=== PATIENT | female | born 2000 | race Caucasian/White ===

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

== ENCOUNTER 2020-01-02 06:12 | Day surgery (SDC) | payer BC, OTHER ==
[2019-12-28 16:16] VITALS: BMI 19.1
[~2020-01-02 06:12] MED LIST changes: +ACETAMINOPHEN TAB 500 MG TAB PO ONE; +DEXAMETHASONE SOD PHOSPHATE 10 MG/ML 1 ML VIAL IV ONE; +HEPARIN SODIUM,PORCINE 5,000 UNIT/ML 1 ML VIAL SQ ONE; +LACTATED RINGERS 1,000 ML IV SCH; +MIDAZOLAM 2 MG/2 ML VIAL IV PRN; +ONDANSETRON 4 MG/2 ML VIAL IVP ONE; +SCOPOLAMINE 1.5MG/72HR PATCH TRANSDERM ONE; -SODIUM CHLORIDE 0.9% 1,000 ML IV SCH
[2020-01-02] MEDS ORDERED: LIDOCAINE 1% (10MG/ML) FOR IV START INTRADERMA ONE (07:04)
[2020-01-02] MEDS ORDERED: LIDOCAINE 1%-EPI 1:100,000 20 ML VIAL SQ ONE (07:36)
[2020-01-02] MEDS ORDERED: NEOSTIGMINE 1 MG/ML 10 ML VIAL ONE (07:37)
[2020-01-02] MEDS ORDERED: GLYCOPYRROLATE 0.2 MG/ML 2 ML VIAL ONE (07:37)
[2020-01-02] MEDS ORDERED: fentaNYL (PF) 50 MCG/ML 2 ML AMP ONE (07:37)
[2020-01-02] MEDS ORDERED: PROPOFOL 10 MG/ML 20 ML VIAL IV ONE (07:37)
[2020-01-02] MEDS ORDERED: SUCCINYLCHOLINE CHLORIDE 100 MG/5 ML SYR IV ONE (07:37)
[2020-01-02] MEDS ORDERED: LIDOCAINE 1% INJ 10MG/ML (20 ML MDV) ONE (07:37)
[2020-01-02] MEDS ORDERED: ROCURONIUM 10 MG/ML (10 ML VIAL) IV ONE (07:37)
[2020-01-02] MEDS ORDERED: MIDAZOLAM 2 MG/2 ML VIAL ONE (07:37)
--- NOTE | 2020-01-02 07:53 | P.GSHP ---
History of Present Illness H&P Date: 01/02/20 Chief Complaint: Resident quadrant pain This a [age] female with complaints of right quadrant pain. Her recent HIDA scan shows a diminished ejection fraction consistent with chronic cholecystitis and biliary dyskinesia. she presents today for laparoscopic cholecystectomy. Past Medical History Past Medical History: Asthma, Syncope Additional Past Medical History / Comment(s): Low BP. Hx fainting episodes occasionally since 2015, was told could be her low BP-not sure, recent admission in hospital beginning of December for abd. pain & diarrhea-dx. w/C-diff, finished antibiotics, no active diarrhea for about a week per pt. History of Any Multi-Drug Resistant Organisms: C-DIFF Date of last positivie culture/infection: 12/08/19 MDRO Source:: stool Past Surgical History: No Surgical Hx Reported Additional Past Surgical History / Comment(s): EGD Past Anesthesia/Blood Transfusion Reactions: No Reported Reaction Additional Past Anesthesia/Blood Transfusion Reaction / Comment(s): scope 11/2019 Smoking Status: Never smoker - Past Family History Mother Family Medical History: No Reported History Additional Family Medical History / Comment(s): Has gallbladder issues. Father Family Medical History: No Reported History Medications and Allergies Home Medications Medication Instructions Recorded Confirmed Type Norgestimate-Ethinyl Estradiol 1 tab PO HS 08/30/15 01/02/20 History [Tri-Sprintec Tablet] Loratadine [Claritin] 10 mg PO HS 11/23/19 01/02/20 History Allergies Allergy/AdvReac Type Severity Reaction Status Date / Time No Known Allergies Allergy Verified 12/28/19 16:08 Surgical - Exam Vital Signs Temp Pulse Resp BP Pulse Ox 97.5 F L 99 16 129/80 100 01/02/20 06:45 01/02/20 06:45 01/02/20 06:45 01/02/20 06:45 01/02/20 06:45 - General well developed, well nourished, no distress - Eyes PERRL - ENT normal pinna - Neck no masses - Respiratory normal expansion - Cardiovascular Rhythm: regular - Abdomen Abdomen: soft, non tender Assessment and Plan Assessment: Chronic cholecystitis. We'll perform laparoscopic cholecystectomy.
--- NOTE | 2020-01-02 08:23 | P.OP ---
Date of Procedure: 01/02/20 Preoperative Diagnosis: Cholecystitis Postoperative Diagnosis: Cholecystitis Procedure(s) Performed: Laparoscopic cholecystectomy Anesthesia: IRENE Surgeon: Boris Vee Estimated Blood Loss (ml): 10 Pathology: other (Gallbladder) Condition: stable Disposition: PACU Description of Procedure: The patient was placed on the operating table. The patient received a general endotracheal tube anesthesia. The patients abdomen was prepped and draped in the usual sterile fashion. Through an infraumbilical stab incision, the fascia of the anterior abdominal wall was grasped with a pair of Kochers and then the Veress needle was placed in the peritoneal cavity. Position of the Veress needle was confirmed with positive drop test. The abdomen was then insufflated. After adequate insufflation, the 10 mm trocar was placed in the peritoneal cavity. Following this the laparoscope was placed in the peritoneal cavity. The patient was placed in the head-up, right side up position and then a 5 mm trocar was placed in the right lateral and right subcostal position under direct visualization. A 8 mm trocar was placed in the epigastric position. The gallbladder was grasped in the fundus and infundibulum. Traction on the gallbladder was placed in the lateral and the cephalad positions. The triangle of Calot was visualized.. The cystic duct was bluntly dissected until the union of the cystic duct and common bile duct was seen. A critical view of safety was achieved. The cystic duct was then divided and sealed with the Harmonic scissors. A PDS Endoloop was then placed throughout the cystic duct stump. The cystic artery divided and sealed with the Harmonic scissors. The gallbladder was then removed from the liver bed using Harmonic scissors. The gallbladder was then extracted through the epigastric port site. Operative field was checked for any bleeding spots and Harmonic scissors was used to coagulate the liver bed. The abdomen was irrigated. The trocars were removed. The skin was closed using interrupted 3-0 Vicryl suture. Dermabond dressing were applied. The patient tolerated the procedure well.
[2020-01-02 08:37] VITALS: TEMP 97.9
[2020-01-02] MEDS: HYDROmorphone 0.5 MG/0.5 ML SYRINGE IVP PRN ×2 (08:39→09:00)
[2020-01-02 08:48] VITALS: RESP 16
[2020-01-02] MEDS ORDERED: SODIUM CHLORIDE 0.9% 1,000 ML IV ONE ×2 (09:02)
[2020-01-02] MEDS ORDERED: ONDANSETRON 4 MG/2 ML VIAL ONE (09:27)
[2020-01-02] MEDS ORDERED: ONDANSETRON 4 MG/2 ML VIAL IVP ONE (09:29)
[2020-01-02] MEDS ORDERED: diphenhydrAMINE 50 MG/ML 1 ML VIAL ONE (10:14)
[2020-01-02] MEDS ORDERED: diphenhydrAMINE 50 MG/ML 1 ML VIAL IVP ONE (10:18)
[2020-01-02 10:41] VITALS: BP 120/91; PULSE 70
== END 2020-01-02 11:16 | disposition home or self-care (01) ==
LOC: OR 06:12
PROVIDERS: ATTEND Surgery
DX: K81.2 Acute cholecystitis with chronic cholecystitis (principal); J45.909 Unspecified asthma, uncomplicated; Z79.3 Long term (current) use of hormonal contraceptives; Z79.899 Other long term (current) drug therapy; Z86.19 Personal history of other infectious and parasitic diseases; Z98.890 Other specified postprocedural states
CPT/HCPCS: 81025; 88304; 47562; J2250; J1200; J1644; J1100; J2710; J0690; J2405; J2001; J3010; J0330; J2704; J1170

== ENCOUNTER 2020-01-02 14:02 | Observation (INO) | payer BC, OTHER ==
[2020-01-02] MEDS ORDERED: METOCLOPRAMIDE 5 MG/ML 2 ML VIAL IVP STA (14:34)
[2020-01-02] MEDS ORDERED: SODIUM CHLORIDE 0.9% 1,000 ML IV ONE (14:36)
[2020-01-02] MEDS ORDERED: ONDANSETRON 4 MG/2 ML VIAL IVP STA (14:43)
[2020-01-02 14:47] LABS: Basophils % (A) 0 %; Eosinophils % (A) 0 %; HCT 36.2 % (34.0-46.0); HGB 11.4 gm/dL (11.4-16.0); Hypochromasia Slight; Lymphocytes # (A) 0.8 k/uL (1.0-4.8); Lymphocytes % (A) 8 %; MCH 24.5 pg (25.0-35.0); MCHC 31.6 g/dL (31.0-37.0); MCV 77.6 fL (80.0-100.0); Mean Platelet Volume 7.2; Microcytosis Slight; Monocytes # (A) 0.1 k/uL (0-1.0); Monocytes % (A) 1 %; Neutrophils # (A) 9.6 k/uL (1.3-7.7); Neutrophils % (A) 91 %; Platelet Count 343 k/uL (150-450); RBC 4.66 m/uL (3.80-5.40); RDW 15.9 % (11.5-15.5); WBC 10.6 k/uL (4.0-11.0)
--- NOTE | 2020-01-02 14:55 | ED ---
General Adult HPI - General Chief complaint: Nausea/Vomiting/Diarrhea Stated complaint: Post Op vomiting Time Seen by Provider: 01/02/20 14:23 Source: patient, family, RN notes reviewed, old records reviewed Mode of arrival: wheelchair Limitations: no limitations - History of Present Illness Initial comments: 19-year-old female patient to ED for nausea and vomiting. Patient was that she had a cholecystectomy performed today. Had this done at about 6 AM. Reports that since she was released from the hospital around 10 AM she has had nausea and vomiting. Denies any other complaints. - Related Data Home Medications Medication Instructions Recorded Confirmed Norgestimate-Ethinyl Estradiol 1 tab PO HS 08/30/15 01/02/20 [Tri-Sprintec Tablet] Loratadine [Claritin] 10 mg PO HS 11/23/19 01/02/20 Previous Rx's Medication Instructions Recorded Acetaminophen Tab [Tylenol] 650 mg PO Q6H #30 tab 01/02/20 Docusate [Colace] 100 mg PO BID #20 capsule 01/02/20 Ibuprofen [Motrin] 600 mg PO Q6HR PRN #40 tab 01/02/20 oxyCODONE HCL [OxyIR] 5 mg PO Q4H PRN 3 Days #18 tab 01/02/20 Allergies Allergy/AdvReac Type Severity Reaction Status Date / Time No Known Allergies Allergy Verified 01/02/20 15:09 Review of Systems ROS Statement: Those systems with pertinent positive or pertinent negative responses have been documented in the HPI. ROS Other: All systems not noted in ROS Statement are negative. Past Medical History Past Medical History: Asthma, Syncope Additional Past Medical History / Comment(s): Low BP. Hx fainting episodes occasionally since 2015, was told could be her low BP-not sure, recent admission in hospital beginning of December for abd. pain & diarrhea-dx. w/C-diff, finished antibiotics, no active diarrhea for about a week per pt. History of Any Multi-Drug Resistant Organisms: C-DIFF Date of last positivie culture/infection: 12/08/19 MDRO Source:: stool Past Surgical History: Cholecystectomy Additional Past Surgical History / Comment(s): EGD Past Anesthesia/Blood Transfusion Reactions: No Reported Reaction Additional Past Anesthesia/Blood Transfusion Reaction / Comment(s): scope 11/2019 Past Psychological History: No Psychological Hx Reported Smoking Status: Never smoker Past Alcohol Use History: None Reported Past Drug Use History: Marijuana - Past Family History Mother Family Medical History: No Reported History Additional Family Medical History / Comment(s): Has gallbladder issues. Father Family Medical History: No Reported History General Exam - General Exam Comments Initial Comments: Constitutional: NAD, AOX3, Pt has pleasant affect. HEENT: NC/AT, trachea midline, neck supple, no lymphadenopathy. External ears appear normal, without discharge. Mucous membranes moist. Eyes PERRLA, EOM intact. There is no scleral icterus. No pallor noted. Cardiopulmonary: RRR, no murmurs, rubs or gallops, no JVD noted. Lungs CTAB in anterior and posterior hall. No peripheral edema. Abdominal exam: Abdomen soft and non-distended. Abdomen non-tender to palpation in all 4 quadrants. Bowel sounds active in LLQ. No hepatosplenomegaly. No ecchymosis Neuro: CN II-XII grossly intact. No nuchal rigidity. MSK: Full active ROM in upper and lower extremities, 5/5 stregnth. Limitations: no limitations Course Vital Signs 01/02/20 01/02/20 01/02/20 14:18 16:12 16:26 Temperature 97.9 F Pulse Rate 99 81 81 Respiratory 18 16 16 Rate Blood Pressure 132/80 136/82 127/85 O2 Sat by Pulse 97 99 96 Oximetry 01/02/20 18:39 Temperature Pulse Rate 93 Respiratory 16 Rate Blood Pressure 127/86 O2 Sat by Pulse 98 Oximetry Medical Decision Making - Medical Decision Making 19 year old female patient who had laparoscopic cholecystectomy earlier today presents to ED for intractable nausea and vomiting. multiple medications attem pted patient still having nausea and vomiting. Will be admitted for observation to Dr. Rider who performed surgery. Case discussed with Dr. Velarde. - Lab Data Result diagrams: 01/02/20 14:41 01/02/20 14:41 Lab Results 01/02/20 01/02/20 Range/Units 14:41 14:41 WBC 10.6 (4.0-11.0) k/uL RBC 4.66 (3.80-5.40) m/uL Hgb 11.4 (11.4-16.0) gm/dL Hct 36.2 (34.0-46.0) % MCV 77.6 L (80.0-100.0) fL MCH 24.5 L (25.0-35.0) pg MCHC 31.6 (31.0-37.0) g/dL RDW 15.9 H (11.5-15.5) % Plt Count 343 (150-450) k/uL Neutrophils % 91 % Lymphocytes % 8 % Monocytes % 1 % Eosinophils % 0 % Basophils % 0 % Neutrophils # 9.6 H (1.3-7.7) k/uL Lymphocytes # 0.8 L (1.0-4.8) k/uL Monocytes # 0.1 (0-1.0) k/uL Eosinophils # 0.0 (0-0.7) k/uL Basophils # 0.0 (0-0.2) k/uL Hypochromasia Slight Microcytosis Slight Sodium 133 L (137-145) mmol/L Potassium 4.3 (3.5-5.1) mmol/L Chloride 105 (98-107) mmol/L Carbon Dioxide 16 L (22-30) mmol/L Anion Gap 12 mmol/L BUN 5 L (7-17) mg/dL Creatinine 0.60 (0.52-1.04) mg/dL Est GFR (CKD-EPI)AfAm >90 (>60 ml/min/1.73 sqM) Est GFR (CKD-EPI)NonAf >90 (>60 ml/min/1.73 sqM) Glucose 140 H (74-99) mg/dL Calcium 8.9 (8.4-10.2) mg/dL Total Bilirubin 0.8 (0.2-1.3) mg/dL AST 55 H (14-36) U/L ALT 73 H (4-34) U/L Alkaline Phosphatase 117 (38-126) U/L Total Protein 7.7 (6.3-8.2) g/dL Albumin 4.1 (3.5-5.0) g/dL Disposition Clinical Impression: Intractable nausea and vomiting Disposition: ADMITTED IP TO THIS HOSP Condition: Fair Is patient prescribed a controlled substance at d/c from ED?: No Referrals: Barrie Jin DO [Primary Care Provider] - 1-2 days
[2020-01-02 14:56] LABS: ALT 73 U/L (4-34); AST 55 U/L (14-36); African American GFR (CKD) >90 (>60 ml/min/1.73 sqM); Albumin 4.1 g/dL (3.5-5.0); Alkaline Phosphatase 117 U/L (38-126); Anion Gap 12 mmol/L; Blood Urea Nitrogen 5 mg/dL (7-17); Calcium 8.9 mg/dL (8.4-10.2); Carbon Dioxide 16 mmol/L (22-30); Chloride 105 mmol/L (98-107); Glucose 140 mg/dL (74-99); Non-African American GFR(CKD) >90 (>60 ml/min/1.73 sqM); Potassium 4.3 mmol/L (3.5-5.1); Sodium 133 mmol/L (137-145); Total Bilirubin 0.8 mg/dL (0.2-1.3); Total Protein 7.7 g/dL (6.3-8.2)
[2020-01-02] MEDS ORDERED: PROMETHAZINE INJ 25 MG in SODIUM CHLORIDE 0.9% 50 ML IVPB STA (15:06)
[2020-01-02] MEDS ORDERED: diphenhydrAMINE 50 MG/ML 1 ML VIAL IVP STA (16:13)
[2020-01-02] MEDS ORDERED: DIAZEPAM 5 MG/ML 2 ML INJ IVP STA ×2 (16:28→17:43)
[2020-01-02] MEDS ORDERED: HYDROmorphone 0.5 MG/0.5 ML SYRINGE IVP STA (18:14)
[2020-01-02] MEDS ORDERED: SODIUM CHLORIDE 0.9% 1,000 ML IV SCH (18:30)
[2020-01-02] MEDS ORDERED: DEXTROSE 5%-0.45% NACL 1,000 ML IV ONE (19:09)
[2020-01-02] MEDS ORDERED: NALOXONE 0.4 MG/ML 1 ML VIAL IV PRN (19:19)
[2020-01-02] MEDS ORDERED: HYDROmorphone 0.5 MG/0.5 ML SYRINGE IVP PRN (19:19)
[2020-01-02] MEDS ORDERED: ONDANSETRON 4 MG/2 ML VIAL IVP PRN (19:19)
[2020-01-02] MEDS ORDERED: METOCLOPRAMIDE 5 MG/ML 2 ML VIAL IVP PRN (19:33)
[2020-01-03] MEDS ORDERED: diphenhydrAMINE 50 MG/ML 1 ML VIAL IVP PRN (00:36)
[2020-01-03] MEDS ORDERED: PROMETHAZINE INJ 25 MG in SODIUM CHLORIDE 0.9% 50 ML IVPB PRN (01:00)
[2020-01-03 08:40] VITALS: BP 106/69; PULSE 70; RESP 18; TEMP 98.1
[2020-01-03] MEDS ORDERED: BENZOCAINE/MENTHOL LOZENG 1 EACH LOZENGE MUCOUS MEM PRN (11:55)
--- NOTE | 2020-01-03 12:08 | P.GSHP ---
History of Present Illness H&P Date: 01/03/20 CHIEF COMPLAINT: Nausea and vomiting HISTORY OF PRESENT ILLNESS: This is a 19-year-old female who had Laparoscopic cholecystectomy for cholecystitis with Dr. Vee yesterday. She also has a known history of C. diff, asthma and syncope. apparently patient had the procedure done around 6 AM and was discharged from the hospital around 10 AM. She reports that since she had been home she had nausea and vomiting. She was able to keep anything down. She came back into the emergency room for further evaluation. Patient was started on IV fluids. She is currently on a clear liquid diet and was only able to eat a Popsicle. She reports her abdominal pain is controlled. She denies any diarrhea. Denies any fever. She is passing gas PAST MEDICAL HISTORY: See list. PAST SURGICAL HISTORY: See list. MEDICATIONS: See list. ALLERGIES: See list. SOCIAL HISTORY: No illicit drug use. REVIEW OF SYSTEMS: CONSTITUTIONAL: Denies fever or chills. HEENT: Denies blurred vision, vision changes, or eye pain. Denies hemoptysis CARDIOVASCULAR: Denies chest pain or pressure. RESPIRATORY: No shortness of breath. GASTROINTESTINAL: See HPI for pertinent findings HEMATOLOGIC: Denies bleeding disorders. GENITOURINARY: Denies any blood in urine or increased urinary frequency. SKIN: Denies pruitis. Denies rash. PHYSICAL EXAM: VITAL SIGNS: Reviewed GENERAL: Well-developed in no acute distress. HEENT: No sclera icterus. Extraocular movements grossly intact. Moist buccal mucosa. Head is atraumatic, normocephalic. No nasal drainage. ABDOMEN: Soft. Nontender. Nondistended. Incision sites clean dry and intact NEUROLOGIC: Alert and oriented. Cranial nerves II through XII grossly intact. LABORATORY DATA: WBC 10.6 CO2 16 AST 55 ALT 73 Creatinine 0.60 IMAGING: ASSESSMENT: 1. Nausea and vomiting likely secondary to anesthesia From recent cholecystectomy 2. Status post laparoscopic cholecystectomy for cholecystitispostop day #1 PLAN: -Advance diet to a full liquid diet -Advised patient to not use narcotics and only use Tylenol for pain -Anticipating possible discharge later this afternoon if patient tolerates full liquid diet Physician Relief Worker note has been reviewed by physician. Signing provider agrees with the documented findings, assessment, and plan of care. Past Medical History Past Medical History: Asthma, Syncope Additional Past Medical History / Comment(s): Low BP. Hx fainting episodes o ccasionally since 2015, was told could be her low BP-not sure, recent admission in hospital beginning of December for abd. pain & diarrhea-dx. w/C-diff, finished antibiotics. History of Any Multi-Drug Resistant Organisms: C-DIFF Date of last positivie culture/infection: 12/08/19 MDRO Source:: stool Past Surgical History: Cholecystectomy Additional Past Surgical History / Comment(s): EGD Past Anesthesia/Blood Transfusion Reactions: Postoperative Nausea & Vomiting (PONV) Additional Past Anesthesia/Blood Transfusion Reaction / Comment(s): scope 11/2019 Past Psychological History: No Psychological Hx Reported Smoking Status: Never smoker Past Alcohol Use History: None Reported Past Drug Use History: Marijuana Additional Drug Use History / Comment(s): smokes marijuana daily. - Past Family History Mother Family Medical History: No Reported History Additional Family Medical History / Comment(s): Has gallbladder issues. Father Family Medical History: No Reported History Medications and Allergies Home Medications Medication Instructions Recorded Confirmed Type Norgestimate-Ethinyl Estradiol 1 tab PO HS 08/30/15 01/02/20 History [Tri-Sprintec Tablet] Loratadine [Claritin] 10 mg PO HS 11/23/19 01/02/20 History Allergies Allergy/AdvReac Type Severity Reaction Status Date / Time No Known Allergies Allergy Verified 01/02/20 15:09 Surgical - Exam Vital Signs Temp Pulse Resp BP Pulse Ox 97.9 F 99 18 132/80 97 01/02/20 14:18 01/02/20 14:18 01/02/20 14:18 01/02/20 14:18 01/02/20 14:18 Results - Labs 01/02/20 14:41 01/02/20 14:41 Abnormal Lab Results - Last 24 Hours (Table) 01/02/20 01/02/20 Range/Units 14:41 14:41 MCV 77.6 L (80.0-100.0) fL MCH 24.5 L (25.0-35.0) pg RDW 15.9 H (11.5-15.5) % Neutrophils # 9.6 H (1.3-7.7) k/uL Lymphocytes # 0.8 L (1.0-4.8) k/uL Sodium 133 L (137-145) mmol/L Carbon Dioxide 16 L (22-30) mmol/L BUN 5 L (7-17) mg/dL Glucose 140 H (74-99) mg/dL AST 55 H (14-36) U/L ALT 73 H (4-34) U/L Diabetes panel 01/02/20 Range/Units 14:41 Sodium 133 L (137-145) mmol/L Potassium 4.3 (3.5-5.1) mmol/L Chloride 105 (98-107) mmol/L Carbon Dioxide 16 L (22-30) mmol/L BUN 5 L (7-17) mg/dL Creatinine 0.60 (0.52-1.04) mg/dL Glucose 140 H (74-99) mg/dL Calcium 8.9 (8.4-10.2) mg/dL AST 55 H (14-36) U/L ALT 73 H (4-34) U/L Alkaline Phosphatase 117 (38-126) U/L Total Protein 7.7 (6.3-8.2) g/dL Albumin 4.1 (3.5-5.0) g/dL Calcium panel 01/02/20 Range/Units 14:41 Calcium 8.9 (8.4-10.2) mg/dL Albumin 4.1 (3.5-5.0) g/dL Pituitary panel 01/02/20 Range/Units 14:41 Sodium 133 L (137-145) mmol/L Potassium 4.3 (3.5-5.1) mmol/L Chloride 105 (98-107) mmol/L Carbon Dioxide 16 L (22-30) mmol/L BUN 5 L (7-17) mg/dL Creatinine 0.60 (0.52-1.04) mg/dL Glucose 140 H (74-99) mg/dL Calcium 8.9 (8.4-10.2) mg/dL Adrenal panel 01/02/20 Range/Units 14:41 Sodium 133 L (137-145) mmol/L Potassium 4.3 (3.5-5.1) mmol/L Chloride 105 (98-107) mmol/L Carbon Dioxide 16 L (22-30) mmol/L BUN 5 L (7-17) mg/dL Creatinine 0.60 (0.52-1.04) mg/dL Glucose 140 H (74-99) mg/dL Calcium 8.9 (8.4-10.2) mg/dL Total Bilirubin 0.8 (0.2-1.3) mg/dL AST 55 H (14-36) U/L ALT 73 H (4-34) U/L Alkaline Phosphatase 117 (38-126) U/L Total Protein 7.7 (6.3-8.2) g/dL Albumin 4.1 (3.5-5.0) g/dL
[2020-01-03] MEDS ORDERED: ACETAMINOPHEN TAB 325 MG TAB PO PRN (13:05)
[2020-01-03 14:45] LABS: African American GFR (CKD) >90 (>60 ml/min/1.73 sqM); Anion Gap 6 mmol/L; Blood Urea Nitrogen 2 mg/dL (7-17); Calcium 8.9 mg/dL (8.4-10.2); Carbon Dioxide 24 mmol/L (22-30); Chloride 108 mmol/L (98-107); Glucose 110 mg/dL (74-99); Non-African American GFR(CKD) >90 (>60 ml/min/1.73 sqM); Sodium 138 mmol/L (137-145)
--- NOTE | 2020-01-03 15:18 | P.DS ---
Providers Date of admission: 01/02/20 20:25 Expected date of discharge: 01/03/20 Attending physician: Boris Vee Primary care physician: Barrie Jin Hospital Course: Discharge diagnosis 1. Nausea and vomiting likely secondary to anesthesia from recent cholecystectomy 2. Status post laparoscopic cholecystectomy for cholecystitis postop day #1 Hospital course This is a 19-year-old female who had Laparoscopic cholecystectomy for cholecystitis with Dr. Vee yesterday. She also has a known history of C. diff, asthma and syncope. apparently patient had the procedure done around 6 AM and was discharged from the hospital around 10 AM. She reports that since she had been home she had nausea and vomiting. She was able to keep anything down. She came back into the emergency room for further evaluation. Patient was st arted on IV fluids. She is currently on a clear liquid diet and was only able to eat a Popsicle. She reports her abdominal pain is controlled. She denies any diarrhea. Denies any fever. She is passing gas. Patient's nausea and vomiting have resolved. It was likely secondary to the anesthesia from her surgery. She's tolerated advancement to a full liquid diet. She is afebrile. She is up and ambulating. She is passing gas. She is stable for discharge. Please refer to chart for any further details. Physician Qa Consultant note has been reviewed by physician. Signing provider agrees with the documented findings, assessment, and plan of care. Patient Condition at Discharge: Stable Plan - Discharge Summary Discharge Rx Participant: No New Discharge Prescriptions: Continue Norgestimate-Ethinyl Estradiol [Tri-Sprintec Tablet] 1 tab PO HS Loratadine [Claritin] 10 mg PO HS Discharge Medication List Norgestimate-Ethinyl Estradiol [Tri-Sprintec Tablet] 1 tab PO HS 08/30/15 [History] Loratadine [Claritin] 10 mg PO HS 11/23/19 [History] Follow up Appointment(s)/Referral(s): Barrie Jin DO [Primary Care Provider] - 1-2 days Boris Vee MD [STAFF PHYSICIAN] - 1 Week Activity/Diet/Wound Care/Special Instructions: Diet: Advance diet slowly at home to a low-fat diet No lifting over 10 pounds You may shower. No soaking or tub baths For 2 weeks Very light activity until you are reevaluated at your follow up appointment with your surgeon Patient should alternate with her Tylenol and Motrin for pain control. She received these prescriptions yesterday. Do not take the oxycodone Prescription that she received yesterday it may contribute to nausea and vomiting Discharge Disposition: HOME SELF-CARE
== END 2020-01-03 15:45 | disposition home or self-care (01) ==
LOC: EC 14:02 → 6PED 20:25
PROVIDERS: ADMIT Surgery; ATTEND Surgery
DX: R11.2 Nausea with vomiting, unspecified (principal); T88.59XA Other complications of anesthesia, initial encounter; Z98.890 Other specified postprocedural states; J45.909 Unspecified asthma, uncomplicated; Z90.49 Acquired absence of other specified parts of digestive tract
CPT/HCPCS: 96361 ×3; 96376 ×2; 96365; 96375; 99285; 36415; 80053; 80048; 85025; G0378 ×2; J1200 ×2; J2550; J2765; J3360; J2405; J1170

== ENCOUNTER 2020-01-07 17:32 | Emergency (ER) | payer BC, OTHER ==
[2020-01-07] MEDS ORDERED: SODIUM CHLORIDE 0.9% 1,000 ML IV STA (18:38)
[2020-01-07] MEDS ORDERED: METOCLOPRAMIDE 5 MG/ML 2 ML VIAL IVP STA (18:38)
[2020-01-07 19:13] LABS: Basophils # (A) 0.1 k/uL (0-0.2); Basophils % (A) 1 %; Eosinophils # (A) 0.1 k/uL (0-0.7); Eosinophils % (A) 2 %; HCT 46.5 % (34.0-46.0); HGB 14.3 gm/dL (11.4-16.0); Hypochromasia Slight; Lymphocytes # (A) 2.4 k/uL (1.0-4.8); Lymphocytes % (A) 30 %; MCH 23.9 pg (25.0-35.0); MCHC 30.8 g/dL (31.0-37.0); MCV 77.7 fL (80.0-100.0); Mean Platelet Volume 7.3; Microcytosis Slight; Monocytes # (A) 0.5 k/uL (0-1.0); Monocytes % (A) 7 %; Neutrophils # (A) 4.5 k/uL (1.3-7.7); Neutrophils % (A) 56 %; Platelet Count 462 k/uL (150-450); RBC 5.98 m/uL (3.80-5.40); RDW 15.8 % (11.5-15.5)
[2020-01-07 19:16] LABS: Appearance,Urine Cloudy (Clear); Bilirubin,Urine Negative (Negative); Blood,Urine Large (Negative); Color,Urine Light Red; Glucose,Urine (UA) Negative (Negative); Ketones,Urine 3+ (Negative); Leukocyte Esterase,Urine Small (Negative); Mucus,Urine Many /hpf; Nitrite,Urine Negative (Negative); PH, Urine 5.5 (5.0-8.0); Protein,Urine 1+ (Negative); RBC,Urine >182 /hpf (0-5); Specific Gravity,Urine 1.018 (1.001-1.035); Squamous Epithelial Cell,Urine 7 /hpf (0-4); Urobilinogen,Urine <2.0 mg/dL (<2.0); WBC,Urine 17 /hpf (0-5)
--- NOTE | 2020-01-07 19:16 | ED ---
General Adult HPI - General Chief complaint: Nausea/Vomiting/Diarrhea Stated complaint: no appetite,dehydrated/post surgery 01/01 Time Seen by Provider: 01/07/20 18:11 Source: patient, RN notes reviewed, old records reviewed Mode of arrival: ambulatory Limitations: no limitations - History of Present Illness Initial comments: 19-year-old female patient who is status post cholecystectomy on 01/01 presents to ED for evaluation of nausea and some diarrhea. Patient feels as if she is dehydrated. She has not been wanting to eat because she becomes nauseous, She reports that her abdomen is feeling much improved and her discomfort is minimal. Denies any other comlaints. Systemic: Pt denies fatigue, fever/chills, rash. Pt denies weakness, night sweats, weight loss. Neuro: Pt denies headache, visual disturbances, syncope or pre-syncope. HEENT: Pt denies ocular discharge or irritation, otalgia, rhinorrhea, pharyngitis or notable lymphadenopathy. Cardiopulmonary: Pt denies chest pain, SOB, heart palpitations, dyspnea on exertion. Abdominal/GI: Pt denies abdominal pain. : Pt denies dysuria, burning w/ urination, frequency/urgency. Denies new onset urinary or bowel incontinence. MSK: Pt denies myalgia, loss of strength or function in extremities. Neuro: Pt denies new onset weakness, paresthesias. - Related Data Home Medications Medication Instructions Recorded Confirmed Norgestimate-Ethinyl Estradiol 1 tab PO HS 08/30/15 01/02/20 [Tri-Sprintec Tablet] Loratadine [Claritin] 10 mg PO HS 11/23/19 01/02/20 Allergies Allergy/AdvReac Type Severity Reaction Status Date / Time No Known Allergies Allergy Verified 01/07/20 17:39 Review of Systems ROS Statement: Those systems with pertinent positive or pertinent negative responses have been documented in the HPI. ROS Other: All systems not noted in ROS Statement are negative. Past Medical History Past Medical History: Asthma, Syncope Additional Past Medical History / Comment(s): Low BP. Hx fainting episodes occasionally since 2015, was told could be her low BP-not sure, recent admission in hospital beginning of December for abd. pain & diarrhea-dx. w/C-diff, finished antibiotics. History of Any Multi-Drug Resistant Organisms: C-DIFF Date of last positivie culture/infection: 12/08/19 MDRO Source:: stool Past Surgical History: Cholecystectomy Additional Past Surgical History / Comment(s): EGD Past Anesthesia/Blood Transfusion Reactions: Postoperative Nausea & Vomiting (PONV) Additional Past Anesthesia/Blood Transfusion Reaction / Comment(s): scope 11/2019 Past Psychological History: No Psychological Hx Reported Smoking Status: Never smoker Past Alcohol Use History: None Reported Past Drug Use History: Marijuana - Past Family History Mother Family Medical History: No Reported History Additional Family Medical History / Comment(s): Has gallbladder issues. Father Family Medical History: No Reported History General Exam - General Exam Comments Initial Comments: Constitutional: NAD, AOX3, Pt has pleasant affect. HEENT: NC/AT, trachea midline, neck supple, no lymphadenopathy. Posterior pharynx non erythematous, without exudates. External ears appear normal, without discharge. Mucous membranes moist. Eyes PERRLA, EOM intact. There is no scleral icterus. No pallor noted. Cardiopulmonary: RRR, no murmurs, rubs or gallops, no JVD noted. Lungs CTAB in anterior and posterior hall. No peripheral edema. Abdominal exam: Abdomen soft and non-distended. Abdomen minimally tender around the port site. Otherwise no tenderness. No guarding no rigidity. incision sites are clean without erythema or drainage. No hepatosplenomegaly. No ecchymosis Neuro: CN II-XII grossly intact. No nuchal rigidity. No raccon eyes, no hampton sign, no hemotympanum. No cervical spinal tenderness. MSK: No posterior calf tenderness bilaterally, homans sign negative bilaterally. Posterior tibialis and radial pulse +2 bilaterally. Sensation intact in upper and lower extremities. Full active ROM in upper and lower extremities, 5/5 stregnth. Limitations: no limitations Course Vital Signs 01/07/20 01/07/20 01/07/20 17:35 19:37 19:46 Temperature 99.0 F 98.7 F Pulse Rate 140 H 87 Respiratory 17 16 16 Rate Blood Pressure 121/83 128/94 O2 Sat by Pulse 96 99 Oximetry Medical Decision Making - Medical Decision Making 19-year-old female patient ED for nausea after cholecystectomy 6 days. Patient vital signs are stable, afebrile. Physical exam displayed minmal tenderness around port site abdomen is otherwise nontender. Laboratory investigations the displayed dehydration. Patient is rehydrated. KUB displayed unremarkable a bdomen. Patient tolerated oral intake and room. Patient has follow-up with surgeon on Thursday. Will turn urine any worsening symptoms. Case discussed with Dr. Navarro. - Lab Data Result diagrams: 01/07/20 18:54 01/07/20 18:54 Lab Results 01/07/20 01/07/20 01/07/20 Range/Units 18:46 18:46 18:54 WBC 8.0 (4.0-11.0) k/uL RBC 5.98 H (3.80-5.40) m/uL Hgb 14.3 (11.4-16.0) gm/dL Hct 46.5 H (34.0-46.0) % MCV 77.7 L (80.0-100.0) fL MCH 23.9 L (25.0-35.0) pg MCHC 30.8 L (31.0-37.0) g/dL RDW 15.8 H (11.5-15.5) % Plt Count 462 H (150-450) k/uL Neutrophils % 56 % Lymphocytes % 30 % Monocytes % 7 % Eosinophils % 2 % Basophils % 1 % Neutrophils # 4.5 (1.3-7.7) k/uL Lymphocytes # 2.4 (1.0-4.8) k/uL Monocytes # 0.5 (0-1.0) k/uL Eosinophils # 0.1 (0-0.7) k/uL Basophils # 0.1 (0-0.2) k/uL Hypochromasia Slight Microcytosis Slight Sodium (137-145) mmol/L Potassium (3.5-5.1) mmol/L Chloride (98-107) mmol/L Carbon Dioxide (22-30) mmol/L Anion Gap mmol/L BUN (7-17) mg/dL Creatinine (0.52-1.04) mg/dL Est GFR (CKD-EPI)AfAm (>60 ml/min/1.73 sqM) Est GFR (CKD-EPI)NonAf (>60 ml/min/1.73 sqM) Glucose (74-99) mg/dL Plasma Lactic Acid Alek (0.7-2.0) mmol/L Calcium (8.4-10.2) mg/dL Total Bilirubin (0.2-1.3) mg/dL AST (14-36) U/L ALT (4-34) U/L Alkaline Phosphatase (38-126) U/L Total Protein (6.3-8.2) g/dL Albumin (3.5-5.0) g/dL Lipase (23-300) U/L Urine Color Light Red Urine Appearance Cloudy H (Clear) Urine pH 5.5 (5.0-8.0) Ur Specific [place] 1.018 (1.001-1.035) Urine Protein 1+ H (Negative) Urine Glucose (UA) Negative (Negative) Urine Ketones 3+ H (Negative) Urine Blood Large H (Negative) Urine Nitrite Negative (Negative) Urine Bilirubin Negative (Negative) Urine Urobilinogen <2.0 (<2.0) mg/dL Ur Leukocyte Esterase Small H (Negative) Urine RBC >182 H (0-5) /hpf Urine WBC 17 H (0-5) /hpf Ur Squamous Epith Cells 7 H (0-4) /hpf Urine Mucus Many H (None) /hpf Urine HCG, Qual Not Detected (Not Detectd) 01/07/20 01/07/20 Range/Units 18:54 18:54 WBC (4.0-11.0) k/uL RBC (3.80-5.40) m/uL Hgb (11.4-16.0) gm/dL Hct (34.0-46.0) % MCV (80.0-100.0) fL MCH (25.0-35.0) pg MCHC (31.0-37.0) g/dL RDW (11.5-15.5) % Plt Count (150-450) k/uL Neutrophils % % Lymphocytes % % Monocytes % % Eosinophils % % Basophils % % Neutrophils # (1.3-7.7) k/uL Lymphocytes # (1.0-4.8) k/uL Monocytes # (0-1.0) k/uL Eosinophils # (0-0.7) k/uL Basophils # (0-0.2) k/uL Hypochromasia Microcytosis Sodium 136 L (137-145) mmol/L Potassium 4.4 (3.5-5.1) mmol/L Chloride 101 (98-107) mmol/L Carbon Dioxide 21 L (22-30) mmol/L Anion Gap 14 mmol/L BUN 14 (7-17) mg/dL Creatinine 0.69 (0.52-1.04) mg/dL Est GFR (CKD-EPI)AfAm >90 (>60 ml/min/1.73 sqM) Est GFR (CKD-EPI)NonAf >90 (>60 ml/min/1.73 sqM) Glucose 90 (74-99) mg/dL Plasma Lactic Acid Alek 1.2 (0.7-2.0) mmol/L Calcium 10.0 (8.4-10.2) mg/dL Total Bilirubin 1.0 (0.2-1.3) mg/dL AST 44 H (14-36) U/L ALT 148 H (4-34) U/L Alkaline Phosphatase 121 (38-126) U/L Total Protein 8.7 H (6.3-8.2) g/dL Albumin 4.8 (3.5-5.0) g/dL Lipase 40 (23-300) U/L Urine Color Urine Appearance (Clear) Urine pH (5.0-8.0) Ur Specific [place] (1.001-1.035) Urine Protein (Negative) Urine Glucose (UA) (Negative) Urine Ketones (Negative) Urine Blood (Negative) Urine Nitrite (Negative) Urine Bilirubin (Negative) Urine Urobilinogen (<2.0) mg/dL Ur Leukocyte Esterase (Negative) Urine RBC (0-5) /hpf Urine WBC (0-5) /hpf Ur Squamous Epith Cells (0-4) /hpf Urine Mucus (None) /hpf Urine HCG, Qual (Not Detectd) Disposition Clinical Impression: Nausea Disposition: HOME SELF-CARE Condition: Stable Instructions (If sedation given, give patient instructions): Acute Nausea and Vomiting (ED) Additional Instructions: Follow up with PCP and surgeon tomorrow. Use dietary modifications as discussed. Return to ED with any worsening symptoms. Is patient prescribed a controlled substance at d/c from ED?: No Referrals: Barrie Jin DO [Primary Care Provider] - 1-2 days Boris Vee MD [STAFF PHYSICIAN] - 1-2 days
[2020-01-07 19:31] LABS: ALT 148 U/L (4-34); AST 44 U/L (14-36); African American GFR (CKD) >90 (>60 ml/min/1.73 sqM); Albumin 4.8 g/dL (3.5-5.0); Alkaline Phosphatase 121 U/L (38-126); Anion Gap 14 mmol/L; Blood Urea Nitrogen 14 mg/dL (7-17); Carbon Dioxide 21 mmol/L (22-30); Chloride 101 mmol/L (98-107); Glucose 90 mg/dL (74-99); Non-African American GFR(CKD) >90 (>60 ml/min/1.73 sqM); Potassium 4.4 mmol/L (3.5-5.1); Sodium 136 mmol/L (137-145); Total Protein 8.7 g/dL (6.3-8.2)
--- NOTE | 2020-01-07 19:44 | XR ---
EXAMINATION TYPE: XR KUB DATE OF EXAM: 01/07/2020 COMPARISON: 11/30/2019 INDICATION: Abdomen pain TECHNIQUE: Single view abdomen upright view FINDINGS: Normal colonic bowel gas is present. No free air is evident. No suspicious differential air-fluid lev els are present. No mass effect is evident. Psoas margins are normal. No organomegaly is present. IMPRESSION: 1. Unremarkable Abdomen
[2020-01-07 19:47] VITALS: TEMP 98.7
[2020-01-07 21:18] VITALS: BP 117/63; PULSE 84; RESP 18
== END 2020-01-07 21:15 | disposition home or self-care (01) ==
LOC: EC 17:32
DX: R11.0 Nausea (principal); E86.0 Dehydration; R10.819 Abdominal tenderness, unspecified site; Z79.3 Long term (current) use of hormonal contraceptives; Z79.899 Other long term (current) drug therapy; Z90.49 Acquired absence of other specified parts of digestive tract
CPT/HCPCS: 36415; 80053; 83605; 83690; 85025; 81001; 81025; 87086; 74018; 99284; 96374; 96361 ×2; J2765

== ENCOUNTER 2020-02-08 16:41 | Observation (INO) | payer BC, OTHER ==
[2020-02-08] MEDS ORDERED: METOCLOPRAMIDE 5 MG/ML 2 ML VIAL IVP STA (17:12)
[2020-02-08] MEDS ORDERED: diphenhydrAMINE 50 MG/ML 1 ML VIAL IVP STA (17:12)
[2020-02-08] MEDS ORDERED: SODIUM CHLORIDE 0.9% 1,000 ML IV STA (17:12)
[2020-02-08 17:41] LABS: Anisocytosis Slight; Basophils # (A) 0.1 k/uL (0-0.2); Basophils % (A) 0 %; Eosinophils % (A) 0 %; HCT 36.4 % (34.0-46.0); Lymphocytes % (A) 7 %; MCH 24.5 pg (25.0-35.0); MCHC 32.9 g/dL (31.0-37.0); MCV 74.3 fL (80.0-100.0); Microcytosis Slight; Monocytes # (A) 0.6 k/uL (0-1.0); Monocytes % (A) 4 %; Neutrophils # (A) 13.7 k/uL (1.3-7.7); Neutrophils % (A) 88 %; Platelet Count 427 k/uL (150-450); RDW 16.1 % (11.5-15.5); WBC 15.5 k/uL (4.0-11.0)
[2020-02-08 17:53] LABS: ALT 25 U/L (4-34); AST 33 U/L (14-36); African American GFR (CKD) >90 (>60 ml/min/1.73 sqM); Albumin 4.8 g/dL (3.5-5.0); Alkaline Phosphatase 115 U/L (38-126); Anion Gap 12 mmol/L; Blood Urea Nitrogen 13 mg/dL (7-17); Calcium 9.9 mg/dL (8.4-10.2); Carbon Dioxide 21 mmol/L (22-30); Chloride 103 mmol/L (98-107); Glucose 115 mg/dL (74-99); Lipase 19 U/L (23-300); Non-African American GFR(CKD) >90 (>60 ml/min/1.73 sqM); Potassium 4.1 mmol/L (3.5-5.1); Sodium 136 mmol/L (137-145); Total Bilirubin 1.3 mg/dL (0.2-1.3); Total Protein 8.5 g/dL (6.3-8.2)
[2020-02-08 17:58] LABS: Appearance,Urine Cloudy (Clear); Bilirubin,Urine Negative (Negative); Blood,Urine Trace (Negative); Color,Urine Yellow; Glucose,Urine (UA) Trace (Negative); Ketones,Urine 2+ (Negative); Leukocyte Esterase,Urine Trace (Negative); Mucus,Urine Many /hpf; Nitrite,Urine Negative (Negative); Protein,Urine 1+ (Negative); RBC,Urine 4 /hpf (0-5); Specific Gravity,Urine 1.033 (1.001-1.035); Squamous Epithelial Cell,Urine 12 /hpf (0-4); Urobilinogen,Urine <2.0 mg/dL (<2.0); WBC,Urine 7 /hpf (0-5)
--- NOTE | 2020-02-08 18:39 | ED ---
Nausea/Vomiting/Diarrhea HPI - General Chief complaint: Nausea/Vomiting/Diarrhea Stated complaint: vomiting Time Seen by Provider: 02/08/20 16:52 Source: patient Mode of arrival: ambulatory Limitations: no limitations - History of Present Illness Initial comments: 19-year-old female with history of cholecystectomy, C. diff, intractable nausea or vomiting presenting to emergency Department with chief complaint of nausea vomiting diarrhea. Patient reports yesterday she had some alcohol and woke up this morning with nausea and multiple episodes of nonbilious and nonbloody vomiting. Patient states she tried Zofran at home with no significant improve ment in symptoms. States that Reglan and Benadryl typically work for her. Patient states about 1 month ago she had cholecystectomy by Dr. calle. She reports having no symptoms until today. She also reports having one episode of diarrhea, nonbloody. She denies any abdominal pain, chest pain fevers night sweats or chills. Denies any vaginal or urinary symptoms. - Related Data Home Medications Medication Instructions Recorded Confirmed Norgestimate-Ethinyl Estradiol 1 tab PO HS 08/30/15 01/02/20 [Tri-Sprintec Tablet] Loratadine [Claritin] 10 mg PO HS 11/23/19 01/02/20 Allergies Allergy/AdvReac Type Severity Reaction Status Date / Time No Known Allergies Allergy Verified 02/08/20 16:49 Review of Systems ROS Statement: Those systems with pertinent positive or pertinent negative responses have been documented in the HPI. ROS Other: All systems not noted in ROS Statement are negative. Past Medical History Past Medical History: Asthma, Syncope Additional Past Medical History / Comment(s): Low BP. Hx fainting episodes occasionally since 2015, was told could be her low BP-not sure, recent admission in hospital beginning of December for abd. pain & diarrhea-dx. w/C-diff, finished antibiotics. History of Any Multi-Drug Resistant Organisms: C-DIFF Date of last positivie culture/infection: 12/08/19 MDRO Source:: stool Past Surgical History: Cholecystectomy Additional Past Surgical History / Comment(s): EGD Past Anesthesia/Blood Transfusion Reactions: Postoperative Nausea & Vomiting (PONV) Additional Past Anesthesia/Blood Transfusion Reaction / Comment(s): scope 11/2019 Past Psychological History: No Psychological Hx Reported Smoking Status: Never smoker Past Alcohol Use History: None Reported Past Drug Use History: Marijuana - Past Family History Mother Family Medical History: No Reported History Additional Family Medical History / Comment(s): Has gallbladder issues. Father Family Medical History: No Reported History General Exam Limitations: no limitations General appearance: alert, in no apparent distress Head exam: Present: atraumatic, normocephalic, normal inspection Eye exam: Present: normal appearance, PERRL, EOMI Pupils: Present: normal accommodation ENT exam: Present: normal exam, normal oropharynx, mucous membranes dry, TM's normal bilaterally, normal external ear exam Neck exam: Present: normal inspection, full ROM. Absent: tenderness, meningismus, lymphadenopathy, thyromegaly Respiratory exam: Present: normal lung sounds bilaterally. Absent: respiratory distress, wheezes Cardiovascular Exam: Present: regular rate, normal rhythm, normal heart sounds. Absent: systolic murmur, diastolic murmur GI/Abdominal exam: Present: soft. Absent: distended, tenderness, guarding, rebound Extremities exam: Present: normal inspection, full ROM, normal capillary refill. Absent: tenderness, pedal edema, joint swelling, calf tenderness Back exam: Present: normal inspection, full ROM. Absent: tenderness, CVA tenderness (R), CVA tenderness (L) Neurological exam: Present: alert, oriented X3, CN II-XII intact, normal gait Psychiatric exam: Present: normal affect, normal mood. Absent: depressed, agitated Skin exam: Present: warm, dry, intact, normal color Course Vital Signs 02/08/20 16:47 Temperature 98.6 F Pulse Rate 55 L Respiratory 20 Rate Blood Pressure 126/82 O2 Sat by Pulse 99 Oximetry Medical Decision Making - Medical Decision Making 19-year-old female with history of C. diff, intractable nausea vomiting presenting to the emergency department with a chief complaint of nausea or vomiting diarrhea. CBC reveals leukocytosis of 15 K chest suspect is secondary to the multiple vomiting episodes. Patient oriented Zofran home. She was given Benadryl and Reglan here with no significant for when his symptoms. Patient was also given some Compazine and she continues to be nauseous. UA shows +2 ketones. She is not . She was given IV fluids 2. C. diff sample pending. Patient will be admitted for intractable nausea or vomiting. I spoke to SALAZAR Maki who will admit for Dr. Pierre. Case discussed with Dr. Peraza - Lab Data Result diagrams: 02/08/20 17:35 02/08/20 17:35 Lab Results 02/08/20 02/08/20 02/08/20 Range/Units 17:35 17:35 17:35 WBC 15.5 H (4.0-11.0) k/uL RBC 4.90 (3.80-5.40) m/uL Hgb 12.0 (11.4-16.0) gm/dL Hct 36.4 (34.0-46.0) % MCV 74.3 L (80.0-100.0) fL MCH 24.5 L (25.0-35.0) pg MCHC 32.9 (31.0-37.0) g/dL RDW 16.1 H (11.5-15.5) % Plt Count 427 (150-450) k/uL MPV 8.0 Neutrophils % 88 % Lymphocytes % 7 % Monocytes % 4 % Eosinophils % 0 % Basophils % 0 % Neutrophils # 13.7 H (1.3-7.7) k/uL Lymphocytes # 1.0 (1.0-4.8) k/uL Monocytes # 0.6 (0-1.0) k/uL Eosinophils # 0.0 (0-0.7) k/uL Basophils # 0.1 (0-0.2) k/uL Anisocytosis Slight Microcytosis Slight Sodium (137-145) mmol/L Potassium (3.5-5.1) mmol/L Chloride (98-107) mmol/L Carbon Dioxide (22-30) mmol/L Anion Gap mmol/L BUN (7-17) mg/dL Creatinine (0.52-1.04) mg/dL Est GFR (CKD-EPI)AfAm (>60 ml/min/1.73 sqM) Est GFR (CKD-EPI)NonAf (>60 ml/min/1.73 sqM) Glucose (74-99) mg/dL Calcium (8.4-10.2) mg/dL Total Bilirubin (0.2-1.3) mg/dL AST (14-36) U/L ALT (4-34) U/L Alkaline Phosphatase (38-126) U/L Total Protein (6.3-8.2) g/dL Albumin (3.5-5.0) g/dL Lipase (23-300) U/L Urine Color Yellow Urine Appearance Cloudy H (Clear) Urine pH 7.0 (5.0-8.0) Ur Specific [place] 1.033 (1.001-1.035) Urine Protein 1+ H (Negative) Urine Glucose (UA) Trace H (Negative) Urine Ketones 2+ H (Negative) Urine Blood Trace H (Negative) Urine Nitrite Negative (Negative) Urine Bilirubin Negative (Negative) Urine Urobilinogen <2.0 (<2.0) mg/dL Ur Leukocyte Esterase Trace H (Negative) Urine RBC 4 (0-5) /hpf Urine WBC 7 H (0-5) /hpf Ur Squamous Epith Cells 12 H (0-4) /hpf Urine Mucus Many H (None) /hpf Urine HCG, Qual Not Detected (Not Detectd) 02/08/20 Range/Units 17:35 WBC (4.0-11.0) k/uL RBC (3.80-5.40) m/uL Hgb (11.4-16.0) gm/dL Hct (34.0-46.0) % MCV (80.0-100.0) fL MCH (25.0-35.0) pg MCHC (31.0-37.0) g/dL RDW (11.5-15.5) % Plt Count (150-450) k/uL MPV Neutrophils % % Lymphocytes % % Monocytes % % Eosinophils % % Basophils % % Neutrophils # (1.3-7.7) k/uL Lymphocytes # (1.0-4.8) k/uL Monocytes # (0-1.0) k/uL Eosinophils # (0-0.7) k/uL Basophils # (0-0.2) k/uL Anisocytosis Microcytosis Sodium 136 L (137-145) mmol/L Potassium 4.1 (3.5-5.1) mmol/L Chloride 103 (98-107) mmol/L Carbon Dioxide 21 L (22-30) mmol/L Anion Gap 12 mmol/L BUN 13 (7-17) mg/dL Creatinine 0.63 (0.52-1.04) mg/dL Est GFR (CKD-EPI)AfAm >90 (>60 ml/min/1.73 sqM) Est GFR (CKD-EPI)NonAf >90 (>60 ml/min/1.73 sqM) Glucose 115 H (74-99) mg/dL Calcium 9.9 (8.4-10.2) mg/dL Total Bilirubin 1.3 (0.2-1.3) mg/dL AST 33 (14-36) U/L ALT 25 (4-34) U/L Alkaline Phosphatase 115 (38-126) U/L Total Protein 8.5 H (6.3-8.2) g/dL Albumin 4.8 (3.5-5.0) g/dL Lipase 19 L (23-300) U/L Urine Color Urine Appearance (Clear) Urine pH (5.0-8.0) Ur Specific [place] (1.001-1.035) Urine Protein (Negative) Urine Glucose (UA) (Negative) Urine Ketones (Negative) Urine Blood (Negative) Urine Nitrite (Negative) Urine Bilirubin (Negative) Urine Urobilinogen (<2.0) mg/dL Ur Leukocyte Esterase (Negative) Urine RBC (0-5) /hpf Urine WBC (0-5) /hpf Ur Squamous Epith Cells (0-4) /hpf Urine Mucus (None) /hpf Urine HCG, Qual (Not Detectd) Disposition Clinical Impression: Intractable nausea and vomiting Disposition: ADMITTED IP TO THIS HOSP Condition: Stable Instructions (If sedation given, give patient instructions): Acute Nausea and Vomiting (ED) Is patient prescribed a controlled substance at d/c from ED?: No Referrals: Barrie Jin DO [Primary Care Provider] - 1-2 days Time of Disposition: 19:26
[2020-02-08] MEDS ORDERED: PROCHLORPERAZINE INJ 10 MG/2 ML VIAL IVP STA (19:08)
[2020-02-08] MEDS ORDERED: PROMETHAZINE 25 MG TAB PO PRN (19:19)
[2020-02-08] MEDS ORDERED: NALOXONE 0.4 MG/ML 1 ML VIAL IV PRN (19:19)
[2020-02-08] MEDS ORDERED: HYDROcodone/APAP 5-325MG 1 EACH TAB PO PRN (19:19)
[2020-02-08] MEDS ORDERED: PROCHLORPERAZINE SUPPOSITORY 25 MG SUPP RECTAL PRN (19:19)
[2020-02-08] MEDS ORDERED: ONDANSETRON 4 MG/2 ML VIAL IVP PRN (19:19)
[2020-02-08] MEDS ORDERED: MORPHINE SULFATE 4 MG/ML SYRINGE IV PRN (19:19)
[2020-02-08] MEDS ORDERED: ACETAMINOPHEN TAB 325 MG TAB PO PRN (19:19)
[2020-02-08] MEDS ORDERED: LORazepam 2 MG/ML INJ IV PRN (19:19)
[2020-02-08] MEDS ORDERED: PROCHLORPERAZINE 5 MG TAB PO PRN (19:19)
[2020-02-08] MEDS: SODIUM CHLORIDE 0.9% 1,000 ML IV SCH (20:14)
[2020-02-09 08:09] VITALS: BP 115/74; PULSE 96; RESP 16; TEMP 98.6
[2020-02-09] MEDS ORDERED: PANTOPRAZOLE 40 MG/10 ML VIAL IV SCH (09:00)
[2020-02-09 09:09] LABS: Anisocytosis Slight; Basophils % (A) 0 %; Eosinophils # (A) 0.1 k/uL (0-0.7); Eosinophils % (A) 1 %; HCT 33.6 % (34.0-46.0); HGB 10.6 gm/dL (11.4-16.0); Hypochromasia Moderate; Lymphocytes # (A) 2.2 k/uL (1.0-4.8); Lymphocytes % (A) 25 %; MCH 24.2 pg (25.0-35.0); MCHC 31.5 g/dL (31.0-37.0); MCV 76.8 fL (80.0-100.0); Mean Platelet Volume 8.3; Microcytosis Slight; Monocytes # (A) 0.7 k/uL (0-1.0); Monocytes % (A) 7 %; Neutrophils # (A) 5.8 k/uL (1.3-7.7); Neutrophils % (A) 65 %; Platelet Count 354 k/uL (150-450); RBC 4.37 m/uL (3.80-5.40); RDW 16.2 % (11.5-15.5); WBC 8.9 k/uL (4.0-11.0)
[2020-02-09 09:14] LABS: African American GFR (CKD) >90 (>60 ml/min/1.73 sqM); Anion Gap 4 mmol/L; Blood Urea Nitrogen 11 mg/dL (7-17); Calcium 8.6 mg/dL (8.4-10.2); Carbon Dioxide 23 mmol/L (22-30); Chloride 108 mmol/L (98-107); Glucose 86 mg/dL (74-99); Non-African American GFR(CKD) >90 (>60 ml/min/1.73 sqM); Potassium 3.7 mmol/L (3.5-5.1); Sodium 135 mmol/L (137-145)
[2020-02-09 09:18] LABS: HCG,Qualitative Serum Not Detected
[2020-02-09] MEDS: SODIUM CHLORIDE 0.9% 1,000 ML IV SCH (10:00)
--- NOTE | 2020-02-10 01:06 | P.HPIM ---
History of Present Illness Please consider this note as combined H&P and discharge summary Diagnoses: Recurrent nausea vomiting , related to alcohol drinking, marijuana and possible elements of UTI. Stopped in the morning Possible mild sepsis with leukocytosis and mild fever, resolved immediately next day Marijuana use on daily basis, patient is counseled to quit Recent C. difficile colitis in October 2019. Recent C. difficile negative Asthma stable Chronic hypotension on midodrine at Hospital course: Patient exam 19-year-old female with a known history of recent C. difficile infection and was discharged on 10/24/2019, asthma, smoked marijuana on daily basis and chronic hypotension currently on midodrine . She has history of E. coli UTI came to the hospital with complaints of nausea vomiting. Patient had a cup of liquor yesterday after that she started having nausea vomiting, she states that if she Should've that she developed similar symptoms, also she admits using marijuana and also she is sexually active and feeling some urgency but when she goes to the restroom she does not make much urine however when she urinates it looks normal with no dysuria or hesitancy. She denies diarrhea, no abdominal pain. Although it was documented in the emergency room but when I saw the patient she is abdominal pain free, nausea vomiting has resolved. On admission she has a fever of 100.2, [place] vitals stable, currently blood pressure 105/68. Labs showed leukocytosis of 15.5 K, check mild hyponatremia with sodium 136, rest of CBC and BMP is unremarkable. Urine Analysis is slightly suspicious for infections with cloudy and trace leukocyte esterase but normal urine RBCs and slightly high WBC 7H. C. difficile is not detected In the emergency room she was treated symptomatically with Benadryl, Reglan, 1 L of normal saline and Compazine. Beta-hCG not detected GI team is already consulted and consult for infectious disease however p atient this morning she feels much better and she does not want to wait for the consult is to see her, she agrees to take oral antibiotics and follow up with her doctor in 1 week stating she is back to normal. She already got a dose of Rocephin and was going to continue with Ceftin for 5 days Problems and management plan were discussed with the patient and he verbalized understanding and acceptance Patient was found stable and can be discharged home however he needs follow-up as an outpatient. Patient was instructed to follow up with PCP within one week and patient agrees Review of systems CONSTITUTIONAL: No fever, no malaise, no fatigue. HEENT: No recent visual problems or hearing problems. Denied any sore throat. CARDIOVASCULAR: No orthopnea, PND, no palpitations, no syncope. PULMONARY: No shortness of breath, no cough, no hemoptysis. GASTROINTESTINAL: No diarrhea, no nausea, no vomiting, no abdominal pain. Normoactive bowel sounds. NEUROLOGICAL: No headaches, no weakness, no numbness. HEMATOLOGICAL: Denies any bleeding or petechiae. GENITOURINARY: Denies any burning micturition, frequency, or urgency. MUSCULOSKELETAL/RHEUMATOLOGICAL: Denies any joint pain, swelling, or any muscle pain. ENDOCRINE: Denies any polyuria or polydipsia. Physical exam Gen: patient is a AAOx3, no distress CVS: S1-S2, RRR, no murmur Lungs: B/L CTA, no wheezing Abdomen: soft, no distention, no tenderness, positive bowel sounds Extremity: no leg edema or induration Time spent more than 35 minutes Past Medical History Past Medical History: Asthma, Syncope Additional Past Medical History / Comment(s): Low BP. Hx fainting episodes occasionally since 2015, was told could be her low BP-not sure, recent admission in hospital beginning of December for abd. pain & diarrhea-dx. w/C-diff, finished antibiotics. History of Any Multi-Drug Resistant Organisms: C-DIFF Date of last positivie culture/infection: 12/08/19 MDRO Source:: stool Past Surgical History: Cholecystectomy Additional Past Surgical History / Comment(s): EGD Past Anesthesia/Blood Transfusion Reactions: Postoperative Nausea & Vomiting (PONV) Additional Past Anesthesia/Blood Transfusion Reaction / Comment(s): scope 11/2019 Past Psychological History: No Psychological Hx Reported Smoking Status: Never smoker Past Alcohol Use History: None Reported Past Drug Use History: Marijuana Additional Drug Use History / Comment(s): smokes marijuana daily. - Past Family History Mother Family Medical History: No Reported History Additional Family Medical History / Comment(s): Has gallbladder issues. Father Family Medical History: No Reported History Medications and Allergies Home Medications Medication Instructions Recorded Confirmed Type Norgestimate-Ethinyl Estradiol 1 tab PO HS 08/30/15 02/08/20 History [Tri-Sprintec Tablet] Cetirizine HCl [Zyrtec] 10 mg PO HS 02/08/20 02/08/20 History Cefuroxime Axetil [Ceftin] 500 mg PO BID 5 Days #10 tab 02/09/20 Rx Pantoprazole Sodium [Protonix] 20 mg PO DAILY #3 tablet. 02/09/20 Rx Allergies Allergy/AdvReac Type Severity Reaction Status Date / Time No Known Allergies Allergy Verified 02/08/20 20:15 Physical Exam Vitals: Vital Signs Temp Pulse Pulse Resp BP BP Pulse Ox 02/09/20 03:55 98.4 F 73 17 105/68 98 02/08/20 21:25 98.5 F 77 17 116/75 100 02/08/20 20:52 100.2 F H 74 18 134/83 98 02/08/20 16:47 98.6 F 55 L 20 126/82 99 Intake and Output 02/08/20 02/09/20 02/09/20 22:59 06:59 14:59 Other: Voiding Method Toilet Toilet # Voids 2 Weight 45.359 kg Results CBC & Chem 7: 02/09/20 08:45 02/09/20 08:45 Labs: Abnormal Lab Results - Last 24 Hours (Table) 02/08/20 02/08/20 02/08/20 Range/Units 17:35 17:35 17:35 WBC 15.5 H (4.0-11.0) k/uL MCV 74.3 L (80.0-100.0) fL MCH 24.5 L (25.0-35.0) pg RDW 16.1 H (11.5-15.5) % Neutrophils # 13.7 H (1.3-7.7) k/uL Sodium 136 L (137-145) mmol/L Carbon Dioxide 21 L (22-30) mmol/L Glucose 115 H (74-99) mg/dL Total Protein 8.5 H (6.3-8.2) g/dL Lipase 19 L (23-300) U/L Urine Appearance Cloudy H (Clear) Urine Protein 1+ H (Negative) Urine Glucose (UA) Trace H (Negative) Urine Ketones 2+ H (Negative) Urine Blood Trace H (Negative) Ur Leukocyte Esterase Trace H (Negative) Urine WBC 7 H (0-5) /hpf Ur Squamous Epith Cells 12 H (0-4) /hpf Urine Mucus Many H (None) /hpf
== END 2020-02-09 11:25 | disposition home or self-care (01) ==
LOC: EC 16:41 → 1SOBS 19:27
PROVIDERS: ADMIT Hospitalist; ATTEND Hospitalist
DX: R11.2 Nausea with vomiting, unspecified (principal); R19.7 Diarrhea, unspecified; D72.829 Elevated white blood cell count, unspecified; R50.9 Fever, unspecified; E87.1 Hypo-osmolality and hyponatremia; I95.89 Other hypotension; Z72.89 Other problems related to lifestyle; J45.909 Unspecified asthma, uncomplicated; F12.90 Cannabis use, unspecified, uncomplicated; Z90.49 Acquired absence of other specified parts of digestive tract; Z79.3 Long term (current) use of hormonal contraceptives; Z79.899 Other long term (current) drug therapy; Z86.19 Personal history of other infectious and parasitic diseases; Z87.440 Personal history of urinary (tract) infections; Z16.24 Resistance to multiple antibiotics; Z86.79 Personal history of other diseases of the circulatory system; Z83.79 Family history of other diseases of the digestive system
CPT/HCPCS: 96365; 96375 ×2; 96361; 99284; 36415; 80053; 80048; 83690; 85025 ×2; 81001; 81025; 84703; 87324; G0378 ×2; J1200; J0780; J2765; J0696; C9113

== ENCOUNTER 2020-02-10 11:44 | Emergency (ER) | payer BC, OTHER ==
[2020-02-10 11:58] VITALS: RESP 18
[2020-02-10] MEDS ORDERED: METOCLOPRAMIDE 5 MG/ML 2 ML VIAL IVP STA (12:10)
[2020-02-10] MEDS ORDERED: SODIUM CHLORIDE 0.9% 1,000 ML IV STA (12:10)
[2020-02-10] MEDS ORDERED: diphenhydrAMINE 50 MG/ML 1 ML VIAL IVP STA (12:10)
--- NOTE | 2020-02-10 12:21 | ED ---
Nausea/Vomiting/Diarrhea HPI - General Chief complaint: Nausea/Vomiting/Diarrhea Stated complaint: vomiting/diarrhea Time Seen by Provider: 02/10/20 12:04 Source: patient Mode of arrival: ambulatory Limitations: no limitations - History of Present Illness Initial comments: 19-year-old female presenting to the emergency department with chief complaint of nausea vomiting. Patient states she was discharged 2 days ago after being admitted for intractable nausea vomiting. Patient states she has been treated recently admitted with same symptoms. Patient states she woke up this morning around 2 AM with a sudden onset of nausea and had multiple episodes nonbilious and nonbloody vomiting. She denies any hematemesis. She denies any significant abdominal pain but does report having some loose stools. Patient does have history of C. diff who was tested 2 days ago and was negative. She denies any night sweats or chills. Denies any cough chest and shortness of breath. Denies hematuria, hematochezia or melena. Denies any urinary or vaginal symptoms. - Related Data Home Medications Medication Instructions Recorded Confirmed Norgestimate-Ethinyl Estradiol 1 tab PO HS 08/30/15 02/10/20 [Tri-Sprintec Tablet] Cetirizine HCl [Zyrtec] 10 mg PO HS 02/08/20 02/10/20 Previous Rx's Medication Instructions Recorded Cefuroxime Axetil [Ceftin] 500 mg PO BID 5 Days #10 tab 02/09/20 Pantoprazole Sodium [Protonix] 20 mg PO DAILY #3 tablet. 02/09/20 Metoclopramide [Reglan] 10 mg PO TID PRN #15 tab 02/10/20 Ondansetron Odt [Zofran Odt] 4 mg PO Q8HR PRN #20 tab 02/10/20 Allergies Allergy/AdvReac Type Severity Reaction Status Date / Time No Known Allergies Allergy Verified 02/10/20 12:54 Review of Systems ROS Statement: Those systems with pertinent positive or pertinent negative responses have been documented in the HPI. ROS Other: All systems not noted in ROS Statement are negative. Past Medical History Past Medical History: Asthma, Syncope Additional Past Medical History / Comment(s): Low BP. Hx fainting episodes occasionally since 2015, was told could be her low BP-not sure, recent admission in hospital beginning of December for abd. pain & diarrhea-dx. w/C-diff, finished antibiotics. History of Any Multi-Drug Resistant Organisms: C-DIFF Date of last positivie culture/infection: 12/08/19 MDRO Source:: stool Past Surgical History: Cholecystectomy Additional Past Surgical History / Comment(s): EGD Past Anesthesia/Blood Transfusion Reactions: Postoperative Nausea & Vomiting (PONV) Additional Past Anesthesia/Blood Transfusion Reaction / Comment(s): scope 11/2019 Past Psychological History: No Psychological Hx Reported Smoking Status: Never smoker Past Alcohol Use History: None Reported Past Drug Use History: Marijuana - Past Family History Mother Family Medical History: No Reported History Additional Family Medical History / Comment(s): Has gallbladder issues. Father Family Medical History: No Reported History General Exam Limitations: no limitations General appearance: alert, in no apparent distress Head exam: Present: atraumatic, normocephalic, normal inspection Eye exam: Present: normal appearance, PERRL, EOMI Pupils: Present: normal accommodation ENT exam: Present: normal exam, normal oropharynx, mucous membranes moist, TM's normal bilaterally, normal external ear exam Neck exam: Present: normal inspection, full ROM. Absent: tenderness Respiratory exam: Present: normal lung sounds bilaterally. Absent: respiratory distress, wheezes, rales Cardiovascular Exam: Present: regular rate, normal rhythm, normal heart sounds. Absent: systolic murmur, diastolic murmur GI/Abdominal exam: Present: soft, normal bowel sounds. Absent: distended, tenderness, guarding, rebound, diminished bowel sounds, hyperactive bowel sounds Extremities exam: Present: normal inspection, full ROM, normal capillary refill. Absent: tenderness, pedal edema, joint swelling, calf tenderness Back exam: Present: normal inspection, full ROM. Absent: tenderness, CVA tenderness (R), CVA tenderness (L) Neurological exam: Present: alert, oriented X3 Psychiatric exam: Present: normal affect, normal mood. Absent: depressed, agitated Skin exam: Present: warm, dry, intact, normal color Course Vital Signs 02/10/20 02/10/20 02/10/20 11:56 13:00 13:23 Pulse Rate 87 78 Respiratory 18 18 18 Rate Blood Pressure 125/87 113/65 O2 Sat by Pulse 98 100 Oximetry Medical Decision Making - Medical Decision Making 19-year-old female presenting to the emergency department with a chief complaint of nausea vomiting. On physical examination, patient continues to be nauseous and is vomiting in the ED. She does not have any abdominal pain or CVA tenderness. CBC and CMP is unremarkable. UA shows no signs of urinary tract infection. Patient is not . Patient was given Reglan and Benadryl. On reevaluation patient reports a permanent symptoms. Advised the patient to follow-up with a primary care physician. The patient presents with thoroughly discussed patient was understanding and agreeable. Case discussed with physician. - Lab Data Result diagrams: 02/10/20 12:25 02/10/20 12: Lab Results 02/10/20 02/10/20 02/10/20 Range/Units 12:25 12: 12: WBC 12.1 H (4.0-11.0) k/uL RBC 5.15 (3.80-5.40) m/uL Hgb 12.6 (11.4-16.0) gm/dL Hct 38.4 (34.0-46.0) % MCV 74.5 L (80.0-100.0) fL MCH 24.5 L (25.0-35.0) pg MCHC 32.8 (31.0-37.0) g/dL RDW 16.1 H (11.5-15.5) % Plt Count 439 (150-450) k/uL MPV 7.9 Neutrophils % 83 % Lymphocytes % 12 % Monocytes % 3 % Eosinophils % 1 % Basophils % 0 % Neutrophils # 10.0 H (1.3-7.7) k/uL Lymphocytes # 1.4 (1.0-4.8) k/uL Monocytes # 0.4 (0-1.0) k/uL Eosinophils # 0.1 (0-0.7) k/uL Basophils # 0.0 (0-0.2) k/uL Anisocytosis Slight Microcytosis Slight Sodium 138 (137-145) mmol/L Potassium 3.5 (3.5-5.1) mmol/L Chloride 102 (98-107) mmol/L Carbon Dioxide 24 (22-30) mmol/L Anion Gap 12 mmol/L BUN 7 (7-17) mg/dL Creatinine 0.62 (0.52-1.04) mg/dL Est GFR (CKD-EPI)AfAm >90 (>60 ml/min/1.73 sqM) Est GFR (CKD-EPI)NonAf >90 (>60 ml/min/1.73 sqM) Glucose 101 H (74-99) mg/dL Calcium 9.4 (8.4-10.2) mg/dL Total Bilirubin 1.7 H (0.2-1.3) mg/dL AST 31 (14-36) U/L ALT 31 (4-34) U/L Alkaline Phosphatase 118 (38-126) U/L Total Protein 8.5 H (6.3-8.2) g/dL Albumin 4.7 (3.5-5.0) g/dL Lipase 33 (23-300) U/L Urine Color Colorless Urine Appearance Clear (Clear) Urine pH 6.0 (5.0-8.0) Ur Specific [place] 1.003 (1.001-1.035) Urine Protein Negative (Negative) Urine Glucose (UA) Negative (Negative) Urine Ketones Negative (Negative) Urine Blood Negative (Negative) Urine Nitrite Negative (Negative) Urine Bilirubin Negative (Negative) Urine Urobilinogen <2.0 (<2.0) mg/dL Ur Leukocyte Esterase Negative (Negative) Urine HCG, Qual (Not Detectd) 02/10/20 Range/Units 12:25 WBC (4.0-11.0) k/uL RBC (3.80-5.40) m/uL Hgb (11.4-16.0) gm/dL Hct (34.0-46.0) % MCV (80.0-100.0) fL MCH (25.0-35.0) pg MCHC (31.0-37.0) g/dL RDW (11.5-15.5) % Plt Count (150-450) k/uL MPV Neutrophils % % Lymphocytes % % Monocytes % % Eosinophils % % Basophils % % Neutrophils # (1.3-7.7) k/uL Lymphocytes # (1.0-4.8) k/uL Monocytes # (0-1.0) k/uL Eosinophils # (0-0.7) k/uL Basophils # (0-0.2) k/uL Anisocytosis Microcytosis Sodium (137-145) mmol/L Potassium (3.5-5.1) mmol/L Chloride (98-107) mmol/L Carbon Dioxide (22-30) mmol/L Anion Gap mmol/L BUN (7-17) mg/dL Creatinine (0.52-1.04) mg/dL Est GFR (CKD-EPI)AfAm (>60 ml/min/1.73 sqM) Est GFR (CKD-EPI)NonAf (>60 ml/min/1.73 sqM) Glucose (74-99) mg/dL Calcium (8.4-10.2) mg/dL Total Bilirubin (0.2-1.3) mg/dL AST (14-36) U/L ALT (4-34) U/L Alkaline Phosphatase (38-126) U/L Total Protein (6.3-8.2) g/dL Albumin (3.5-5.0) g/dL Lipase (23-300) U/L Urine Color Urine Appearance (Clear) Urine pH (5.0-8.0) Ur Specific [place] (1.001-1.035) Urine Protein (Negative) Urine Glucose (UA) (Negative) Urine Ketones (Negative) Urine Blood (Negative) Urine Nitrite (Negative) Urine Bilirubin (Negative) Urine Urobilinogen (<2.0) mg/dL Ur Leukocyte Esterase (Negative) Urine HCG, Qual Not Detected (Not Detectd) Disposition Clinical Impression: Nausea & vomiting Disposition: HOME SELF-CARE Condition: Stable Instructions (If sedation given, give patient instructions): Acute Nausea and Vomiting (ED) Additional Instructions: Follow-up with her primary care Physician. Please discuss the possibility of going to a higher specialized Hospital like the [facility] regarding the patient's recurrent bouts of nausea and vomiting. [facility] return [facility] if your symptoms worsen. Prescriptions: Metoclopramide [Reglan] 10 mg PO TID PRN #15 tab PRN Reason: GERD Ondansetron Odt [Zofran Odt] 4 mg PO Q8HR PRN #20 tab PRN Reason: Nausea Is patient prescribed a controlled substance at d/c from ED?: No Referrals: Barrie Jin DO [Primary Care Provider] - 1-2 days Time of Disposition: 14:06
[2020-02-10 12:49] LABS: Anisocytosis Slight; Basophils % (A) 0 %; Eosinophils # (A) 0.1 k/uL (0-0.7); Eosinophils % (A) 1 %; HCT 38.4 % (34.0-46.0); HGB 12.6 gm/dL (11.4-16.0); Lymphocytes # (A) 1.4 k/uL (1.0-4.8); Lymphocytes % (A) 12 %; MCH 24.5 pg (25.0-35.0); MCHC 32.8 g/dL (31.0-37.0); MCV 74.5 fL (80.0-100.0); Mean Platelet Volume 7.9; Microcytosis Slight; Monocytes # (A) 0.4 k/uL (0-1.0); Monocytes % (A) 3 %; Neutrophils % (A) 83 %; Platelet Count 439 k/uL (150-450); RBC 5.15 m/uL (3.80-5.40); RDW 16.1 % (11.5-15.5); WBC 12.1 k/uL (4.0-11.0)
[2020-02-10 13:02] LABS: ALT 31 U/L (4-34); AST 31 U/L (14-36); African American GFR (CKD) >90 (>60 ml/min/1.73 sqM); Albumin 4.7 g/dL (3.5-5.0); Alkaline Phosphatase 118 U/L (38-126); Anion Gap 12 mmol/L; Blood Urea Nitrogen 7 mg/dL (7-17); Calcium 9.4 mg/dL (8.4-10.2); Carbon Dioxide 24 mmol/L (22-30); Chloride 102 mmol/L (98-107); Glucose 101 mg/dL (74-99); Lipase 33 U/L (23-300); Non-African American GFR(CKD) >90 (>60 ml/min/1.73 sqM); Potassium 3.5 mmol/L (3.5-5.1); Sodium 138 mmol/L (137-145); Total Bilirubin 1.7 mg/dL (0.2-1.3); Total Protein 8.5 g/dL (6.3-8.2)
[2020-02-10 13:24] VITALS: BP 113/65; PULSE 78
[2020-02-10 13:51] LABS: Appearance,Urine Clear (Clear); Bilirubin,Urine Negative (Negative); Blood,Urine Negative (Negative); Color,Urine Colorless; Glucose,Urine (UA) Negative (Negative); Ketones,Urine Negative (Negative); Leukocyte Esterase,Urine Negative (Negative); Nitrite,Urine Negative (Negative); Protein,Urine Negative (Negative); Specific Gravity,Urine 1.003 (1.001-1.035); Urobilinogen,Urine <2.0 mg/dL (<2.0)
== END 2020-02-10 14:30 | disposition home or self-care (01) ==
LOC: EC 11:44
DX: R11.2 Nausea with vomiting, unspecified (principal); R19.7 Diarrhea, unspecified; Z90.49 Acquired absence of other specified parts of digestive tract; Z32.02 Encounter for pregnancy test, result negative
CPT/HCPCS: 36415; 80053; 83690; 85025; 81003; 81025; 99284; 96374; 96375; 96361; J1200; J2765

== ENCOUNTER 2020-02-15 14:31 | Emergency (ER) | payer BC, OTHER ==
[2020-02-15 14:39] VITALS: RESP 18
[2020-02-15] MEDS ORDERED: diphenhydrAMINE 50 MG/ML 1 ML VIAL IVP STA (15:16)
[2020-02-15] MEDS ORDERED: SODIUM CHLORIDE 0.9% 1,000 ML IV STA (15:16)
[2020-02-15] MEDS ORDERED: SODIUM CHLORIDE 0.9% 500 ML 500 ML IV STA (15:16)
[2020-02-15] MEDS ORDERED: METOCLOPRAMIDE 5 MG/ML 2 ML VIAL IVP STA (15:16)
[2020-02-15] MEDS ORDERED: HYDROmorphone 0.5 MG/0.5 ML SYRINGE IVP STA (15:18)
--- NOTE | 2020-02-15 16:11 | ED ---
General Adult HPI - General Chief complaint: Nausea/Vomiting/Diarrhea Stated complaint: Vomiting Time Seen by Provider: 02/15/20 15:10 Source: patient, RN notes reviewed Mode of arrival: wheelchair Limitations: no limitations - History of Present Illness Initial comments: 20-year-old female presents emergency Department with chief complaint of severe nausea vomiting. Patient had multiple ER visits for similar complaints. She's had intractable vomiting episodes in which she's had be admitted for. She has not that she had a prior cholecystectomy few months ago. As was performed by Dr. Vee she had admissions after for dehydration. Patient saw PCP today who ordered a CAT scan was given IM injection of antiemetics but states it did not help and she was unable to complete the CT. Patient states that she cannot describe the pain she has no dysuria no hematuria denies any chance . She's had some loose stools but nothing significant. - Related Data Home Medications Medication Instructions Recorded Confirmed Norgestimate-Ethinyl Estradiol 1 tab PO HS 08/30/15 02/10/20 [Tri-Sprintec Tablet] Cetirizine HCl [Zyrtec] 10 mg PO HS 02/08/20 02/10/20 Previous Rx's Medication Instructions Recorded Cefuroxime Axetil [Ceftin] 500 mg PO BID 5 Days #10 tab 02/09/20 Pantoprazole Sodium [Protonix] 20 mg PO DAILY #3 tablet. 02/09/20 Metoclopramide [Reglan] 10 mg PO TID PRN #15 tab 02/10/20 Ondansetron Odt [Zofran Odt] 4 mg PO Q8HR PRN #20 tab 02/10/20 Allergies Allergy/AdvReac Type Severity Reaction Status Date / Time No Known Allergies Allergy Verified 02/15/20 14:39 Review of Systems ROS Statement: Those systems with pertinent positive or pertinent negative responses have been documented in the HPI. ROS Other: All systems not noted in ROS Statement are negative. Past Medical History Past Medical History: Asthma, Syncope Additional Past Medical History / Comment(s): Low BP. Hx fainting episodes occasionally since 2015, was told could be her low BP-not sure, recent admission in hospital beginning of December for abd. pain & diarrhea-dx. w/C-diff, finished antibiotics. History of Any Multi-Drug Resistant Organisms: C-DIFF Date of last positivie culture/infection: 12/08/19 MDRO Source:: stool Past Surgical History: Cholecystectomy Additional Past Surgical History / Comment(s): EGD Past Anesthesia/Blood Transfusion Reactions: Postoperative Nausea & Vomiting (PONV) Additional Past Anesthesia/Blood Transfusion Reaction / Comment(s): scope 11/2019 Past Psychological History: No Psychological Hx Reported Smoking Status: Never smoker Past Alcohol Use History: None Reported Past Drug Use History: Marijuana - Past Family History Mother Family Medical History: No Reported History Additional Family Medical History / Comment(s): Has gallbladder issues. Father Family Medical History: No Reported History General Exam Limitations: no limitations General appearance: alert, in no apparent distress Head exam: Present: atraumatic, normocephalic, normal inspection Eye exam: Present: normal appearance, PERRL, EOMI. Absent: scleral icterus, conjunctival injection, periorbital swelling ENT exam: Present: normal exam, normal oropharynx, mucous membranes moist Neck exam: Present: normal inspection, full ROM. Absent: tenderness, meningismus, lymphadenopathy Respiratory exam: Present: normal lung sounds bilaterally. Absent: respiratory distress, wheezes, rales, rhonchi, stridor Cardiovascular Exam: Present: regular rate, normal rhythm, normal heart sounds. Absent: systolic murmur, diastolic murmur, rubs, gallop, clicks GI/Abdominal exam: Present: soft, tenderness (Mild/moderate left lower), normal bowel sounds. Absent: distended, guarding, rebound, rigid Back exam: Absent: CVA tenderness (R), CVA tenderness (L) Neurological exam: Present: alert, oriented X3 Skin exam: Present: warm, dry, intact, normal color. Absent: rash Course Vital Signs 02/15/20 14:36 Temperature 97.8 F Pulse Rate 95 Respiratory 18 Rate Blood Pressure 134/89 O2 Sat by Pulse 97 Oximetry Medical Decision Making - Medical Decision Making 20-year-old female presented emergency department for nausea vomiting unable to completely outpatient CT CT was performed shows evidence of ileus. Patient does have mild dehydration, lactic acidosis related to hydration she was thoroughly hydrated with 2 L symptoms are resolving. Patient will be discharged in stable condition. - Lab Data Result diagrams: 02/15/20 15:20 02/15/20 15:20 Lab Results 02/15/20 02/15/20 02/15/20 Range/Units 15:16 15:16 15:20 WBC 12.6 H (4.0-11.0) k/uL RBC 5.09 (3.80-5.40) m/uL Hgb 12.1 (11.4-16.0) gm/dL Hct 38.2 (34.0-46.0) % MCV 75.0 L (80.0-100.0) fL MCH 23.7 L (25.0-35.0) pg MCHC 31.6 (31.0-37.0) g/dL RDW 16.3 H (11.5-15.5) % Plt Count 397 (150-450) k/uL MPV 8.5 Neutrophils % 90 % Lymphocytes % 7 % Monocytes % 2 % Eosinophils % 1 % Basophils % 0 % Neutrophils # 11.3 H (1.3-7.7) k/uL Lymphocytes # 0.9 L (1.0-4.8) k/uL Monocytes # 0.3 (0-1.0) k/uL Eosinophils # 0.1 (0-0.7) k/uL Basophils # 0.0 (0-0.2) k/uL Hypochromasia Slight Anisocytosis Slight Microcytosis Slight Sodium (137-145) mmol/L Potassium (3.5-5.1) mmol/L Chloride (98-107) mmol/L Carbon Dioxide (22-30) mmol/L Anion Gap mmol/L BUN (7-17) mg/dL Creatinine (0.52-1.04) mg/dL Est GFR (CKD-EPI)AfAm (>60 ml/min/1.73 sqM) Est GFR (CKD-EPI)NonAf (>60 ml/min/1.73 sqM) Glucose (74-99) mg/dL Plasma Lactic Acid Alek (0.7-2.0) mmol/L Calcium (8.4-10.2) mg/dL Total Bilirubin (0.2-1.3) mg/dL AST (14-36) U/L ALT (4-34) U/L Alkaline Phosphatase (38-126) U/L Total Protein (6.3-8.2) g/dL Albumin (3.5-5.0) g/dL Amylase (30-110) U/L Lipase (23-300) U/L Urine Color Yellow Urine Appearance Clear (Clear) Urine pH 7.0 (5.0-8.0) Ur Specific [place] 1.021 (1.001-1.035) Urine Protein Trace H (Negative) Urine Glucose (UA) Negative (Negative) Urine Ketones 2+ H (Negative) Urine Blood Negative (Negative) Urine Nitrite Negative (Negative) Urine Bilirubin Negative (Negative) Urine Urobilinogen <2.0 (<2.0) mg/dL Ur Leukocyte Esterase Negative (Negative) Urine HCG, Qual Not Detected (Not Detectd) 02/15/20 02/15/20 Range/Units 15:20 15:20 WBC (4.0-11.0) k/uL RBC (3.80-5.40) m/uL Hgb (11.4-16.0) gm/dL Hct (34.0-46.0) % MCV (80.0-100.0) fL MCH (25.0-35.0) pg MCHC (31.0-37.0) g/dL RDW (11.5-15.5) % Plt Count (150-450) k/uL MPV Neutrophils % % Lymphocytes % % Monocytes % % Eosinophils % % Basophils % % Neutrophils # (1.3-7.7) k/uL Lymphocytes # (1.0-4.8) k/uL Monocytes # (0-1.0) k/uL Eosinophils # (0-0.7) k/uL Basophils # (0-0.2) k/uL Hypochromasia Anisocytosis Microcytosis Sodium 138 (137-145) mmol/L Potassium 4.0 (3.5-5.1) mmol/L Chloride 104 (98-107) mmol/L Carbon Dioxide 19 L (22-30) mmol/L Anion Gap 15 mmol/L BUN 8 (7-17) mg/dL Creatinine 0.58 (0.52-1.04) mg/dL Est GFR (CKD-EPI)AfAm >90 (>60 ml/min/1.73 sqM) Est GFR (CKD-EPI)NonAf >90 (>60 ml/min/1.73 sqM) Glucose 110 H (74-99) mg/dL Plasma Lactic Acid Alek 4.7 H* (0.7-2.0) mmol/L Calcium 9.7 (8.4-10.2) mg/dL Total Bilirubin 0.8 (0.2-1.3) mg/dL AST 49 H (14-36) U/L ALT 49 H (4-34) U/L Alkaline Phosphatase 140 H (38-126) U/L Total Protein 8.2 (6.3-8.2) g/dL Albumin 4.5 (3.5-5.0) g/dL Amylase 108 (30-110) U/L Lipase 43 (23-300) U/L Urine Color Urine Appearance (Clear) Urine pH (5.0-8.0) Ur Specific [place] (1.001-1.035) Urine Protein (Negative) Urine Glucose (UA) (Negative) Urine Ketones (Negative) Urine Blood (Negative) Urine Nitrite (Negative) Urine Bilirubin (Negative) Urine Urobilinogen (<2.0) mg/dL Ur Leukocyte Esterase (Negative) Urine HCG, Qual (Not Detectd) Disposition Clinical Impression: Nausea & vomiting, Abdominal pain, Ileus Disposition: HOME SELF-CARE Condition: Stable Instructions (If sedation given, give patient instructions): Abdominal Pain (ED), Ileus (ED) Additional Instructions: Please return to the Emergency Department if symptoms worsen or any other osvaldo rns. Is patient prescribed a controlled substance at d/c from ED?: No Referrals: Barrie Jin DO [Primary Care Provider] - 1-2 days Time of Disposition: 17:13
[2020-02-15 16:14] LABS: Anisocytosis Slight; Basophils % (A) 0 %; Eosinophils # (A) 0.1 k/uL (0-0.7); Eosinophils % (A) 1 %; HCT 38.2 % (34.0-46.0); HGB 12.1 gm/dL (11.4-16.0); Hypochromasia Slight; Lymphocytes # (A) 0.9 k/uL (1.0-4.8); Lymphocytes % (A) 7 %; MCH 23.7 pg (25.0-35.0); MCHC 31.6 g/dL (31.0-37.0); Mean Platelet Volume 8.5; Microcytosis Slight; Monocytes # (A) 0.3 k/uL (0-1.0); Monocytes % (A) 2 %; Neutrophils # (A) 11.3 k/uL (1.3-7.7); Neutrophils % (A) 90 %; Platelet Count 397 k/uL (150-450); RBC 5.09 m/uL (3.80-5.40); RDW 16.3 % (11.5-15.5); WBC 12.6 k/uL (4.0-11.0)
--- NOTE | 2020-02-15 16:21 | CT ---
EXAMINATION TYPE: CT abdomen pelvis w con DATE OF EXAM: 02/15/2020 COMPARISON: 01/03/2010 INDICATION: Abdominal pain DLP: 432.3 mGycm, Automated exposure control for dose reduction was used. CONTRAST: 100 mL of Isovue 300. Study performed without Oral Contrast TECHNIQUE: Axial images were obtained from above the diaphragm to the pubic rami in the axial plane a t 5 mm thick sections. Reconstructed images are reviewed on the computer in the coronal plane. FINDINGS: Limited CT sections are obtained the lung bases. The lung bases are clear. CT ABDOMEN: Liver: Normal Spleen: Normal Pancreas: Normal Adrenal glands: The adrenal glands are normal. Gallbladder: Normal Kidneys: No masses are evident. No hydronephrosis is present. No cysts are present. Delayed images were obtained through the kidneys, which remain unremarkable. Aorta: Normal Inferior vena cava: Normal. CT PELVIS: Loops of bowel within the abdomen and pelvis are normal. There may be some fluid-filled small bowel l oops within the pelvis could be a mild ileus. No evidence of obstruction is evident. This study is without oral contrast limiting bowel evaluation. Appendix: Normal as visualized. Urinary bladder: Normal. Genitourinary structures: Uterus is normal. Adnexal regions appear normal. Osseous structures: No suspicious lytic or sclerotic lesions. IMPRESSIONS: 1. Clinical consideration for mild ileus. 2. CT abdomen pelvis is otherwise unremarkable.
[2020-02-15 16:22] LABS: ALT 49 U/L (4-34); AST 49 U/L (14-36); African American GFR (CKD) >90 (>60 ml/min/1.73 sqM); Albumin 4.5 g/dL (3.5-5.0); Alkaline Phosphatase 140 U/L (38-126); Amylase 108 U/L (30-110); Anion Gap 15 mmol/L; Blood Urea Nitrogen 8 mg/dL (7-17); Calcium 9.7 mg/dL (8.4-10.2); Carbon Dioxide 19 mmol/L (22-30); Chloride 104 mmol/L (98-107); Glucose 110 mg/dL (74-99); Lipase 43 U/L (23-300); Non-African American GFR(CKD) >90 (>60 ml/min/1.73 sqM); Sodium 138 mmol/L (137-145); Total Bilirubin 0.8 mg/dL (0.2-1.3); Total Protein 8.2 g/dL (6.3-8.2)
[2020-02-15 16:29] LABS: Appearance,Urine Clear (Clear); Bilirubin,Urine Negative (Negative); Blood,Urine Negative (Negative); Color,Urine Yellow; Glucose,Urine (UA) Negative (Negative); Ketones,Urine 2+ (Negative); Leukocyte Esterase,Urine Negative (Negative); Nitrite,Urine Negative (Negative); Protein,Urine Trace (Negative); Specific Gravity,Urine 1.021 (1.001-1.035); Urobilinogen,Urine <2.0 mg/dL (<2.0)
[2020-02-15 17:31] VITALS: BP 110/63; PULSE 79; TEMP 97.7
== END 2020-02-15 17:28 | disposition home or self-care (01) ==
LOC: EC 14:31
DX: K56.7 Ileus, unspecified (principal); E86.0 Dehydration; E87.2 Acidosis; Z90.49 Acquired absence of other specified parts of digestive tract
CPT/HCPCS: 36415; 80053; 82150; 83605; 83690; 85025; 81003; 81025; 74177; 99284; 96374; 96375 ×2; 96361; J1200; J2765; J1170; Q9967

== ENCOUNTER 2020-02-15 19:40 | Inpatient (IN) | payer BC, OTHER ==
[2020-02-15] MEDS ORDERED: diphenhydrAMINE 50 MG/ML 1 ML VIAL IVP STA (20:47)
[2020-02-15 20:53] LABS: Anisocytosis Slight; Basophils % (A) 0 %; Eosinophils # (A) 0.1 k/uL (0-0.7); Eosinophils % (A) 0 %; HCT 35.6 % (34.0-46.0); HGB 11.8 gm/dL (11.4-16.0); Hypochromasia Slight; Lymphocytes # (A) 1.1 k/uL (1.0-4.8); Lymphocytes % (A) 9 %; MCH 24.8 pg (25.0-35.0); MCHC 33.1 g/dL (31.0-37.0); MCV 74.9 fL (80.0-100.0); Microcytosis Slight; Monocytes # (A) 0.2 k/uL (0-1.0); Monocytes % (A) 2 %; Neutrophils # (A) 11.3 k/uL (1.3-7.7); Neutrophils % (A) 89 %; Platelet Count 331 k/uL (150-450); RBC 4.76 m/uL (3.80-5.40); RDW 16.3 % (11.5-15.5); WBC 12.8 k/uL (4.0-11.0)
[2020-02-15 20:55] LABS: Appearance,Urine Cloudy (Clear); Bilirubin,Urine Negative (Negative); Blood,Urine Negative (Negative); Color,Urine Light Yellow; Glucose,Urine (UA) Negative (Negative); Ketones,Urine 1+ (Negative); Leukocyte Esterase,Urine Negative (Negative); Nitrite,Urine Negative (Negative); Protein,Urine Negative (Negative); RBC,Urine 1 /hpf (0-5); Specific Gravity,Urine 1.037 (1.001-1.035); Squamous Epithelial Cell,Urine 16 /hpf (0-4); Urobilinogen,Urine <2.0 mg/dL (<2.0); WBC,Urine 1 /hpf (0-5)
[2020-02-15 21:05] LABS: ALT 52 U/L (4-34); AST 54 U/L (14-36); African American GFR (CKD) >90 (>60 ml/min/1.73 sqM); Albumin 4.3 g/dL (3.5-5.0); Alkaline Phosphatase 128 U/L (38-126); Anion Gap 13 mmol/L; Blood Urea Nitrogen 5 mg/dL (7-17); Calcium 8.8 mg/dL (8.4-10.2); Carbon Dioxide 19 mmol/L (22-30); Chloride 104 mmol/L (98-107); Glucose 105 mg/dL (74-99); Lipase 43 U/L (23-300); Non-African American GFR(CKD) >90 (>60 ml/min/1.73 sqM); Potassium 4.1 mmol/L (3.5-5.1); Sodium 136 mmol/L (137-145); Total Bilirubin 0.7 mg/dL (0.2-1.3); Total Protein 7.7 g/dL (6.3-8.2)
[2020-02-15] MEDS ORDERED: SODIUM CHLORIDE 0.9% 1,000 ML IV ONE (21:20)
[2020-02-15] MEDS ORDERED: NALOXONE 0.4 MG/ML 1 ML VIAL IV PRN (22:15)
[2020-02-15] MEDS ORDERED: METOCLOPRAMIDE 5 MG/ML 2 ML VIAL IVP PRN (22:17)
--- NOTE | 2020-02-15 22:27 | ED ---
General Adult HPI - General Chief complaint: Nausea/Vomiting/Diarrhea Stated complaint: Revisit NVD Time Seen by Provider: 02/15/20 19:47 Source: patient, RN notes reviewed, old records reviewed Mode of arrival: EMS Limitations: no limitations - History of Present Illness Initial comments: 20-year-old female patient to ED for nausea vomiting. Patient has issues with her nausea vomiting for a couple of months now. She was seen earlier in the ED where she had extensive workup including a CAT scan. This displayed a mild ileus. Otherwise unremarkable. Previous Laboratory investigations revealed mild leukocytosis likely reactive, mildly elevated lactic acid. Patient is also complaining of mild periumbilical discomfort. Systemic: Pt denies fatigue, fever/chills, rash. Pt denies weakness, night sweats, weight loss. Neuro: Pt denies headache, visual disturbances, syncope or pre-syncope. HEENT: Pt denies ocular discharge or irritation, otalgia, rhinorrhea, pharyngitis or notable lymphadenopathy. Cardiopulmonary: Pt denies chest pain, SOB, heart palpitations, dyspnea on exertion. : Pt denies dysuria, burning w/ urination, frequency/urgency. Denies new onset urinary or bowel incontinence. MSK: Pt denies myalgia, loss of strength or function in extremities. Neuro: Pt denies new onset weakness, paresthesias. - Related Data Home Medications Medication Instructions Recorded Confirmed Norgestimate-Ethinyl Estradiol 1 tab PO HS 08/30/15 02/10/20 [Tri-Sprintec Tablet] Cetirizine HCl [Zyrtec] 10 mg PO HS 02/08/20 02/10/20 Previous Rx's Medication Instructions Recorded Cefuroxime Axetil [Ceftin] 500 mg PO BID 5 Days #10 tab 02/09/20 Pantoprazole Sodium [Protonix] 20 mg PO DAILY #3 tablet. 02/09/20 Metoclopramide [Reglan] 10 mg PO TID PRN #15 tab 02/10/20 Ondansetron Odt [Zofran Odt] 4 mg PO Q8HR PRN #20 tab 02/10/20 Allergies Allergy/AdvReac Type Severity Reaction Status Date / Time No Known Allergies Allergy Verified 02/15/20 19:56 Review of Systems ROS Statement: Those systems with pertinent positive or pertinent negative responses have been documented in the HPI. ROS Other: All systems not noted in ROS Statement are negative. Past Medical History Past Medical History: Asthma, Syncope Additional Past Medical History / Comment(s): Low BP. Hx fainting episodes occasionally since 2015, was told could be her low BP-not sure, recent admission in hospital beginning of December for abd. pain & diarrhea-dx. w/C-diff, finished antibiotics. History of Any Multi-Drug Resistant Organisms: C-DIFF Date of last positivie culture/infection: 12/08/19 MDRO Source:: stool Past Surgical History: Cholecystectomy Additional Past Surgical History / Comment(s): EGD Past Anesthesia/Blood Transfusion Reactions: Postoperative Nausea & Vomiting (PONV) Additional Past Anesthesia/Blood Transfusion Reaction / Comment(s): scope 11/2019 Past Psychological History: No Psychological Hx Reported Smoking Status: Never smoker Past Alcohol Use History: None Reported Past Drug Use History: Marijuana - Past Family History Mother Family Medical History: No Reported History Additional Family Medical History / Comment(s): Has gallbladder issues. Father Family Medical History: No Reported History General Exam - General Exam Comments Initial Comments: Constitutional: NAD, AOX3, Pt has pleasant affect. HEENT: NC/AT, trachea midline, neck supple, no lymphadenopathy. Posterior pharynx non erythematous, without exudates. External ears appear normal, without discharge. Mucous membranes moist. Eyes PERRLA, EOM intact. There is no scleral icterus. No pallor noted. Cardiopulmonary: RRR, no murmurs, rubs or gallops, no JVD noted. Lungs CTAB in anterior and posterior hall. No peripheral edema. Abdominal exam: Abdomen soft and non-distended. Abdomen mildly tender to palpation in periumbical region. Bowel sounds active in LLQ. No hepatosplenomegaly. No ecchymosis Neuro: CN II-XII grossly intact. No nuchal rigidity. No raccon eyes, no hampton sign, no hemotympanum. MSK: Full active ROM in upper and lower extremities, 5/5 stregnth. Limitations: no limitations Course Vital Signs 02/15/20 19:50 Temperature 98.0 F Pulse Rate 92 Respiratory 18 Rate Blood Pressure 131/93 O2 Sat by Pulse 98 Oximetry Medical Decision Making - Medical Decision Making 20-year-old female patient to ED for nausea vomiting. Patient has issues with her nausea vomiting for a couple of months now. She was seen earlier in the ED where she had extensive workup including a CAT scan. This displayed a mild ileus. Otherwise unremarkable. Previous Laboratory investigations revealed mild leukocytosis likely reactive, mildly elevated lactic acid. Patient is also complaining of mild suprapubic discomfort. Vital signs stable, afebrile. Physical exam displayed very mild periumbilical discomfort. Patient was administered Reglan and Zofran by EMS. Laboratory investigations are essentially unchanged from earlier. Patient be admitted for intractable nausea vomiting GI consult. Case discussed with Dr. Ag. - Lab Data Result diagrams: 02/15/20 20:38 02/15/20 20:38 Lab Results 02/15/20 02/15/20 02/15/20 Range/Units 20:38 20:38 20:38 WBC 12.8 H (4.0-11.0) k/uL RBC 4.76 (3.80-5.40) m/uL Hgb 11.8 (11.4-16.0) gm/dL Hct 35.6 (34.0-46.0) % MCV 74.9 L (80.0-100.0) fL MCH 24.8 L (25.0-35.0) pg MCHC 33.1 (31.0-37.0) g/dL RDW 16.3 H (11.5-15.5) % Plt Count 331 (150-450) k/uL MPV 8.0 Neutrophils % 89 % Lymphocytes % 9 % Monocytes % 2 % Eosinophils % 0 % Basophils % 0 % Neutrophils # 11.3 H (1.3-7.7) k/uL Lymphocytes # 1.1 (1.0-4.8) k/uL Monocytes # 0.2 (0-1.0) k/uL Eosinophils # 0.1 (0-0.7) k/uL Basophils # 0.0 (0-0.2) k/uL Hypochromasia Slight Anisocytosis Slight Microcytosis Slight Sodium (137-145) mmol/L Potassium (3.5-5.1) mmol/L Chloride (98-107) mmol/L Carbon Dioxide (22-30) mmol/L Anion Gap mmol/L BUN (7-17) mg/dL Creatinine (0.52-1.04) mg/dL Est GFR (CKD-EPI)AfAm (>60 ml/min/1.73 sqM) Est GFR (CKD-EPI)NonAf (>60 ml/min/1.73 sqM) Glucose (74-99) mg/dL Plasma Lactic Acid Alek (0.7-2.0) mmol/L Calcium (8.4-10.2) mg/dL Total Bilirubin (0.2-1.3) mg/dL AST (14-36) U/L ALT (4-34) U/L Alkaline Phosphatase (38-126) U/L Total Protein (6.3-8.2) g/dL Albumin (3.5-5.0) g/dL Lipase (23-300) U/L Urine Color Light Yellow Urine Appearance Cloudy H (Clear) Urine pH 7.0 (5.0-8.0) Ur Specific [place] 1.037 H (1.001-1.035) Urine Protein Negative (Negative) Urine Glucose (UA) Negative (Negative) Urine Ketones 1+ H (Negative) Urine Blood Negative (Negative) Urine Nitrite Negative (Negative) Urine Bilirubin Negative (Negative) Urine Urobilinogen <2.0 (<2.0) mg/dL Ur Leukocyte Esterase Negative (Negative) Urine RBC 1 (0-5) /hpf Urine WBC 1 (0-5) /hpf Ur Squamous Epith Cells 16 H (0-4) /hpf Urine HCG, Qual Not Detected (Not Detectd) 02/15/20 02/15/20 Range/Units 20:38 20:38 WBC (4.0-11.0) k/uL RBC (3.80-5.40) m/uL Hgb (11.4-16.0) gm/dL Hct (34.0-46.0) % MCV (80.0-100.0) fL MCH (25.0-35.0) pg MCHC (31.0-37.0) g/dL RDW (11.5-15.5) % Plt Count (150-450) k/uL MPV Neutrophils % % Lymphocytes % % Monocytes % % Eosinophils % % Basophils % % Neutrophils # (1.3-7.7) k/uL Lymphocytes # (1.0-4.8) k/uL Monocytes # (0-1.0) k/uL Eosinophils # (0-0.7) k/uL Basophils # (0-0.2) k/uL Hypochromasia Anisocytosis Microcytosis Sodium 136 L (137-145) mmol/L Potassium 4.1 (3.5-5.1) mmol/L Chloride 104 (98-107) mmol/L Carbon Dioxide 19 L (22-30) mmol/L Anion Gap 13 mmol/L BUN 5 L (7-17) mg/dL Creatinine 0.55 (0.52-1.04) mg/dL Est GFR (CKD-EPI)AfAm >90 (>60 ml/min/1.73 sqM) Est GFR (CKD-EPI)NonAf >90 (>60 ml/min/1.73 sqM) Glucose 105 H (74-99) mg/dL Plasma Lactic Acid Alek 4.1 H* (0.7-2.0) mmol/L Calcium 8.8 (8.4-10.2) mg/dL Total Bilirubin 0.7 (0.2-1.3) mg/dL AST 54 H (14-36) U/L ALT 52 H (4-34) U/L Alkaline Phosphatase 128 H (38-126) U/L Total Protein 7.7 (6.3-8.2) g/dL Albumin 4.3 (3.5-5.0) g/dL Lipase 43 (23-300) U/L Urine Color Urine Appearance (Clear) Urine pH (5.0-8.0) Ur Specific [place] (1.001-1.035) Urine Protein (Negative) Urine Glucose (UA) (Negative) Urine Ketones (Negative) Urine Blood (Negative) Urine Nitrite (Negative) Urine Bilirubin (Negative) Urine Urobilinogen (<2.0) mg/dL Ur Leukocyte Esterase (Negative) Urine RBC (0-5) /hpf Urine WBC (0-5) /hpf Ur Squamous Epith Cells (0-4) /hpf Urine HCG, Qual (Not Detectd) Disposition Clinical Impression: Intractable nausea and vomiting Disposition: ADMITTED IP TO THIS HOSP Condition: Fair Is patient prescribed a controlled substance at d/c from ED?: No Referrals: Barrie Jin DO [Primary Care Provider] - 1-2 days
[2020-02-15] MEDS: SODIUM CHLORIDE 0.9% 1,000 ML IV SCH (23:33)
[2020-02-16] MEDS: SODIUM CHLORIDE 0.9% 1,000 ML IV SCH ×2 (08:25→20:41)
[2020-02-16 08:55] LABS: ALT 40 U/L (4-34); AST 40 U/L (14-36); African American GFR (CKD) >90 (>60 ml/min/1.73 sqM); Alkaline Phosphatase 86 U/L (38-126); Anion Gap 3 mmol/L; Anisocytosis Slight; Blood Urea Nitrogen 4 mg/dL (7-17); Calcium 7.6 mg/dL (8.4-10.2); Carbon Dioxide 25 mmol/L (22-30); Chloride 106 mmol/L (98-107); Glucose 82 mg/dL (74-99); HCT 29.7 % (34.0-46.0); HGB 9.9 gm/dL (11.4-16.0); Hypochromasia Slight; MCH 25.5 pg (25.0-35.0); MCHC 33.5 g/dL (31.0-37.0); MCV 76.1 fL (80.0-100.0); Mean Platelet Volume 8.1; Microcytosis Slight; Non-African American GFR(CKD) >90 (>60 ml/min/1.73 sqM); Platelet Count 267 k/uL (150-450); Potassium 3.8 mmol/L (3.5-5.1); RBC 3.91 m/uL (3.80-5.40); RDW 16.4 % (11.5-15.5); Sodium 134 mmol/L (137-145); Total Bilirubin 0.8 mg/dL (0.2-1.3); Total Protein 5.7 g/dL (6.3-8.2); WBC 7.6 k/uL (4.0-11.0)
[2020-02-16] MEDS: PANTOPRAZOLE 40 MG/10 ML VIAL IVP SCH ×2 (11:32→20:39)
[2020-02-16 12:05] LABS: Amphetamine Screen,Urine Not Detected (NotDetected); Barbiturate Screen,Urine Not Detected (NotDetected); Benzodiazepines Screen,Urine Not Detected (NotDetected); Cocaine Screen,Urine Not Detected (NotDetected); Methadone Screen, Urine Not Detected (NotDetected); Opiate Screen,Urine Not Detected (NotDetected); Oxycodone Screen, Urine Not Detected (NotDetected); Phencyclidine Screen,Urine Not Detected (NotDetected); Tricyclic Antidepressant,Urine Not Detected (NotDetected); Urn Cannabinoid Scrn Detected (NotDetected)
[2020-02-16] MEDS: ACETAMINOPHEN TAB 325 MG TAB PO PRN ×2 (14:01→21:36)
[2020-02-16] MEDS: ONDANSETRON 4 MG/2 ML VIAL IVP PRN (21:37)
--- NOTE | 2020-02-16 22:30 | P.CONS ---
History of Present Illness - Reason for Consult Consult date: 02/16/20 Nausea and vomiting Requesting physician: Carlos E Sheet - Chief Complaint Nausea and vomiting - History of Present Illness 20-year-old female with a medical history significant for prior cholecystectomy, prior Clostridium differential seal infection, gastritis, marijuana abuse and multiple presentations for nausea and vomiting who presented with complaints of nausea and vomiting. She reports frequent episodes of nausea and vomiting over the past few days. Patient has been unable to tolerate oral medications. She reported an episode of loose stool prior to developing the nausea and vomiting. The patient does have Protonix, Reglan and Zofran at home and generally will only take the medications as needed. She reports 3-4 bowel movements yesterday with no blood reported. No bowel movements today. She underwent cholecystectomy in 12/2019. EGD on 12/02/2019 was significant for mild gastritis. Laboratory evaluation on presentation significant for WBC 7.6, hemoglobin 9.9, platelet count 267,000, total bilirubin 0.8, pleasant phosphatase 86, AST 40 and ALT 40. The patient's has continued to use marijuana in the outpatient setting with last use 1 week ago in spite of being told previously that this may be the cause of her symptoms. ET scan on presentation essentially negative with some fluid-filled loops of small bowel suggestive of possible mild ileus. Review of Systems REVIEW OF SYSTEMS: CONSTITUTIONAL: Denies any fevers, chills, weight change or fatigue. CARDIOVASCULAR: Denies any chest pain, palpitations high or low blood pressures RESPIRATORY: Denies any shortness of breath, hemoptysis or cough. GENITOURINARY: No dysuria or hematuria. MUSCULOSKELETAL: No weakness reported. SKIN: Denies any new rashes or lesions, jaundice or pallor. PSYCHIATRIC: Denies any depression or anxiety, marijuana abuse. NEUROLOGY: Denies headache, denies any new focal deficits. EARS/NOSE/THROAT: No recent hearing change, congestion, nasal discharge or sore throat. EYES: No pain in eyes, discharge or change in vision. GASTROINTESTINAL: As per HPI. Past Medical History Past Medical History: Asthma, Syncope Additional Past Medical History / Comment(s): Low BP. Hx fainting episodes occasionally since 2016, was told could be her low BP-not sure, recent admission in hospital beginning of December for abd. pain & diarrhea-dx. w/C-diff, finished antibiotics. History of Any Multi-Drug Resistant Organisms: C-DIFF Year Discovered:: 12/08/19 MDRO Source:: stool Past Surgical History: Cholecystectomy Additional Past Surgical History / Comment(s): EGD. 12/2019 - [facility] Past Anesthesia/Blood Transfusion Reactions: Postoperative Nausea & Vomiting (PONV) Additional Past Anesthesia/Blood Transfusion Reaction / Comm: scope 11/2019 Past Psychological History: No Psychological Hx Reported Smoking Status: Never smoker Past Alcohol Use History: None Reported Past Drug Use History: Marijuana Additional Drug Use History / Comment(s): states she smokes marijuana a few times a month. - Past Family History Mother Family Medical History: No Reported History Additional Family Medical History / Comment(s): clarence Father Family Medical History: No Reported History Medications and Allergies Home Medications Medication Instructions Recorded Confirmed Type Norgestimate-Ethinyl Estradiol 1 tab PO HS 08/30/15 02/15/20 History [Tri-Sprintec Tablet] Metoclopramide [Reglan] 10 mg PO TID PRN #15 tab 02/10/20 02/15/20 Rx Ondansetron Odt [Zofran Odt] 4 mg PO Q8HR PRN #20 tab 02/10/20 02/15/20 Rx Loratadine [Claritin] 10 mg PO HS 02/15/20 02/15/20 History Pantoprazole Sodium [Protonix] 40 mg PO DAILY 02/15/20 02/15/20 History Allergies Allergy/AdvReac Type Severity Reaction Status Date / Time No Known Allergies Allergy Verified 02/15/20 23:24 Physical Exam Vitals: Vital Signs Temp Pulse Pulse Resp BP BP Pulse Ox 02/16/20 15:05 98.7 F 59 L 14 110/69 99 02/16/20 08:55 98.3 F 67 20 105/67 99 02/16/20 04:19 98.1 F 76 16 101/62 98 02/15/20 23:28 85 02/15/20 23:15 99.2 F 85 16 118/73 98 02/15/20 22:50 98.0 F 87 18 104/66 100 02/15/20 19:50 98.0 F 92 18 131/93 98 Intake and Output 02/16/20 02/16/20 02/16/20 06:59 14:59 22:59 Intake Total 1000 120 Balance 1000 120 Intake: Intake, IV Titration 1000 Amount Sodium Chloride 0.9% 1, 1000 000 ml @ 999 mls/hr IV . Q1H1M ONE Rx#:[id number] Oral 120 Other: Voiding Method Toilet Toilet # Voids 2 # Bowel Movements 1 Weight 45 kg On physical examination, patient appears comfortable in no apparent distress. HEAD: Normocephalic, atraumatic. EYES: No scleral icterus. No conjunctival injection. MOUTH: No lesions, tongue midline. NECK: Trachea midline, no gross abnormalities. CHEST: Clear to auscultation with no wheezing or rhonchi appreciated. HEART: Regular rate and rhythm. ABDOMEN: Soft, thin and nontender. Bowel sounds are positive. No organomegaly. No guarding or rigidity. EXTREMITIES: No pedal edema. SKIN: No rashes, no jaundice. NEUROLOGIC: Alert and oriented x3. No focal deficits. Results CBC & Chem 7: 02/16/20 08:14 02/16/20 08:14 Labs: Abnormal Lab Results - Last 24 Hours (Table) 02/15/20 02/15/20 02/15/20 Range/Units 20:38 20:38 20:38 WBC 12.8 H (4.0-11.0) k/uL Hgb (11.4-16.0) gm/dL Hct (34.0-46.0) % MCV 74.9 L (80.0-100.0) fL MCH 24.8 L (25.0-35.0) pg RDW 16.3 H (11.5-15.5) % Neutrophils # 11.3 H (1.3-7.7) k/uL Sodium 136 L (137-145) mmol/L Carbon Dioxide 19 L (22-30) mmol/L BUN 5 L (7-17) mg/dL Glucose 105 H (74-99) mg/dL Plasma Lactic Acid Alek (0.7-2.0) mmol/L Calcium (8.4-10.2) mg/dL AST 54 H (14-36) U/L ALT 52 H (4-34) U/L Alkaline Phosphatase 128 H (38-126) U/L Total Protein (6.3-8.2) g/dL Albumin (3.5-5.0) g/dL Urine Appearance Cloudy H (Clear) Ur Specific [place] 1.037 H (1.001-1.035) Urine Ketones 1+ H (Negative) Ur Squamous Epith Cells 16 H (0-4) /hpf U Marijuana (THC) Screen (NotDetected) 02/15/20 02/16/20 02/16/20 Range/Units 20:38 08:14 08:14 WBC (4.0-11.0) k/uL Hgb 9.9 L D (11.4-16.0) gm/dL Hct 29.7 L (34.0-46.0) % MCV 76.1 L (80.0-100.0) fL MCH (25.0-35.0) pg RDW 16.4 H (11.5-15.5) % Neutrophils # (1.3-7.7) k/uL Sodium 134 L (137-145) mmol/L Carbon Dioxide (22-30) mmol/L BUN 4 L (7-17) mg/dL Glucose (74-99) mg/dL Plasma Lactic Acid Alek 4.1 H* (0.7-2.0) mmol/L Calcium 7.6 L (8.4-10.2) mg/dL AST 40 H (14-36) U/L ALT 40 H (4-34) U/L Alkaline Phosphatase (38-126) U/L Total Protein 5.7 L (6.3-8.2) g/dL Albumin 3.0 L (3.5-5.0) g/dL Urine Appearance (Clear) Ur Specific [place] (1.001-1.035) Urine Ketones (Negative) Ur Squamous Epith Cells (0-4) /hpf U Marijuana (THC) Screen (NotDetected) 02/16/20 Range/Units 11:00 WBC (4.0-11.0) k/uL Hgb (11.4-16.0) gm/dL Hct (34.0-46.0) % MCV (80.0-100.0) fL MCH (25.0-35.0) pg RDW (11.5-15.5) % Neutrophils # (1.3-7.7) k/uL Sodium (137-145) mmol/L Carbon Dioxide (22-30) mmol/L BUN (7-17) mg/dL Glucose (74-99) mg/dL Plasma Lactic Acid Alek (0.7-2.0) mmol/L Calcium (8.4-10.2) mg/dL AST (14-36) U/L ALT (4-34) U/L Alkaline Phosphatase (38-126) U/L Total Protein (6.3-8.2) g/dL Albumin (3.5-5.0) g/dL Urine Appearance (Clear) Ur Specific [place] (1.001-1.035) Urine Ketones (Negative) Ur Squamous Epith Cells (0-4) /hpf U Marijuana (THC) Screen Detected H (NotDetected) CT scan - abdomen: report reviewed (Computed tomography scan of the abdomen with some fluid-filled loops of small bowel suggestive of possible mild ileus.) Assessment and Plan (1) Intractable nausea and vomiting Narrative/Plan: 20-year-old female who presents to the hospital with complaints of intractable nausea and vomiting. She reports some loose bowel movements prior to developing symptoms of intractable nausea and vomiting. The patient is with similar complaints in the past. Currently she takes Protonix, Reglan and Zofran as needed for symptoms in the outpatient setting. Previously she was told that sym ptoms may be related to marijuana hyperemesis syndrome and told to avoid marijuana use, but reports smoking marijuana approximately a week ago with UDS positive for cannabinoids. Current Visit: Yes Status: Acute Code(s): R11.2 - NAUSEA WITH VOMITING, UNSPECIFIED SNOMED Code(s): 082829167 (2) History of Clostridioides difficile infection Current Visit: No Status: Acute Code(s): Z86.19 - PERSONAL HISTORY OF OTHER INFECTIOUS AND PARASITIC DISEASES SNOMED Code(s): 107433816 Plan: Supportive care Diet advance to full liquid Protonix twice daily added Continue Zofran and Reglan as needed for nausea and vomiting Marijuana use discouraged as the patient may be having symptoms secondary to marijuana hyperemesis syndrome Patient follow up after discharge for continued management and workup Thank you for allowing us to participate in the care of the patient
[2020-02-17] MEDS: diphenhydrAMINE 50 MG/ML 1 ML VIAL IVP PRN ×3 (01:53→20:52)
[2020-02-17] MEDS: SODIUM CHLORIDE 0.9% 1,000 ML IV SCH ×3 (06:27→20:51)
--- NOTE | 2020-02-17 07:03 | P.HPIM ---
History of Present Illness Patient exam 19-year-old female with a known history of recent C. difficile infection and was discharged on 10/24/2019 and 02/09/2020, asthma, smoked marijuana on daily basis and chronic hypotension currently on midodrine . She has history of E. coli UTI came to the hospital with complaints of nausea vomiting. now she presents with similar complaints, she denies using alcohol or marijuana as she did last time when she was in the hospital earlier this month, also she complains from some periumbilcal abdominal pain , which is mild rated as 4/10 in severity as per pt, sharp , non radiating. no relieving or precipitating factor, she vomited the whole yesterday as she says but today morning she has only nausea last time she was discharged on antibiotic for UTI but she did not take it, today she denies any urinary symptoms hcg is negative in urine and serum, urine drugs screen is positive for marijuana c diff is negative Past Medical History Past Medical History: Asthma, Syncope Additional Past Medical History / Comment(s): Low BP. Hx fainting episodes occasionally since 2015, was told could be her low BP-not sure, recent admission in hospital beginning of December for abd. pain & diarrhea-dx. w/C-diff, finished antibiotics. History of Any Multi-Drug Resistant Organisms: C-DIFF Date of last positivie culture/infection: 12/08/19 MDRO Source:: stool Past Surgical History: Cholecystectomy Additional Past Surgical History / Comment(s): EGD. 12/2019 - [facility] Past Anesthesia/Blood Transfusion Reactions: Postoperative Nausea & Vomiting (PONV) Additional Past Anesthesia/Blood Transfusion Reaction / Comment(s): scope 11/2019 Past Psychological History: No Psychological Hx Reported Smoking Status: Never smoker Past Alcohol Use History: None Reported Past Drug Use History: Marijuana Additional Drug Use History / Comment(s): states she smokes marijuana a few times a month. - Past Family History Mother Family Medical History: No Reported History Additional Family Medical History / Comment(s): clarence Father Family Medical History: No Reported History Medications and Allergies Home Medications Medication Instructions Recorded Confirmed Type Norgestimate-Ethinyl Estradiol 1 tab PO HS 08/30/15 02/15/20 History [Tri-Sprintec Tablet] Metoclopramide [Reglan] 10 mg PO TID PRN #15 tab 02/10/20 02/15/20 Rx Ondansetron Odt [Zofran Odt] 4 mg PO Q8HR PRN #20 tab 02/10/20 02/15/20 Rx Loratadine [Claritin] 10 mg PO HS 02/15/20 02/15/20 History Pantoprazole Sodium [Protonix] 40 mg PO DAILY 02/15/20 02/15/20 History Allergies Allergy/AdvReac Type Severity Reaction Status Date / Time No Known Allergies Allergy Verified 02/15/20 23:24 Physical Exam Vitals: Vital Signs Temp Pulse Pulse Resp BP BP Pulse Ox 02/16/20 08:55 98.3 F 67 20 105/67 99 02/16/20 04:19 98.1 F 76 16 101/62 98 02/15/20 23:28 85 02/15/20 23:15 99.2 F 85 16 118/73 98 02/15/20 22:50 98.0 F 87 18 104/66 100 02/15/20 19:50 98.0 F 92 18 131/93 98 Intake and Output 02/15/20 02/16/20 02/16/20 22:59 06:59 14:59 Intake Total 1000 Balance 1000 Intake: Intake, IV Titration 1000 Amount Sodium Chloride 0.9% 1, 1000 000 ml @ 999 mls/hr IV . Q1H1M ONE Rx#:[id number] Other: Voiding Method Toilet Toilet Weight 45.359 kg 45 kg GENERAL: The patient is alert and oriented x3, not in any acute distress. Well developed, well nourished. HEENT: Pupils are round and equally reacting to light. EOMI. No scleral icterus. No conjunctival pallor. Normocephalic, atraumatic. No pharyngeal erythema. No thyromegaly. CARDIOVASCULAR: S1 and S2 present. No murmurs, rubs, or gallops. PULMONARY: Chest is clear to auscultation, no wheezing or crackles. -ABDOMEN: Soft, mild periumbilical tenderness , no rebound tenderness, nondistended, normoactive bowel sounds. No palpable organomegaly. MUSCULOSKELETAL: No joint swelling or deformity. EXTREMITIES: No cyanosis, clubbing, or pedal edema. NEUROLOGICAL: Gross neurological examination did not reveal any focal deficits. SKIN: No rashes. no petechiae. Results CBC & Chem 7: 12/10/20 08:14 02/16/20 08:14 Labs: Abnormal Lab Results - Last 24 Hours (Table) 02/15/20 02/15/20 02/15/20 Range/Units 20:38 20:38 20:38 WBC 12.8 H (4.0-11.0) k/uL Hgb (11.4-16.0) gm/dL Hct (34.0-46.0) % MCV 74.9 L (80.0-100.0) fL MCH 24.8 L (25.0-35.0) pg RDW 16.3 H (11.5-15.5) % Neutrophils # 11.3 H (1.3-7.7) k/uL Sodium 136 L (137-145) mmol/L Carbon Dioxide 19 L (22-30) mmol/L BUN 5 L (7-17) mg/dL Glucose 105 H (74-99) mg/dL Plasma Lactic Acid Alek (0.7-2.0) mmol/L Calcium (8.4-10.2) mg/dL AST 54 H (14-36) U/L ALT 52 H (4-34) U/L Alkaline Phosphatase 128 H (38-126) U/L Total Protein (6.3-8.2) g/dL Albumin (3.5-5.0) g/dL Urine Appearance Cloudy H (Clear) Ur Specific [place] 1.037 H (1.001-1.035) Urine Ketones 1+ H (Negative) Ur Squamous Epith Cells 16 H (0-4) /hpf 02/15/20 02/16/20 02/16/20 Range/Units 20:38 08:14 08:14 WBC (4.0-11.0) k/uL Hgb 9.9 L D (11.4-16.0) gm/dL Hct 29.7 L (34.0-46.0) % MCV 76.1 L (80.0-100.0) fL MCH (25.0-35.0) pg RDW 16.4 H (11.5-15.5) % Neutrophils # (1.3-7.7) k/uL Sodium 134 L (137-145) mmol/L Carbon Dioxide (22-30) mmol/L BUN 4 L (7-17) mg/dL Glucose (74-99) mg/dL Plasma Lactic Acid Alek 4.1 H* (0.7-2.0) mmol/L Calcium 7.6 L (8.4-10.2) mg/dL AST 40 H (14-36) U/L ALT 40 H (4-34) U/L Alkaline Phosphatase (38-126) U/L Total Protein 5.7 L (6.3-8.2) g/dL Albumin 3.0 L (3.5-5.0) g/dL Urine Appearance (Clear) Ur Specific [place] (1.001-1.035) Urine Ketones (Negative) Ur Squamous Epith Cells (0-4) /hpf Thrombosis Risk Factor Assmnt - Choose All That Apply Each Factor Represents 1 point: Oral contraceptives or hormone replacement t herapy Other Risk Factors: No Thrombosis Risk Factor Assessment Total Risk Factor Score: 1 Thrombosis Risk Factor Assessment Level: Low Risk Assessment and Plan Assessment: Recurrent nausea vomiting, mostly related to Marijuana recent history of Marijuana use on daily basis, patient is counseled to quit Recent C. difficile colitis in October 2019. Recent C. difficile negative Asthma stable Chronic hypotension on midodrine Plan: this is a pleasant 20 yo females who presents with recurrent nausea and vomiting , continue with hydratino and treat her n/v symptomatically with antiemetic. GI consult Labs and medication were reviewed.. Continue same treatment. Continue with symptomatic treatment. Resume home medication. Monitor lytes and vitals. DVT and GI prophylaxis. Further recommendations depends on the clinical course of the patient DVT prophylaxis: Subcutaneous lovenox GI Prophylaxis: Ppi
[2020-02-17] MEDS: ONDANSETRON 4 MG/2 ML VIAL IVP PRN ×2 (07:53→16:01)
[2020-02-17] MEDS: PANTOPRAZOLE 40 MG/10 ML VIAL IVP SCH ×2 (07:53→20:52)
[2020-02-17 08:16] LABS: ALT 47 U/L (4-34); AST 39 U/L (14-36); African American GFR (CKD) >90 (>60 ml/min/1.73 sqM); Albumin 3.7 g/dL (3.5-5.0); Alkaline Phosphatase 105 U/L (38-126); Anion Gap 7 mmol/L; Blood Urea Nitrogen 3 mg/dL (7-17); Calcium 8.5 mg/dL (8.4-10.2); Carbon Dioxide 23 mmol/L (22-30); Chloride 102 mmol/L (98-107); Glucose 93 mg/dL (74-99); Non-African American GFR(CKD) >90 (>60 ml/min/1.73 sqM); Potassium 4.5 mmol/L (3.5-5.1); Sodium 132 mmol/L (137-145); Total Protein 6.8 g/dL (6.3-8.2)
[2020-02-17] MEDS ORDERED: TRIMETHOBENZAMIDE 100 MG/ML 2 ML VIAL IM PRN (09:27)
[2020-02-17] MEDS: DICYCLOMINE 20 MG TAB PO SCH ×4 (09:53→20:55)
[2020-02-17] MEDS: METOCLOPRAMIDE 5 MG/ML 2 ML VIAL IVP SCH ×2 (09:57→17:42)
[2020-02-17] MEDS ORDERED: DICYCLOMINE 10 MG/ML 2 ML AMP IM SCH (12:00)
--- NOTE | 2020-02-17 13:11 | P.PN ---
Subjective Patient exam 19-year-old female with a known history of recent C. difficile infection and was discharged on 10/24/2019 and 02/09/2020, asthma, smoked marijuana on daily basis and chronic hypotension currently on midodrine . She has history of E. coli UTI came to the hospital with complaints of nausea vomiting. now she presents with similar complaints, she denies using alcohol or marijuana as she did last time when she was in the hospital earlier this month, also she complains from some periumbilcal abdominal pain , which is mild rated as 4/10 in severity as per pt, sharp , non radiating. no relieving or precipitating factor, she vomited the whole yesterday as she says but today morning she has only nausea last time she was discharged on antibiotic for UTI but she did not take it, today she denies any urinary symptoms hcg is negative in urine and serum, urine drugs screen is positive for marijuana c diff is negative 02/17/2020 Patient still have nausea vomiting and some abdominal pain today. She is on liquid diet and she is not ready to advance it. Patient was counseled extensively to quit marijuana and risks and benefits are explained Objective - Vital Signs Vital signs: Vital Signs Temp 97.8 F 02/17/20 08:00 Pulse 98 02/17/20 08:00 Resp 20 02/17/20 08:00 BP 126/89 02/17/20 08:00 Pulse Ox 99 02/17/20 08:00 Intake & Output 02/16/20 02/17/20 02/17/20 18:59 06:59 18:59 Intake Total 120 Balance 120 Intake: Oral 120 Other: Voiding Method Toilet # Voids 1 2 # Bowel Movements 1 - Exam GENERAL: The patient is alert and oriented x3, not in any acute distress. Well developed, well nourished. HEENT: Pupils are round and equally reacting to light. EOMI. No scleral icterus. No conjunctival pallor. Normocephalic, atraumatic. No pharyngeal erythema. No thyromegaly. CARDIOVASCULAR: S1 and S2 present. No murmurs, rubs, or gallops. PULMONARY: Chest is clear to auscultation, no wheezing or crackles. -ABDOMEN: Soft, mild breanne-umbilical tender, nondistended, normoactive bowel sounds. No palpable organomegaly. MUSCULOSKELETAL: No joint swelling or deformity. EXTREMITIES: No cyanosis, clubbing, or pedal edema. NEUROLOGICAL: Gross neurological examination did not reveal any focal deficits. SKIN: No rashes. no petechiae. - Labs CBC & Chem 7: 02/16/20 08:14 02/17/20 07:31 Labs: Abnormal Lab Results - Last 24 Hours (Table) 02/17/20 Range/Units 07:31 Sodium 132 L (137-145) mmol/L BUN 3 L (7-17) mg/dL AST 39 H (14-36) U/L ALT 47 H (4-34) U/L Assessment and Plan Assessment: Recurrent nausea vomiting, mostly related to Marijuana recent history of Marijuana use on daily basis, patient is counseled to quit Recent C. difficile colitis in October 2019. Recent C. difficile negative Asthma stable Chronic hypotension on midodrine Plan: this is a pleasant 20 yo females who presents with recurrent nausea and vomiting , continue with hydratino and treat her n/v symptomatically with antiemetic. GI consult Labs and medication were reviewed.. Continue same treatment. Continue with symptomatic treatment. Resume home medication. Monitor lytes and vitals. DVT and GI prophylaxis. Further recommendations depends on the clinical course of the patient DVT prophylaxis: Subcutaneous lovenox GI Prophylaxis: Ppi
--- NOTE | 2020-02-17 15:36 | P.PN ---
Subjective Progress Note Date: 02/17/20 Principal diagnosis: Nausea, vomiting, and diarrhea Patient was seen and examined lying in bed. She was still having episodes of nausea and vomiting with retching this morning. Emesis is described as mostly clear and bile. She states she is having a lot of lower abdominal cramping. She had one episode of loose bowel movement yesterday evening, none since. She has been afebrile, denies any shortness of breath or chest pain. Denies any hematemesis, or melena. Objective - Vital Signs Vital signs: Vital Signs Temp 98.3 F 02/17/20 13:43 Pulse 87 02/17/20 13:43 Resp 18 02/17/20 13:43 BP 116/79 02/17/20 13:43 Pulse Ox 95 02/17/20 13:43 Intake & Output 02/16/20 02/17/20 02/17/20 18:59 06:59 18:59 Intake Total 120 Balance 120 Intake: Oral 120 Other: Voiding Method Toilet # Voids 1 2 # Bowel Movements 1 - Exam General appearance: The patient is alert, oriented, in no acute distress. Thin. HET: Head is normocephalic and atraumatic. Conjunctiva pink. Sclera anicteric. Neck: Supple without lymphadenopathy. Abdomen: Soft, mild lower abdominal tenderness, nondistended with bowel sounds. No guarding or rigidity. Extremities: Normal skin color and turgor. No pedal edema Neurological: No focal deficits. Alert and oriented 3. - Labs CBC & Chem 7: 02/16/20 08:14 02/17/20 07:31 Labs: Abnormal Lab Results - Last 24 Hours (Table) 02/17/20 Range/Units 07:31 Sodium 132 L (137-145) mmol/L BUN 3 L (7-17) mg/dL AST 39 H (14-36) U/L ALT 47 H (4-34) U/L Assessment and Plan (1) Intractable nausea and vomiting Narrative/Plan: This is a 20-year-old female who presents to the hospital with complaints of intractable nausea and vomiting. She reports some loose bowel movements prior to developing symptoms of intractable nausea and vomiting. The patient is with similar complaints in the past. Currently she takes Protonix, Reglan, and Zofran as needed at home. Previously she was told that symptoms may be related to marijuana hyperemesis syndrome and told to avoid marijuana use, but reports smoking marijuana approximately a week ago with a UDS positive for cannabinoids. Current Visit: Yes Status: Acute Code(s): R11.2 - NAUSEA WITH VOMITING, UNSPECIFIED SNOMED Code(s): 926296752 (2) History of Clostridioides difficile infection Current Visit: No Status: Acute Code(s): Z86.19 - PERSONAL HISTORY OF OTHER INFECTIOUS AND PARASITIC DISEASES SNOMED Code(s): 416512791 Plan: Supportive care Clear liquid diet, advance as tolerated Protonix twice daily Continue Zofran and Reglan, Reglan changed to [id number] for nausea and vomiting Bentyl added for abdominal pain and cramping Tigan IM ordered for nausea and vomiting as needed Marijuana use discourages the patient may be having symptoms secondary to marijuana hyperemesis syndrome Patient to follow-up after discharge for continued management and workup with possible gastric emptying study and colonoscopy Dr. Keating I agree with the dictator's note, documented as a scribe by Gina Gabriel.
[2020-02-17] MEDS ORDERED: METOCLOPRAMIDE 5 MG/ML 2 ML VIAL IVP SCH (16:00)
[2020-02-18] MEDS: ONDANSETRON 4 MG/2 ML VIAL IVP PRN ×2 (00:15→09:35)
[2020-02-18] MEDS: METOCLOPRAMIDE 5 MG/ML 2 ML VIAL IVP SCH ×3 (02:16→18:10)
[2020-02-18] MEDS: PANTOPRAZOLE 40 MG/10 ML VIAL IVP SCH ×2 (09:29→20:42)
[2020-02-18] MEDS: DICYCLOMINE 20 MG TAB PO SCH ×4 (09:29→22:11)
[2020-02-18] MEDS: ACETAMINOPHEN TAB 325 MG TAB PO PRN (09:36)
[2020-02-18 15:44] VITALS: RESP 16
[2020-02-18] MEDS: SODIUM CHLORIDE 0.9% 1,000 ML IV SCH ×2 (21:12→22:13)
--- NOTE | 2020-02-19 01:13 | P.PN ---
Subjective Patient exam 19-year-old female with a known history of recent C. difficile infection and was discharged on 10/24/2019 and 02/09/2020, asthma, smoked marijuana on daily basis and chronic hypotension currently on midodrine . She has history of E. coli UTI came to the hospital with complaints of nausea vomiting. now she presents with similar complaints, she denies using alcohol or marijuana as she did last time when she was in the hospital earlier this month, also she complains from some periumbilcal abdominal pain , which is mild rated as 4/10 in severity as per pt, sharp , non radiating. no relieving or precipitating factor, she vomited the whole yesterday as she says but today morning she has only nausea last time she was discharged on antibiotic for UTI but she did not take it, today she denies any urinary symptoms hcg is negative in urine and serum, urine drugs screen is positive for marijuana c diff is negative 02/17/2020 Patient still have nausea vomiting and some abdominal pain today. She is on liquid diet and she is not ready to advance it. Patient was counseled extensively to quit marijuana and risks and benefits are explained 02/18/2020 Patient has no more nausea vomiting, her bowel movement is becoming more formed She still have some mild abdominal discomfort however she is slow to advance the diet however she is willing to try regular diet today GI team are on the case Patient is counseled extensively to avoid marijuana, as it is thought to contribute patient's recurrent symptoms Patient may be discharged in 24-48 hours if she keeps improving Objective - Vital Signs Vital signs: Vital Signs Temp 97.5 F L 02/18/20 20:30 Pulse 65 02/18/20 20:30 Resp 16 02/18/20 20:30 BP 111/72 02/18/20 20:30 Pulse Ox 99 02/18/20 20:30 Intake & Output 02/18/20 02/18/20 02/19/20 06:59 18:59 06:59 Intake Total 150 Balance 150 Intake: Oral 150 Other: Voiding Method Toilet # Voids 2 # Bowel Movements 2 1 - Exam GENERAL: The patient is alert and oriented x3, not in any acute distress. Well developed, well nourished. HEENT: Pupils are round and equally reacting to light. EOMI. No scleral icterus. No conjunctival pallor. Normocephalic, atraumatic. No pharyngeal erythema. No thyromegaly. CARDIOVASCULAR: S1 and S2 present. No murmurs, rubs, or gallops. PULMONARY: Chest is clear to auscultation, no wheezing or crackles. -ABDOMEN: Soft, mild breanne-umbilical tender, nondistended, normoactive bowel sounds. No palpable organomegaly. MUSCULOSKELETAL: No joint swelling or deformity. EXTREMITIES: No cyanosis, clubbing, or pedal edema. NEUROLOGICAL: Gross neurological examination did not reveal any focal deficits. SKIN: No rashes. no petechiae. - Labs CBC & Chem 7: 02/16/20 08:14 02/17/20 07:31 Assessment and Plan Assessment: Recurrent nausea vomiting, mostly related to Marijuana recent history of Marijuana use on daily basis, patient is counseled to quit Recent C. difficile colitis in October 2019. Recent C. difficile negative Asthma stable Chronic hypotension on midodrine Plan: this is a pleasant 20 yo females who presents with recurrent nausea and vomiting , continue with hydratino and treat her n/v symptomatically with antiemetic. GI consult Labs and medication were reviewed.. Continue same treatment. Continue with symptomatic treatment. Resume home medication. Monitor lytes and vitals. DVT and GI prophylaxis. Further recommendations depends on the clinical course of the patient DVT prophylaxis: Subcutaneous lovenox GI Prophylaxis: Ppi
[2020-02-19] MEDS: METOCLOPRAMIDE 5 MG/ML 2 ML VIAL IVP SCH ×2 (02:43→10:00)
[2020-02-19] MEDS: SODIUM CHLORIDE 0.9% 1,000 ML IV SCH (06:37)
[2020-02-19] MEDS: DICYCLOMINE 20 MG TAB PO SCH ×2 (08:50→12:53)
[2020-02-19] MEDS: PANTOPRAZOLE 40 MG/10 ML VIAL IVP SCH (08:50)
[2020-02-19 08:57] VITALS: PULSE 84
[2020-02-19 11:46] LABS: Anisocytosis Slight; Basophils % (A) 0 %; Eosinophils # (A) 0.1 k/uL (0-0.7); Eosinophils % (A) 2 %; HCT 34.9 % (34.0-46.0); HGB 11.3 gm/dL (11.4-16.0); Hypochromasia Slight; Lymphocytes # (A) 1.4 k/uL (1.0-4.8); Lymphocytes % (A) 26 %; MCH 24.8 pg (25.0-35.0); MCHC 32.5 g/dL (31.0-37.0); MCV 76.3 fL (80.0-100.0); Mean Platelet Volume 7.1; Microcytosis Slight; Monocytes # (A) 0.4 k/uL (0-1.0); Monocytes % (A) 7 %; Neutrophils # (A) 3.3 k/uL (1.3-7.7); Neutrophils % (A) 62 %; Platelet Count 290 k/uL (150-450); RBC 4.58 m/uL (3.80-5.40); RDW 16.7 % (11.5-15.5); WBC 5.3 k/uL (4.0-11.0)
[2020-02-19 11:58] LABS: Albumin 3.6 g/dL (3.5-5.0); Bilirubin, Delta 0.2 mg/dL (0.0-0.2); Bilirubin,Unconjugated 0.7 mg/dL (0.0-1.1); Total Bilirubin 0.9 mg/dL (0.2-1.3); Total Protein 6.7 g/dL (6.3-8.2)
[2020-02-19 12:14] VITALS: BP 116/80; TEMP 97.1
[2020-02-19] MEDS: ACETAMINOPHEN TAB 325 MG TAB PO PRN (12:17)
--- NOTE | 2020-02-19 21:03 | P.PN ---
Subjective Progress Note Date: 02/19/20 Principal diagnosis: Nausea and vomiting, abdominal pain Patient is seen lying in bed. She is tolerated diet. Overall symptoms are much improved. She had formed bowel movements today. Abdominal pain controlled with dicyclomine which she would like to continue in the outpatient setting. Objective - Vital Signs Vital signs: Vital Signs Temp 97.0 F L 02/19/20 08:52 Pulse 84 02/19/20 08:52 Resp 16 02/19/20 08:52 BP 120/82 02/19/20 08:52 Pulse Ox 100 02/19/20 08:52 Intake & Output 02/18/20 02/19/20 02/19/20 18:59 06:59 18:59 Intake Total 150 120 Balance 150 120 Intake: Oral 150 120 Other: Voiding Method Toilet Toilet # Voids 1 1 # Bowel Movements 1 1 - Exam On physical examination, patient appears comfortable in no apparent distress. HEAD: Normocephalic, atraumatic. EYES: No scleral icterus. No conjunctival injection. MOUTH: No lesions, tongue midline. NECK: Trachea midline, no gross abnormalities. ABDOMEN: Soft, thin and nontender. Bowel sounds are positive. No organomegaly. No guarding or rigidity. EXTREMITIES: No pedal edema. SKIN: No rashes, no jaundice. NEUROLOGIC: Alert and oriented x3. No focal deficits. - Labs CBC & Chem 7: 02/19/20 11:34 02/17/20 07:31 Assessment and Plan (1) Intractable nausea and vomiting Narrative/Plan: 20-year-old female who presents to the hospital with complaints of intractable nausea and vomiting. She reports some loose bowel movements prior to developing symptoms of intractable nausea and vomiting. The patient is with similar complaints in the past. Currently she takes Protonix, Reglan and Zofran as needed for symptoms in the outpatient setting. Previously she was told that symptoms may be related to marijuana hyperemesis syndrome and told to avoid marijuana use, but reports smoking marijuana approximately a week ago with UDS positive for cannabinoids. Overall symptoms are improved. She feels that dicyclomine has helped with her abdominal cramping. Status: Acute Code(s): R11.2 - NAUSEA WITH VOMITING, UNSPECIFIED SNOMED Code(s): 608676692 (2) History of Clostridioides difficile infection Status: Acute Code(s): Z86.19 - PERSONAL HISTORY OF OTHER INFECTIOUS AND PARASITIC DISEASES SNOMED Code(s): 670965393 Plan: Supportive care Diet advance to full liquid Protonix twice daily added Continue Zofran and Reglan as needed for nausea and vomiting Patient feels Bentyl as helped with pain and can be continued after discharge Marijuana use discouraged as the patient may be having symptoms secondary to marijuana hyperemesis syndrome Patient follow up after discharge for continued management and workup, with plan for possible colonoscopy for further evaluation to be scheduled in follow-up Thank you for allowing us to participate in the care of the patient
== END 2020-02-19 14:00 | disposition home or self-care (01) | DRG 392 ==
LOC: EC 19:40 → 6PED 21:46 → OBSVTOIN 02-17 10:08
PROVIDERS: ADMIT Internal Medicine; ATTEND Internal Medicine
DX: R11.2 Nausea with vomiting, unspecified (principal); K56.7 Ileus, unspecified; I95.89 Other hypotension; F12.90 Cannabis use, unspecified, uncomplicated; K29.70 Gastritis, unspecified, without bleeding; J45.909 Unspecified asthma, uncomplicated; Z79.899 Other long term (current) drug therapy; Z87.440 Personal history of urinary (tract) infections; Z90.49 Acquired absence of other specified parts of digestive tract; Z87.19 Personal history of other diseases of the digestive system; Z86.19 Personal history of other infectious and parasitic diseases; Z79.3 Long term (current) use of hormonal contraceptives
CPT/HCPCS: 36415; 80053; 80076; 80306; 81001; 81025; 83605; 83690; 84703; 85025; 85027; 87324; 96361; 96374; 99285

== ENCOUNTER 2020-06-02 18:50 | Emergency (ER) | payer BC, OTHER ==
[2020-06-02 19:23] VITALS: BP 112/72; PULSE 57; TEMP 97.4
[2020-06-02] MEDS ORDERED: SODIUM CHLORIDE 0.9% 1,000 ML IV STA (19:32)
[2020-06-02] MEDS ORDERED: diphenhydrAMINE 50 MG/ML 1 ML VIAL IVP STA (19:32)
[2020-06-02] MEDS ORDERED: ONDANSETRON 4 MG/2 ML VIAL IVP STA (19:32)
--- NOTE | 2020-06-02 19:37 | ED ---
Nausea/Vomiting/Diarrhea HPI - General Chief complaint: Nausea/Vomiting/Diarrhea Stated complaint: IBS Time Seen by Provider: 06/02/20 19:29 Source: patient Mode of arrival: ambulatory Limitations: no limitations - History of Present Illness Initial comments: Patient is a 20-year-old female, history of IBS, presenting to the emergency Department with complaints of nausea and vomiting for the past few hours. She states that when she gets IBS flares this normally happens. It started about 2 hours ago. Patient is actually dry heaving during exam. She admits to some very mild abdominal cramping but no pains, she denies being . He denies any fevers or chills, no chest pain or shortness of breath. She has no further complaints at this time. Upon arrival to the ER, her vitals are stable. - Related Data Home Medications Medication Instructions Recorded Confirmed Norgestimate-Ethinyl Estradiol 1 tab PO HS 08/30/15 02/15/20 [Tri-Sprintec Tablet] Loratadine [Claritin] 10 mg PO HS 02/15/20 02/15/20 Pantoprazole Sodium [Protonix] 40 mg PO DAILY 02/15/20 02/15/20 Previous Rx's Medication Instructions Recorded Acetaminophen Tab [Tylenol] 650 mg PO Q6HR PRN tab 02/19/20 Dicyclomine [Bentyl] 20 mg PO QID #120 tab 02/19/20 Metoclopramide [Reglan] 10 mg PO TID PRN #15 tab 06/02/20 Ondansetron Odt [Zofran ODT] 4 mg PO Q8HR PRN #20 tab 06/02/20 Allergies Allergy/AdvReac Type Severity Reaction Status Date / Time No Known Allergies Allergy Verified 06/02/20 19:23 Review of Systems ROS Statement: Those systems with pertinent positive or pertinent negative responses have been documented in the HPI. ROS Other: All systems not noted in ROS Statement are negative. Past Medical History Past Medical History: Asthma, Syncope Additional Past Medical History / Comment(s): Low BP. Hx fainting episodes occasionally since 2015, was told could be her low BP-not sure, recent admission in hospital beginning of December for abd. pain & diarrhea-dx. w/C-diff, finished antibiotics. History of Any Multi-Drug Resistant Organisms: C-DIFF Date of last positivie culture/infection: 12/08/19 MDRO Source:: stool Past Surgical History: Cholecystectomy Additional Past Surgical History / Comment(s): EGD. 12/2019 - [facility] Past Anesthesia/Blood Transfusion Reactions: Postoperative Nausea & Vomiting (PONV) Additional Past Anesthesia/Blood Transfusion Reaction / Comment(s): scope 11/2019 Past Psychological History: No Psychological Hx Reported Smoking Status: Never smoker Past Alcohol Use History: None Reported Past Drug Use History: Marijuana - Past Family History Mother Family Medical History: No Reported History Additional Family Medical History / Comment(s): clarence Father Family Medical History: No Reported History General Exam - General Exam Comments Initial Comments: GENERAL: Patient is well-developed and well-nourished. Patient is nontoxic and in mild distress, she is dry heaving but no vomiting. HEAD: Atraumatic, normocephalic. EYES: Pupils equal round and reactive to light, extraocular movements intact, sclera anicteric, conjunctiva are normal. Eyelids were unremarkable. ENT: TMs normal, nares patent, oropharynx clear without exudates. Moist mucous membranes. NECK: Normal range of motion, supple without lymphadenopathy or JVD. LUNGS: Unlabored respirations. Breath sounds clear to auscultation bilaterally and equal. No wheezes rales or rhonchi. HEART: Regular rate and rhythm without murmurs, rubs or gallops. ABDOMEN: Soft, nontender, normoactive bowel sounds. No guarding, no rebound. No masses appreciated. : Deferred MUSCULOSKELETAL: Normal extremities with adequate strength and normal range of motion, no pitting or edema. No clubbing or cyanosis. NEUROLOGICAL: Patient is alert and oriented x 3. Motor and sensory are also intact. Cranial nerves II through XII grossly intact. Symmetrical smile. Normal speech, normal gait. PSYCH: Normal mood, normal affect. SKIN: Warm, Dry, normal turgor, no rashes or lesions noted. Limitations: no limitations Course Vital Signs 06/02/20 06/02/20 19:19 20:31 Temperature 97.4 F L Pulse Rate 57 L Respiratory 18 16 Rate Blood Pressure 112/72 O2 Sat by Pulse 99 Oximetry Medical Decision Making - Medical Decision Making Patient is a 20-year-old female with history of IBS, presenting with nausea and vomiting for the past 2 hours. She states this normally happens when she gets her "IBS flare." She denies any abdominal pain, she denies being . Her vitals are stable. Patient was given fluids, Benadryl and Zofran, reglan. Patient was resting comfortably but upon waking patient from sleeping, she states her symptoms returned and she started retching again. She's had no active vomiting just mostly spit. Patient was given some Ativan and has been resting complaint for over an hour. Upon reexamination she again, wakes up and states that she does not feel well however I discussed with her that her lab work is normal and that she is giving many medications with no active vomiting. She is stable for discharge. Patient finally agrees to this plan of care. I will send her home with scripts for Zofran and Reglan for any continuous nausea or vomiting. She can follow-up with her regular doctor. She is stable for discharge. Return parameters were discussed with her and she verbalized understanding. Case discussed with Dr. Frost. - Lab Data Result diagrams: 06/02/20 19:48 06/02/20 19:48 Lab Results 06/02/20 06/02/20 06/02/20 Range/Units 19:33 19:33 19:48 WBC 11.1 H (4.0-11.0) k/uL RBC 5.37 (3.80-5.40) m/uL Hgb 12.3 (11.4-16.0) gm/dL Hct 37.4 (34.0-46.0) % MCV 69.5 L (80.0-100.0) fL MCH 23.0 L (25.0-35.0) pg MCHC 33.0 (31.0-37.0) g/dL RDW 16.1 H (11.5-15.5) % Plt Count 357 (150-450) k/uL MPV 8.1 Neutrophils % 73 % Lymphocytes % 20 % Monocytes % 5 % Eosinophils % 1 % Basophils % 0 % Neutrophils # 8.1 H (1.3-7.7) k/uL Lymphocytes # 2.2 (1.0-4.8) k/uL Monocytes # 0.5 (0-1.0) k/uL Eosinophils # 0.1 (0-0.7) k/uL Basophils # 0.0 (0-0.2) k/uL Anisocytosis Slight Microcytosis Marked Sodium (137-145) mmol/L Potassium (3.5-5.1) mmol/L Chloride (98-107) mmol/L Carbon Dioxide (22-30) mmol/L Anion Gap mmol/L BUN (7-17) mg/dL Creatinine (0.52-1.04) mg/dL Est GFR (CKD-EPI)AfAm (>60 ml/min/1.73 sqM) Est GFR (CKD-EPI)NonAf (>60 ml/min/1.73 sqM) Glucose (74-99) mg/dL Calcium (8.4-10.2) mg/dL Total Bilirubin (0.2-1.3) mg/dL AST (14-36) U/L ALT (4-34) U/L Alkaline Phosphatase (38-126) U/L Total Protein (6.3-8.2) g/dL Albumin (3.5-5.0) g/dL Urine Color Yellow Urine Appearance Cloudy H (Clear) Urine pH 6.0 (5.0-8.0) Ur Specific [place] 1.030 (1.001-1.035) Urine Protein 1+ H (Negative) Urine Glucose (UA) Negative (Negative) Urine Ketones 1+ H (Negative) Urine Blood Negative (Negative) Urine Nitrite Negative (Negative) Urine Bilirubin Negative (Negative) Urine Urobilinogen <2.0 (<2.0) mg/dL Ur Leukocyte Esterase Negative (Negative) Urine RBC 1 (0-5) /hpf Urine WBC 6 H (0-5) /hpf Ur Squamous Epith Cells 47 H (0-4) /hpf Hyaline Casts 3 H (0-2) /lpf Urine Mucus Many H (None) /hpf Urine HCG, Qual Not Detected (Not Detectd) 06/02/20 Range/Units 19:48 WBC (4.0-11.0) k/uL RBC (3.80-5.40) m/uL Hgb (11.4-16.0) gm/dL Hct (34.0-46.0) % MCV (80.0-100.0) fL MCH (25.0-35.0) pg MCHC (31.0-37.0) g/dL RDW (11.5-15.5) % Plt Count (150-450) k/uL MPV Neutrophils % % Lymphocytes % % Monocytes % % Eosinophils % % Basophils % % Neutrophils # (1.3-7.7) k/uL Lymphocytes # (1.0-4.8) k/uL Monocytes # (0-1.0) k/uL Eosinophils # (0-0.7) k/uL Basophils # (0-0.2) k/uL Anisocytosis Microcytosis Sodium 136 L (137-145) mmol/L Potassium 3.7 (3.5-5.1) mmol/L Chloride 103 (98-107) mmol/L Carbon Dioxide 18 L (22-30) mmol/L Anion Gap 15 mmol/L BUN 12 (7-17) mg/dL Creatinine 0.75 (0.52-1.04) mg/dL Est GFR (CKD-EPI)AfAm >90 (>60 ml/min/1.73 sqM) Est GFR (CKD-EPI)NonAf >90 (>60 ml/min/1.73 sqM) Glucose 104 H (74-99) mg/dL Calcium 9.8 (8.4-10.2) mg/dL Total Bilirubin 0.9 (0.2-1.3) mg/dL AST 31 (14-36) U/L ALT 22 (4-34) U/L Alkaline Phosphatase 132 H (38-126) U/L Total Protein 8.5 H (6.3-8.2) g/dL Albumin 4.9 (3.5-5.0) g/dL Urine Color Urine Appearance (Clear) Urine pH (5.0-8.0) Ur Specific [place] (1.001-1.035) Urine Protein (Negative) Urine Glucose (UA) (Negative) Urine Ketones (Negative) Urine Blood (Negative) Urine Nitrite (Negative) Urine Bilirubin (Negative) Urine Urobilinogen (<2.0) mg/dL Ur Leukocyte Esterase (Negative) Urine RBC (0-5) /hpf Urine WBC (0-5) /hpf Ur Squamous Epith Cells (0-4) /hpf Hyaline Casts (0-2) /lpf Urine Mucus (None) /hpf Urine HCG, Qual (Not Detectd) Disposition Clinical Impression: Nausea & vomiting Disposition: HOME SELF-CARE Condition: Stable Instructions (If sedation given, give patient instructions): Acute Nausea and Vomiting (ED) Additional Instructions: Please return to the Emergency Department if symptoms worsen or any other concerns. May take additional Zofran if symptoms persist. Please follow-up with your regular family doctor. Prescriptions: Metoclopramide [Reglan] 10 mg PO TID PRN #15 tab PRN Reason: GERD Ondansetron Odt [Zofran ODT] 4 mg PO Q8HR PRN #20 tab PRN Reason: Nausea Is patient prescribed a controlled substance at d/c from ED?: No Referrals: Barrie Jin DO [Primary Care Provider] - 1-2 days
[2020-06-02 19:52] LABS: Appearance,Urine Cloudy (Clear); Bilirubin,Urine Negative (Negative); Blood,Urine Negative (Negative); Color,Urine Yellow; Glucose,Urine (UA) Negative (Negative); Hyaline Casts,Urine 3 /lpf (0-2); Ketones,Urine 1+ (Negative); Leukocyte Esterase,Urine Negative (Negative); Mucus,Urine Many /hpf; Nitrite,Urine Negative (Negative); Protein,Urine 1+ (Negative); RBC,Urine 1 /hpf (0-5); Squamous Epithelial Cell,Urine 47 /hpf (0-4); Urobilinogen,Urine <2.0 mg/dL (<2.0); WBC,Urine 6 /hpf (0-5)
[2020-06-02 19:57] LABS: Anisocytosis Slight; Basophils % (A) 0 %; Eosinophils # (A) 0.1 k/uL (0-0.7); Eosinophils % (A) 1 %; HCT 37.4 % (34.0-46.0); HGB 12.3 gm/dL (11.4-16.0); Lymphocytes # (A) 2.2 k/uL (1.0-4.8); Lymphocytes % (A) 20 %; MCV 69.5 fL (80.0-100.0); Mean Platelet Volume 8.1; Microcytosis Marked; Monocytes # (A) 0.5 k/uL (0-1.0); Monocytes % (A) 5 %; Neutrophils # (A) 8.1 k/uL (1.3-7.7); Neutrophils % (A) 73 %; Platelet Count 357 k/uL (150-450); RBC 5.37 m/uL (3.80-5.40); RDW 16.1 % (11.5-15.5); WBC 11.1 k/uL (4.0-11.0)
[2020-06-02 20:08] LABS: ALT 22 U/L (4-34); AST 31 U/L (14-36); African American GFR (CKD) >90 (>60 ml/min/1.73 sqM); Albumin 4.9 g/dL (3.5-5.0); Alkaline Phosphatase 132 U/L (38-126); Anion Gap 15 mmol/L; Blood Urea Nitrogen 12 mg/dL (7-17); Calcium 9.8 mg/dL (8.4-10.2); Carbon Dioxide 18 mmol/L (22-30); Chloride 103 mmol/L (98-107); Glucose 104 mg/dL (74-99); Non-African American GFR(CKD) >90 (>60 ml/min/1.73 sqM); Potassium 3.7 mmol/L (3.5-5.1); Sodium 136 mmol/L (137-145); Total Bilirubin 0.9 mg/dL (0.2-1.3); Total Protein 8.5 g/dL (6.3-8.2)
[2020-06-02] MEDS ORDERED: METOCLOPRAMIDE 5 MG/ML 2 ML VIAL IVP STA (20:12)
[2020-06-02 20:32] VITALS: RESP 16
[2020-06-02] MEDS ORDERED: LORazepam 2 MG/ML INJ IV STA (20:57)
[2020-06-02] MEDS ORDERED: ONDANSETRON 4 MG ODT STARTER PACK 2 TAB BTL PO STA (21:51)
== END 2020-06-02 22:10 | disposition home or self-care (01) ==
LOC: EC 18:50
DX: R11.2 Nausea with vomiting, unspecified (principal); R19.7 Diarrhea, unspecified; R10.9 Unspecified abdominal pain; J45.909 Unspecified asthma, uncomplicated; Z79.899 Other long term (current) drug therapy
CPT/HCPCS: 36415; 80053; 85025; 81001; 81025; 99284; 96374; 96375 ×3; 96361; J2060; J1200; J2765; J2405; S0119

== ENCOUNTER 2020-06-07 09:19 | Emergency (ER) | payer BC, OTHER ==
[2020-06-07 09:34] VITALS: RESP 18; TEMP 97.9
[2020-06-07] MEDS ORDERED: ONDANSETRON 4 MG/2 ML VIAL IVP STA (10:11)
[2020-06-07] MEDS ORDERED: SODIUM CHLORIDE 0.9% 1,000 ML IV ONE (10:11)
--- NOTE | 2020-06-07 10:15 | ED ---
General Adult HPI - General Chief complaint: Nausea/Vomiting/Diarrhea Stated complaint: Vomiting Time Seen by Provider: 06/07/20 09:30 Source: patient, RN notes reviewed, old records reviewed Mode of arrival: ambulatory Limitations: no limitations - History of Present Illness Initial comments: This is a 20-year-old female who presents to the emergency department complaining of vomiting since Thursday. Patient states since then she's had quite a bit of dry heaves as well. Patient states she's had diarrhea since October and seen Dr. Keating for that. Patient states she's going to see Dr. Keating on the of this month. Patient denies any abdominal pain. Patient denies any dysuria hematuria urinary frequency per patient denies any fever chil ls or cough per patient denies any chest pain or palpitations. - Related Data Home Medications Medication Instructions Recorded Confirmed Norgestimate-Ethinyl Estradiol 1 tab PO HS 08/30/15 02/15/20 [Tri-Sprintec Tablet] Loratadine [Claritin] 10 mg PO HS 02/15/20 02/15/20 Pantoprazole Sodium [Protonix] 40 mg PO DAILY 02/15/20 02/15/20 Previous Rx's Medication Instructions Recorded Acetaminophen Tab [Tylenol] 650 mg PO Q6HR PRN tab 02/19/20 Dicyclomine [Bentyl] 20 mg PO QID #120 tab 02/19/20 Metoclopramide [Reglan] 10 mg PO TID PRN #15 tab 06/02/20 Ondansetron Odt [Zofran ODT] 4 mg PO Q8HR PRN #20 tab 06/02/20 Prochlorperazine [Compazine] 10 mg PO Q8H #5 tab 06/07/20 Allergies Allergy/AdvReac Type Severity Reaction Status Date / Time No Known Allergies Allergy Verified 06/07/20 09:31 Review of Systems ROS Statement: Those systems with pertinent positive or pertinent negative responses have been documented in the HPI. ROS Other: All systems not noted in ROS Statement are negative. Past Medical History Past Medical History: Asthma, Syncope Additional Past Medical History / Comment(s): Low BP. Hx fainting episodes occasionally since 2015, was told could be her low BP-not sure, recent admission in hospital beginning of December for abd. pain & diarrhea-dx. w/C-diff, finished antibiotics. IBS History of Any Multi-Drug Resistant Organisms: C-DIFF Date of last positivie culture/infection: 12/08/19 MDRO Source:: stool Past Surgical History: Cholecystectomy Additional Past Surgical History / Comment(s): EGD. 12/2019 - [facility] Past Anesthesia/Blood Transfusion Reactions: Postoperative Nausea & Vomiting (PONV) Additional Past Anesthesia/Blood Transfusion Reaction / Comment(s): scope 11/2019 Past Psychological History: Anxiety Smoking Status: Never smoker Past Alcohol Use History: None Reported Past Drug Use History: Marijuana - Past Family History Mother Family Medical History: No Reported History Additional Family Medical History / Comment(s): clarence Father Family Medical History: No Reported History General Exam - General Exam Comments Initial Comments: GENERAL: Patient is well-developed and well-nourished. Patient is nontoxic and well- hydrated and is in mild distress. ENT: Neck is soft and supple. No significant lymphadenopathy is noted. Oropharynx is clear. Dry mucous membranes. Neck has full range of motion without eliciting any pain. EYES: The sclera were anicteric and conjunctiva were pink and moist. Extraocular movements were intact and pupils were equal round and reactive to light. Eyelids were unremarkable. PULMONARY: Unlabored respirations. Good breath sounds bilaterally. No audible rales rhonchi or wheezing was noted. CARDIOVASCULAR: There is a regular rate and rhythm without any murmurs gallops or rubs. ABDOMEN: Soft and nontender with normal bowel sounds. No palpable organomegaly was noted. There is no palpable pulsatile mass. SKIN: Skin is clear with no lesions or rashes and otherwise unremarkable. NEUROLOGIC: Patient is alert and oriented x3. Cranial nerves II through XII are grossly intact. Motor and sensory are also intact. Normal speech, volume and content. Symmetrical smile. MUSCULOSKELETAL: Normal extremities with adequate strength and full range of motion. No lower extremity swelling or edema. No calf tenderness. LYMPHATICS: No significant lymphadenopathy is noted PSYCHIATRIC: Normal psychiatric evaluation. Limitations: no limitations Course Vital Signs 06/07/20 06/07/20 09:31 10:46 Temperature 97.9 F Pulse Rate 115 H 93 Respiratory 18 18 Rate Blood Pressure 122/76 O2 Sat by Pulse 98 100 Oximetry Medical Decision Making - Medical Decision Making EKG shows sinus rhythm at 71 bpm TN interval 126 QRS is 80 QT interval 374 QTC is 46. Patient's EKG shows no ST segment elevation or depression. Patient has not vomited since been emergency department she received Zofran and droperidol - Lab Data Result diagrams: 06/07/20 10:38 06/07/20 10:38 Lab Results 06/07/20 06/07/20 Range/Units 10:38 10:38 WBC 7.9 (4.0-11.0) k/uL RBC 5.95 H (3.80-5.40) m/uL Hgb 13.9 (11.4-16.0) gm/dL Hct 41.5 (34.0-46.0) % MCV 69.8 L (80.0-100.0) fL MCH 23.4 L (25.0-35.0) pg MCHC 33.5 (31.0-37.0) g/dL RDW 18.0 H (11.5-15.5) % Plt Count 415 (150-450) k/uL MPV 7.8 Neutrophils % 77 % Lymphocytes % 16 % Monocytes % 5 % Eosinophils % 1 % Basophils % 0 % Neutrophils # 6.0 (1.3-7.7) k/uL Lymphocytes # 1.3 (1.0-4.8) k/uL Monocytes # 0.4 (0-1.0) k/uL Eosinophils # 0.1 (0-0.7) k/uL Basophils # 0.0 (0-0.2) k/uL Anisocytosis Slight Microcytosis Marked Sodium 132 L (137-145) mmol/L Potassium 3.8 (3.5-5.1) mmol/L Chloride 98 (98-107) mmol/L Carbon Dioxide 16 L (22-30) mmol/L Anion Gap 18 mmol/L BUN 11 (7-17) mg/dL Creatinine 0.76 (0.52-1.04) mg/dL Est GFR (CKD-EPI)AfAm >90 (>60 ml/min/1.73 sqM) Est GFR (CKD-EPI)NonAf >90 (>60 ml/min/1.73 sqM) Glucose 85 (74-99) mg/dL Calcium 9.8 (8.4-10.2) mg/dL Total Bilirubin 1.1 (0.2-1.3) mg/dL AST 45 H (14-36) U/L ALT 68 H (4-34) U/L Alkaline Phosphatase 127 H (38-126) U/L Total Protein 8.8 H (6.3-8.2) g/dL Albumin 5.0 (3.5-5.0) g/dL Lipase 37 (23-300) U/L Disposition Clinical Impression: Acute vomiting Disposition: HOME SELF-CARE Instructions (If sedation given, give patient instructions): Acute Nausea and Vomiting (ED) Prescriptions: Prochlorperazine [Compazine] 10 mg PO Q8H #5 tab Is patient prescribed a controlled substance at d/c from ED?: No Referrals: Barrie Jin DO [Primary Care Provider] - 1-2 days Time of Disposition: 12:08
[2020-06-07 10:46] LABS: Anisocytosis Slight; Basophils % (A) 0 %; Eosinophils # (A) 0.1 k/uL (0-0.7); Eosinophils % (A) 1 %; HCT 41.5 % (34.0-46.0); HGB 13.9 gm/dL (11.4-16.0); Lymphocytes # (A) 1.3 k/uL (1.0-4.8); Lymphocytes % (A) 16 %; MCH 23.4 pg (25.0-35.0); MCHC 33.5 g/dL (31.0-37.0); MCV 69.8 fL (80.0-100.0); Mean Platelet Volume 7.8; Microcytosis Marked; Monocytes # (A) 0.4 k/uL (0-1.0); Monocytes % (A) 5 %; Neutrophils % (A) 77 %; Platelet Count 415 k/uL (150-450); RBC 5.95 m/uL (3.80-5.40); WBC 7.9 k/uL (4.0-11.0)
[2020-06-07 11:12] LABS: ALT 68 U/L (4-34); AST 45 U/L (14-36); African American GFR (CKD) >90 (>60 ml/min/1.73 sqM); Alkaline Phosphatase 127 U/L (38-126); Anion Gap 18 mmol/L; Blood Urea Nitrogen 11 mg/dL (7-17); Calcium 9.8 mg/dL (8.4-10.2); Carbon Dioxide 16 mmol/L (22-30); Chloride 98 mmol/L (98-107); Glucose 85 mg/dL (74-99); Lipase 37 U/L (23-300); Non-African American GFR(CKD) >90 (>60 ml/min/1.73 sqM); Potassium 3.8 mmol/L (3.5-5.1); Sodium 132 mmol/L (137-145); Total Bilirubin 1.1 mg/dL (0.2-1.3); Total Protein 8.8 g/dL (6.3-8.2)
[2020-06-07 13:00] VITALS: BP 125/75; PULSE 85
== END 2020-06-07 12:59 | disposition home or self-care (01) ==
LOC: EC 09:19
DX: R11.2 Nausea with vomiting, unspecified (principal); R19.7 Diarrhea, unspecified; J45.909 Unspecified asthma, uncomplicated; F41.9 Anxiety disorder, unspecified
CPT/HCPCS: 36415; 93005; 80053; 83690; 85025; 84703; 99284; 96374; 96375; 96361 ×2; J2405; J1790

== ENCOUNTER 2020-10-07 17:38 | Observation (INO) | payer BC, OTHER ==
[2020-10-07] MEDS ORDERED: DICYCLOMINE 10 MG/ML 2 ML AMP IM STA (18:19)
[2020-10-07] MEDS ORDERED: ONDANSETRON 4 MG/2 ML VIAL IVP STA (18:19)
[2020-10-07] MEDS ORDERED: SODIUM CHLORIDE 0.9% 1,000 ML IV STA (18:19)
[2020-10-07] MEDS ORDERED: FAMOTIDINE 20 MG/2 ML VIAL IV STA (18:20)
[2020-10-07] MEDS ORDERED: diphenhydrAMINE 50 MG/ML 1 ML VIAL IVP STA (18:20)
--- NOTE | 2020-10-07 18:22 | ED ---
General Adult HPI - General Chief complaint: Nausea/Vomiting/Diarrhea Stated complaint: vomiting Time Seen by Provider: 10/07/20 18:07 Source: patient, RN notes reviewed Mode of arrival: ambulatory Limitations: no limitations - History of Present Illness Initial comments: Patient is a pleasant 20-year-old female presenting to the emergency department with nausea vomiting. Onset of symptoms was just a couple days ago. Patient does have chronic symptoms similar to this related with her irritable bowel syndrome. Patient is also having diarrhea which is also chronic for her. No abdominal pain. Patient does have Zofran at home that has not been helping her symptoms. Patient was at a different emergency department yesterday. Patient was transferred to [facility] with concern for pneumomediastinum however they did further evaluation there and determined patient did not have this. Patient denies chest pain. - Related Data Home Medications Medication Instructions Recorded Confirmed Norgestimate-Ethinyl Estradiol 1 tab PO HS 08/30/15 10/07/20 [Tri-Sprintec Tablet] Loratadine [Claritin] 10 mg PO HS 02/15/20 10/07/20 Hyoscyamine Sulfate [Levbid] 0.375 mg PO Q12HR 10/07/20 10/07/20 Allergies Allergy/AdvReac Type Severity Reaction Status Date / Time No Known Allergies Allergy Verified 10/07/20 20:04 Review of Systems ROS Statement: Those systems with pertinent positive or pertinent negative responses have been documented in the HPI. ROS Other: All systems not noted in ROS Statement are negative. Constitutional: Denies: fever Eyes: Denies: eye pain ENT: Denies: ear pain Respiratory: Denies: cough Cardiovascular: Denies: chest pain Endocrine: Denies: fatigue Gastrointestinal: Reports: as per HPI, nausea, vomiting, diarrhea Genitourinary: Denies: dysuria Musculoskeletal: Denies: back pain Skin: Denies: rash Neurological: Denies: weakness Past Medical History Past Medical History: Asthma, Syncope Additional Past Medical History / Comment(s): Low BP. Hx fainting episodes occasionally since 2015, was told could be her low BP-not sure, recent admission in hospital beginning of December for abd. pain & diarrhea-dx. w/C-diff, finished antibiotics. IBS History of Any Multi-Drug Resistant Organisms: C-DIFF Date of last positivie culture/infection: 12/08/19 MDRO Source:: stool Past Surgical History: Cholecystectomy Additional Past Surgical History / Comment(s): EGD. 12/2019 - [facility] Past Anesthesia/Blood Transfusion Reactions: Postoperative Nausea & Vomiting (PONV) Additional Past Anesthesia/Blood Transfusion Reaction / Comment(s): scope 11/2019 Past Psychological History: Anxiety Smoking Status: Never smoker Past Alcohol Use History: None Reported Past Drug Use History: Marijuana - Past Family History Mother Family Medical History: No Reported History Additional Family Medical History / Comment(s): clarence Father Family Medical History: No Reported History General Exam Limitations: no limitations General appearance: alert, in no apparent distress Head exam: Present: normocephalic Eye exam: Present: normal appearance Neck exam: Present: normal inspection Respiratory exam: Present: normal lung sounds bilaterally Cardiovascular Exam: Present: regular rate, normal rhythm GI/Abdominal exam: Present: soft. Absent: distended, tenderness, guarding, rebound, rigid Extremities exam: Present: normal inspection Neurological exam: Present: alert Psychiatric exam: Present: normal affect, normal mood Skin exam: Present: normal color Course Vital Signs 10/07/20 10/07/20 18:03 19:00 Temperature 97.8 F 98.0 F Pulse Rate 116 H 83 Respiratory 16 20 Rate Blood Pressure 132/86 130/92 O2 Sat by Pulse 97 100 Oximetry Medical Decision Making - Medical Decision Making Patient reevaluated and was feeling somewhat better. Patient tried ice chips without success and is vomiting again. Case discussed with Dr. Pierre, who will admit. Patient and family updated. - Lab Data Result diagrams: 10/07/20 18:30 10/07/20 18:30 Lab Results 10/07/20 10/07/20 Range/Units 18:30 18:30 WBC 16.5 H (4.0-11.0) k/uL RBC 4.48 (3.80-5.40) m/uL Hgb 11.1 L (11.4-16.0) gm/dL Hct 33.0 L (34.0-46.0) % MCV 73.6 L (80.0-100.0) fL MCH 24.9 L (25.0-35.0) pg MCHC 33.8 (31.0-37.0) g/dL RDW 16.1 H (11.5-15.5) % Plt Count 296 (150-450) k/uL MPV 8.8 Neutrophils % 84 % Lymphocytes % 10 % Monocytes % 4 % Eosinophils % 1 % Basophils % 0 % Neutrophils # 13.9 H (1.3-7.7) k/uL Lymphocytes # 1.7 (1.0-4.8) k/uL Monocytes # 0.6 (0-1.0) k/uL Eosinophils # 0.2 (0-0.7) k/uL Basophils # 0.0 (0-0.2) k/uL Anisocytosis Slight Microcytosis Slight Sodium 136 L (137-145) mmol/L Potassium 4.2 (3.5-5.1) mmol/L Chloride 106 (98-107) mmol/L Carbon Dioxide 16 L (22-30) mmol/L Anion Gap 14 mmol/L BUN 4 L (7-17) mg/dL Creatinine 0.61 (0.52-1.04) mg/dL Est GFR (CKD-EPI)AfAm >90 (>60 ml/min/1.73 sqM) Est GFR (CKD-EPI)NonAf >90 (>60 ml/min/1.73 sqM) Glucose 93 (74-99) mg/dL Calcium 8.7 (8.4-10.2) mg/dL Total Bilirubin 1.0 (0.2-1.3) mg/dL AST 48 H (14-36) U/L ALT 24 (4-34) U/L Alkaline Phosphatase 91 (38-126) U/L Total Protein 7.2 (6.3-8.2) g/dL Albumin 3.9 (3.5-5.0) g/dL Amylase 122 H (30-110) U/L Lipase 192 (23-300) U/L Disposition Clinical Impression: Intractable nausea and vomiting Disposition: ADMITTED IP TO THIS HOSP Is patient prescribed a controlled substance at d/c from ED?: No Referrals: Barrie Jin DO [Primary Care Provider] - 1-2 days Decision Time: 20:32
[2020-10-07 18:41] LABS: Anisocytosis Slight; Basophils % (A) 0 %; Eosinophils # (A) 0.2 k/uL (0-0.7); Eosinophils % (A) 1 %; HGB 11.1 gm/dL (11.4-16.0); Lymphocytes # (A) 1.7 k/uL (1.0-4.8); Lymphocytes % (A) 10 %; MCH 24.9 pg (25.0-35.0); MCHC 33.8 g/dL (31.0-37.0); MCV 73.6 fL (80.0-100.0); Mean Platelet Volume 8.8; Microcytosis Slight; Monocytes # (A) 0.6 k/uL (0-1.0); Monocytes % (A) 4 %; Neutrophils # (A) 13.9 k/uL (1.3-7.7); Neutrophils % (A) 84 %; Platelet Count 296 k/uL (150-450); RBC 4.48 m/uL (3.80-5.40); RDW 16.1 % (11.5-15.5); WBC 16.5 k/uL (4.0-11.0)
[2020-10-07 18:59] LABS: ALT 24 U/L (4-34); AST 48 U/L (14-36); African American GFR (CKD) >90 (>60 ml/min/1.73 sqM); Albumin 3.9 g/dL (3.5-5.0); Alkaline Phosphatase 91 U/L (38-126); Amylase 122 U/L (30-110); Anion Gap 14 mmol/L; Blood Urea Nitrogen 4 mg/dL (7-17); Calcium 8.7 mg/dL (8.4-10.2); Carbon Dioxide 16 mmol/L (22-30); Chloride 106 mmol/L (98-107); Glucose 93 mg/dL (74-99); Lipase 192 U/L (23-300); Non-African American GFR(CKD) >90 (>60 ml/min/1.73 sqM); Sodium 136 mmol/L (137-145); Total Protein 7.2 g/dL (6.3-8.2)
[2020-10-07 19:06] LABS: Potassium 4.2 mmol/L (3.5-5.1)
[2020-10-07] MEDS ORDERED: ONDANSETRON 4 MG/2 ML VIAL IVP PRN (20:32)
[2020-10-07] MEDS ORDERED: NALOXONE 0.4 MG/ML 1 ML VIAL IV PRN (20:32)
[2020-10-07] MEDS: PANTOPRAZOLE 40 MG/10 ML VIAL IV SCH (20:51)
[2020-10-07] MEDS: SODIUM CHLORIDE 0.9% 1,000 ML IV SCH (20:51)
[2020-10-07] MEDS ORDERED: diphenhydrAMINE 50 MG/ML 1 ML VIAL IVP PRN (21:47)
[2020-10-07] MEDS ORDERED: ALPRAZolam 0.25 MG TAB PO PRN (21:47)
[2020-10-07] MEDS ORDERED: METOCLOPRAMIDE 5 MG/ML 2 ML VIAL IVP PRN (21:48)
[2020-10-07] MEDS ORDERED: ACETAMINOPHEN TAB 325 MG TAB PO PRN (21:49)
[2020-10-07] MEDS: PROCHLORPERAZINE INJ 10 MG/2 ML VIAL IVP PRN (22:15)
[2020-10-08 05:42] VITALS: RESP 16
[2020-10-08] MEDS: PROCHLORPERAZINE INJ 10 MG/2 ML VIAL IVP PRN (06:47)
[2020-10-08 07:05] LABS: African American GFR (CKD) >90 (>60 ml/min/1.73 sqM); Anion Gap 12 mmol/L; Blood Urea Nitrogen 4 mg/dL (7-17); Calcium 8.5 mg/dL (8.4-10.2); Carbon Dioxide 17 mmol/L (22-30); Chloride 105 mmol/L (98-107); Glucose 70 mg/dL (74-99); Non-African American GFR(CKD) >90 (>60 ml/min/1.73 sqM); Potassium 3.8 mmol/L (3.5-5.1); Sodium 134 mmol/L (137-145)
[2020-10-08] MEDS: PANTOPRAZOLE 40 MG/10 ML VIAL IV SCH (08:55)
[2020-10-08] MEDS: SODIUM CHLORIDE 0.9% 1,000 ML IV SCH (08:59)
[2020-10-08 14:26] VITALS: BP 116/73; PULSE 77; TEMP 98.4
--- NOTE | 2020-10-08 16:11 | P.HPIM ---
History of Present Illness H&P Date: 10/08/20 This is a very pleasant 20-year-old female who was recently admitted with increased nausea and vomiting along with continued diarrhea that had been progressing and worsening and inability to tolerate anything by mouth. Patient does have a past medical history of asthma which she states is exercise-induced asthma and has an inhaler as needed. Patient is also known to using marijuana with most recently used approximately 3-5 days ago although patient states not as often. Patient recently was diagnosed with IBS and also was on antibiotics for an extended period of time for C. diff. Patient has a past medical history of cholecystectomy with a recent EGD done at [facility] as there is concerns for air trapping around the esophagus although per family and patient at the bedside it was noted to be within normal limits. Patient is on clear liquids although continues to have nausea with some dry heaving noted and no appetite. Patient was maintained on levmid and has tried Questran and Lomotil with no relief. Patient does see Dr. Keating in the outpatient setting. Review of Systems Constitutional: Reports as per HPI Ears, nose, mouth and throat: Reports sore throat, Denies headache Cardiovascular: Denies chest pain, Denies shortness of breath Respiratory: Denies cough Gastrointestinal: Reports diarrhea, Reports loss of appetite, Reports nausea, Reports vomiting Genitourinary: Denies dysuria, Denies hematuria Menstruation: Reports period normal Musculoskeletal: Denies myalgias Integumentary: Denies pruritus, Denies rash Neurological: Denies numbness, Denies weakness Psychiatric: Denies anxiety, Denies depression Endocrine: Denies fatigue, Denies weight change Past Medical History Past Medical History: Asthma, Syncope Additional Past Medical History / Comment(s): Low BP. Hx fainting episodes occasionally since 2015, was told could be her low BP-not sure, recent admission in hospital beginning of December for abd. pain & diarrhea-dx. w/C-diff, finished antibiotics. IBS History of Any Multi-Drug Resistant Organisms: C-DIFF Date of last positivie culture/infection: 12/08/19 MDRO Source:: stool Past Surgical History: Cholecystectomy Additional Past Surgical History / Comment(s): EGD. 12/2019 - [facility] Past Anesthesia/Blood Transfusion Reactions: Postoperative Nausea & Vomiting (PONV) Additional Past Anesthesia/Blood Transfusion Reaction / Comment(s): scope 11/2019 Past Psychological History: Anxiety Smoking Status: Never smoker Past Alcohol Use History: None Reported Past Drug Use History: Marijuana Additional Drug Use History / Comment(s): "Sometimes, but not really anymore". - Past Family History Mother Family Medical History: No Reported History Additional Family Medical History / Comment(s): clarence Father Family Medical History: No Reported History Medications and Allergies Home Medications Medication Instructions Recorded Confirmed Type Norgestimate-Ethinyl Estradiol 1 tab PO HS 08/30/15 10/07/20 History [Tri-Sprintec Tablet] Loratadine [Claritin] 10 mg PO HS 02/15/20 10/07/20 History Hyoscyamine Sulfate [Levbid] 0.375 mg PO Q12HR 10/07/20 10/07/20 History Allergies Allergy/AdvReac Type Severity Reaction Status Date / Time No Known Allergies Allergy Verified 10/07/20 21:39 Physical Exam Vitals: Vital Signs Temp Pulse Pulse Resp BP BP Pulse Ox 10/08/20 08:00 98.2 F 75 16 112/73 99 10/08/20 02:00 98.2 F 70 16 126/74 97 10/07/20 21:17 98.2 F 73 20 131/86 99 10/07/20 20:57 93 18 137/78 97 10/07/20 19:00 98.0 F 83 20 130/92 100 10/07/20 18:03 97.8 F 116 H 16 132/86 97 Intake and Output 10/07/20 10/08/20 10/08/20 22:59 06:59 14:59 Other: Voiding Method Toilet # Voids 2 Weight 44.3 kg Gen: This is a 20-year-old female awake, alert and oriented 3, thin built, well-developed, well-nourished. HEENT: Head is atraumatic, normocephalic. Pupils equal, round. Sclerae is anicteric. NECK: Supple. No JVD. No lymphadenopathy. No thyromegaly. LUNGS: Clear to auscultation. No wheezes or rhonchi. No intercostal retractions. HEART: Regular rate and rhythm. No murmur. ABDOMEN: Soft. Bowel sounds are present. No masses. No tenderness noted on palpation. EXTREMITIES: No pedal edema. No calf tenderness. NEUROLOGICAL: Patient is awake, alert and oriented x3. Cranial nerves 2 through 12 are grossly intact. Results CBC & Chem 7: 10/07/20 18:30 10/08/20 06:26 Labs: Abnormal Lab Results - Last 24 Hours (Table) 10/07/20 10/07/20 10/08/20 Range/Units 18:30 18:30 06:26 WBC 16.5 H (4.0-11.0) k/uL Hgb 11.1 L (11.4-16.0) gm/dL Hct 33.0 L (34.0-46.0) % MCV 73.6 L (80.0-100.0) fL MCH 24.9 L (25.0-35.0) pg RDW 16.1 H (11.5-15.5) % Neutrophils # 13.9 H (1.3-7.7) k/uL Sodium 136 L 134 L (137-145) mmol/L Carbon Dioxide 16 L 17 L (22-30) mmol/L BUN 4 L 4 L (7-17) mg/dL Glucose 70 L (74-99) mg/dL AST 48 H (14-36) U/L Amylase 122 H (30-110) U/L Thrombosis Risk Factor Assmnt - Choose All That Apply Any of the Below Risk Factors Present?: Yes Each Factor Represents 1 point: Oral contraceptives or hormone replacement therapy Other Risk Factors: No Other congenital or acquired thrombophilia - If yes, enter type in comment: No Thrombosis Risk Factor Assessment Total Risk Factor Score: 1 Thrombosis Risk Factor Assessment Level: Low Risk Assessment and Plan Assessment: Abdominal pain with nausea and vomiting possibly secondary to cyclic vomiting syndrome Continued use of marijuana Anemia possibly iron deficient anemia Recently diagnosed irritable bowel syndrome Recent history of C. diff Leukocytosis most likely reactive Hypovolemic hyponatremia Anion and non-anion metabolic acidosis secondary to hyperchloremia and possible lactic acidosis, present on admission DVT prophylaxis: Early ambulation GI prophylaxis Protonix Full Code Plan: Patient will be continued on gentle IV hydration and encouraged oral intake. Continue with anti-emetics as needed. White blood count elevated most likely reactive and will start gentle IV hydration and repeat labs. Patient is afebrile and no overt signs of infection. Patient does follow with GI Dr. Keating and will have GI evaluate the patient. We'll slowly advance diet as tolerated and monitor for tolerance. Anticipate discharge in 24 hours. Time with Patient: Greater than 30
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
[2020-10-09] MEDS ORDERED: SODIUM FERRIC GLUCONAT-SUCROSE 125 MG in SODIUM CHLORIDE 0.9% 100 ML IVPB SCH (07:00)
--- NOTE | 2020-10-10 03:21 | P.DS ---
Providers Date of admission: 10/07/20 20:33 Expected date of discharge: 10/08/20 Attending physician: Debby Pierre Consults: 10/07/20 20:32 Consult Physician Routine Consulting Provider: Scott Keating Reason/Comments: vomiting Do you want consulting provider notified?: Yes, Notify in am Primary care physician: Barrie Frederick [facility] Course: Final Diagnosis Abdominal pain with nausea and vomiting possibly secondary to cyclic vomiting syndrome Continued use of marijuana Anemia possibly iron deficient anemia Recently diagnosed irritable bowel syndrome Recent history of C. diff Leukocytosis most likely reactive Hypovolemic hyponatremia Anion and non-anion metabolic acidosis secondary to hyperchloremia and possible lactic acidosis, present on admission DVT prophylaxis GI prophylaxis Full Code Discharge disposition Patient is being discharged in a stable condition with guarded prognosis to home. Patient will follow-up with Dr. Frederick in the outpatient setting upon discharge. Patient will also follow up with GI outpatient. Total time taken is greater than 35 minutes. Hospital course This is a very pleasant 20-year-old female who was recently admitted with increased nausea and vomiting along with continued diarrhea that had been progressing and worsening and inability to tolerate anything by mouth. Patient does have a past medical history of asthma which she states is exercise-induced asthma and has an inhaler as needed. Patient is also known to using marijuana with most recently used approximately 3-5 days ago although patient states not as often. Patient recently was diagnosed with IBS and also was on antibiotics for an extended period of time for C. diff. Patient has a past medical history of cholecystectomy with a recent EGD done at [facility] as there is concerns for air trapping around the esophagus although per family and patient at the bedside it was noted to be within normal limits. Patient is on clear liquids although continues to have nausea with some dry heaving noted and no appetite. Patient was maintained on levmid and has tried Questran and Lomotil with no relief. Patient does see Dr. Keating in the outpatient setting. 10/08/2020 Patient is seen in follow-up. Patient was having continued nausea and dry heaving throughout the night with no further reports of vomiting noted. patient was started on clear liquid diet and evaluated by GI Dr. Keating. patient will follow up with him outpatient. Patient tolerated diet and requesting to go home. Mother at the bedside. Patient instructed to continue current diet and slowly advance as tolerated. Continue current medications. Recommend repeat labs in a few days and follow up with primary care provider Dr. Frederick. Patient instructed to avoid marijuana use. Currently no reports of chest pain, shortness of breath, or palpitations. Patient is afebrile. No reports of nausea or vomiting and patient is tolerating diet. Patient will be discharged home. On exam vital signs are stable. Cardio S1, S2 are muffled. Respiratory system shows diminished breath sounds at the bases with no wheezing or rhonchi noted. Abdomen is soft and nontender. Nervous system shows no focal deficits. Please refer to medication reconciliation sheet for a list of medications. Patient Condition at Discharge: Stable Plan - Discharge Summary Discharge Rx Participant: No New Discharge Prescriptions: Continue Norgestimate-Ethinyl Estradiol [Tri-Sprintec Tablet] 1 tab PO HS Loratadine [Claritin] 10 mg PO HS Hyoscyamine Sulfate [Levbid] 0.375 mg PO Q12HR Discharge Medication List Norgestimate-Ethinyl Estradiol [Tri-Sprintec Tablet] 1 tab PO HS 08/30/15 [History] Loratadine [Claritin] 10 mg PO HS 02/15/20 [History] Hyoscyamine Sulfate [Levbid] 0.375 mg PO Q12HR 10/07/20 [History] Follow up Appointment(s)/Referral(s): Barrie Frederick DO [Primary Care Provider] - 1-2 days Scott Keating MD [STAFF PHYSICIAN] - 1 Week Ambulatory/Diagnostic Orders: Complete Blood Count w/diff [LAB.AMB] Time Frame: 3 Days, Location: None Selected Activity/Diet/Wound Care/Special Instructions: Activity Limited until follow-up Follow-up with primary care provider upon discharge Repeat labs in 2-3 days to monitor white blood count and hemoglobin Discussed with primary care provider about additional anemia workup Follow up with GI outpatient Continue current diet and advance slowly as tolerated Avoid marijuana use Discharge Disposition: HOME SELF-CARE
== END 2020-10-08 18:39 | disposition home or self-care (01) ==
LOC: EC 17:38 → 6PED 20:33
PROVIDERS: ADMIT Hospitalist; ATTEND Hospitalist
DX: R10.9 Unspecified abdominal pain (principal); R11.2 Nausea with vomiting, unspecified; F12.90 Cannabis use, unspecified, uncomplicated; D64.9 Anemia, unspecified; K58.0 Irritable bowel syndrome with diarrhea; D72.829 Elevated white blood cell count, unspecified; E87.1 Hypo-osmolality and hyponatremia; E87.2 Acidosis; E87.8 Other disorders of electrolyte and fluid balance, not elsewhere classified; E86.1 Hypovolemia; F41.9 Anxiety disorder, unspecified; J45.909 Unspecified asthma, uncomplicated; Z90.49 Acquired absence of other specified parts of digestive tract; Z86.19 Personal history of other infectious and parasitic diseases; Z83.79 Family history of other diseases of the digestive system; Z63.79 Other stressful life events affecting family and household; Z71.51 Drug abuse counseling and surveillance of drug abuser
CPT/HCPCS: 96361 ×3; 96375 ×2; 96376 ×3; 96372; 96374; 99284; 36415; 80053; 80048; 84443; 82150; 83605; 83690; 85025; 87324; G0378 ×2; J1200; J0500; J0780 ×2; J2405; C9113 ×2

== ENCOUNTER → 2020-10-11 | Outpatient (CLI) | payer BC, OTHER ==
[2020-10-12 01:14] LABS: HCT 42.6 % (37.2-46.3); MCH 22.9 pg (27.0-32.0); MCHC 30.5 g/dL (32.0-37.0); MCV 75.1 fL (80.0-97.0); Mean Platelet Volume 11.1 fL (9.5-12.2); Platelet Count 370 X 10*3/uL (140-440); RBC 5.67 X 10*6/uL (4.10-5.20); RDW 17.6 % (11.5-14.5); WBC 10.22 X 10*3/uL (4.50-10.00)
[2020-10-12 03:48] LABS: Basophils # (A) 0.04 X 10*3/uL (0.00-0.10); Basophils % (A) 0.4 %; Eosinophils # (A) 0.12 X 10*3/uL (0.04-0.35); Eosinophils % (A) 1.2 %; Lymphocytes # (A) 2.08 X 10*3/uL (0.90-5.00); Lymphocytes % (A) 20.4 %; Monocytes % (A) 8.8 %; Neutrophils # (A) 7.06 X 10*3/uL (1.80-7.70)
== END | disposition home or self-care (01) ==
LOC: LABWHC1 13:15
PROVIDERS: ATTEND Registered Nurse
DX: D64.9 Anemia, unspecified (principal); D72.829 Elevated white blood cell count, unspecified
CPT/HCPCS: 36415; 85025

== ENCOUNTER 2020-11-29 14:58 | Observation (INO) | payer BC, OTHER ==
[2020-11-29] MEDS ORDERED: KETOROLAC 15 MG/ML 1 ML VIAL IVP STA (15:40)
[2020-11-29] MEDS ORDERED: SODIUM CHLORIDE 0.9% 1,000 ML IV STA (15:40)
[2020-11-29] MEDS ORDERED: ONDANSETRON 4 MG/2 ML VIAL IVP STA (15:40)
--- NOTE | 2020-11-29 15:46 | ED ---
General Adult HPI - General Chief complaint: Back Pain/Injury Stated complaint: Vomiting,diarrhea Time Seen by Provider: 11/29/20 15:20 Source: patient, RN notes reviewed, old records reviewed Mode of arrival: ambulatory Limitations: no limitations - History of Present Illness Initial comments: She is a 20-year-old female with past medical history remarkable for IBS who presents emergency Department complaining of dysuria. Patient states that this began for the last 2-3 days. Yesterday she states that it got somewhat worse, with dysuria or retention P's. Denies any hematuria. States that her back at the "place for my kidneys are at" is hurting as well. Patient describes the pain as a sharp achy sensation primarily in the bilateral CVA region with no radiation to the flank or groin.She denies any history of renal stones. She does have a history of UTIs and states that this seems a little bit worse than typical UTI symptoms. Endorses nausea with nonbilious nonbloody emesis for the last day as well. Denies any fevers or chills. States she had one episode of loose bowel movement yesterday without any blood in it. Denies any abdominal pain otherwise. Denies any chest pain or shortness breath. Denies any fevers, chills, cough, sick contacts. She denies any vaginal discharge or bleeding. States she is not . Patient presents over concern for nausea and UTI. - Related Data Home Medications Medication Instructions Recorded Confirmed Norgestimate-Ethinyl Estradiol 1 tab PO HS 08/30/15 11/29/20 [Tri-Sprintec Tablet] Loratadine [Claritin] 10 mg PO HS 02/15/20 11/29/20 Albuterol Nebulized [Ventolin 2.5 mg INHALATION RT-Q6H PRN 11/29/20 11/29/20 Nebulized] Allergies Allergy/AdvReac Type Severity Reaction Status Date / Time No Known Allergies Allergy Verified 11/29/20 21:18 Review of Systems ROS Statement: Those systems with pertinent positive or pertinent negative responses have been documented in the HPI. Review of Systems: CONST: Denies fever EYES: Denies blurry vision ENT: Denies nasal congestion C/V: Denies Chest pain RESP: Denies shortness of breath GI: Endorses CVA tenderness : Endorses dysuria SKIN: Denies rash. MSK: Denies joint pain. NEURO: Denies headache ROS Other: All systems not noted in ROS Statement are negative. Past Medical History Past Medical History: Asthma, Syncope Additional Past Medical History / Comment(s): Low BP. Hx fainting episodes occasionally since 2015, was told could be her low BP-not sure, recent admission in hospital beginning of December for abd. pain & diarrhea-dx. w/C-diff, finished antibiotics. IBS History of Any Multi-Drug Resistant Organisms: C-DIFF Date of last positivie culture/infection: 12/08/19 MDRO Source:: stool Past Surgical History: Cholecystectomy Additional Past Surgical History / Comment(s): EGD. 12/2019 - [facility] Past Anesthesia/Blood Transfusion Reactions: Postoperative Nausea & Vomiting (PONV) Additional Past Anesthesia/Blood Transfusion Reaction / Comment(s): scope 11/2019 Past Psychological History: Anxiety Smoking Status: Never smoker Past Alcohol Use History: None Reported Past Drug Use History: Marijuana - Past Family History Mother Family Medical History: No Reported History Additional Family Medical History / Comment(s): clarence Father Family Medical History: No Reported History General Exam - General Exam Comments Initial Comments: General: Appears in no acute distress. HEAD: Normal with no signs of head trauma. EYES: PERRLA, EOMI, conjunctiva normal, no discharge. ENT: Hearing grossly intact, normal oropharynx. Mucous membranes are mildly dry. RESPIRATORY: Clear breath sounds bilaterally. No wheezes, rales, or rhonchi. C/V: Regular rate and rhythm. S1 and S2 auscultated, no edema, peripheral pulses 2+ and intact throughout ABD: Abd is soft, nontender, nondistended. Patient does have CVA tenderness to percussion bilaterally. No flank tenderness on palpation. No guarding. No peritoneal signs. No rebound tenderness. EXT: Normal range of motion, no obvious deformity SKIN: No rashes or lesions observed on exposed skin. NEURO: Alert and oriented 4. Limitations: no limitations Course Vital Signs 11/29/20 11/29/20 15:09 18:17 Temperature 98.3 F Pulse Rate 95 75 Respiratory 18 18 Rate Blood Pressure 124/82 121/87 O2 Sat by Pulse 97 99 Oximetry Medical Decision Making - Medical Decision Making Based on the patient's presentation and physical exam, I'm concerned for what is likely a UTI in this patient. I cannot rule out the possibility of dehydration or significant UTI with spreading to her kidneys and therefore we will obtain basic laboratory studies in addition to providing a symptomatically treatment with a 1 L fluid bolus, IV Zofran, IV Toradol for pain. We will obtain urine studies as well as test. Patient was in agreement this plan. - Lab Data Result diagrams: 11/29/20 15:59 11/29/20 15:59 Lab Results 11/29/20 11/29/20 11/29/20 Range/Units 15:59 15:59 16:22 WBC 13.4 H (4.0-11.0) k/uL RBC 5.52 H (3.80-5.40) m/uL Hgb 14.3 D (11.4-16.0) gm/dL Hct 41.1 (34.0-46.0) % MCV 74.5 L (80.0-100.0) fL MCH 25.8 (25.0-35.0) pg MCHC 34.7 (31.0-37.0) g/dL RDW 18.4 H (11.5-15.5) % Plt Count 474 H (150-450) k/uL MPV 8.4 Neutrophils % 88 % Lymphocytes % 7 % Monocytes % 3 % Eosinophils % 1 % Basophils % 0 % Neutrophils # 11.8 H (1.3-7.7) k/uL Lymphocytes # 1.0 (1.0-4.8) k/uL Monocytes # 0.5 (0-1.0) k/uL Eosinophils # 0.1 (0-0.7) k/uL Basophils # 0.0 (0-0.2) k/uL Anisocytosis Slight Microcytosis Moderate Sodium 138 (137-145) mmol/L Potassium 3.9 (3.5-5.1) mmol/L Chloride 100 (98-107) mmol/L Carbon Dioxide 19 L (22-30) mmol/L Anion Gap 19 mmol/L BUN 15 (7-17) mg/dL Creatinine 0.74 (0.52-1.04) mg/dL Est GFR (CKD-EPI)AfAm >90 (>60 ml/min/1.73 sqM) Est GFR (CKD-EPI)NonAf >90 (>60 ml/min/1.73 sqM) Glucose 115 H (74-99) mg/dL Calcium 10.5 H (8.4-10.2) mg/dL Total Bilirubin 1.3 (0.2-1.3) mg/dL AST 34 (14-36) U/L ALT 25 (4-34) U/L Alkaline Phosphatase 123 (38-126) U/L Total Protein 9.4 H (6.3-8.2) g/dL Albumin 5.1 H (3.5-5.0) g/dL HCG, Qual Not Detected Urine Color Yellow Urine Appearance Turbid H (Clear) Urine pH 6.0 (5.0-8.0) Ur Specific [place] 1.035 (1.001-1.035) Urine Protein 2+ H (Negative) Urine Glucose (UA) Trace H (Negative) Urine Ketones 4+ H (Negative) Urine Blood Small H (Negative) Urine Nitrite Negative (Negative) Urine Bilirubin Negative (Negative) Urine Urobilinogen <2.0 (<2.0) mg/dL Ur Leukocyte Esterase Small H (Negative) Urine RBC 12 H (0-5) /hpf Urine WBC 40 H (0-5) /hpf Ur Squamous Epith Cells 4 (0-4) /hpf Urine Bacteria Rare H (None) /hpf Urine Mucus Many H (None) /hpf Disposition Clinical Impression: Pyelonephritis, Intractable nausea and vomiting Disposition: ADMITTED IP TO THIS HOSP Condition: Stable
[2020-11-29 16:27] LABS: AST 34 U/L (14-36); African American GFR (CKD) >90 (>60 ml/min/1.73 sqM); Albumin 5.1 g/dL (3.5-5.0); Alkaline Phosphatase 123 U/L (38-126); Anion Gap 19 mmol/L; Blood Urea Nitrogen 15 mg/dL (7-17); Calcium 10.5 mg/dL (8.4-10.2); Carbon Dioxide 19 mmol/L (22-30); Chloride 100 mmol/L (98-107); Glucose 115 mg/dL (74-99); Non-African American GFR(CKD) >90 (>60 ml/min/1.73 sqM); Potassium 3.9 mmol/L (3.5-5.1); Sodium 138 mmol/L (137-145); Total Bilirubin 1.3 mg/dL (0.2-1.3); Total Protein 9.4 g/dL (6.3-8.2)
[2020-11-29 16:33] LABS: Anisocytosis Slight; Basophils % (A) 0 %; Eosinophils # (A) 0.1 k/uL (0-0.7); Eosinophils % (A) 1 %; HCT 41.1 % (34.0-46.0); Lymphocytes % (A) 7 %; MCH 25.8 pg (25.0-35.0); MCHC 34.7 g/dL (31.0-37.0); MCV 74.5 fL (80.0-100.0); Mean Platelet Volume 8.4; Microcytosis Moderate; Monocytes # (A) 0.5 k/uL (0-1.0); Monocytes % (A) 3 %; Neutrophils # (A) 11.8 k/uL (1.3-7.7); Neutrophils % (A) 88 %; Platelet Count 474 k/uL (150-450); RBC 5.52 m/uL (3.80-5.40); RDW 18.4 % (11.5-15.5); WBC 13.4 k/uL (4.0-11.0)
[2020-11-29 16:35] LABS: ALT 25 U/L (4-34)
[2020-11-29 16:37] LABS: HGB 14.3 gm/dL (11.4-16.0)
[2020-11-29 16:40] LABS: HCG,Qualitative Serum Not Detected
[2020-11-29] MEDS ORDERED: SODIUM CHLORIDE 0.9% 1,000 ML IV ONE (16:41)
[2020-11-29] MEDS ORDERED: diphenhydrAMINE 50 MG/ML 1 ML VIAL IVP STA ×2 (17:10→21:19)
[2020-11-29] MEDS ORDERED: METOCLOPRAMIDE 5 MG/ML 2 ML VIAL IVP STA (17:10)
[2020-11-29 17:30] LABS: Appearance,Urine Turbid (Clear); Bacteria,Urine Rare /hpf; Bilirubin,Urine Negative (Negative); Blood,Urine Small (Negative); Color,Urine Yellow; Glucose,Urine (UA) Trace (Negative); Ketones,Urine 4+ (Negative); Leukocyte Esterase,Urine Small (Negative); Mucus,Urine Many /hpf; Nitrite,Urine Negative (Negative); Protein,Urine 2+ (Negative); RBC,Urine 12 /hpf (0-5); Specific Gravity,Urine 1.035 (1.001-1.035); Squamous Epithelial Cell,Urine 4 /hpf (0-4); Urobilinogen,Urine <2.0 mg/dL (<2.0); WBC,Urine 40 /hpf (0-5)
[2020-11-29] MEDS ORDERED: ACETAMINOPHEN TAB 325 MG TAB PO PRN (18:36)
[2020-11-29] MEDS ORDERED: ONDANSETRON 4 MG/2 ML VIAL IVP PRN (18:36)
[2020-11-29] MEDS ORDERED: NALOXONE 0.4 MG/ML 1 ML VIAL IV PRN (18:36)
[2020-11-29] MEDS ORDERED: KETOROLAC 15 MG/ML 1 ML VIAL IVP PRN (18:36)
[2020-11-29] MEDS: SODIUM CHLORIDE 0.9% 1,000 ML IV SCH (18:51)
[2020-11-29] MEDS ORDERED: HYDROcodone/APAP 5-325MG 1 EACH TAB PO PRN (19:37)
[2020-11-29] MEDS: METOCLOPRAMIDE 5 MG/ML 2 ML VIAL IVP PRN (19:46)
[2020-11-29] MEDS ORDERED: HYDROmorphone 0.5 MG/0.5 ML SYRINGE IVP PRN (21:12)
[2020-11-29] MEDS ORDERED: SCOPOLAMINE 1.5MG/72HR PATCH TRANSDERM SCH (23:30)
[2020-11-30] MEDS: METOCLOPRAMIDE 5 MG/ML 2 ML VIAL IVP PRN ×3 (01:42→12:22)
[2020-11-30] MEDS: SODIUM CHLORIDE 0.9% 1,000 ML IV SCH (08:27)
[2020-11-30] MEDS ORDERED: DICYCLOMINE 10 MG CAP PO PRN (12:38)
[2020-11-30] MEDS ORDERED: ONDANSETRON 4 MG/2 ML VIAL IVP PRN (12:39)
[2020-11-30] MEDS ORDERED: ALBUTEROL NEBULIZED 2.5 MG/3 ML INHALATION PRN (12:40)
[2020-11-30 13:57] VITALS: BP 121/77; PULSE 78; RESP 16; TEMP 98.3
--- NOTE | 2020-11-30 15:32 | P.HPIM ---
History of Present Illness H&P Date: 11/30/20 This is a pleasant 20-year-old female who presented to the with a 2 day history of nausea and vomiting as well as diarrhea. Patient is have a history of IBS for which she takes Bentyl during a flareup. Additional medical history is asthma, marijuana use. Patient does have a frequent history of UTIs, she states that this time she felt like she was having a UTI because she had some discomfort while urinating as well as bilateral flank pain. She stated that the pain was a sharp achy sensation primarily in the bilateral CVA region with no radiation to the flank or groin she denies any history of kidney stones. She states that her emesis is nonbloody, she describes as bilious. Patient denies any blood in her stool. She denies any fever or chills at home. Patient denies any vaginal discharge, vaginal bleeding. She is not currently on her menses. Patient states that she is not , urine hCG is negative. Patient was admitted from the for concerns for dehydration with accompanying UTI as well as leukocytosis. White blood cell count was found to be 13.4. Urinalysis reve als a turbid color, 2+ protein and 4+ ketones small leukocyte Estrace 40 WBC and rare bacteria. C. diff toxin was negative and coronavirus was negative. Patient was started on IV Rocephin, she was given a one-time dose of IV Zofran for nausea, in addition to Reglan and a scopolamine patch. Upon my assessment patient states that she has not had any episodes of vomiting in the last 24 hours of her symptoms are improving with IV antibiotics. She denies any abdominal pain, vomiting, diarrhea. She is tolerating a diet. She states that she is no longer having any back pain. Patient's vital signs are stable temperature 98.3, heart rate 78, 121/77, 98% on room air. REVIEW OF SYSTEMS: CONSTITUTIONAL: No fever, no malaise, no fatigue. HEENT: No recent visual problems or hearing problems. Denied any sore throat. CARDIOVASCULAR: No chest pain, orthopnea, PND, no palpitations, no syncope. PULMONARY: No shortness of breath, no cough, no hemoptysis. GASTROINTESTINAL: No abdominal pain. Reports diarrhea, nausea and an episode of vomiting yesterday NEUROLOGICAL: No headaches, no weakness, no numbness. HEMATOLOGICAL: Denies any bleeding or petechiae. GENITOURINARY: Denies any burning micturition, frequency, or urgency. MUSCULOSKELETAL/RHEUMATOLOGICAL: Denies any joint pain, swelling, or any muscle pain. ENDOCRINE: Denies any polyuria or polydipsia. The rest of the 14-point review of systems is negative. PHYSICAL EXAMINATION: GENERAL: The patient is alert and oriented x3, not in any acute distress. Well developed, well nourished. HEENT: Pupils are round and equally reacting to light. EOMI. No scleral icterus. No conjunctival pallor. Normocephalic, atraumatic. No pharyngeal erythema. No thyromegaly. CARDIOVASCULAR: S1 and S2 present. No murmurs, rubs, or gallops. PULMONARY: Chest is clear to auscultation, no wheezing or crackles. ABDOMEN: Soft, nontender, nondistended, normoactive bowel sounds. No palpable organomegaly. MUSCULOSKELETAL: No joint swelling or deformity. EXTREMITIES: No cyanosis, clubbing, or pedal edema. NEUROLOGICAL: Gross neurological examination did not reveal any focal deficits. SKIN: No rashes. Assessment and plan Assessment #1 UTI, present on admission, no signs of sepsis. not likely pyelonephritis as patient has been afebrile, and urine was nitrate negative. Patient responded well to IV antibiotics will return transition to oral. #2 abdominal pain with nausea vomiting secondary to cyclic vomiting syndrome related to marijuana use patient has been counseled on cessation, this is patient's fourth admission this year for nausea vomiting #3 history of cholecystectomy #4 history of asthma not in acute exacerbation #5 ketosis related to vomiting #6 history of anemia #7 irritable bowel syndrome, mixed, takes Bentyl, C. diff toxin negative this admission #8 history of C. diff colitis on prolonged antibiotics A #9 leukocytosis, component of reactive related to nausea vomiting, UTI monitor trends Plan Patient will be transitioned to 3 days of oral Ceftin twice a day to finish her therapy. We will check an finalized cultures and make adjustments as needed. Patient was counseled extensively on marijuana cessation. Patient can Bentyl as needed for diarrhea. Continue antiemetics as needed encourage oral intake. F ollow-up labs on outpatient basis once discharged. Past Medical History Past Medical History: Asthma, Syncope Additional Past Medical History / Comment(s): Low BP. Hx fainting episodes occasionally since 2015, was told could be her low BP-not sure, recent admission in hospital beginning of December for abd. pain & diarrhea-dx. w/C-diff, finished antibiotics. IBS History of Any Multi-Drug Resistant Organisms: C-DIFF Date of last positivie culture/infection: 12/08/19 MDRO Source:: stool Past Surgical History: Cholecystectomy Additional Past Surgical History / Comment(s): EGD. 12/2019 - [facility] Past Anesthesia/Blood Transfusion Reactions: Postoperative Nausea & Vomiting (PONV) Additional Past Anesthesia/Blood Transfusion Reaction / Comment(s): scope 11/2019 Past Psychological History: Anxiety Smoking Status: Never smoker Past Alcohol Use History: None Reported Past Drug Use History: Marijuana - Past Family History Mother Family Medical History: No Reported History Additional Family Medical History / Comment(s): clarence Father Family Medical History: No Reported History Medications and Allergies Home Medications Medication Instructions Recorded Confirmed Type Norgestimate-Ethinyl Estradiol 1 tab PO HS 08/30/15 11/29/20 History [Tri-Sprintec Tablet] Loratadine [Claritin] 10 mg PO HS 02/15/20 11/29/20 History Albuterol Nebulized [Ventolin 2.5 mg INHALATION RT-Q6H PRN 11/29/20 11/29/20 History Nebulized] Allergies Allergy/AdvReac Type Severity Reaction Status Date / Time No Known Allergies Allergy Verified 11/29/20 21:18 Physical Exam Vitals: Vital Signs Temp Pulse Pulse Resp BP BP BP 11/30/20 07:45 98.5 F 74 17 109/74 11/30/20 01:46 98.4 F 98 18 108/69 11/29/20 19:47 98.6 F 98 18 121/75 11/29/20 18:17 75 18 121/87 11/29/20 15:09 98.3 F 95 18 124/82 Pulse Ox 11/30/20 07:45 100 11/30/20 01:46 100 11/29/20 19:47 99 11/29/20 18:17 99 11/29/20 15:09 97 Intake and Output 11/29/20 11/30/20 11/30/20 22:59 06:59 14:59 Intake Total 240 Output Total 151 310 200 Balance -151 -70 -200 Intake: Oral 240 Output: Urine 150 200 Stool 1 10 Emesis 100 200 Other: Voiding Method Toilet Toilet Weight 45 kg Results CBC & Chem 7: 11/29/20 15:59 11/29/20 15:59 Labs: Abnormal Lab Results - Last 24 Hours (Table) 11/29/20 11/29/20 11/29/20 Range/Units 15:59 15:59 16:22 WBC 13.4 H (4.0-11.0) k/uL RBC 5.52 H (3.80-5.40) m/uL MCV 74.5 L (80.0-100.0) fL RDW 18.4 H (11.5-15.5) % Plt Count 474 H (150-450) k/uL Neutrophils # 11.8 H (1.3-7.7) k/uL Carbon Dioxide 19 L (22-30) mmol/L Glucose 115 H (74-99) mg/dL Calcium 10.5 H (8.4-10.2) mg/dL Total Protein 9.4 H (6.3-8.2) g/dL Albumin 5.1 H (3.5-5.0) g/dL Urine Appearance Turbid H (Clear) Urine Protein 2+ H (Negative) Urine Glucose (UA) Trace H (Negative) Urine Ketones 4+ H (Negative) Urine Blood Small H (Negative) Ur Leukocyte Esterase Small H (Negative) Urine RBC 12 H (0-5) /hpf Urine WBC 40 H (0-5) /hpf Urine Bacteria Rare H (None) /hpf Urine Mucus Many H (None) /hpf Microbiology - Last 24 Hours (Table) 11/29/20 16:22 Urine Culture - Preliminary Urine,Voided Thrombosis Risk Factor Assmnt - Choose All That Apply Any of the Below Risk Factors Present?: Yes Each Factor Represents 1 point: Oral contraceptives or hormone replacement therapy Other Risk Factors: No Other congenital or acquired thrombophilia - If yes, enter type in comment: No Thrombosis Risk Factor Assessment Total Risk Factor Score: 1 Thrombosis Risk Factor Assessment Level: Low Risk
--- NOTE | 2020-11-30 22:08 | P.DS ---
Providers Date of admission: 11/29/20 18:38 Attending physician: Debby Pierre [facility] Course: Final Diagnosis #1 UTI, present on admission, no signs of sepsis. not likely pyelonephritis as patient has been afebrile, and urine was nitrate negative. Patient responded well to IV antibiotics will return transition to oral. #2 abdominal pain with nausea vomiting secondary to cyclic vomiting syndrome related to marijuana use patient has been counseled on cessation, this is patient's fourth admission this year for nausea vomiting #3 history of cholecystectomy #4 history of asthma not in acute exacerbation #5 ketosis related to vomiting #6 history of anemia #7 irritable bowel syndrome, mixed, takes Bentyl, C. diff toxin negative this admission #8 history of C. diff colitis on prolonged antibiotics A #9 leukocytosis, component of reactive related to nausea vomiting, UTI monitor trends FULL CODE GI Prophylaxis - Protonix Discharge Disposition Pt is discharged home in a stable condition. She will complete 3 more days of antibiotic therapy This is a pleasant 20-year-old female who presented to the with a 2 day history of nausea and vomiting as well as diarrhea. Patient is have a history of IBS for which she takes Bentyl during a flareup. Additional medical history is asthma, marijuana use. Patient does have a frequent history of UTIs, she states that this time she felt like she was having a UTI because she had some discomfort while urinating as well as bilateral flank pain. She stated that the pain was a sharp achy sensation primarily in the bilateral CVA region with no radiation to the flank or groin she denies any history of kidney stones. She states that her emesis is nonbloody, she describes as bilious. Patient denies any blood in her stool. She denies any fever or chills at home. Patient denies any vaginal discharge, vaginal bleeding. She is not currently on her menses. Patient states that she is not , urine hCG is negative. Patient was admitted from the for concerns for dehydration with accompanying UTI as well as leukocytosis. White blood cell count was found to be 13.4. Urinalysis reveals a turbid color, 2+ protein and 4+ ketones small leukocyte Estrace 40 WBC and rare bacteria. C. diff toxin was negative and coronavirus was negative. Patient was started on IV Rocephin, she was given a one-time dose of IV Zofran for nausea, in addition to Reglan and a scopolamine patch. Upon my assessment patient states that she has not had any episodes of vomiting in the last 24 hours of her symptoms are improving with IV antibiotics. She denies any abdominal pain, vomiting, diarrhea. She is tolerating a diet. She states that she is no longer having any back pain. Patient's vital signs are stable temperature 98.3, heart rate 78, 121/77, 98% on room air. Final urine cultures are pending. Patient was recently evaluated for n/v in October of 2020. She follows with Dr. Zuri calderón for GI services. 11/30/2020 Patient will be transitioned to 3 days of oral Ceftin twice a day to finish her therapy. We will check an finalized cultures and make adjustments as needed. Patient was counseled extensively on marijuana cessation. Patient can Bentyl as needed for diarrhea. Continue antiemetics as needed encourage oral intake. Follow-up labs on outpatient basis once discharged. Pt denies abdominal pain, n,v, or diarrhea. She denies chest pain, pressure, palpitations, cough, or SOB. Focal neurological exam is negative. Pts mother is present and the bedside, both updated on POC. Patient is agreeable to discharge and to f/u with labs in 2 days. Thank you for allowing us to participate in the care of this patient. Please see medication reconciliation for a list of current medications. Plan - Discharge Summary Discharge Rx Participant: No New Discharge Prescriptions: New Dicyclomine [Bentyl] 10 mg PO TID PRN cap PRN Reason: Diarrhea Cefuroxime Axetil [Ceftin] 500 mg PO BID 3 Days #6 tab Acetaminophen Tab [Tylenol] 650 mg PO Q6HR PRN tab PRN Reason: Mild Pain Or Fever > 100.5 Ondansetron HCl [Zofran] 4 mg PO Q8H PRN #3 tab PRN Reason: Nausea And Vomiting Continue Norgestimate-Ethinyl Estradiol [Tri-Sprintec Tablet] 1 tab PO HS Loratadine [Claritin] 10 mg PO HS Albuterol Nebulized [Ventolin Nebulized] 2.5 mg INHALATION RT-Q6H PRN PRN Reason: Shortness Of Breath Discharge Medication List Norgestimate-Ethinyl Estradiol [Tri-Sprintec Tablet] 1 tab PO HS 08/30/15 [History] Loratadine [Claritin] 10 mg PO HS 02/15/20 [History] Albuterol Nebulized [Ventolin Nebulized] 2.5 mg INHALATION RT-Q6H PRN 11/29/20 [History] Acetaminophen Tab [Tylenol] 650 mg PO Q6HR PRN tab 11/30/20 [Rx] Cefuroxime Axetil [Ceftin] 500 mg PO BID 3 Days #6 tab 11/30/20 [Rx] Dicyclomine [Bentyl] 10 mg PO TID PRN cap 11/30/20 [Rx] Ondansetron HCl [Zofran] 4 mg PO Q8H PRN #3 tab 11/30/20 [Rx] Follow up Appointment(s)/Referral(s): Kylah Payne MD [STAFF PHYSICIAN] - 1 Week (*please call and make an appointment. office is currently closed ) Barrie Jin DO [Primary Care Provider] - 12/04/20 9:20 am (WITH BIA VALDE[facility]) Ambulatory/Diagnostic Orders: Complete Blood Count w/diff [LAB.AMB] Time Frame: 3 Days, Location: None Selected Patient Instructions/Handouts: Acute Nausea and Vomiting (DC) Activity/Diet/Wound Care/Special Instructions: Continue to advance diet as you tolerate. Fluids are encouraged to stay hydrated. Follow up with physicians as directed. Continue medications as they are prescribed to you. Take the antibiotic in its entirety and correctly to properly treat your urinary tract infection and reduce the risk of resistance. Call with any questions comments concerns worsening returning symptoms that originally brought you to the hospital, fever, not tolerating diet or fluids, pain not controlled with the medications prescribed to you. Discharge Disposition: HOME SELF-CARE
== END 2020-11-30 16:13 | disposition home or self-care (01) ==
LOC: EC 14:58 → 6PED 18:38
PROVIDERS: ADMIT Hospitalist; ATTEND Hospitalist
DX: N39.0 Urinary tract infection, site not specified (principal); R11.15 Cyclical vomiting syndrome unrelated to migraine; F12.188 Cannabis abuse with other cannabis-induced disorder; E86.0 Dehydration; E83.52 Hypercalcemia; I95.9 Hypotension, unspecified; F41.9 Anxiety disorder, unspecified; E88.89 Other specified metabolic disorders; D64.9 Anemia, unspecified; K58.2 Mixed irritable bowel syndrome; J45.909 Unspecified asthma, uncomplicated; Z20.822 Contact with and (suspected) exposure to COVID-19; Z71.51 Drug abuse counseling and surveillance of drug abuser; Z79.3 Long term (current) use of hormonal contraceptives; Z79.899 Other long term (current) drug therapy; Z90.49 Acquired absence of other specified parts of digestive tract; Z87.440 Personal history of urinary (tract) infections; Z16.39 Resistance to other specified antimicrobial drug; Z98.890 Other specified postprocedural states; Z86.19 Personal history of other infectious and parasitic diseases
CPT/HCPCS: 96376 ×2; 96365; 96375; 99284; 36415; 80053; 85025; 81001; 84703; 87324; 87086; 87635; G0378 ×2; J1200; J2765 ×2; J2405; J0696 ×2; J1885 ×2

== ENCOUNTER 2020-12-01 05:54 | Emergency (ER) | payer BC, OTHER ==
[2020-12-01 06:12] VITALS: RESP 18
[2020-12-01] MEDS ORDERED: SODIUM CHLORIDE 0.9% 1,000 ML IV STA (06:44)
--- NOTE | 2020-12-01 06:57 | ED ---
General Adult HPI - General Chief complaint: Nausea/Vomiting/Diarrhea Stated complaint: Vomiting Time Seen by Provider: 12/01/20 06:20 Source: patient, RN notes reviewed Mode of arrival: ambulatory Limitations: no limitations - History of Present Illness Initial comments: 20-year-old female presents to emergency Department, accompanied by her mother, with complaints of persistent nausea and dry heaving for the past 4 days. Denies any aggravating or alleviating factors. States she was hospitalized overnight recently due to urinary tract infection, and has not yet begun taking the prescribed antibiotic. Reports also being prescribed Zofran but has not yet achieved relief of symptoms when taking this medicine. Patient denies abdominal pain and urinary discomfort. - Related Data Home Medications Medication Instructions Recorded Confirmed Norgestimate-Ethinyl Estradiol 1 tab PO HS 08/30/15 12/01/20 [Tri-Sprintec Tablet] Loratadine [Claritin] 10 mg PO HS 02/15/20 12/01/20 Albuterol Nebulized [Ventolin 2.5 mg INHALATION RT-Q6H PRN 11/29/20 12/01/20 Nebulized] Previous Rx's Medication Instructions Recorded Acetaminophen Tab [Tylenol] 650 mg PO Q6HR PRN tab 11/30/20 Cefuroxime Axetil [Ceftin] 500 mg PO BID 3 Days #6 tab 11/30/20 Ondansetron HCl [Zofran] 4 mg PO Q8H PRN #3 tab 11/30/20 Allergies Allergy/AdvReac Type Severity Reaction Status Date / Time No Known Allergies Allergy Verified 12/01/20 06:12 Review of Systems ROS Statement: Those systems with pertinent positive or pertinent negative responses have been documented in the HPI. ROS Other: All systems not noted in ROS Statement are negative. Past Medical History Past Medical History: Asthma, Syncope Additional Past Medical History / Comment(s): Low BP. Hx fainting episodes occasionally since 2015, was told could be her low BP-not sure, recent admission in hospital beginning of December for abd. pain & diarrhea-dx. w/C-diff, finished antibiotics. IBS History of Any Multi-Drug Resistant Organisms: C-DIFF Date of last positivie culture/infection: 12/08/19 MDRO Source:: stool Past Surgical History: Cholecystectomy Additional Past Surgical History / Comment(s): EGD. 12/2019 - [facility] Past Anesthesia/Blood Transfusion Reactions: Postoperative Nausea & Vomiting (PONV) Additional Past Anesthesia/Blood Transfusion Reaction / Comment(s): scope 11/2019 Past Psychological History: Anxiety Smoking Status: Never smoker Past Alcohol Use History: None Reported Past Drug Use History: Marijuana - Past Family History Mother Family Medical History: No Reported History Additional Family Medical History / Comment(s): clarence Father Family Medical History: No Reported History General Exam Limitations: no limitations General appearance: alert, in no apparent distress ENT exam: Present: mucous membranes dry Respiratory exam: Present: normal lung sounds bilaterally. Absent: respiratory distress, wheezes, rales Cardiovascular Exam: Present: regular rate, normal rhythm, normal heart sounds GI/Abdominal exam: Present: soft, normal bowel sounds, other (dry heaving; no emesis). Absent: distended, tenderness, guarding Back exam: Absent: CVA tenderness (R), CVA tenderness (L) Neurological exam: Present: alert, oriented X3 Psychiatric exam: Present: normal affect, normal mood Skin exam: Present: warm, dry, intact, normal color Course Vital Signs 12/01/20 12/01/20 06:08 11:44 Temperature 98.9 F 98.7 F Pulse Rate 93 99 Respiratory 18 18 Rate Blood Pressure 142/78 119/81 O2 Sat by Pulse 98 100 Oximetry - Reevaluation(s) Reevaluation #1: 12/01/20 09:04 After the first liter of fluids patient is feeling improved. States she continues to have mild nausea but her dry heaving has resolved. Will reevaluate after second liter is infused. Patient appears more comfortable at this time. Reevaluation #2: Patient improved after second liter of fluid. Able to tolerate apple juice and crackers without nausea or dry heaving. 12/01/20 11:30 Medical Decision Making - Medical Decision Making 20-year-old female presents to the emergency department with persistent nausea and dry heaving. Patient was recently hospitalized with same complaint and was prescribed an antibiotic to treat her UTI, as well as oral antiemetics. Upon arrival patient appeared pale with dry mucous membranes and 4+ ketones in her urine. 2 L of IV fluids were infused and patient was given droperidol which alleviated her symptoms. Patient has been able to tolerate nearly 8 ounces of apple juice and 2 amy crackers; states she is feeling much better and patient appears significantly improved. Patient was instructed to utilize the antibiotics previously prescribed and to focus on hydration. Encouraged follow- up with her primary care provider for recheck. Also instructed to return to the emergency department with any new, worsening, or concerning symptoms. - Lab Data Result diagrams: 12/01/20 07:02 12/01/20 08:31 Lab Results 12/01/20 12/01/20 12/01/20 Range/Units 07:02 07:02 07:02 WBC 9.5 (4.0-11.0) k/uL RBC 5.74 H (3.80-5.40) m/uL Hgb 14.8 (11.4-16.0) gm/dL Hct 44.5 (34.0-46.0) % MCV 77.5 L (80.0-100.0) fL MCH 25.7 (25.0-35.0) pg MCHC 33.2 (31.0-37.0) g/dL RDW 18.4 H (11.5-15.5) % Plt Count 272 (150-450) k/uL MPV 11.8 Neutrophils % 68 % Lymphocytes % 21 % Monocytes % 8 % Eosinophils % 1 % Basophils % 0 % Neutrophils # 6.5 (1.3-7.7) k/uL Lymphocytes # 2.0 (1.0-4.8) k/uL Monocytes # 0.8 (0-1.0) k/uL Eosinophils # 0.1 (0-0.7) k/uL Basophils # 0.0 (0-0.2) k/uL Anisocytosis Slight Microcytosis Slight Sodium (137-145) mmol/L Potassium (3.5-5.1) mmol/L Chloride (98-107) mmol/L Carbon Dioxide (22-30) mmol/L Anion Gap mmol/L BUN (7-17) mg/dL Creatinine (0.52-1.04) mg/dL Est GFR (CKD-EPI)AfAm (>60 ml/min/1.73 sqM) Est GFR (CKD-EPI)NonAf (>60 ml/min/1.73 sqM) Glucose (74-99) mg/dL POC Glucose (mg/dL) (75-99) mg/dL POC Glu Gas Check Pad Maker ID Calcium (8.4-10.2) mg/dL Total Bilirubin (0.2-1.3) mg/dL AST (14-36) U/L ALT (4-34) U/L Alkaline Phosphatase (38-126) U/L Total Protein (6.3-8.2) g/dL Albumin (3.5-5.0) g/dL Urine Color Yellow Urine Appearance Cloudy H (Clear) Urine pH 6.0 (5.0-8.0) Ur Specific [place] 1.023 (1.001-1.035) Urine Protein 1+ H (Negative) Urine Glucose (UA) Negative (Negative) Urine Ketones 4+ H (Negative) Urine Blood Trace H (Negative) Urine Nitrite Negative (Negative) Urine Bilirubin Negative (Negative) Urine Urobilinogen <2.0 (<2.0) mg/dL Ur Leukocyte Esterase Trace H (Negative) Urine RBC 7 H (0-5) /hpf Urine WBC 12 H (0-5) /hpf Ur Squamous Epith Cells 18 H (0-4) /hpf Urine Mucus Rare H (None) /hpf Urine HCG, Qual Not Detected (Not Detectd) 12/01/20 12/01/20 Range/Units 08:31 11:40 WBC (4.0-11.0) k/uL RBC (3.80-5.40) m/uL Hgb (11.4-16.0) gm/dL Hct (34.0-46.0) % MCV (80.0-100.0) fL MCH (25.0-35.0) pg MCHC (31.0-37.0) g/dL RDW (11.5-15.5) % Plt Count (150-450) k/uL MPV Neutrophils % % Lymphocytes % % Monocytes % % Eosinophils % % Basophils % % Neutrophils # (1.3-7.7) k/uL Lymphocytes # (1.0-4.8) k/uL Monocytes # (0-1.0) k/uL Eosinophils # (0-0.7) k/uL Basophils # (0-0.2) k/uL Anisocytosis Microcytosis Sodium 132 L (137-145) mmol/L Potassium 4.0 (3.5-5.1) mmol/L Chloride 104 (98-107) mmol/L Carbon Dioxide 12 L (22-30) mmol/L Anion Gap 16 mmol/L BUN 7 (7-17) mg/dL Creatinine 0.62 (0.52-1.04) mg/dL Est GFR (CKD-EPI)AfAm >90 (>60 ml/min/1.73 sqM) Est GFR (CKD-EPI)NonAf >90 (>60 ml/min/1.73 sqM) Glucose 70 L (74-99) mg/dL POC Glucose (mg/dL) 119 H (75-99) mg/dL POC Glu Gas Check Pad Maker ID Karo Blackwell Calcium 8.4 (8.4-10.2) mg/dL Total Bilirubin 1.1 (0.2-1.3) mg/dL AST 38 H (14-36) U/L ALT 27 (4-34) U/L Alkaline Phosphatase 88 (38-126) U/L Total Protein 7.0 (6.3-8.2) g/dL Albumin 3.8 (3.5-5.0) g/dL Urine Color Urine Appearance (Clear) Urine pH (5.0-8.0) Ur Specific [place] (1.001-1.035) Urine Protein (Negative) Urine Glucose (UA) (Negative) Urine Ketones (Negative) Urine Blood (Negative) Urine Nitrite (Negative) Urine Bilirubin (Negative) Urine Urobilinogen (<2.0) mg/dL Ur Leukocyte Esterase (Negative) Urine RBC (0-5) /hpf Urine WBC (0-5) /hpf Ur Squamous Epith Cells (0-4) /hpf Urine Mucus (None) /hpf Urine HCG, Qual (Not Detectd) Disposition Clinical Impression: Cyclical vomiting Disposition: HOME SELF-CARE Condition: Good Instructions (If sedation given, give patient instructions): Acute Nausea and Vomiting (ED) Additional Instructions: Rest, increase fluids, eat small frequent meals, and take medications as previously prescribed. Follow up with your primary care provider in the next 1- 2 days for recheck. Return to the emergency department with any new, worsening, or concerning symptoms. Is patient prescribed a controlled substance at d/c from ED?: No Referrals: Barrie Jin DO [Primary Care Provider] - 1-2 days Time of Disposition: 11:56
[2020-12-01 07:41] LABS: Appearance,Urine Cloudy (Clear); Bilirubin,Urine Negative (Negative); Blood,Urine Trace (Negative); Color,Urine Yellow; Glucose,Urine (UA) Negative (Negative); Ketones,Urine 4+ (Negative); Leukocyte Esterase,Urine Trace (Negative); Mucus,Urine Rare /hpf; Nitrite,Urine Negative (Negative); Protein,Urine 1+ (Negative); RBC,Urine 7 /hpf (0-5); Specific Gravity,Urine 1.023 (1.001-1.035); Squamous Epithelial Cell,Urine 18 /hpf (0-4); Urobilinogen,Urine <2.0 mg/dL (<2.0); WBC,Urine 12 /hpf (0-5)
[2020-12-01] MEDS ORDERED: SODIUM CHLORIDE 0.9% 1,000 ML IV ONE (08:11)
[2020-12-01 08:39] LABS: Anisocytosis Slight; Basophils % (A) 0 %; Eosinophils # (A) 0.1 k/uL (0-0.7); Eosinophils % (A) 1 %; HCT 44.5 % (34.0-46.0); HGB 14.8 gm/dL (11.4-16.0); Lymphocytes % (A) 21 %; MCH 25.7 pg (25.0-35.0); MCHC 33.2 g/dL (31.0-37.0); MCV 77.5 fL (80.0-100.0); Mean Platelet Volume 11.8; Microcytosis Slight; Monocytes # (A) 0.8 k/uL (0-1.0); Monocytes % (A) 8 %; Neutrophils # (A) 6.5 k/uL (1.3-7.7); Neutrophils % (A) 68 %; Platelet Count 272 k/uL (150-450); RBC 5.74 m/uL (3.80-5.40); RDW 18.4 % (11.5-15.5); WBC 9.5 k/uL (4.0-11.0)
[2020-12-01 09:11] LABS: ALT 27 U/L (4-34); AST 38 U/L (14-36); African American GFR (CKD) >90 (>60 ml/min/1.73 sqM); Albumin 3.8 g/dL (3.5-5.0); Alkaline Phosphatase 88 U/L (38-126); Anion Gap 16 mmol/L; Blood Urea Nitrogen 7 mg/dL (7-17); Calcium 8.4 mg/dL (8.4-10.2); Carbon Dioxide 12 mmol/L (22-30); Chloride 104 mmol/L (98-107); Glucose 70 mg/dL (74-99); Non-African American GFR(CKD) >90 (>60 ml/min/1.73 sqM); Sodium 132 mmol/L (137-145); Total Bilirubin 1.1 mg/dL (0.2-1.3)
[2020-12-01 11:41] LABS: Glucose,Whole Blood 119 mg/dL (75-99)
[2020-12-01 11:45] VITALS: BP 119/81; PULSE 99; TEMP 98.7
== END 2020-12-01 12:06 | disposition home or self-care (01) ==
LOC: EC 05:54
DX: R11.2 Nausea with vomiting, unspecified (principal); R82.4 Acetonuria; J45.909 Unspecified asthma, uncomplicated
CPT/HCPCS: 36415; 80053; 85025; 81001; 81025; 87086; 99284; 96374; 96361; J1790

== ENCOUNTER 2021-07-28 21:41 | Emergency (ER) | payer BC, OTHER ==
[2021-07-28 22:21] VITALS: BP 109/67; PULSE 97; RESP 19; TEMP 98.7
--- NOTE | 2021-07-28 22:44 | ED ---
Fall HPI - General Chief Complaint: Fall Stated Complaint: Fall-back injury(6 weeks preg.) Time Seen by Provider: 07/28/21 22:24 Source: patient, RN notes reviewed, old records reviewed Mode of arrival: ambulatory Limitations: no limitations - History of Present Illness Initial Comments: This is 21-year-old female with fall, follow backwards on the back. Patient's around 6 weeks . She has no bowel pain no bleeding. Little back tenderness but mainly concerned about her with fall. She has no OB follow-up currently. She does have her first appointment 2 weeks. Has not had ultrasound in this . 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 Witnessed: no Place Fall Occurred: home Loss of Consciousness: none Prolonged Down Time?: no Symptoms Prior to Fall: none Location: back Severity: mild Context: tripped/slipped Associated Symptoms: denies - Related Data Home Medications Medication Instructions Recorded Confirmed Norgestimate-Ethinyl Estradiol 1 tab PO HS 08/30/15 12/01/20 [Tri-Sprintec Tablet] Loratadine [Claritin] 10 mg PO HS 02/15/20 12/01/20 Albuterol Nebulized [Ventolin 2.5 mg INHALATION RT-Q6H PRN 11/29/20 12/01/20 Nebulized] Previous Rx's Medication Instructions Recorded Acetaminophen Tab [Tylenol] 650 mg PO Q6HR PRN tab 11/30/20 Cefuroxime Axetil [Ceftin] 500 mg PO BID 3 Days #6 tab 11/30/20 ondansetron HCL [Zofran] 4 mg PO Q8H PRN #3 tab 11/30/20 Allergies Allergy/AdvReac Type Severity Reaction Status Date / Time No Known Allergies Allergy Verified 07/28/21 22:21 Review of Systems ROS Statement: Those systems with pertinent positive or pertinent negative responses have been documented in the HPI. ROS Other: All systems not noted in ROS Statement are negative. Past Medical History Past Medical History: Asthma, Syncope Additional Past Medical History / Comment(s): Low BP. Hx fainting episodes occasionally since 2015, was told could be her low BP-not sure, recent admission in hospital beginning of December for abd. pain & diarrhea-dx. w/C-diff, finished antibiotics. IBS History of Any Multi-Drug Resistant Organisms: C-DIFF Date of last positivie culture/infection: 12/08/19 MDRO Source:: stool Past Surgical History: Cholecystectomy Additional Past Surgical History / Comment(s): EGD. 12/2019 - [facility] Past Anesthesia/Blood Transfusion Reactions: Postoperative Nausea & Vomiting (PONV) Additional Past Anesthesia/Blood Transfusion Reaction / Comment(s): scope 11/2019 Past Psychological History: Anxiety Smoking Status: Never smoker Past Alcohol Use History: None Reported Past Drug Use History: Marijuana - Past Family History Mother Family Medical History: No Reported History Additional Family Medical History / Comment(s): clarence Father Family Medical History: No Reported History General Exam General appearance: alert, in no apparent distress Head exam: Present: atraumatic, normocephalic, normal inspection Eye exam: Present: normal appearance, PERRL, EOMI. Absent: scleral icterus, conjunctival injection, periorbital swelling ENT exam: Present: normal exam, mucous membranes moist Neck exam: Present: normal inspection. Absent: tenderness, meningismus, lymphadenopathy Respiratory exam: Present: normal lung sounds bilaterally. Absent: respiratory distress, wheezes, rales, rhonchi, stridor Cardiovascular Exam: Present: regular rate, normal rhythm, normal heart sounds. Absent: systolic murmur, diastolic murmur, rubs, gallop, clicks GI/Abdominal exam: Present: soft, normal bowel sounds. Absent: distended, tenderness, guarding, rebound, rigid Extremities exam: Present: normal inspection, full ROM, normal capillary refill. Absent: tenderness, pedal edema, joint swelling, calf tenderness Back exam: Present: normal inspection Neurological exam: Present: alert, oriented X3, CN II-XII intact Psychiatric exam: Present: normal affect, normal mood Skin exam: Present: warm, dry, intact, normal color. Absent: rash Course Vital Signs 07/28/21 22:18 Temperature 98.7 F Pulse Rate 97 Respiratory 19 Rate Blood Pressure 109/67 O2 Sat by Pulse 98 Oximetry - Reevaluation(s) Reevaluation #1: 07/28/21 22:43 Medical record is reviewed Reevaluation #2: 07/28/21 22:43 No abdominal pain, continues with no vaginal bleeding Reevaluation #3: 07/28/21 22:44 Patient is informed of results here and questions are answered 07/28/21 23:22 Patient does have positive viable IUP Medical Decision Making - Medical Decision Making 21 Female who comes after fall today about 6 weeks , known , no prior ultrasound no prior OB care. She will follow up with OB in 2 weeks she currently is viable IUP no bleeding. Patient can be discharged home - Lab Data Lab Results 07/28/21 Range/Units 22:32 Urine Color Yellow Urine Appearance Turbid H (Clear) Urine pH 5.5 (5.0-8.0) Ur Specific [place] 1.020 (1.001-1.035) Urine Protein 1+ H (Negative) Urine Glucose (UA) Negative (Negative) Urine Ketones Negative (Negative) Urine Blood Small H (Negative) Urine Nitrite Negative (Negative) Urine Bilirubin Negative (Negative) Urine Urobilinogen <2.0 (<2.0) mg/dL Ur Leukocyte Esterase Large H (Negative) Urine RBC 14 H (0-5) /hpf Urine WBC >182 H (0-5) /hpf Urine WBC Clumps Many H (None) /hpf Ur Squamous Epith Cells 36 H (0-4) /hpf Urine Bacteria Few H (None) /hpf Hyaline Casts 5 H (0-2) /lpf Urine Mucus Moderate H (None) /hpf - Radiology Data Radiology results: report reviewed (Ultrasound OB does show POSITIVE IUP), image reviewed Disposition Clinical Impression: Fall, , Intrauterine Disposition: HOME SELF-CARE Condition: Good Instructions (If sedation given, give patient instructions): (ED) Is patient prescribed a controlled substance at d/c from ED?: No Referrals: Barrie Jin DO [Primary Care Provider] - 1-2 days Lyndsey Mata DO [Doctor of Osteopathic Medicine] - 1-2 days
[2021-07-28 23:08] LABS: Appearance,Urine Turbid (Clear); Bacteria,Urine Few /hpf; Bilirubin,Urine Negative (Negative); Blood,Urine Small (Negative); Color,Urine Yellow; Glucose,Urine (UA) Negative (Negative); Hyaline Casts,Urine 5 /lpf (0-2); Ketones,Urine Negative (Negative); Leukocyte Esterase,Urine Large (Negative); Mucus,Urine Moderate /hpf; Nitrite,Urine Negative (Negative); PH, Urine 5.5 (5.0-8.0); Protein,Urine 1+ (Negative); RBC,Urine 14 /hpf (0-5); Squamous Epithelial Cell,Urine 36 /hpf (0-4); Urobilinogen,Urine <2.0 mg/dL (<2.0); WBC,Urine >182 /hpf (0-5)
--- NOTE | 2021-07-28 23:21 | US ---
EXAMINATION TYPE: Transabdominal DATE OF EXAM: 07/28/2021 10:59 PM COMPARISON: NONE CLINICAL HISTORY: fall, abdominal cramping. Cramping following fall EXAM PERFORMED: Transabdominal (TA) EXAM MEASUREMENTS: GESTATIONAL AGE / DATING Physician Established: Not yet established Dates by LMP: LMP unknown Dates by First Scan: No previous this is first scan Dates by Current Scan for: ( 6 weeks/1 days) EDC: 03/22/2022 MATERNAL ANATOMY Uterus: 9.0 x 4.8 x 5.7cm Right Ovary: 3.5 x 2.3 x 2.6cm Left Ovary: 2.0 x 1.1 x 2.1cm Post CDS / Adnexa: wnl Presence of free fluid: no Presence of corpus luteal cyst: right ovary: 2.4 x 2.2 x 2.2cm Presence of subchorionic bleed: no GESTATION / SURVEY CRL: 0.4cm (6 weeks/1 days) Yolk Sac (normal less than 6mm): 3.1mm Heart Rate: 101 bpm Rhythm: Normal IUP: Viable IUP IMPRESSION: The ultrasound gestational age is 6 weeks and 1 day. No complicating process seen. Normal exam.
== END 2021-07-29 | disposition home or self-care (01) ==
LOC: EC 21:41
DX: O9A.211 Injury, poisoning and certain other consequences of external causes complicating pregnancy, first trimester (principal); O26.891 Other specified pregnancy related conditions, first trimester; J45.909 Unspecified asthma, uncomplicated; W01.0XXA Fall on same level from slipping, tripping and stumbling without subsequent striking against object, initial encounter; Z3A.01 Less than 8 weeks gestation of pregnancy
CPT/HCPCS: 76801; 76817; 81001; 99284

== ENCOUNTER 2021-08-24 02:01 | Inpatient (IN) | payer BC, OTHER ==
[2021-08-24] MEDS ORDERED: DEXTROSE 5%-0.45% NACL 1,000 ML IV ONE ×2 (02:49→04:30)
[2021-08-24] MEDS ORDERED: ONDANSETRON 4 MG/2 ML VIAL IVP STA ×2 (02:50→05:27)
--- NOTE | 2021-08-24 05:15 | US ---
EXAM: US First Trimester , Transabdominal CLINICAL HISTORY: ITS.REASON US Reason: pelvic pain TECHNIQUE: Real-time transabdominal obstetrical ultrasound of the maternal pelvis and a first trimester with image documentation. COMPARISON: No relevant prior studies available. FINDINGS: Gestation: Single live intrauterine gestation. The crown-rump length of the embryo is 3.03 cm, corresponding to 10 weeks 0 days. heart rate is detected at 171 bpm. Placenta/amniotic fluid: Cannot be adequately evaluated due to the early gestational age. Uterus/cervix: Unremarkable. No myometrial mass. Ovaries: Unremarkable. No mass. Free fluid: No free fluid. IMPRESSION: Normal first trimester ultrasound exam. Single live gestation at 10 weeks.
[2021-08-24] MEDS ORDERED: METOCLOPRAMIDE 5 MG/ML 2 ML VIAL IVP STA (05:51)
[2021-08-24] MEDS ORDERED: MAG HYDROX/AL HYDROX/SIMETH 30 ML CUP PO PRN (06:09)
[2021-08-24] MEDS ORDERED: NALOXONE 0.4 MG/ML 1 ML VIAL IV PRN (06:09)
[2021-08-24] MEDS ORDERED: ACETAMINOPHEN TAB 325 MG TAB PO PRN (06:09)
--- NOTE | 2021-08-24 06:13 | ED ---
General Adult HPI - General Chief complaint: Abdominal Pain Stated complaint: vomiting Time Seen by Provider: 08/24/21 02:04 Source: EMS Mode of arrival: EMS Limitations: no limitations - History of Present Illness Initial comments: This patient is a 21-year-old woman who arrives here as a transfer from [facility]. She had started having vomiting around 2:30 in the afternoon. She had over 20 episodes of vomiting and one to the other hospital. There she had received medications but states that she continues to feel nauseated and have retching. The patient has not noted hematemesis or coffee- ground material. No bloody or tarry stools. Patient denies vaginal discharge. -: hour(s) Location: abdomen Quality: burning, other (Cramping) Consistency: intermittent Improves with: none Worsens with: other (Vomiting) Associated Symptoms: nausea/vomiting Treatments Prior to Arrival: other - Related Data Home Medications Medication Instructions Recorded Confirmed norgestimate-ethinyl estradioL 1 tab PO HS 08/30/15 12/01/20 [Tri-Sprintec Tablet] Loratadine [Claritin] 10 mg PO HS 02/15/20 12/01/20 Albuterol Nebulized [Ventolin 2.5 mg INHALATION RT-Q6H PRN 11/29/20 12/01/20 Nebulized] Previous Rx's Medication Instructions Recorded Acetaminophen Tab [Tylenol] 650 mg PO Q6HR PRN tab 11/30/20 cefUROXime axetiL [Ceftin] 500 mg PO BID 3 Days #6 tab 11/30/20 ondansetron HCL [Zofran] 4 mg PO Q8H PRN #3 tab 11/30/20 Allergies Allergy/AdvReac Type Severity Reaction Status Date / Time No Known Allergies Allergy Verified 07/28/21 22:21 Review of Systems ROS Statement: Those systems with pertinent positive or pertinent negative responses have been documented in the HPI. ROS Other: All systems not noted in ROS Statement are negative. Constitutional: Denies: fever, chills, weakness Respiratory: Denies: cough, dyspnea Cardiovascular: Denies: chest pain, palpitations Gastrointestinal: Reports: abdominal pain, nausea, vomiting. Denies: diarrhea, constipation, hematochezia Genitourinary: Denies: dysuria, frequency, hematuria, discharge, abnormal menses Musculoskeletal: Denies: back pain Skin: Denies: rash Neurological: Denies: headache, weakness, numbness Past Medical History Past Medical History: Asthma, Syncope Additional Past Medical History / Comment(s): Low BP. Hx fainting episodes occasionally since 2015, was told could be her low BP-not sure, recent admission in hospital beginning of December for abd. pain & diarrhea-dx. w/C-diff, finished antibiotics. IBS History of Any Multi-Drug Resistant Organisms: C-DIFF Date of last positivie culture/infection: 12/08/19 MDRO Source:: stool Past Surgical History: Cholecystectomy Additional Past Surgical History / Comment(s): EGD. 12/2019 - [facility] Past Anesthesia/Blood Transfusion Reactions: Postoperative Nausea & Vomiting (PONV) Additional Past Anesthesia/Blood Transfusion Reaction / Comment(s): scope 11/2019 Past Psychological History: Anxiety Smoking Status: Never smoker Past Alcohol Use History: None Reported Past Drug Use History: Marijuana - Past Family History Mother Family Medical History: No Reported History Additional Family Medical History / Comment(s): clarence Father Family Medical History: No Reported History General Exam Limitations: no limitations General appearance: alert, in no apparent distress Head exam: Present: atraumatic, normocephalic Eye exam: Present: normal appearance. Absent: scleral icterus, conjunctival injection Neck exam: Present: normal inspection, full ROM Respiratory exam: Present: normal lung sounds bilaterally. Absent: respiratory distress, wheezes, rales, rhonchi, stridor Cardiovascular Exam: Present: regular rate, normal rhythm, normal heart sounds. Absent: systolic murmur, diastolic murmur, rubs, gallop GI/Abdominal exam: Present: soft. Absent: distended, tenderness, guarding, rebound, rigid, mass Extremities exam: Present: normal inspection, normal capillary refill. Absent: pedal edema, calf tenderness Back exam: Present: normal inspection. Absent: CVA tenderness (R), CVA tenderness (L) Neurological exam: Present: alert Skin exam: Present: warm, dry, intact, normal color. Absent: rash Course Vital Signs 08/24/21 08/24/21 08/24/21 02:02 03:29 05:01 Temperature 99.5 F 98.7 F Pulse Rate 108 H 124 H 102 H Respiratory 18 20 18 Rate Blood Pressure 126/71 122/84 117/81 O2 Sat by Pulse 100 99 99 Oximetry 08/24/21 06:23 Temperature Pulse Rate 113 H Respiratory 18 Rate Blood Pressure 121/78 O2 Sat by Pulse 100 Oximetry Disposition Clinical Impression: Intractable nausea and vomiting, Hyperemesis gravidarum Disposition: ADMITTED IP TO THIS HOSP Condition: Fair Is patient prescribed a controlled substance at d/c from ED?: No Referrals: Barrie Jin DO [Primary Care Provider] - 1-2 days
[2021-08-24] MEDS: LACTATED RINGERS 1,000 ML IV ONE ×2 (06:17→13:39)
[2021-08-24] MEDS: FAMOTIDINE 20 MG/2 ML VIAL IV SCH ×2 (06:17→21:45)
[2021-08-24] MEDS: diphenhydrAMINE 50 MG/ML 1 ML VIAL IVP PRN ×3 (09:20→21:45)
--- NOTE | 2021-08-24 09:26 | P.HPOB ---
History of Present Illness H&P Date: 08/24/21 Chief Complaint: Vomiting This is a 21-year-old female 1 para 0 with an estimated date of confinement of 03/21/2022, estimated gestational age of 10 weeks 1 day, who presents to the emergency room in [place] initially and then transferred to [facility] complaining of vomiting, nausea and diarrhea since about 2:30 yesterday afternoon. She does complain of nausea and vomiting during this and has Zofran that she was taking at home. When this did not work she went to the emergency room. She was given IV fluids, IV Zofran, and IV Reglan along with IV Pepcid. Since she was still continuing to have vomiting she is admitted for 23 hour observation along with fluids and antiemetics. She currently is complaining of nausea but is not currently vomiting or having any diarrhea at this time. She denies any vomiting of blood. She denies any vag inal bleeding. Ultrasound was performed and showed a viable fetus at approximately 10 weeks. Obstetrical history: . Gynecologic history: No history of sexually transmitted diseases. Social history: She is single. She works in a daycare. Review of Systems Constitutional: Denies chills, Denies fever Eyes: denies blurred vision, denies pain Ears, nose, mouth and throat: Denies headache, Denies sore throat Cardiovascular: Denies chest pain, Denies shortness of breath Respiratory: Denies cough Gastrointestinal: Reports abdominal pain (Mild due to vomiting), Reports diarrhea, Reports nausea, Reports vomiting Genitourinary: Reports , Denies abnormal vaginal bleeding, Denies pelvic pain Musculoskeletal: Denies myalgias Integumentary: Denies pruritus, Denies rash Neurological: Denies numbness, Denies weakness Psychiatric: Reports anxiety Past Medical History Past Medical History: Asthma, Syncope Additional Past Medical History / Comment(s): Low BP. Hx fainting episodes occasionally since 2016, was told could be her low BP-not sure, last episode of syncope was in 2019, IBS History of Any Multi-Drug Resistant Organisms: C-DIFF Date of last positivie culture/infection: 12/08/19 MDRO Source:: stool Past Surgical History: Cholecystectomy Additional Past Surgical History / Comment(s): EGD. 12/2019 - [facility] Past Anesthesia/Blood Transfusion Reactions: Postoperative Nausea & Vomiting (PONV) Additional Past Anesthesia/Blood Transfusion Reaction / Comment(s): scope 11/2019 Past Psychological History: Anxiety Smoking Status: Never smoker Past Alcohol Use History: None Reported Past Drug Use History: Marijuana - Past Family History Mother Family Medical History: No Reported History Additional Family Medical History / Comment(s): clarence Father Family Medical History: No Reported History Medications and Allergies Home Medications Medication Instructions Recorded Confirmed Type Loratadine [Claritin] 10 mg PO HS 02/15/20 08/24/21 History ondansetron HCL [Zofran] 4 mg PO Q8H PRN #3 tab 11/30/20 08/24/21 Rx Vits96/Iron Fum/Folic 1 each PO DAILY 08/24/21 08/24/21 History [ Tablet] Allergies Allergy/AdvReac Type Severity Reaction Status Date / Time No Known Allergies Allergy Verified 08/24/21 08:10 Exam Osteopathic Statement: *. No significant issues noted on an osteopathic st ructural exam other than those noted in the History and Physical/Consult. Vital Signs Temp Pulse Pulse Resp BP BP Pulse Ox 08/24/21 08:12 97.8 F 107 H 16 115/78 100 08/24/21 06:23 113 H 18 121/78 100 08/24/21 05:01 98.7 F 102 H 18 117/81 99 08/24/21 03:29 124 H 20 122/84 99 08/24/21 02:02 99.5 F 108 H 18 126/71 100 Intake and Output 08/23/21 08/24/21 08/24/21 22:59 06:59 14:59 Other: Weight 96 kg 43.091 kg Gen.: Well-developed thin female in no acute distress HEENT: Within normal limits Heart: Regular rate and rhythm Lungs: Clear to auscultation bilaterally Abdomen: Soft, nontender Extremities: Negative Homans Assessment and Plan (1) Hyperemesis gravidarum Current Visit: Yes Status: Acute Code(s): O21.0 - MILD HYPEREMESIS GRAVIDARUM SNOMED Code(s): 33635985 Plan: Observation admission for IV hydration, antiemetics. We will also continue Pepcid and Benadryl as needed.
[2021-08-24] MEDS: ONDANSETRON 4 MG/2 ML VIAL IVP PRN ×2 (11:37→18:56)
[2021-08-25] MEDS: ONDANSETRON 4 MG/2 ML VIAL IVP PRN ×2 (00:38→06:57)
[2021-08-25] MEDS: FAMOTIDINE 20 MG/2 ML VIAL IV SCH (07:55)
--- NOTE | 2021-08-25 11:31 | P.PN ---
Subjective Progress Note Date: 08/25/21 Principal diagnosis: Hyperemesis Patient is still having nausea all the time and some dry heaving along with some vomiting. Her IV with subcu this morning. She states she thinks the Zofran works for a little while but then wears off too soon. Objective - Vital Signs Vital signs: Vital Signs Temp 98.5 F 08/25/21 07:46 Pulse 81 08/25/21 07:46 Resp 16 08/25/21 07:46 BP 108/78 08/25/21 07:46 Pulse Ox 100 08/25/21 07:46 FiO2 Intake & Output 08/24/21 08/25/21 08/25/21 18:59 06:59 18:59 Weight 43.091 kg Other: # Voids 2 2 - Constitutional General appearance: Present: no acute distress - Gastrointestinal General gastrointestinal: Present: normal bowel sounds. Absent: tenderness Assessment and Plan (1) Hyperemesis gravidarum Current Visit: Yes Status: Acute Code(s): O21.0 - MILD HYPEREMESIS GRAVIDARUM SNOMED Code(s): 58172007 Plan: Will switch to Phenergan suppositories as needed for nausea and vomiting. Will switch to oral Pepcid and oral Benadryl. Patient is encouraged to nipple forcep that whenever she feels she can tolerate. If she continues to vomit, will restart IV. Will make a full admit. Continue to observe through today.
[2021-08-25] MEDS: diphenhydrAMINE 25 MG CAP PO PRN ×2 (11:46→19:59)
[2021-08-25] MEDS: FAMOTIDINE 20 MG TAB PO SCH ×2 (11:46→20:53)
[2021-08-25] MEDS: PROMETHAZINE SUPPOSITORY 12.5 MG SUPP RECTAL PRN ×2 (12:23→21:05)
[2021-08-26] MEDS: diphenhydrAMINE 25 MG CAP PO PRN (06:29)
--- NOTE | 2021-08-26 07:58 | P.PN ---
Subjective Progress Note Date: 08/26/21 Principal diagnosis: Hyperemesis Patient states she is still dry heaving and nauseated. She does feel that the Phenergan is working better than the Zofran or Reglan. She can go a longer time before she does start to vomit. She doesn't feel ready to go yet. Her IV has been out since yesterday. She has been nippling at popsicles and crackers. Some things are still coming back out. Objective - Vital Signs Vital signs: Vital Signs Temp 98.9 F 08/26/21 00:00 Pulse 81 08/26/21 00:00 Resp 18 08/26/21 00:00 BP 130/82 08/26/21 00:00 Pulse Ox 98 08/26/21 00:00 FiO2 - Constitutional General appearance: Present: no acute distress Assessment and Plan (1) Hyperemesis gravidarum Current Visit: Yes Status: Acute Code(s): O21.0 - MILD HYPEREMESIS GRAVIDARUM SNOMED Code(s): 01595557 Plan: Will restart IV and give IV Pepcid again. We'll continue with Phenergan suppositories. Patient is encouraged to continue to try popsicles and anything she can tolerate.
[2021-08-26] MEDS: LACTATED RINGERS 1,000 ML IV SCH ×2 (08:54→15:53)
[2021-08-26] MEDS: PROMETHAZINE SUPPOSITORY 12.5 MG SUPP RECTAL PRN ×2 (08:57→17:02)
[2021-08-26] MEDS: FAMOTIDINE 20 MG/2 ML VIAL IV SCH ×2 (09:00→20:11)
[2021-08-26] MEDS: diphenhydrAMINE 50 MG/ML 1 ML VIAL IVP PRN ×3 (09:50→22:28)
[2021-08-26] MEDS: ONDANSETRON 4 MG/2 ML VIAL IVP PRN ×2 (11:54→20:11)
[2021-08-27] MEDS: PROMETHAZINE SUPPOSITORY 12.5 MG SUPP RECTAL PRN (02:35)
[2021-08-27] MEDS: LACTATED RINGERS 1,000 ML IV SCH ×3 (04:31→13:01)
[2021-08-27] MEDS: ONDANSETRON 4 MG/2 ML VIAL IVP PRN ×2 (05:58→20:03)
[2021-08-27] MEDS: diphenhydrAMINE 50 MG/ML 1 ML VIAL IVP PRN ×3 (05:59→20:03)
[2021-08-27] MEDS: FAMOTIDINE 20 MG/2 ML VIAL IV SCH ×2 (08:40→21:55)
--- NOTE | 2021-08-27 09:14 | P.PN ---
Subjective Progress Note Date: 08/27/21 Principal diagnosis: Hyperemesis Patient feels that the Phenergan is helping her nausea however she still has episodes where she continues to dry heave and vomit. She has had very little oral intake. Her IV was restarted yesterday and she has been getting IV Pepcid along with fluids. She is also on Phenergan suppositories and IV Zofran as needed. She feels overall her nausea is better but she is afraid to eat anything because it makes her dry heave. Apparently she has had ongoing history of irritable bowel syndrome and has seen Dr. Payne for this in the past. She was placed on medication at one time but does not recall what she was on. Objective - Vital Signs Vital signs: Vital Signs Temp 98.4 F 08/27/21 08:00 Pulse 123 H 08/27/21 08:00 Resp 16 08/27/21 08:00 BP 120/78 08/27/21 08:00 Pulse Ox 100 08/27/21 00:00 FiO2 - Constitutional General appearance: Present: no acute distress Assessment and Plan (1) Hyperemesis gravidarum Current Visit: Yes Status: Acute Code(s): O21.0 - MILD HYPEREMESIS GRAVIDARUM SNOMED Code(s): 85769442 Plan: Will recheck labs today. Will increase the dose of Phenergan to 25 mg. Will consult nutritional services to see if there is any other options for her diet.
[2021-08-27 10:31] LABS: Anisocytosis Slight; Basophils % (A) 0 %; Eosinophils % (A) 0 %; HGB 13.3 gm/dL (11.4-16.0); Lymphocytes # (A) 1.1 k/uL (1.0-4.8); Lymphocytes % (A) 13 %; MCH 26.8 pg (25.0-35.0); MCHC 32.5 g/dL (31.0-37.0); MCV 82.5 fL (80.0-100.0); Mean Platelet Volume 8.2; Monocytes # (A) 0.4 k/uL (0-1.0); Monocytes % (A) 5 %; Neutrophils # (A) 6.6 k/uL (1.3-7.7); Neutrophils % (A) 80 %; Platelet Count 296 k/uL (150-450); RBC 4.97 m/uL (3.80-5.40); RDW 16.8 % (11.5-15.5); WBC 8.2 k/uL (3.8-10.6)
[2021-08-27 11:00] LABS: ALT 121 U/L (4-34); AST 51 U/L (14-36); African American GFR (CKD) >90 (>60 ml/min/1.73 sqM); Albumin 3.9 g/dL (3.5-5.0); Alkaline Phosphatase 128 U/L (38-126); Anion Gap 13 mmol/L; Blood Urea Nitrogen 3 mg/dL (7-17); Calcium 9.4 mg/dL (8.4-10.2); Carbon Dioxide 12 mmol/L (22-30); Chloride 106 mmol/L (98-107); Glucose 73 mg/dL (74-99); Non-African American GFR(CKD) >90 (>60 ml/min/1.73 sqM); Potassium 4.6 mmol/L (3.5-5.1); Sodium 131 mmol/L (137-145); Total Protein 7.3 g/dL (6.3-8.2)
[2021-08-27] MEDS: PROMETHAZINE SUPPOSITORY 25 MG SUPP RECTAL PRN ×2 (11:02→21:55)
[2021-08-28] MEDS: ONDANSETRON 4 MG/2 ML VIAL IVP PRN ×3 (02:06→17:16)
[2021-08-28] MEDS: diphenhydrAMINE 50 MG/ML 1 ML VIAL IVP PRN ×3 (02:17→18:28)
--- NOTE | 2021-08-28 08:59 | P.PN ---
Progress Note - Text Progress Note Date: 08/28/21 Patient states she is feeling better this morning. She is not vomiting right now. She states she was able to tolerate some chips and some juice. She is not ready breakfast yet. Consultations from dietary and medicine are still pending. If she continues to vomit today, I may start her on IV steroids. We will see how she does with her oral intake today. If she is doing well, we may be able to discharge her home tomorrow.
[2021-08-28] MEDS: FAMOTIDINE 20 MG/2 ML VIAL IV SCH ×2 (09:32→20:41)
[2021-08-28] MEDS: LACTATED RINGERS 1,000 ML IV SCH ×2 (12:37→20:41)
[2021-08-28] MEDS: PROMETHAZINE SUPPOSITORY 25 MG SUPP RECTAL PRN (13:16)
[2021-08-28 14:56] VITALS: BMI 19.1
--- NOTE | 2021-08-28 15:23 | P.CONS ---
History of Present Illness - Reason for Consult Consult date: 08/28/21 vomiting - Chief Complaint vomiting - History of Present Illness 21-year-old female 11 weeks here for hyperemesis gravidum. Patient has been treated with antihistamines, Zofran as well as Phenergan and Maalox without much success. She will he cannot keep things down and denied having any abdominal pain. No fevers or chills. No chest pain or shortness of breath. She has been receiving IV fluids as well. Laboratory evaluation was significant for slight hyponatremia at 131. AST 51, ALT 121, alk phos 128. Rest of labs unremarkable. According to patient she was able to keep down some chips yesterday and some bites of a sandwich she ate this morning. Review of Systems Complete review of system performed, pertinent positives per HPI, otherwise nega tive Past Medical History Past Medical History: Asthma, Syncope Additional Past Medical History / Comment(s): Low BP. Hx fainting episodes occasionally since 2015, was told could be her low BP-not sure, last episode of syncope was in 2018, IBS History of Any Multi-Drug Resistant Organisms: C-DIFF Year Discovered:: 12/08/19 MDRO Source:: stool Past Surgical History: Cholecystectomy Additional Past Surgical History / Comment(s): EGD. 12/2019 - [facility] Past Anesthesia/Blood Transfusion Reactions: Postoperative Nausea & Vomiting (PONV) Additional Past Anesthesia/Blood Transfusion Reaction / Comm: scope 11/2019 Past Psychological History: Anxiety Smoking Status: Never smoker Past Alcohol Use History: None Reported Past Drug Use History: Marijuana - Past Family History Mother Family Medical History: No Reported History Additional Family Medical History / Comment(s): clarence Father Family Medical History: No Reported History Medications and Allergies Home Medications Medication Instructions Recorded Confirmed Type Loratadine [Claritin] 10 mg PO HS 02/15/20 08/24/21 History ondansetron HCL [Zofran] 4 mg PO Q8H PRN #3 tab 11/30/20 08/24/21 Rx Vits96/Iron Fum/Folic 1 each PO DAILY 08/24/21 08/24/21 History [ Tablet] Allergies Allergy/AdvReac Type Severity Reaction Status Date / Time No Known Allergies Allergy Verified 08/24/21 08:10 Physical Exam Vitals: Vital Signs Temp Pulse Resp BP 08/28/21 07:45 98.5 F 93 16 98/55 08/28/21 00:00 98.2 F 60 16 110/59 08/27/21 16:00 98.3 F 63 16 122/80 Intake and Output 08/28/21 08/28/21 08/28/21 06:59 14:59 22:59 Output Total 50 Balance -50 Output: Emesis 50 Other: Weight 43.091 kg Constitutional: No acute distress, conversant, pleasant Eyes:Anicteric sclerae, moist conjunctiva, no lid-lag, PERRLA, ENMT: Oropharynx clear, no erythema, exudates Neck: Supple, FROM, no masses, or JVD, No carotid bruits, No thyromegaly Lungs: Clear to auscultation, Clear to percussion, Normal respiratory effort, no accessory muscle use Cardiovascular: Heart regular in rate and rhythm, No murmurs, gallops, or rubs, No peripheral edema Abdominal: Soft, Nontender, no guarding, rebound or rigidity, Normoactive bowel sounds, No hepatomegaly, No splenomegaly, No palpable mass Skin: Normal temperature, tone, texture, turgor, no induration, No subcutaneous nodules, No rash, lesions, No ulcers Extremities: No digital cyanosis, No clubbing, Pedal pulses intact and symmetrical, Radial pulses intact and symmetrical, No calf tenderness Psychiatric: Alert and oriented to person, place and time, appropriate affect, intact judgement Neuro: Muscles Strength 5/5 in all 4 extremities, Sensation to light touch grossly present throughout, Cranial nerves II-XII grossly intact, no focal sensory deficits Results CBC & Chem 7: 08/27/21 10:02 08/27/21 10:02 Assessment and Plan Plan: Hyperemesis gravidarum Agree with Zofran, Phenergan and antihistamines Continue IV fluids Start thiamine IV Check urinalysis Check amylase and lipase Check TSH Check random cortisol I encouraged her to eat Consider nasoenteral tube feeding if she doesn't eat much the next few days. Elevated LFTs Check liver ultrasound Asthma Currently stable Thank you for the consult, will follow patient with you
[2021-08-28] MEDS: THIAMINE 100 MG/ML 2 ML VIAL IVP SCH (15:38)
--- NOTE | 2021-08-28 15:58 | US ---
EXAMINATION TYPE: US abdomen limited DATE OF EXAM: 08/28/2021 COMPARISON: NONE CLINICAL HISTORY: high LFTs, need right upper quadrant u/s. Cholecystectomy, vomiting, 11 weeks pregn ant EXAM MEASUREMENTS: Liver Length: 12.9 cm Gallbladder Wall: Surgically absent CBD: 0.5 cm Right Kidney: 9.4 x 4.7 x 3.9 cm Pancreas: Limited by bowel gas Liver: overlying bowel gas limits views, appears wnl Gallbladder: Surgically absent Evidence for sonographic Brewer's sign: no CBD: wnl Right Kidney: wnl IMPRESSION: 1. Postcholecystectomy changes.
[2021-08-28 16:46] LABS: Anisocytosis Slight; Basophils % (A) 1 %; Eosinophils % (A) 0 %; HCT 40.2 % (34.0-46.0); HGB 13.6 gm/dL (11.4-16.0); Lymphocytes # (A) 1.5 k/uL (1.0-4.8); Lymphocytes % (A) 18 %; MCH 27.6 pg (25.0-35.0); MCHC 33.8 g/dL (31.0-37.0); MCV 81.6 fL (80.0-100.0); Mean Platelet Volume 7.7; Monocytes # (A) 0.5 k/uL (0-1.0); Monocytes % (A) 6 %; Neutrophils % (A) 73 %; Platelet Count 299 k/uL (150-450); RBC 4.93 m/uL (3.80-5.40); RDW 16.8 % (11.5-15.5); WBC 8.2 k/uL (3.8-10.6)
[2021-08-28 17:40] LABS: ALT 116 U/L (4-34); AST 43 U/L (14-36); African American GFR (CKD) >90 (>60 ml/min/1.73 sqM); Albumin 3.7 g/dL (3.5-5.0); Alkaline Phosphatase 119 U/L (38-126); Amylase 134 U/L (30-110); Anion Gap 15 mmol/L; Blood Urea Nitrogen <2 mg/dL (7-17); Calcium 9.2 mg/dL (8.4-10.2); Carbon Dioxide 12 mmol/L (22-30); Chloride 104 mmol/L (98-107); Glucose 82 mg/dL (74-99); Lipase 256 U/L (23-300); Magnesium 1.6 mg/dL (1.6-2.3); Non-African American GFR(CKD) >90 (>60 ml/min/1.73 sqM); Potassium 3.7 mmol/L (3.5-5.1); Sodium 131 mmol/L (137-145); Total Bilirubin 1.2 mg/dL (0.2-1.3); Total Protein 6.7 g/dL (6.3-8.2)
[2021-08-28 17:56] LABS: T4, Free (Free Thyroxine) 3.28 ng/dL (0.78-2.19)
[2021-08-28] MEDS ORDERED: THIAMINE 100 MG in SODIUM CHLORIDE 0.9% 50 ML IVPB SCH (21:00)
[2021-08-29] MEDS: THIAMINE 100 MG/ML 2 ML VIAL IVP SCH ×3 (07:36→20:29)
[2021-08-29] MEDS: LACTATED RINGERS 1,000 ML IV SCH ×4 (07:37→20:30)
[2021-08-29] MEDS: FAMOTIDINE 20 MG/2 ML VIAL IV SCH ×2 (09:00→20:30)
[2021-08-29] MEDS: ONDANSETRON 4 MG/2 ML VIAL IVP PRN ×3 (09:49→23:50)
[2021-08-29] MEDS: diphenhydrAMINE 50 MG/ML 1 ML VIAL IVP PRN ×3 (11:08→23:52)
--- NOTE | 2021-08-29 12:18 | P.PN ---
Subjective Progress Note Date: 08/29/21 Principal diagnosis: vomiting Patient continues to have vomiting as of this am. She states that at times she gets sweats and feels hot. She has been having diarrhea over the past 3-4 days, 2 BMs daily. No pain or sob. Objective - Vital Signs Vital signs: Vital Signs Temp 98.3 F 08/29/21 08:00 Pulse 87 08/29/21 08:00 Resp 15 08/29/21 08:00 BP 108/68 08/29/21 08:00 Pulse Ox 99 08/29/21 08:00 FiO2 Intake & Output 08/28/21 08/29/21 08/29/21 18:59 06:59 18:59 Output Total 50 Balance -50 Weight 43.091 kg Output: Emesis 50 - Exam Constitutional: No acute distress, conversant, pleasant Eyes:Anicteric sclerae, moist conjunctiva, no lid-lag, PERRLA, ENMT: Oropharynx clear, no erythema, exudates Neck: Supple, FROM, no masses, or JVD, No carotid bruits, No thyromegaly Lungs: Clear to auscultation, Clear to percussion, Normal respiratory effort, no accessory muscle use Cardiovascular: Heart regular in rate and rhythm, No murmurs, gallops, or rubs, No peripheral edema Abdominal: Soft, Nontender, no guarding, rebound or rigidity, Normoactive bowel sounds, No hepatomegaly, No splenomegaly, No palpable mass Skin: Normal temperature, tone, texture, turgor, no induration, No subcutaneous nodules, No rash, lesions, No ulcers Extremities: No digital cyanosis, No clubbing, Pedal pulses intact and symmetrical, Radial pulses intact and symmetrical, No calf tenderness Psychiatric: Alert and oriented to person, place and time, appropriate affect, intact judgement Neuro: Muscles Strength 5/5 in all 4 extremities, Sensation to light touch grossly present throughout, Cranial nerves II-XII grossly intact, no focal sensory deficits - Labs CBC & Chem 7: 08/28/21 16:28 08/28/21 16:28 Labs: Abnormal Lab Results - Last 24 Hours (Table) 08/28/21 08/28/21 Range/Units 16:28 16:28 RDW 16.8 H (11.5-15.5) % Sodium 131 L (137-145) mmol/L Carbon Dioxide 12 L (22-30) mmol/L BUN <2 L (7-17) mg/dL Creatinine 0.40 L (0.52-1.04) mg/dL AST 43 H (14-36) U/L ALT 116 H (4-34) U/L Amylase 134 H (30-110) U/L TSH <0.015 L (0.465-4.680) mIU/L Free T4 3.28 H (0.78-2.19) ng/dL Assessment and Plan Plan: Hyperemesis gravidarum Agree with Zofran, Phenergan and antihistamines Continue IV fluids Thiamine IV Check urinalysis Amylase and lipase levels don't indicate pancreatitis Encouraged to eat Consider nasoenteral tube feeding if she doesn't eat much the next few days. Hyperthyroidism D/w H[employer] RESOURCES SPECIALIST, will start PTU Outpatient endo follow up Check thyroxine binding globulin, total T3 and T4. Elevated LFTs Liver ultrasound ok Check hepatitis panel Will follow Asthma Currently stable
[2021-08-29] MEDS: PROMETHAZINE SUPPOSITORY 25 MG SUPP RECTAL PRN (12:57)
[2021-08-29] MEDS: propylthiouraciL 50 MG TAB PO SCH ×2 (12:57→20:28)
[2021-08-29 14:11] LABS: Appearance,Urine Cloudy (Clear); Bacteria,Urine Occasional /hpf; Bilirubin,Urine Negative (Negative); Blood,Urine Negative (Negative); Color,Urine Light Yellow; Glucose,Urine (UA) Negative (Negative); Ketones,Urine 4+ (Negative); Leukocyte Esterase,Urine Negative (Negative); Mucus,Urine Rare /hpf; Nitrite,Urine Negative (Negative); Protein,Urine Negative (Negative); RBC,Urine 2 /hpf (0-5); Specific Gravity,Urine 1.012 (1.001-1.035); Squamous Epithelial Cell,Urine 58 /hpf (0-4); Urobilinogen,Urine <2.0 mg/dL (<2.0); WBC,Urine 2 /hpf (0-5)
[2021-08-29 14:50] LABS: Hepatitis A Antibody IgM Nonreactive (Nonreactive); Hepatitis B Core IgM Nonreactive (Nonreactive); Hepatitis B Surface Antigen Nonreactive (Nonreactive); Hepatitis C IgG Antibody Nonreactive (Nonreactive)
[2021-08-29] MEDS: methylPREDNISolone SOD SUCCI 40 MG/ML 1 ML VIAL IV SCH ×2 (16:06→23:56)
--- NOTE | 2021-08-29 18:24 | P.PN ---
Progress Note - Text Progress Note Date: 08/29/21 Patient was seen and examined earlier today. When I first saw her this morning, she stated she hadn't been vomiting all night and was able to tolerate some chips and noodles yesterday. She also drink a little bit of Ensure. However when I saw her at noon, she had been vomiting again. Her labs did show low TSH and elevated free T4, consistent with hyperthyroidism. I did speak with medicine who will start her on PTU. Since she continues to vomit, I will start steroid protocol for hyperemesis. I will give her methylprednisolone 60 mg every 8 hours IV for 48-72 hours. We will then taper with prednisone. Patient is advised to continue to try to increase her oral intake especially with protein.
[2021-08-30] MEDS: propylthiouraciL 50 MG TAB PO SCH ×3 (03:54→21:15)
[2021-08-30] MEDS: ONDANSETRON 4 MG/2 ML VIAL IVP PRN ×2 (06:52→14:03)
[2021-08-30 06:53] LABS: Anisocytosis Slight; Basophils % (A) 0 %; Eosinophils % (A) 0 %; HGB 13.2 gm/dL (11.4-16.0); Lymphocytes # (A) 1.2 k/uL (1.0-4.8); Lymphocytes % (A) 13 %; MCH 27.2 pg (25.0-35.0); MCV 82.5 fL (80.0-100.0); Mean Platelet Volume 7.8; Monocytes # (A) 0.3 k/uL (0-1.0); Monocytes % (A) 4 %; Neutrophils # (A) 7.1 k/uL (1.3-7.7); Neutrophils % (A) 81 %; Platelet Count 271 k/uL (150-450); RBC 4.85 m/uL (3.80-5.40); RDW 16.4 % (11.5-15.5); WBC 8.8 k/uL (3.8-10.6)
[2021-08-30 07:02] LABS: ALT 127 U/L (4-34); AST 54 U/L (14-36); African American GFR (CKD) >90 (>60 ml/min/1.73 sqM); Alkaline Phosphatase 110 U/L (38-126); Anion Gap 14 mmol/L; Blood Urea Nitrogen 2 mg/dL (7-17); Calcium 9.4 mg/dL (8.4-10.2); Carbon Dioxide 16 mmol/L (22-30); Chloride 101 mmol/L (98-107); Glucose 81 mg/dL (74-99); Magnesium 1.5 mg/dL (1.6-2.3); Non-African American GFR(CKD) >90 (>60 ml/min/1.73 sqM); Phosphorus 5.7 mg/dL (2.5-4.5); Potassium 4.5 mmol/L (3.5-5.1); Sodium 131 mmol/L (137-145); Total Bilirubin 1.1 mg/dL (0.2-1.3)
[2021-08-30] MEDS: THIAMINE 100 MG/ML 2 ML VIAL IVP SCH ×2 (08:13→21:18)
[2021-08-30] MEDS: FAMOTIDINE 20 MG/2 ML VIAL IV SCH ×2 (08:14→21:30)
[2021-08-30] MEDS: methylPREDNISolone SOD SUCCI 40 MG/ML 1 ML VIAL IV SCH ×3 (08:14→23:42)
--- NOTE | 2021-08-30 08:38 | P.PN ---
Subjective Progress Note Date: 08/30/21 Principal diagnosis: Hyperemesis gravidarum Hyperthyroidism Patient did start vomiting more yesterday and through the night. She was initially holding some food down yesterday morning by afternoon and evening she was vomiting again. She denies any abdominal pain or bleeding. She does still state she is nauseated this morning. She was started on IV steroids with methylprednisolone 60 mg every 8 hours IV for 48-72 hours. She will be tapered on prednisone after this. She was also started on PTU by medicine service for hyperthyroidism. Objective - Vital Signs Vital signs: Vital Signs Temp 98.3 F 08/30/21 00:00 Pulse 122 H 08/30/21 00:00 Resp 16 08/30/21 00:00 BP 130/94 08/30/21 00:00 Pulse Ox 100 08/30/21 00:00 FiO2 - Constitutional General appearance: Present: no acute distress, thin - Cardiovascular Rhythm: regular - Labs CBC & Chem 7: 08/30/21 06:23 08/30/21 06:23 Labs: Abnormal Lab Results - Last 24 Hours (Table) 08/29/21 08/30/21 08/30/21 Range/Units 13:30 06:23 06:23 RDW 16.4 H (11.5-15.5) % Sodium 131 L (137-145) mmol/L Carbon Dioxide 16 L (22-30) mmol/L BUN 2 L (7-17) mg/dL Creatinine 0.45 L (0.52-1.04) mg/dL Phosphorus 5.7 H (2.5-4.5) mg/dL Magnesium 1.5 L (1.6-2.3) mg/dL AST 54 H (14-36) U/L ALT 127 H (4-34) U/L Urine Appearance Cloudy H (Clear) Urine Ketones 4+ H (Negative) Ur Squamous Epith Cells 58 H (0-4) /hpf Urine Bacteria Occasional H (None) /hpf Urine Mucus Rare H (None) /hpf Assessment and Plan Assessment: Intrauterine at 11-1/7 weeks Hyperemesis gravidarum Hyperthyroidism (1) Hyperemesis gravidarum Current Visit: Yes Status: Acute Code(s): O21.0 - MILD HYPEREMESIS GRAVIDARUM SNOMED Code(s): 16618282 Plan: Will continue with IV steroids at this time. We'll continue with PTU while in the first trimester. If she clinically improves over the next 24-48 hours and is able to tolerate oral intake, she will be switched to oral steroids and discharged home to follow up with MFM as an outpatient. If she is not improving in the next 24-48 hours, will plan to try to transfer to maternal medicine service at [facility] in [place]. Dr. Valles will be covering this weekend.
[2021-08-30] MEDS: LACTATED RINGERS 1,000 ML IV SCH (10:37)
[2021-08-30] MEDS: DEXTROSE 5%-0.2% NACL 1,000 ML IV SCH ×2 (10:46→22:09)
[2021-08-30] MEDS: MAGNESIUM SULFATE-D5W PMX 1 GM in DEXTROSE/WATER 1 100ML.BAG IVPB SCH ×2 (10:47→12:45)
[2021-08-30] MEDS: diphenhydrAMINE 50 MG/ML 1 ML VIAL IVP PRN (11:02)
[2021-08-30] MEDS: PYRIDOXINE 100 MG/ML 1 ML VIAL IVP SCH ×3 (11:02→22:11)
--- NOTE | 2021-08-30 14:49 | P.PN ---
Subjective Progress Note Date: 08/30/21 Principal diagnosis: vomiting Patient continues to have episodes of vomiting. Was able to keep down some chips however today. No fevers, no chills. No pain. Objective - Vital Signs Vital signs: Vital Signs Temp 98.6 F 08/30/21 08:00 Pulse 126 H 08/30/21 08:00 Resp 12 08/30/21 08:00 BP 116/78 08/30/21 08:00 Pulse Ox 100 08/30/21 00:00 FiO2 Intake & Output 08/29/21 08/30/21 08/30/21 18:59 06:59 18:59 Weight 43.091 kg - Exam Constitutional: No acute distress, conversant, pleasant Eyes:Anicteric sclerae, moist conjunctiva, no lid-lag, PERRLA, ENMT: Oropharynx clear, no erythema, exudates Neck: Supple, FROM, no masses, or JVD, No carotid bruits, No thyromegaly Lungs: Clear to auscultation, Clear to percussion, Normal respiratory effort, no accessory muscle use Cardiovascular: Heart regular in rate and rhythm, No murmurs, gallops, or rubs, No peripheral edema Abdominal: Soft, Nontender, no guarding, rebound or rigidity, Normoactive bowel sounds, No hepatomegaly, No splenomegaly, No palpable mass Skin: Normal temperature, tone, texture, turgor, no induration, No subcutaneous nodules, No rash, lesions, No ulcers Extremities: No digital cyanosis, No clubbing, Pedal pulses intact and symmetrical, Radial pulses intact and symmetrical, No calf tenderness Psychiatric: Alert and oriented to person, place and time, appropriate affect, intact judgement Neuro: Muscles Strength 5/5 in all 4 extremities, Sensation to light touch grossly present throughout, Cranial nerves II-XII grossly intact, no focal sensory deficits - Labs CBC & Chem 7: 08/30/21 06:23 08/30/21 06:23 Labs: Abnormal Lab Results - Last 24 Hours (Table) 08/28/21 08/30/21 08/30/21 Range/Units 16:28 06: 06: RDW 16.4 H (11.5-15.5) % Sodium 131 L (137-145) mmol/L Carbon Dioxide 16 L (22-30) mmol/L BUN 2 L (7-17) mg/dL Creatinine 0.45 L (0.52-1.04) mg/dL Phosphorus 5.7 H (2.5-4.5) mg/dL Magnesium 1.5 L (1.6-2.3) mg/dL AST 54 H (14-36) U/L ALT 127 H (4-34) U/L Total T4 18.1 H (4.5 - 10.9) ug/dL Assessment and Plan Plan: Hyperemesis gravidarum Started on steroids Agree with Zofran, Phenergan and antihistamines Continue IV fluids Thiamine IV Urinalysis showing no UTI Amylase and lipase levels don't indicate pancreatitis Encouraged to eat Consider nasoenteral tube feeding if she doesn't eat much the next few days. Hyperthyroidism D/w OTM CONSULTANT, continue on PTU Outpatient endo follow up Check thyroxine binding globulin Elevated LFTs Liver ultrasound ok Hepatitis panel without evidence of viral hepatitis Will follow Hypomagnesemia Replace and recheck in am Asthma Currently stable Anticipated dispo: if improved will go home the next 1-2 days. If not will go to a high risk unit.
[2021-08-30] MEDS: diphenhydrAMINE 25 MG CAP PO PRN (21:15)
[2021-08-31] MEDS: propylthiouraciL 50 MG TAB PO SCH ×3 (04:13→20:56)
[2021-08-31 07:50] LABS: Anisocytosis Slight; Basophils % (A) 0 %; Eosinophils # (A) 0.1 k/uL (0-0.7); Eosinophils % (A) 1 %; HCT 36.5 % (34.0-46.0); HGB 12.1 gm/dL (11.4-16.0); Lymphocytes # (A) 2.1 k/uL (1.0-4.8); Lymphocytes % (A) 22 %; MCH 26.7 pg (25.0-35.0); MCV 80.8 fL (80.0-100.0); Mean Platelet Volume 8.3; Monocytes # (A) 0.7 k/uL (0-1.0); Monocytes % (A) 7 %; Neutrophils # (A) 6.5 k/uL (1.3-7.7); Neutrophils % (A) 68 %; Platelet Count 249 k/uL (150-450); RBC 4.52 m/uL (3.80-5.40); RDW 16.6 % (11.5-15.5); WBC 9.5 k/uL (3.8-10.6)
[2021-08-31 07:53] LABS: ALT 178 U/L (4-34); AST 74 U/L (14-36); African American GFR (CKD) >90 (>60 ml/min/1.73 sqM); Albumin 3.4 g/dL (3.5-5.0); Alkaline Phosphatase 107 U/L (38-126); Anion Gap 7 mmol/L; Blood Urea Nitrogen <2 mg/dL (7-17); Calcium 8.7 mg/dL (8.4-10.2); Carbon Dioxide 22 mmol/L (22-30); Chloride 102 mmol/L (98-107); Glucose 109 mg/dL (74-99); Magnesium 1.8 mg/dL (1.6-2.3); Non-African American GFR(CKD) >90 (>60 ml/min/1.73 sqM); Phosphorus 3.9 mg/dL (2.5-4.5); Potassium 3.4 mmol/L (3.5-5.1); Sodium 131 mmol/L (137-145); Total Bilirubin 0.5 mg/dL (0.2-1.3); Total Protein 6.1 g/dL (6.3-8.2)
--- NOTE | 2021-08-31 07:58 | P.PN ---
Progress Note - Text Progress Note Date: 08/31/21 Patient seen at bedside. She is sitting upright and looks well. She states she has not vomited since 5:30 yesterday morning. This is the first 24-hour. She has not vomited in several weeks. The steroids seemed to be working. The plan is to continue the IV steroids for another 24 hours and then consider discharge home on a tapered dose of steroids. Internal medicine will need to write the prescription for the PTU.
[2021-08-31] MEDS: PYRIDOXINE 100 MG/ML 1 ML VIAL IVP SCH ×2 (09:55→16:22)
[2021-08-31] MEDS: FAMOTIDINE 20 MG/2 ML VIAL IV SCH ×2 (09:57→21:06)
[2021-08-31] MEDS: THIAMINE 100 MG/ML 2 ML VIAL IVP SCH ×2 (10:01→20:55)
[2021-08-31] MEDS: methylPREDNISolone SOD SUCCI 40 MG/ML 1 ML VIAL IV SCH ×2 (10:04→16:22)
[2021-08-31] MEDS ORDERED: POTASSIUM CHLORIDE ER 20 MEQ TAB.ER PO STA (10:12)
--- NOTE | 2021-08-31 10:17 | P.PN ---
Subjective Progress Note Date: 08/31/21 Principal diagnosis: vomiting Doing well, has not thrown up for the past 24 hours. She is holding down food currently. No fevers, no pain. Objective - Vital Signs Vital signs: Vital Signs Temp 98.5 F 08/31/21 08:00 Pulse 128 H 08/31/21 08:00 Resp 14 08/31/21 08:00 BP 112/78 08/31/21 08:00 Pulse Ox 97 08/30/21 23:47 FiO2 Intake & Output 08/30/21 08/31/21 08/31/21 18:59 06:59 18:59 Weight 43.091 kg - Exam Constitutional: No acute distress, conversant, pleasant Eyes:Anicteric sclerae, moist conjunctiva, no lid-lag, PERRLA, ENMT: Oropharynx clear, no erythema, exudates Neck: Supple, FROM, no masses, or JVD, No carotid bruits, No thyromegaly Lungs: Clear to auscultation, Clear to percussion, Normal respiratory effort, no accessory muscle use Cardiovascular: Heart regular in rate and rhythm, No murmurs, gallops, or rubs, No peripheral edema Abdominal: Soft, Nontender, no guarding, rebound or rigidity, Normoactive bowel sounds, No hepatomegaly, No splenomegaly, No palpable mass Skin: Normal temperature, tone, texture, turgor, no induration, No subcutaneous nodules, No rash, lesions, No ulcers Extremities: No digital cyanosis, No clubbing, Pedal pulses intact and symmetrical, Radial pulses intact and symmetrical, No calf tenderness Psychiatric: Alert and oriented to person, place and time, appropriate affect, intact judgement Neuro: Muscles Strength 5/5 in all 4 extremities, Sensation to light touch grossly present throughout, Cranial nerves II-XII grossly intact, no focal sensory deficits - Labs CBC & Chem 7: 08/31/21 07:21 08/31/21 07:21 Labs: Abnormal Lab Results - Last 24 Hours (Table) 08/31/21 08/31/21 Range/Units 07: 07:21 RDW 16.6 H (11.5-15.5) % Sodium 131 L (137-145) mmol/L Potassium 3.4 L (3.5-5.1) mmol/L BUN <2 L (7-17) mg/dL Creatinine 0.38 L (0.52-1.04) mg/dL Glucose 109 H (74-99) mg/dL AST 74 H (14-36) U/L ALT 178 H (4-34) U/L Total Protein 6.1 L (6.3-8.2) g/dL Albumin 3.4 L (3.5-5.0) g/dL Assessment and Plan Plan: Hyperemesis gravidarum Started on steroids --responded, she is better now Zofran, Phenergan and antihistamines Continue IV fluids Thiamine IV Urinalysis showing no UTI Amylase and lipase levels don't indicate pancreatitis Encouraged to eat 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 Hypokalemia Replace Hypomagnesemia Replaced Asthma Currently stable Anticipated dispo: likely home tomorrow
[2021-09-01] MEDS: methylPREDNISolone SOD SUCCI 40 MG/ML 1 ML VIAL IV SCH ×2 (00:34→08:28)
[2021-09-01 00:40] VITALS: TEMP 98
[2021-09-01] MEDS: propylthiouraciL 50 MG TAB PO SCH (06:32)
[2021-09-01] MEDS: PYRIDOXINE 100 MG/ML 1 ML VIAL IVP SCH ×2 (07:48→08:28)
[2021-09-01 08:24] LABS: ALT 166 U/L (4-34); AST 47 U/L (14-36); African American GFR (CKD) >90 (>60 ml/min/1.73 sqM); Albumin 3.8 g/dL (3.5-5.0); Alkaline Phosphatase 118 U/L (38-126); Anion Gap 6 mmol/L; Blood Urea Nitrogen 3 mg/dL (7-17); Calcium 9.3 mg/dL (8.4-10.2); Carbon Dioxide 25 mmol/L (22-30); Chloride 101 mmol/L (98-107); Glucose 102 mg/dL (74-99); Non-African American GFR(CKD) >90 (>60 ml/min/1.73 sqM); Potassium 4.3 mmol/L (3.5-5.1); Sodium 132 mmol/L (137-145); Total Bilirubin 0.6 mg/dL (0.2-1.3); Total Protein 6.6 g/dL (6.3-8.2)
[2021-09-01] MEDS: THIAMINE 100 MG/ML 2 ML VIAL IVP SCH (08:26)
[2021-09-01] MEDS: FAMOTIDINE 20 MG/2 ML VIAL IV SCH (08:28)
[2021-09-01 08:34] VITALS: BP 127/86; PULSE 93; RESP 15
--- NOTE | 2021-09-01 09:29 | P.DS ---
Providers Date of admission: 08/27/21 16:32 Expected date of discharge: 09/01/21 Attending physician: Lyndsey Mata Consults: 08/27/21 13:29 Consult Physician Urgent Consulting Provider: Nando Gilman Consult Reason/Comments: Hyperemesis, elevated liver enzymes Do you want consulting provider notified?: Yes Primary care physician: Barrie Jin - Discharge Diagnosis(es) (1) Hyperthyroidism Current Visit: Yes Status: Resolved (2) Hyperemesis gravidarum Current Visit: Yes Status: Chronic Hospital Course: Patient presented at 10 weeks gestation with intractable nausea vomiting. She's had nausea and vomiting for several months before her but it got worse with the . Over the course of her stay tried IV fluids and several medications to stop her nausea and vomiting. It was found that she has hyperthyroidism and medicine started on PTU. Dr. Mata also started the patient on IV methylprednisolone. This worked to stop her nausea and vomiting. She is kept food down for the last 2 days with no vomiting. She is a lot more energy and feels great. Will discharge her home on the PTU as well as a taper dose of prednisone. She'll follow up Dr. Mata in one week. Patient Condition at Discharge: Fair Plan - Discharge Summary New Discharge Prescriptions: New predniSONE See Taper PO BID #17 tab propylthiouraciL [Propylthiouracil] 50 mg PO Q8H #90 tab No Action Loratadine [Claritin] 10 mg PO HS ondansetron HCL [Zofran] 4 mg PO Q8H PRN #3 tab PRN Reason: Nausea And Vomiting Vits96/Iron Fum/Folic [ Tablet] 1 each PO DAILY Discharge Medication List Loratadine [Claritin] 10 mg PO HS 02/15/20 [History] ondansetron HCL [Zofran] 4 mg PO Q8H PRN #3 tab 11/30/20 [Rx] Vits96/Iron Fum/Folic [ Tablet] 1 each PO DAILY 08/24/21 [History] predniSONE See Taper PO BID #17 tab 09/01/21 [Rx] propylthiouraciL [Propylthiouracil] 50 mg PO Q8H #90 tab 09/01/21 [Rx] Follow up Appointment(s)/Referral(s): Barrie Jin, [Primary Care Provider] - 1-2 days Lyndsey Mata DO [Doctor of Osteopathic Medicine] - 1 Week Discharge Disposition: HOME SELF-CARE
[2021-09-02 14:39] LABS: Thyroxine Binding Globulin 32.9 ug/mL (14.0 - 31.0)
== END 2021-09-01 11:10 | disposition home or self-care (01) | DRG 833 ==
LOC: EC 02:01 → 4FBP 06:09 → OBSVTOIN 08-27 16:32
PROVIDERS: ADMIT Obstetrics & Gynecology; ATTEND Obstetrics & Gynecology
DX: O99.281 Endocrine, nutritional and metabolic diseases complicating pregnancy, first trimester (principal); O99.341 Other mental disorders complicating pregnancy, first trimester; O21.0 Mild hyperemesis gravidarum; O99.511 Diseases of the respiratory system complicating pregnancy, first trimester; O99.611 Diseases of the digestive system complicating pregnancy, first trimester; O99.891 Other specified diseases and conditions complicating pregnancy; E05.90 Thyrotoxicosis, unspecified without thyrotoxic crisis or storm; F41.9 Anxiety disorder, unspecified; J45.909 Unspecified asthma, uncomplicated; K58.0 Irritable bowel syndrome with diarrhea; R55 Syncope and collapse; R94.5 Abnormal results of liver function studies; Z3A.11 11 weeks gestation of pregnancy; Z20.822 Contact with and (suspected) exposure to COVID-19; Z98.890 Other specified postprocedural states; Z90.49 Acquired absence of other specified parts of digestive tract; Z86.19 Personal history of other infectious and parasitic diseases; Z71.3 Dietary counseling and surveillance
CPT/HCPCS: 76705; 76801; 80053; 80074; 81001; 82150; 83690; 83735; 84100; 84436; 84439; 84442; 84443; 84480; 85025; 87635; 96361; 96374; 96375; 96376; 99285

== ENCOUNTER 2022-01-17 14:20 | Outpatient (CLI) | payer BC, OTHER ==
[2022-01-17] MEDS ORDERED: ONDANSETRON 4 MG/2 ML VIAL IVP STA (15:22)
[2022-01-17] MEDS: LACTATED RINGERS 1,000 ML IV SCH ×2 (15:30→16:14)
[2022-01-17 15:34] LABS: HCT 29.4 % (34.0-46.0); Hypochromasia Moderate; MCH 27.5 pg (25.0-35.0); MCV 80.9 fL (80.0-100.0); Mean Platelet Volume 9.4; Platelet Count 243 k/uL (150-450); Poikilocytosis Slight; RBC 3.64 m/uL (3.80-5.40); WBC 8.3 k/uL (3.8-10.6)
[2022-01-17 16:10] LABS: Appearance,Urine Clear (Clear); Bilirubin,Urine Negative (Negative); Blood,Urine Negative (Negative); Color,Urine Yellow; Glucose,Urine (UA) Negative (Negative); Ketones,Urine 2+ (Negative); Leukocyte Esterase,Urine Negative (Negative); Nitrite,Urine Negative (Negative); PH, Urine 6.5 (5.0-8.0); Protein,Urine Trace (Negative); Specific Gravity,Urine 1.017 (1.001-1.035)
--- NOTE | 2022-01-17 16:45 | US ---
EXAMINATION TYPE: US OB >= 14 wk fetus DATE OF EXAM: 01/17/2022 COMPARISON: None CLINICAL HISTORY: 31 weeks contx and dilated. complete except antomy, cara and dilated to 1-2c m, TECHNIQUE: OBTA GESTATIONAL AGE / DATING Physician Established: (31 weeks/0 days) EDC: 03/21/2022 Dates by LMP: LMP unknown Dates by First Scan: (30 weeks/6 days) EDC: 03/22/2022 Dates by Current Scan: (32 weeks/1 days) EDC: 03/13/2022 SURVEY IUP: Single PLACENTA: Posterior-fundal PREVIA: No Previa CEFERINO: 17.9 cm Normal CERVICAL LENGTH (transabdominal: norm > 3.0cm): 3.2 cm BIOMETRY PRESENTATION: Vertex LIE: Longitudinal BPD: 8.4 cm 33 weeks / 5 days HC: 29.8 cm 33 weeks / 1 days AC: 28.6 cm 32 weeks / 5 days FL: 5.4 cm 28 weeks / 5 days ESTIMATED WEIGHT IN GRAMS: 1801 grams ESTIMATED WEIGHT IN LBS/OZ: 4 lbs. 0 oz. WEIGHT PERCENTAGE BASED ON ESTABLISHED DATES: 59% HC/AC: 1.0 Normal FL/AC: 19% Normal HEART RATE: 124 bpm RHYTHM: Normal IMPRESSION: The ultrasound gestational age is 32 weeks and 1 day. No complicating process seen. Cervix measures 3 cm.
[2022-01-17] MEDS ORDERED: BETAMET ACET-BETAMETH SOD PHOS 6 MG/ML MDV IM SCH (17:00)
[2022-01-17] MEDS ORDERED: CALCIUM GLUCONATE 1 GM/10 ML VIAL IV PRN (17:31)
[2022-01-17] MEDS ORDERED: AMPICILLIN 2,000 MG in SODIUM CHLORIDE 0.9% 100 ML IVPB STA (17:31)
[2022-01-17] MEDS ORDERED: MAGNESIUM SULFATE GM 6 GM in SODIUM CHLORIDE 0.9% 100 ML IVPB ONE (17:45)
--- NOTE | 2022-01-17 17:49 | P.HPOB ---
History of Present Illness H&P Date: 01/17/22 Chief Complaint: Vomiting, contractions This is a 21-year-old female 1 para 0 with an estimated date of confinement of 03/21/2022, estimated gestational age of 31-0/7 weeks, who presents today complaining of nausea and vomiting along with diarrhea starting at about 12:30 today. She did start to notice cramping and pain and came to the hospital. Her course has been complicated by hyperemesis at the beginning of her she has been seen by high risk at [facility] in [place] for this problem and has been followed by Dr. Tracey. Upon arrival to triage she was in severe pain and was checked immediately and found to be 1-1/2-2 cm/80%/-2 station with bulging bag. FFM was not obtained. She was also vomiting upon arrival. She was watched in triage and given IV hydration. Her cervix did not make change after a couple hours and her contractions have subsided slightly. She is still having and irritability pattern noted and she does still feel pressure. Her CBC showed a normal white count. Her urine showed 2+ ketones. She has been unable to complete her 1 hour Glucola but has been checking her sugars and so far all of them have been in normal range. labs: Hepatitis B surface antigen-negative RPR-nonreactive Rubella-nonimmune Blood type-O+ Antibody screen-negative Hemoglobin-12.9 Toxoplasma screen-negative Obstetrical history: . Review of Systems Constitutional: Denies chills, Denies fever Eyes: denies blurred vision, denies pain Ears, nose, mouth and throat: Denies headache, Denies sore throat Cardiovascular: Denies chest pain, Denies shortness of breath Respiratory: Denies cough Gastrointestinal: Reports abdominal pain, Reports diarrhea, Reports nausea, Reports vomiting Genitourinary: Reports pelvic pain, Reports Musculoskeletal: Reports low back pain Past Medical History Past Medical History: Asthma, Syncope Additional Past Medical History / Comment(s): Low BP. Hx fainting episodes occasionally since 2016, was told could be her low BP-not sure, last episode of syncope was in 2019, IBS History of Any Multi-Drug Resistant Organisms: C-DIFF Date of last positivie culture/infection: 12/08/19 MDRO Source:: stool Past Surgical History: Cholecystectomy Additional Past Surgical History / Comment(s): EGD. 12/2019 - clarence Past Anesthesia/Blood Transfusion Reactions: Postoperative Nausea & Vomiting (PONV) Additional Past Anesthesia/Blood Transfusion Reaction / Comment(s): scope 11/2019 Past Psychological History: Anxiety Smoking Status: Never smoker Past Alcohol Use History: None Reported Past Drug Use History: None Reported - Past Family History Mother Family Medical History: No Reported History Additional Family Medical History / Comment(s): clarence Father Family Medical History: No Reported History Medications and Allergies Home Medications Medication Instructions Recorded Confirmed Type RX: Loratadine [Claritin] 10 mg PO HS 02/15/20 01/17/22 History ondansetron HCL [Zofran] 4 mg PO Q8H PRN #3 tab 11/30/20 01/17/22 Rx Vits96/Iron Fum/Folic 1 each PO DAILY 08/24/21 01/17/22 History [ Tablet] Allergies Allergy/AdvReac Type Severity Reaction Status Date / Time No Known Allergies Allergy Verified 08/24/21 08:10 Exam Osteopathic Statement: *. No significant issues noted on an osteopathic structural exam other than those noted in the History and Physical/Consult. Intake and Output 01/17/22 01/17/22 01/17/22 06:59 14:59 22:59 Other: Weight 48.988 kg HEENT: Within normal limits Heart: Regular rate and rhythm Lungs: Clear to auscultation bilaterally Abdomen: nontender Cervix: 1-1/2-2 cm/80%/-2 station with bulging bag. heart tones: 140s with accelerations and good variability Contractions: Irregular every 1-2 minutes with an irritability pattern. Extremities: Negative Homans Results Obstetrical ultrasound showed fetus in the vertex presentation with estimated weight of 4 lbs. 0 oz. and CEFERINO of 17 cm with fundal placenta. Result Diagrams: 01/17/22 15:24 Abnormal Lab Results - Last 24 Hours (Table) 01/17/22 01/17/22 Range/Units 15:24 15:45 RBC 3.64 L (3.80-5.40) m/uL Hgb 10.0 L (11.4-16.0) gm/dL Hct 29.4 L (34.0-46.0) % Urine Protein Trace H (Negative) Urine Ketones 2+ H (Negative) Assessment and Plan (1) 31 weeks gestation of Current Visit: Yes Status: Acute Code(s): Z3A.31 - 31 WEEKS GESTATION OF SNOMED Code(s): 71803773 (2) Nausea and vomiting in Current Visit: Yes Status: Acute Code(s): O21.9 - VOMITING OF , UNSPECIFIED SNOMED Code(s): 68824262 (3) labor in third trimester without delivery Current Visit: Yes Status: Acute Code(s): O60.03 - LABOR WITHOUT DELIVERY, THIRD TRIMESTER SNOMED Code(s): 85813551963426664 Plan: Spoke with Dr. Tracey at [facility] in [place] and he has accepted transfer. Will start magnesium sulfate tocolysis with 6 g bolus and 2 g per hour. Will also give ampicillin 2 g. She has received 1 dose of Celestone. We'll transfer via ambulance to [facility] in [place]. Patient and her mother are counseled and regards to the need for transfer and are accepting transfer.
[2022-01-17 18:05] LABS: ALT 50 U/L (4-34); AST 52 U/L (14-36); African American GFR (CKD) >90 (>60 ml/min/1.73 sqM); Albumin 3.6 g/dL (3.5-5.0); Alkaline Phosphatase 199 U/L (38-126); Anion Gap 8 mmol/L; Blood Urea Nitrogen 5 mg/dL (7-17); Calcium 8.3 mg/dL (8.4-10.2); Carbon Dioxide 20 mmol/L (22-30); Chloride 105 mmol/L (98-107); Glucose 75 mg/dL (74-99); Non-African American GFR(CKD) >90 (>60 ml/min/1.73 sqM); Sodium 133 mmol/L (137-145); Total Bilirubin 1.1 mg/dL (0.2-1.3); Total Protein 6.6 g/dL (6.3-8.2)
[2022-01-17 18:07] LABS: Potassium 4.1 mmol/L (3.5-5.1)
[2022-01-17] MEDS ORDERED: MAGNESIUM SULFATE-WATER PMX 20 GM in WATER FOR INJECTION 1 500ML.BAG IV SCH (18:08)
[2022-01-17 19:39] VITALS: BP 121/82; PULSE 96; RESP 16; TEMP 97
--- NOTE | 2022-01-19 02:31 | P.MSEPDOC ---
Presenting Problems - Arrival Data Date of Arrival on Unit: 01/17/22 Time of Arrival on Unit: 14:30 Mode of Transport: Wheelchair - Complaint OB-Reason for Admission/Chief Complaint: Possible Onset of Labor Medical History - Information : 1 Para: 0 Term: 0 : 0 Abortions: Spontaneous or Elective: 0 Number of Living Children: 0 - Gestational Age Gestational Age by HONEY (wks/days): 31 Weeks and 0 Days Review of Systems - Review of Systems Constitutional: No problems Breast: No problems ENT: No problems Cardiovascular: No problems Respiratory: No problems Gastrointestinal: No problems Genitourinary: No problems Musculoskeletal: No problems Neurological: No problems Skin: No problems Vital Signs - Temperature Temperature: 97.0 F Temperature Source: Temporal Artery Scan - Pulse Apical Pulse Rate: 96 Pulse Assessment Method: Automatic Cuff - Respirations Respiratory Rate: 16 Oxygen Delivery Method: Room Air - Blood Pressure Left Arm Blood Pressure: 121/82 Blood Pressure Mean: 95 Blood Pressure Source: Automatic Cuff Medical Screen Scoring - Cervical Exam Dilation (cm): 1.5 Effacement (%): 80 Station: -2 Membranes: Intact - Uterine Contractions Intensity: Mild Resting: Soft to palpation - Assessment - Baby A Baseline FHR: 130 Heart Rate - NICHD Category: Category I (Normal) NST: Reactive Physician Notification - Physician Notified Physician Notified Date: 01/17/22 Physician Notified Time: 17:00 Physician: Lyndsey Mata Order Received: Yes (transfer to [facility]) Maternal Triage Index - Urgent/Priority 2 Urgent Priority 2: Yes Provider Notified: Lyndsey Mata Provider Notified Time: 16:00 Criteria Met for Priority 2: 31 weeks, contx. n/v. mom transfered to [facility]. mag sulfate, celestone. amp 2 gms. dilated 1.5cm 80 % effaced. Disposition - Disposition OB Disposition: Transfer to other dept./facility Transferred to:: [facility] Discharge Date: 01/17/22 Discharge Time: 19:30 I agree with the RN Medical Screening Exam: Yes Case reviewed; plan agreed upon as documented in EMR&OBIX.: Yes Diagnosis: LABOR WITHOUT DELIVERY, THIRD TRIMESTER Additional Diagnoses: Nausea and vomiting
== END 2022-01-17 19:46 | disposition other institution (70) ==
LOC: FBPOP 14:20
PROVIDERS: ATTEND Obstetrics & Gynecology
DX: O60.03 Preterm labor without delivery, third trimester (principal); Z3A.31 31 weeks gestation of pregnancy; O21.9 Vomiting of pregnancy, unspecified; J45.909 Unspecified asthma, uncomplicated; F41.9 Anxiety disorder, unspecified
CPT/HCPCS: 59025; 99214; 96361; 96365; 96366; 96367; 96372; 80053; 85027; 81003; 76805; J3475 ×2; J0290; J0702; 99215

== ENCOUNTER 2022-01-30 23:17 | Observation (INO) | payer BC, OTHER ==
[2022-01-31] MEDS ORDERED: ONDANSETRON 4 MG/2 ML VIAL IVP STA (00:19)
[2022-01-31] MEDS: LACTATED RINGERS 1,000 ML IV SCH ×4 (00:26→09:12)
[2022-01-31 00:46] LABS: Basophils % (A) 0 %; Eosinophils % (A) 0 %; HCT 31.2 % (34.0-46.0); HGB 9.6 gm/dL (11.4-16.0); Hypochromasia Moderate; Lymphocytes # (A) 1.9 k/uL (1.0-4.8); Lymphocytes % (A) 19 %; MCH 24.3 pg (25.0-35.0); MCHC 30.7 g/dL (31.0-37.0); MCV 79.3 fL (80.0-100.0); Mean Platelet Volume 9.1; Monocytes # (A) 0.5 k/uL (0-1.0); Monocytes % (A) 5 %; Neutrophils # (A) 7.4 k/uL (1.3-7.7); Neutrophils % (A) 73 %; Platelet Count 327 k/uL (150-450); Poikilocytosis Slight; RBC 3.93 m/uL (3.80-5.40); RDW 14.6 % (11.5-15.5); WBC 10.1 k/uL (3.8-10.6)
[2022-01-31 00:56] LABS: ALT 237 U/L (4-34); AST 159 U/L (14-36); African American GFR (CKD) >90 (>60 ml/min/1.73 sqM); Albumin 3.9 g/dL (3.5-5.0); Alkaline Phosphatase 292 U/L (38-126); Anion Gap 12 mmol/L; Blood Urea Nitrogen 8 mg/dL (7-17); Calcium 8.7 mg/dL (8.4-10.2); Carbon Dioxide 18 mmol/L (22-30); Chloride 102 mmol/L (98-107); Glucose 72 mg/dL (74-99); LDH 578 U/L (313-618); Non-African American GFR(CKD) >90 (>60 ml/min/1.73 sqM); Sodium 132 mmol/L (137-145); Total Protein 6.9 g/dL (6.3-8.2); Uric Acid 7.3 mg/dL (3.7-7.4)
[2022-01-31] MEDS ORDERED: ACETAMINOPHEN TAB 500 MG TAB PO PRN (01:56)
[2022-01-31] MEDS ORDERED: ACETAMINOPHEN IV (For NPO) 1,000 MG in EMPTY BAG 1 BAG IVPB ONE (01:56)
[2022-01-31] MEDS ORDERED: ONDANSETRON 4 MG/2 ML VIAL IVP PRN (01:56)
[2022-01-31 02:03] LABS: Appearance,Urine Clear (Clear); Bacteria,Urine Rare /hpf; Bilirubin,Urine Negative (Negative); Blood,Urine Negative (Negative); Color,Urine Yellow; Glucose,Urine (UA) Negative (Negative); Hyaline Casts,Urine 5 /lpf (0-2); Ketones,Urine 4+ (Negative); Leukocyte Esterase,Urine Trace (Negative); Mucus,Urine Moderate /hpf; Nitrite,Urine Negative (Negative); Protein,Urine 2+ (Negative); RBC,Urine 2 /hpf (0-5); Specific Gravity,Urine 1.029 (1.001-1.035); Squamous Epithelial Cell,Urine 4 /hpf (0-4); WBC,Urine 5 /hpf (0-5)
[2022-01-31] MEDS: diphenhydrAMINE 50 MG/ML 1 ML VIAL IVP PRN ×2 (02:12→08:41)
[2022-01-31 02:48] LABS: Creatinine,Urine Random 176.8 mg/dL; Protein/Creatinine Ratio,Urine 0.175
[2022-01-31 05:24] VITALS: BP 119/69; PULSE 85; RESP 17; TEMP 97.5
[2022-01-31] MEDS ORDERED: ursodioL 300 MG CAP PO SCH (08:30)
[2022-01-31] MEDS ORDERED: METOCLOPRAMIDE 5 MG/ML 2 ML VIAL IVP STA (08:38)
[2022-01-31] MEDS ORDERED: FAMOTIDINE 20 MG/2 ML VIAL IV SCH (09:00)
--- NOTE | 2022-01-31 09:05 | P.HPOB ---
History of Present Illness H&P Date: 01/31/22 Chief Complaint: Vomiting This is a 21-year-old female 1 para 0 with an estimated date of confinement of 03/21/2022, estimated gestational age of 33-0/7 weeks, who pre sents to labor and delivery with complaints of nausea and vomiting since Thursday afternoon. She was seen by MFM on Thursday and was sent to labor and delivery for contractions. She was found to be 1-1/2 cm at that time. Upon arrival to triage here, she was dry heaving and occasionally vomiting up bile. She was unable to tell if she was feeling contractions or not but was marking when she felt contractions at approximately every 10 minutes or so. She was still noted to be 1-1/2 cm on arrival to triage here. She was IV hydrated and given IV Zofran, Benadryl, and Ofirmev. She was able to rest for approximately 1 or 2 hours and then woke up and is continued to dry heave. She is unable to tell if she is feeling contractions are not due to all the pain from vomiting. Her is complicated by cholestasis of and she is on medication for this. She did have 4+ ketones on admission. She was seen for labor on January 17 and was transferred to maternal medicine in [place] and did receive 2 doses of Celestone at that time. labs: Hepatitis B surface antigen-negative RPR-nonreactive Rubella-nonimmune Blood type-O+ Antibody screen-negative Hemoglobin-12.9 Toxoplasma screen-negative HIV-nonreactive 1 hour Glucola-unable to complete due to vomiting. She did check her sugars for approximately 2 weeks and all were within normal range. Obstetrical history: . Gynecologic history: No history of sexual transmitted diseases. Social history: She is single. She works part-time at [employer] Review of Systems Constitutional: Denies chills, Denies fever Eyes: denies blurred vision, denies pain Ears, nose, mouth and throat: Reports headache (Headaches since Thursday), Denies sore throat Cardiovascular: Denies chest pain, Denies shortness of breath Respiratory: Denies cough Gastrointestinal: Reports abdominal pain, Reports heartburn, Reports loss of appetite, Reports nausea, Reports vomiting Genitourinary: Reports pelvic pain, Reports Musculoskeletal: Reports limitation of motion Integumentary: Denies pruritus, Denies rash Neurological: Denies numbness, Denies weakness Psychiatric: Reports anxiety Past Medical History Past Medical History: Asthma, Syncope Additional Past Medical History / Comment(s): Low BP. Hx fainting episodes occasionally since 2016, was told could be her low BP-not sure, last episode of syncope was in 2019, IBS; cholestasis of History of Any Multi-Drug Resistant Organisms: C-DIFF Date of last positivie culture/infection: 12/08/19 MDRO Source:: stool Past Surgical History: Cholecystectomy Additional Past Surgical History / Comment(s): EGD. 12/2019 - clarence Past Anesthesia/Blood Transfusion Reactions: Postoperative Nausea & Vomiting (PONV) Additional Past Anesthesia/Blood Transfusion Reaction / Comment(s): scope 11/2019 Past Psychological History: Anxiety Smoking Status: Never smoker Past Alcohol Use History: None Reported Past Drug Use History: None Reported Additional Drug Use History / Comment(s): "Not a lot". - Past Family History Mother Family Medical History: No Reported History Additional Family Medical History / Comment(s): clarence Father Family Medical History: No Reported History Medications and Allergies Home Medications Medication Instructions Recorded Confirmed Type RX: Loratadine [Claritin] 10 mg PO HS 02/15/20 01/30/22 History ondansetron HCL [Zofran] 4 mg PO Q8H PRN #3 tab 11/30/20 01/30/22 Rx Vits96/Iron Fum/Folic 1 each PO DAILY 08/24/21 01/30/22 History [ Tablet] Omeprazole [PriLOSEC] 40 mg PO DAILY 01/30/22 01/30/22 History RX: ursodioL [Ursodiol] 300 mg PO BID 01/30/22 01/30/22 History Allergies Allergy/AdvReac Type Severity Reaction Status Date / Time No Known Allergies Allergy Verified 01/30/22 23:23 Exam Osteopathic Statement: *. No significant issues noted on an osteopathic structural exam other than those noted in the History and Physical/Consult. Vital Signs Temp Pulse Resp BP Pulse Ox 01/31/22 01:58 97.5 F L 85 17 119/69 96 01/31/22 01:32 97.5 F L 85 17 119/69 96 Intake and Output 01/30/22 01/31/22 01/31/22 22:59 06:59 14:59 Other: Weight 48.081 kg Gen.: Thin-appearing gravid female in acute distress due to constant retching HEENT: Within normal limits Heart: Regular rate and rhythm Lungs: Clear to auscultation bilaterally Abdomen: Soft, , mildly tender due to vomiting Cervix: 2-1/2 cm/80%/-2 station with bag of water palpable and baby slightly ballotable. heart tones: Reactive. Contractions: Difficult to ascertain how often due to constant vomiting. Extremities: Negative Homans Results Result Diagrams: 01/31/22 00:33 01/31/22 00:33 Abnormal Lab Results - Last 24 Hours (Table) 01/31/22 01/31/22 01/31/22 Range/Units 00:19 00:33 00:33 Hgb 9.6 L (11.4-16.0) gm/dL Hct 31.2 L (34.0-46.0) % MCV 79.3 L (80.0-100.0) fL MCH 24.3 L (25.0-35.0) pg MCHC 30.7 L (31.0-37.0) g/dL Sodium 132 L (137-145) mmol/L Carbon Dioxide 18 L (22-30) mmol/L Glucose 72 L (74-99) mg/dL AST 159 H (14-36) U/L ALT 237 H (4-34) U/L Alkaline Phosphatase 292 H (38-126) U/L Urine Protein 2+ H (Negative) Urine Ketones 4+ H (Negative) Ur Leukocyte Esterase Trace H (Negative) Urine Bacteria Rare H (None) /hpf Hyaline Casts 5 H (0-2) /lpf Urine Mucus Moderate H (None) /hpf Assessment and Plan (1) 33 weeks gestation of Current Visit: Yes Status: Acute Code(s): Z3A.33 - 33 WEEKS GESTATION OF Vamsi KIMBLE SNOMED Code(s): 27097521 (2) Cholestasis during in third trimester Current Visit: Yes Status: Acute Code(s): O26.613 - LIVER AND BILIARY TRACT DISORD IN , THIRD TRIMESTER; K83.1 - OBSTRUCTION OF BILE DUCT SNOMED Code(s): 946228569 (3) Nausea and vomiting in Current Visit: No Status: Acute Code(s): O21.9 - VOMITING OF , UNSPECIFIED SNOMED Code(s): 56183184 Plan: Patient was admitted overnight for IV hydration and antiemetics. Benadryl seemed to do the best for her as far as controlling her vomiting. However as soon as it wears off, she is back to vomiting. I did speak with Dr. Tracey this morning and he agrees to accept transfer to [facility] in [place] unit. I also spoke with Dr. Worley who accepts transfer. Patient will be given IV Pepcid along with ampicillin. She is also given a dose of Reglan. Patient will be transferred via ambulance. Patient and her mother are in agreement with this plan.
[2022-01-31] MEDS ORDERED: AMPICILLIN 2,000 MG in SODIUM CHLORIDE 0.9% 100 ML IVPB STA (09:22)
--- NOTE | 2022-01-31 09:34 | P.MSEPDOC ---
Presenting Problems - Arrival Data Date of Arrival on Unit: 01/31/22 Time of Arrival on Unit: 23:17 Mode of Transport: Wheelchair - Complaint OB-Reason for Admission/Chief Complaint: Possible Onset of Labor, Hyperemesis, Headache Comment: Pt presents to triage with multiple complaints, including contx that were 10 minutes apart all day but have now spaced out, nauseous and throwing up since yesterday and a headache since Thursday Medical History - Information : 1 Para: 0 Term: 0 : 0 Abortions: Spontaneous or Elective: 0 Number of Living Children: 0 - Gestational Age Gestational Age by HONEY (wks/days): 33 Weeks and 0 Days Review of Systems - Review of Systems Constitutional: No problems Breast: No problems ENT: No problems Cardiovascular: No problems Respiratory: No problems Gastrointestinal: No problems Genitourinary: No problems Musculoskeletal: No problems Neurological: No problems Skin: No problems Vital Signs - Temperature Temperature: 97.5 F Temperature Source: Temporal Artery Scan - Pulse Pulse Oximetery Pulse Rate: 85 Pulse Assessment Method: Pulse Oximetry - Respirations Respiratory Rate: 17 Oxygen Delivery Method: Room Air O2 Sat by Pulse Oximetry: 96 - Blood Pressure Right Arm Blood Pressure: 119/69 Blood Pressure Mean: 85 Blood Pressure Source: Automatic Cuff Medical Screen Scoring - Cervical Exam Dilation (cm): 2 Effacement (%): 60 Station: -2 Membranes: Intact - Uterine Contractions Intensity: Mild Resting: Soft to palpation - Assessment - Baby A Baseline FHR: 145 Heart Rate - NICHD Category: Category I (Normal) NST: Reactive Physician Notification - Physician Notified Physician Notified Date: 01/31/22 Physician Notified Time: 01:32 Physician: Lyndsey Mata Order Received: Yes - Notification Comment Comment: RN spoke with Dr. Mata regarding results of CBC, CMP, LDH and uric acid, reviewed FHT and contx pattern and reported pt has been vomiting since administration of zofran IVP and fluids. Orders received to admit pt for observation, LR @ 150ml/hr, 4 mg zofran Q6H PRN, 25 mg benadryl IVP Q6H PRN, one time dose ofirmev IVPB, 1000 mg PO tylenol Q6H, NST Qshift, and regular diet as tolerated. Maternal Triage Index - Maternal Triage Index Presenting for scheduled procedure w/no complaint: No - Stat/Priority 1 Stat Priority 1: No - Urgent/Priority 2 Urgent Priority 2: Yes Provider Notified: Lyndsey Mata Provider Notified Time: 00:07 Criteria Met for Priority 2: < 34 weeks c/o uterine ctx Disposition - Disposition OB Disposition: Admit, Observe Transferred to:: [address] I agree with the RN Medical Screening Exam: Yes Case reviewed; plan agreed upon as documented in EMR&OBIX.: Yes Diagnosis: LABOR WITHOUT DELIVERY, THIRD TRIMESTER Additional Diagnoses: Nausea and vomiting Cholestasis of
[2022-01-31] MEDS ORDERED: LORATADINE 10 MG TAB PO SCH (20:00)
[2022-02-01] MEDS ORDERED: PANTOPRAZOLE 40 MG TABLET PO SCH (07:30)
== END 2022-01-31 10:10 | disposition other institution (70) ==
LOC: FBPOP 23:17 → 4FBP 01-31 01:44 → INTOOBSV 01-31 01:44 → UNDODISIN 01-31 10:10
PROVIDERS: ADMIT Obstetrics & Gynecology; ATTEND Obstetrics & Gynecology
DX: O21.2 Late vomiting of pregnancy (principal); O99.513 Diseases of the respiratory system complicating pregnancy, third trimester; O99.343 Other mental disorders complicating pregnancy, third trimester; O26.613 Liver and biliary tract disorders in pregnancy, third trimester; J45.909 Unspecified asthma, uncomplicated; K83.1 Obstruction of bile duct; F41.9 Anxiety disorder, unspecified; Z3A.33 33 weeks gestation of pregnancy; Z90.49 Acquired absence of other specified parts of digestive tract; Z79.899 Other long term (current) drug therapy
CPT/HCPCS: 59025; 99213; 96361; 96374; 82570; 80053; 84156; 83615; 84550; 85025; 81001; G0378; J1200; J2765; J2405; J0290; J0131; 96365; 96375; 96376

== ENCOUNTER 2022-02-16 16:53 | Outpatient (CLI) | payer BC, OTHER ==
[2022-02-16 17:56] VITALS: BP 111/71; PULSE 96; RESP 18; TEMP 97.1
--- NOTE | 2022-03-04 21:20 | P.MSEPDOC ---
Presenting Problems - Arrival Data Date of Arrival on Unit: 02/16/22 Time of Arrival on Unit: 16:53 Mode of Transport: Ambulatory - Complaint OB-Reason for Admission/Chief Complaint: Pain Comment: pelvic pressure patient rates 7/10. states it is a constant pressure that is painful. pt appears comfortable laughing and talking in bed at this time. Medical History - Information : 1 Para: 0 Term: 0 : 0 Abortions: Spontaneous or Elective: 0 Number of Living Children: 0 - Gestational Age Gestational Age by HONEY (wks/days): 35 Weeks and 2 Days - History Complications: Other Comment: cholestasis Review of Systems - Review of Systems Constitutional: No problems Breast: No problems ENT: No problems Cardiovascular: No problems Respiratory: No problems Gastrointestinal: No problems Genitourinary: No problems Musculoskeletal: No problems Neurological: No problems Skin: No problems Vital Signs - Temperature Temperature: 97.1 F Temperature Source: Temporal Artery Scan - Pulse Right Pulse Oximetery Pulse Rate: 96 Pulse Assessment Method: Pulse Oximetry - Respirations Respiratory Rate: 18 Oxygen Delivery Method: Room Air O2 Sat by Pulse Oximetry: 100 - Blood Pressure Right Arm Blood Pressure: 111/71 Blood Pressure Mean: 84 Blood Pressure Source: Automatic Cuff Medical Screen Scoring - Cervical Exam Dilation (cm): 3.5 Effacement (%): 90 Station: -2 Membranes: Intact - Uterine Contractions Frequency From (mins): 0 Frequency To (mins): 0 Duration From (seconds): 0 Duration To (seconds): 0 - Assessment - Baby A Baseline FHR: 130 Heart Rate - NICHD Category: Category I (Normal) NST: Reactive Physician Notification - Physician Notified Physician Notified Date: 02/16/22 Physician Notified Time: 17:40 Physician: Ying Valles Order Received: Yes Maternal Triage Index - Maternal Triage Index Presenting for scheduled procedure w/no complaint: No - Stat/Priority 1 Stat Priority 1: No - Urgent/Priority 2 Urgent Priority 2: No - Prompt/Priority 3 Prompt Priority 3: Yes Criteria Met for Priority 3: complaints of pelvic pressure, 35 2/7 weeks gestation Disposition - Disposition OB Disposition: Discharge to home Discharge Date: 02/16/22 Discharge Time: 17:45 I agree with the RN Medical Screening Exam: Yes Case reviewed; plan agreed upon as documented in EMR&OBIX.: Yes Diagnosis: PAIN, UNSPECIFIED
== END 2022-02-16 17:45 | disposition home or self-care (01) ==
LOC: FBPOP 16:53
PROVIDERS: ATTEND Obstetrics & Gynecology
DX: O26.893 Other specified pregnancy related conditions, third trimester (principal); Z3A.35 35 weeks gestation of pregnancy; R52 Pain, unspecified
CPT/HCPCS: 36415; 59025; 99213

== ENCOUNTER 2022-02-21 05:50 | Inpatient (IN) | payer BC, OTHER ==
--- NOTE | 2022-02-20 20:14 | P.HPOB ---
History of Present Illness H&P Date: 02/20/22 Chief Complaint: Induction of labor, cholestasis of This is a 22 y.o. female, 1, para 0, with an estimated date of confinement of 03/21/2021, estimated gestational age of 36-0/7 weeks, who presents for induction of labor due to cholestasis of . She was diagnosed with cholestasis of at about 32 weeks and has continued itching despite medications. In addition, she has been treated for labor and has 2 courses of steroids. She currently complains of irregular contractions and itching. She also has a significan history of hyperemesis early in the . 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 Hx: No hx STDs Social Hx: Works at [employer] Review of Systems Constitutional: Denies chills, Denies fever Eyes: denies blurred vision, denies pain Ears, nose, mouth and throat: Reports headache, Denies sore throat Cardiovascular: Denies chest pain, Denies shortness of breath Respiratory: Denies cough Gastrointestinal: Reports abdominal pain (irregular contractions) Genitourinary: Reports pelvic pain Musculoskeletal: Reports low back pain Integumentary: Denies pruritus, Denies rash Neurological: Denies numbness, Denies weakness Psychiatric: Reports anxiety, Denies depression Past Medical History Past Medical History: Asthma, Syncope Additional Past Medical History / Comment(s): Low BP. Hx fainting episodes occasionally since 2016, was told could be her low BP-not sure, last episode of syncope was in 2019, IBS; cholestasis of History of Any Multi-Drug Resistant Organisms: C-DIFF Date of last positivie culture/infection: 12/08/19 MDRO Source:: stool Past Surgical History: Cholecystectomy Additional Past Surgical History / Comment(s): EGD. 12/2019 - [facility] Past Anesthesia/Blood Transfusion Reactions: Postoperative Nausea & Vomiting (PONV) Additional Past Anesthesia/Blood Transfusion Reaction / Comment(s): scope 11/2019 Past Psychological History: Anxiety Smoking Status: Never smoker Past Alcohol Use History: None Reported Past Drug Use History: None Reported Additional Drug Use History / Comment(s): "Not a lot". - Past Family History Mother Family Medical History: No Reported History Additional Family Medical History / Comment(s): clarence Father Family Medical History: No Reported History Medications and Allergies Home Medications Medication Instructions Recorded Confirmed Type Loratadine [Claritin] 10 mg PO HS 02/15/20 02/16/22 History ondansetron HCL [Zofran] 4 mg PO Q8H PRN #3 tab 11/30/20 02/16/22 Rx Vits96/Iron Fum/Folic 1 each PO DAILY 08/24/21 02/16/22 History [ Tablet] Omeprazole [PriLOSEC] 40 mg PO DAILY 01/30/22 02/16/22 History ursodioL [Ursodiol] 300 mg PO BID 01/30/22 02/16/22 History Doxylamine Succinate/Vit B6 1 tab PO DAILY 02/16/22 02/16/22 History [Diclegis Dr 10-10 mg Tablet] Allergies Allergy/AdvReac Type Severity Reaction Status Date / Time No Known Allergies Allergy Verified 02/16/22 17:05 Exam Osteopathic Statement: *. No significant issues noted on an osteopathic structural exam other than those noted in the History and Physical/Consult. HEENT: within normal limits Heart: regular rate and rhythm Lungs: clear to auscultation bilaterally Abdomen: , non-tender Extremities: neg. Vivian's Cervix: 4 cm/90%/-1 heart tones: 140's by doppler Assessment and Plan (1) 36 weeks gestation of Status: Acute Code(s): Z3A.36 - 36 WEEKS GESTATION OF SNOMED Code(s): 87443427 (2) labor in third trimester Status: Acute Code(s): O60.03 - LABOR WITHOUT DELIVERY, THIRD TRIMESTER SNOMED Code(s): 0063972 (3) Cholestasis during in third trimester Status: Acute Code(s): O26.613 - LIVER AND BILIARY TRACT DISORD IN , THIRD TRIMESTER; K83.1 - OBSTRUCTION OF BILE DUCT SNOMED Code(s): 570534558 Plan: Proceed with oxytocin induction of labor. Expectant management. Epidural anesthesia.
[2022-02-21] MEDS: LACTATED RINGERS 1,000 ML IV SCH ×2 (07:00→09:12)
[2022-02-21] MEDS ORDERED: LIDOCAINE 1% (10MG/ML) FOR IV START INTRADERMA PRN (07:35)
[2022-02-21] MEDS ORDERED: OXYTOCIN 10 UNIT/ML 1 ML VIAL IM PRN (07:35)
[2022-02-21] MEDS ORDERED: TERBUTALINE 1 MG/ML VIAL SQ PRN (07:35)
[2022-02-21] MEDS ORDERED: METHYLERGONOVINE 0.2 MG/ML 1 ML AMP IM PRN (07:35)
[2022-02-21] MEDS ORDERED: miSOPROStoL 200 MCG TAB PO PRN (07:35)
[2022-02-21] MEDS ORDERED: TRANEXAMIC ACID IN NACL,ISO-OS 1,000 MG in EMPTY BAG 1 BAG IV PRN (07:35)
[2022-02-21] MEDS ORDERED: LIDOCAINE 0.5% (PF) 5 MG/ML (50 ML SDV) SQ PRN (07:35)
[2022-02-21] MEDS ORDERED: CARBOPROST TROMETHAMINE 250 MCG/ML 1 ML AMP IM PRN (07:35)
[2022-02-21] MEDS ORDERED: OXYTOCIN 30 UNITS/500 ML NS 30 UNIT in SALINE 1 500ML.BAG IV SCH (07:35)
[2022-02-21] MEDS ORDERED: AMPICILLIN 2,000 MG in SODIUM CHLORIDE 0.9% 100 ML IVPB STA (07:38)
[2022-02-21 07:52] LABS: Basophils % (A) 0 %; Eosinophils # (A) 0.1 k/uL (0-0.7); Eosinophils % (A) 1 %; HCT 29.6 % (34.0-46.0); HGB 9.3 gm/dL (11.4-16.0); Hypochromasia Moderate; Lymphocytes % (A) 26 %; MCH 24.4 pg (25.0-35.0); MCHC 31.5 g/dL (31.0-37.0); MCV 77.5 fL (80.0-100.0); Mean Platelet Volume 9.1; Microcytosis Slight; Monocytes # (A) 0.5 k/uL (0-1.0); Monocytes % (A) 6 %; Neutrophils # (A) 5.2 k/uL (1.3-7.7); Neutrophils % (A) 65 %; Platelet Count 197 k/uL (150-450); Poikilocytosis Slight; RBC 3.82 m/uL (3.80-5.40); RDW 15.9 % (11.5-15.5)
[2022-02-21] MEDS ORDERED: ONDANSETRON 4 MG/2 ML VIAL IVP STA (08:30)
[2022-02-21] MEDS ORDERED: ROPIVACAINE 5 MG/ML 20 ML AMPULE ONE (08:56)
[2022-02-21] MEDS ORDERED: SODIUM CHLORIDE 0.9% 100 ML BAG ONE (08:56)
[2022-02-21] MEDS ORDERED: fentaNYL (PF) 50 MCG/ML 5 ML AMP ONE (08:56)
[2022-02-21] MEDS ORDERED: AMPICILLIN 1,000 MG in SODIUM CHLORIDE 0.9% 50 ML IVPB SCH (12:00)
[2022-02-21] MEDS ORDERED: LANOLIN CREAM 5 GM TUBE TOPICAL PRN (12:08)
[2022-02-21] MEDS ORDERED: diphenhydrAMINE 25 MG CAP PO PRN (12:08)
[2022-02-21] MEDS ORDERED: HYDROCORTISONE 2.5% RECTAL CREAM 30 GM TUBE RECTAL PRN (12:08)
[2022-02-21] MEDS ORDERED: BENZOCAINE/MENTHOL SPRAY 1 GM/SPRAY AEROSOL TOPICAL PRN (12:08)
[2022-02-21] MEDS ORDERED: diphenhydrAMINE 50 MG CAP PO PRN (12:08)
[2022-02-21] MEDS ORDERED: diphenhydrAMINE 50 MG/ML 1 ML VIAL IVP PRN ×2 (12:08)
[2022-02-21] MEDS ORDERED: ZOLPIDEM 5 MG TAB PO PRN (12:08)
[2022-02-21] MEDS ORDERED: SIMETHICONE 80 MG CHEWABLE PO PRN (12:08)
[2022-02-21] MEDS ORDERED: MEASLES-MUMPS-RUBELLA VACC/PF 12,500 UNIT/0.5 ML VIAL SQ ONE (12:11)
[2022-02-21] MEDS: PANTOPRAZOLE 40 MG TABLET PO SCH (13:16)
[2022-02-21] MEDS: PRENATAL VIT-IRON-FOLIC ACID 1 EACH TABLET PO SCH (13:16)
[2022-02-21] MEDS: IBUPROFEN 600 MG TAB PO PRN ×2 (13:16→20:35)
[2022-02-21] MEDS: ACETAMINOPHEN TAB 325 MG TAB PO PRN (17:44)
--- NOTE | 2022-02-21 17:52 | P.PROBDLV ---
Vaginal Delivery Note - . Vaginal Delivery Note: The patient progressed to complete dilation after oxytocin induction of labor and artificial rupture membranes with clear fluid noted. She did receive epidural anesthesia. Once reaching complete, she began pushing. 's head came to a crown. With one further push, the infant's head delivered across the perineum followed by the anterior shoulder and then the remainder the . placed on mother's abdomen and cord was clamped and cut. Nose and mouth were also bulb suctioned. is taken to warmer for evaluation. A viable male infant is noted with scores of 9 at 1 minute and 9 at 5 minutes and infant weight of 5 lbs. 11 oz. Cord blood was obtained secondary to O+ blood type. Placenta delivered shortly thereafter, intact, with a three-vessel cord. Uterus contracted well after oxytocin was given. Inspection of the perineum revealed a second degree perineal laceration with an extension up onto the left side of the vagina. This area was anesthetized with 1% lidocaine and then sutured with 30 and 2-0 Vicryl suture in the usual multilayer fashion. Estimated blood loss is approximately 150 mL's. Mother and infant are in stable condition.
[2022-02-21] MEDS: SENNOSIDES-DOCUSATE SODIUM 1 EACH TAB PO SCH (20:35)
[2022-02-21] MEDS ORDERED: LORATADINE 10 MG TAB PO SCH (21:00)
[2022-02-22] MEDS: IBUPROFEN 600 MG TAB PO PRN ×2 (03:27→12:52)
[2022-02-22 07:26] LABS: Basophils % (A) 0 %; Eosinophils % (A) 0 %; HGB 9.2 gm/dL (11.4-16.0); Hypochromasia Moderate; Lymphocytes # (A) 2.2 k/uL (1.0-4.8); Lymphocytes % (A) 18 %; MCH 24.3 pg (25.0-35.0); MCHC 31.8 g/dL (31.0-37.0); MCV 76.7 fL (80.0-100.0); Mean Platelet Volume 8.7; Microcytosis Slight; Monocytes # (A) 0.5 k/uL (0-1.0); Monocytes % (A) 4 %; Neutrophils # (A) 9.2 k/uL (1.3-7.7); Neutrophils % (A) 75 %; Platelet Count 185 k/uL (150-450); Poikilocytosis Slight; RBC 3.79 m/uL (3.80-5.40); RDW 15.8 % (11.5-15.5); WBC 12.2 k/uL (3.8-10.6)
[2022-02-22] MEDS: SENNOSIDES-DOCUSATE SODIUM 1 EACH TAB PO SCH (07:43)
[2022-02-22] MEDS: ACETAMINOPHEN TAB 325 MG TAB PO PRN (07:43)
[2022-02-22] MEDS: PRENATAL VIT-IRON-FOLIC ACID 1 EACH TABLET PO SCH (07:44)
--- NOTE | 2022-02-22 08:23 | P.DS ---
Providers Date of admission: 02/21/22 05:50 Expected date of discharge: 02/22/22 Attending physician: Lyndsey Mata Primary care physician: Stated None - Discharge Diagnosis(es) (1) 36 weeks gestation of Current Visit: No Status: Acute (2) labor in third trimester Current Visit: No Status: Acute (3) Cholestasis during in third trimester Current Visit: No Status: Acute Hospital Course: This is a 22-year-old female 1 para 0 at 36-0/7 weeks who presented for induction of labor secondary to cholestasis of and history of labor. Please see history and physical for details of patient's admission. She delivered vaginally a viable male on 02/21/2022 with scores of 9 at 1 minute and 9 at 5 minutes and infant weight of 5 lbs. 11 oz. Her course has been essentially uncomplicated. Lochia is decreasing. Her pain is fairly well controlled with her pain medication. She is bottle feeding. Vital signs are stable. Abdomen is soft with fundus firm and nontender. Extremities show negative Homans. Impression is status post vaginal delivery day #1. Plan is to discharge home later today as long as baby is able to go home. Routine instructions are given. She is advised to follow up in the office in 6 weeks for check. She is advised to call the office if she has any further questions or concerns prior to her appointment time. She will be given a prescription for ibuprofen. Procedures: Oxytocin induction of labor Spontaneous vaginal delivery of a viable male on 02/21/2022 Patient Condition at Discharge: Stable Plan - Discharge Summary New Discharge Prescriptions: No Action Loratadine [Claritin] 10 mg PO HS Omeprazole [PriLOSEC] 40 mg PO DAILY Doxylamine Succinate/Vit B6 [Diclegis Dr 10-10 mg Tablet] 1 tab PO DAILY ondansetron HCL [Zofran] 4 mg PO Q8H PRN #3 tab PRN Reason: Nausea And Vomiting Vits96/Iron Fum/Folic [ Tablet] 1 each PO DAILY ursodioL [Ursodiol] 300 mg PO BID Discharge Medication List Loratadine [Claritin] 10 mg PO HS 02/15/20 [History] ondansetron HCL [Zofran] 4 mg PO Q8H PRN #3 tab 11/30/20 [Rx] Vits96/Iron Fum/Folic [ Tablet] 1 each PO DAILY 08/24/21 [History] Omeprazole [PriLOSEC] 40 mg PO DAILY 01/30/22 [History] ursodioL [Ursodiol] 300 mg PO BID 01/30/22 [History] Doxylamine Succinate/Vit B6 [Diclegis Dr 10-10 mg Tablet] 1 tab PO DAILY 02/16/22 [History] Follow up Appointment(s)/Referral(s): Lyndsey Mata DO [Doctor of Osteopathic Medicine] - 04/01/22 3:30 pm Activity/Diet/Wound Care/Special Instructions: Instructions 1. Do not begin any exercise program for 3 weeks. 2. Do not resume sexual relations for 3 weeks or longer if uncomfortable. 3. You may take tub baths or showers at any time. 4. You may use tampons if desired after 3 weeks. 5. Keep the area of episiotomy (stitches) clean and dry. 6. If you are not nursing, wear a good fitting, supportive bra during the day and limit fluid intake for at least 1 week to prevent breast engorgement. 7. Call the office, [phone], within the next week to make appointment for your 6 week checkup if it has not already been made. 8. Report any of the following occurrences to the doctor promptly: a. Heavy, excessive bleeding b. Chills, fever c. Burning or frequency of urination d. Pain or redness and breasts if nursing e. Increasing pain or swelling in episiotomy (stitches). In addition to the above instructions, the following additional should be followed: 1. No heavy lifting or straining (exercising) until after 6 week checkup. 2. Keep abdominal incision clean and dry: You may wear a dressing if more comfortable. 3. Make office appointment for 10 days after going home or as instructed by her doctor. Discharge Disposition: HOME SELF-CARE
[2022-02-22] MEDS: PANTOPRAZOLE 40 MG TABLET PO SCH (08:26)
[2022-02-22 12:33] VITALS: BP 108/72; PULSE 80; RESP 14; TEMP 97.9
== END 2022-02-22 14:20 | disposition home or self-care (01) | DRG 805 ==
LOC: 4FBP 05:50
PROVIDERS: ADMIT Obstetrics & Gynecology; ATTEND Obstetrics & Gynecology
PROC: 0KQM0ZZ Repair Perineum Muscle, Open Approach (ICD-10-PCS; principal; 2022-02-21)
PROC: 10E0XZZ Delivery of Products of Conception, External Approach (ICD-10-PCS; principal; 2022-02-21)
DX: O26.62 Liver and biliary tract disorders in childbirth (principal); K83.1 Obstruction of bile duct; Z37.0 Single live birth; O60.14X0 Preterm labor third trimester with preterm delivery third trimester, not applicable or unspecified; J45.909 Unspecified asthma, uncomplicated; O70.1 Second degree perineal laceration during delivery; Z3A.36 36 weeks gestation of pregnancy; O99.52 Diseases of the respiratory system complicating childbirth
CPT/HCPCS: 85025; 86850; 86900; 86901; 88307; 90707

== ENCOUNTER 2022-06-19 19:15 | Emergency (ER) | payer BC, OTHER ==
[2022-06-19 19:30] VITALS: TEMP 98
[2022-06-19] MEDS ORDERED: ONDANSETRON 4 MG/2 ML VIAL IVP STA (20:29)
[2022-06-19] MEDS ORDERED: SODIUM CHLORIDE 0.9% 1,000 ML IV STA ×2 (20:29→21:34)
--- NOTE | 2022-06-19 20:32 | ED ---
Nausea/Vomiting/Diarrhea HPI - General Chief complaint: Nausea/Vomiting/Diarrhea Stated complaint: vomiting Time Seen by Provider: 06/19/22 20:26 Source: patient, RN notes reviewed Mode of arrival: ambulatory Limitations: no limitations - History of Present Illness Initial comments: Patient is a 22 year old female presenting to the ER with nausea, vomiting and diarrhea ongoing for 5 days. She denies any blood in her vomiting or diarrhea. She denies any mucous in diarrhea. She was evaluate at [facility] for same complaints on the day symptoms started. She reports her labs were normal; she was tested for covid but not influenza which was negative. She also reports having a computed tomography scan done which demonstrated colitis but no other findings were found. She was given Bentyl and Compazine to take for her symptoms. She reports no response from Bentyl. She states that Compazine helps briefly but then her symptoms quickly return. She reports that she has been unable to eat since this has been going on and feels very weak. She denied any other symptoms including any chest pain, shortness of breath, headache, dizziness, fevers or chills. She does note that she had a similar illness like this approximately 1 year ago without any significant diagnosis at that time. She had a test completed at [facility] which was negative. She reports issues with nausea vomiting and diarrhea ongoing every 4 months intermittently s elizabeth having her gallbladder removed in December 2019. She has a past medical history significant for irritable bowel syndrome asthma and elevated liver enzymes and bilirubin. - Related Data Home Medications Medication Instructions Recorded Confirmed Loratadine [Claritin] 10 mg PO HS 02/15/20 06/19/22 desog-e.estradioL/e.estradioL 1 tab PO HS 06/19/22 06/19/22 [Mircette 28 Day Tablet] Allergies Allergy/AdvReac Type Severity Reaction Status Date / Time No Known Allergies Allergy Verified 06/19/22 22:07 Review of Systems ROS Statement: Those systems with pertinent positive or pertinent negative responses have been documented in the HPI. ROS Other: All systems not noted in ROS Statement are negative. Past Medical History Past Medical History: Asthma, Syncope Additional Past Medical History / Comment(s): Low BP. Hx fainting episodes occasionally since 2015, was told could be her low BP-not sure, last episode of syncope was about 2 weeks ago, IBS; elevated bile acids in this History of Any Multi-Drug Resistant Organisms: C-DIFF Date of last positivie culture/infection: 12/08/19 MDRO Source:: stool Past Surgical History: Cholecystectomy Additional Past Surgical History / Comment(s): EGD. 12/2019 - [facility] Past Anesthesia/Blood Transfusion Reactions: Postoperative Nausea & Vomiting (PONV) Additional Past Anesthesia/Blood Transfusion Reaction / Comment(s): scope 11/2019 Past Psychological History: Anxiety Smoking Status: Never smoker Past Alcohol Use History: None Reported Past Drug Use History: None Reported - Past Family History Mother Family Medical History: No Reported History Additional Family Medical History / Comment(s): clarence Father Family Medical History: No Reported History General Exam - General Exam Comments Initial Comments: GENERAL: No acute distress, well developed, well nourished. Dry heaves noted without emesis. HEENT: Normocephalic, atraumatic. Pupils equal, round, reactive to light. Moist mucous membranes. LUNGS: No respiratory distress. Clear to auscultation, no adventitious sounds, no use of accessory muscles. HEART: Regular rate and rhythm without murmur, rub, or gallop. ABDOMEN: Normal bowel sounds. Soft, non-tender, non-distended. BACK: Normal inspection. EXTREMITIES: No edema. No tenderness. Moves all extremities. NEUROLOGIC: Alert & oriented x 3. CN II-XII grossly intact. PSYCHIATRIC: Normal affect and behavior. DERMATOLOGIC: Skin intact, without rashes or lesions noted. Limitations: no limitations Course Vital Signs 06/19/22 06/19/22 19:28 23:34 Temperature 98 F Pulse Rate 73 60 Respiratory 18 17 Rate Blood Pressure 128/83 109/81 O2 Sat by Pulse 98 98 Oximetry Medical Decision Making - Medical Decision Making Was pt. sent in by a medical professional or institution (, PA, BEHAVIOR INTERVENTIONIST, urgent care, hospital, or alf...) When possible be specific @ -No Did you speak to anyone other than the patient for history (EMS, parent, family, police, friend...)? What history was obtained from this source @ -No Did you review nursing and triage notes (agree or disagree)? Why? @ -I reviewed and agree with nursing and triage notes Were old charts reviewed (outside hosp., previous admission, EMS record, old EKG, old radiological studies, urgent care reports/EKG's, alf records)? Report findings @ -Yes, I reviewed operative note from December 2019 of cholecystectomy completed without complication. Previous laboratory studies on file for comparison of liver enzymes also reviewed. Differential Diagnosis (chest pain, altered mental status, abdominal pain women, abdominal pain men, vaginal bleeding, weakness, fever, dyspnea, syncope, headac he, dizziness, GI bleed, back pain, seizure, CVA, palpatations, mental health, musculoskeletal)? @ -Differential Abdominal Pain Women: Appendicitis, Cholecystitis, diverticulosis, ischemic bowel, pancreatitis, hepatitis, UTI, gastroenteritis, AAA, incarcerated hernia, bowel obstruction, constipation, inflammatory bowel, hepatitis, peptic ulcer disease, splenic infarction, perforated viscus, vulvitis, ovarian torsion, PID, kidney stone, placenta abruption, this is not meant to be an all-inclusive list EKG interpreted by me (3pts min.). @ -None done X-rays interpreted by me (1pt min.). @ -None done CT interpreted by me (1pt min.). @ -None done U/S (1pt. min.). @ -Ultrasound of abdomen as interpreted by radiologist. Without acute abdominal findings. Gallbladder absent, liver unremarkable common bile duct measuring 0.13 cm without any stones or dilatation. What testing was considered but not performed or refused? (CT, X-rays, U/S, labs)? Why? @ -Computed tomography scan considered but deferred due to recent computed tomography scan without significant abnormalities during workup at [facility] emergency room less than 1 week ago What meds were considered but not given or refused? Why? @ -None Did you discuss the management of the patient with other professionals (professionals i.e. , PA, BEHAVIOR INTERVENTIONIST, lab, RT, psych nurse, social service technician, facepiece line supervisor, teacher, civilian jail officer, nurse outreach case manager)? Give summary @ -No Was smoking cessation discussed for >3mins.? @ -No Was critical care preformed (if so, how long)? @ -No Were there social determinants of health that impacted care today? How? (Homelessness, low income, unemployed, alcoholism, drug addiction, transportation, low edu. Level, literacy, decrease access to med. care, retirement, rehab)? @ -No Was there de-escalation of care discussed even if they declined (Discuss DNR or withdrawal of care, Hospice)? DNR status @ -No What co-morbidities impacted this encounter? (DM, HTN, Smoking, COPD, CAD, Cancer, CVA, ARF, Chemo, Hep., AIDS, mental health diagnosis, sleep apnea, morbid obesity)? @ -None Was patient admitted / discharged? Hospital course, mention meds given and route, prescriptions, significant lab abnormalities, going to OR and other per tinent info. @ -22-year-old female presenting to the emergency room with complaints of nausea vomiting diarrhea ongoing for approximately 4-5 days without any improvement in symptoms despite use of Zofran and promethazine with decreased oral intake. Will give IV hydration and IV Zofran. Will obtain laboratory studies a CBC, CMP, amylase and lipase. Will also check urinalysis. Will defer diagnostic imaging at this time given recent diagnostic imaging at another emergency room proximally one week ago. Will obtain viral swabs for COVID, influenza and RSV. Symptoms improved with IV hydration and Zofran. Laboratory studies reveal elevated bilirubin at 2.1 with previous normal. Elevation prior to her cholecystectomy in December 2019 noted. Liver enzymes elevated but near baseline. Will proceed with ultrasound of the abdomen the setting of elevated bilirubin with bilirubin noted in urine. Will give an additional 1 L fluid bolus. Pain much better after second IV fluid bolus. Ultrasound of the abdomen demonstrates no common bile duct obstruction, or dilatation. Liver unremarkable. No indication for further evaluation including diagnostic imaging or laboratory s tudies at this time. Findings discussed with patient at length. Encouraged follow-up with primary care provider and further evaluation with contract serviceman regarding recurrent nausea and vomiting symptoms since her cholecystectomy. Questions and concerns answered. Return parameters to the emergency room discussed. Will discharge home in stable condition with use of already prescribed antibioti cs along with good oral hydration to treat nausea vomiting and diarrhea advising follow-up with primary care provider and contract serviceman. Undiagnosed new problem with uncertain prognosis? @ -No Drug Therapy requiring intensive monitoring for toxicity (Heparin, Nitro, Insulin, Cardizem)? @ -No Were any procedures done? @ -No Diagnosis/symptom? @ -Nausea vomiting diarrhea Acute, or Chronic, or Acute on Chronic? @ -Acute Uncomplicated (without systemic symptoms) or Complicated (systemic symptoms)? @ -Uncomplicated Side effects of treatment? @ -No Exacerbation, Progression, or Severe Exacerbation? @ -No Poses a threat to life or bodily function? How? (Chest pain, [place], [place], pneumonia, PE, COPD, DKA, ARF, appy, cholecystitis, CVA, Diverticulitis, Homicidal, Suicidal, threat to staff... and all critical care pts) @ -No Diagnosis/symptom? @ -Elevated total bilirubin Acute, or Chronic, or Acute on Chronic? @ -Acute Uncomplicated (without systemic symptoms) or Complicated (systemic symptoms)? @ -Uncomplicated Side effects of treatment? @ -none Exacerbation, Progression, or Severe Exacerbation] @ -no Poses a threat to life or bodily function? @ -no. Case discussed with Dr. Ambrocio. - Lab Data Result diagrams: 06/19/22 20:50 06/19/22 20:50 Lab Results 06/19/22 06/19/22 06/19/22 Range/Units 20:50 20:50 20:50 WBC 8.8 (3.8-10.6) k/uL RBC 5.18 (3.80-5.40) m/uL Hgb 13.3 (11.4-16.0) gm/dL Hct 39.6 (34.0-46.0) % MCV 76.4 L (80.0-100.0) fL MCH 25.7 (25.0-35.0) pg MCHC 33.6 (31.0-37.0) g/dL RDW 14.8 (11.5-15.5) % Plt Count 380 (150-450) k/uL MPV 8.4 Neutrophils % 69 % Lymphocytes % 21 % Monocytes % 7 % Eosinophils % 1 % Basophils % 0 % Neutrophils # 6.0 (1.3-7.7) k/uL Lymphocytes # 1.9 (1.0-4.8) k/uL Monocytes # 0.6 (0-1.0) k/uL Eosinophils # 0.1 (0-0.7) k/uL Basophils # 0.0 (0-0.2) k/uL Microcytosis Slight Sodium 135 L (137-145) mmol/L Potassium 3.5 (3.5-5.1) mmol/L Chloride 99 (98-107) mmol/L Carbon Dioxide 26 (22-30) mmol/L Anion Gap 10 mmol/L BUN 9 (7-17) mg/dL Creatinine 0.69 (0.52-1.04) mg/dL Est GFR (CKD-EPI)AfAm >90 (>60 ml/min/1.73 sqM) Est GFR (CKD-EPI)NonAf >90 (>60 ml/min/1.73 sqM) Glucose 103 H (74-99) mg/dL Calcium 9.0 (8.4-10.2) mg/dL Total Bilirubin 2.1 H (0.2-1.3) mg/dL AST 97 H (14-36) U/L ALT 191 H (4-34) U/L Alkaline Phosphatase 131 H (38-126) U/L Total Protein 7.8 (6.3-8.2) g/dL Albumin 4.5 (3.5-5.0) g/dL Amylase 62 (30-110) U/L Lipase 38 (23-300) U/L Urine Color Yellow Urine Appearance Clear (Clear) Urine pH 6.5 (5.0-8.0) Ur Specific [place] 1.028 (1.001-1.035) Urine Protein 1+ H (Negative) Urine Glucose (UA) Negative (Negative) Urine Ketones 3+ H (Negative) Urine Blood Large H (Negative) Urine Nitrite Negative (Negative) Urine Bilirubin 1+ H (Negative) Urine Urobilinogen 8.0 (<2.0) mg/dL Ur Leukocyte Esterase Negative (Negative) Urine RBC >182 H (0-5) /hpf Urine WBC 2 (0-5) /hpf Ur Squamous Epith Cells 1 (0-4) /hpf Urine Mucus Many H (None) /hpf Influenza Type A (PCR) (Not Detectd) Influenza Type B (PCR) (Not Detectd) RSV (PCR) (Not Detectd) SARS-CoV-2 (PCR) (Not Detectd) 06/19/22 Range/Units 20:50 WBC (3.8-10.6) k/uL RBC (3.80-5.40) m/uL Hgb (11.4-16.0) gm/dL Hct (34.0-46.0) % MCV (80.0-100.0) fL MCH (25.0-35.0) pg MCHC (31.0-37.0) g/dL RDW (11.5-15.5) % Plt Count (150-450) k/uL MPV Neutrophils % % Lymphocytes % % Monocytes % % Eosinophils % % Basophils % % Neutrophils # (1.3-7.7) k/uL Lymphocytes # (1.0-4.8) k/uL Monocytes # (0-1.0) k/uL Eosinophils # (0-0.7) k/uL Basophils # (0-0.2) k/uL Microcytosis Sodium (137-145) mmol/L Potassium (3.5-5.1) mmol/L Chloride (98-107) mmol/L Carbon Dioxide (22-30) mmol/L Anion Gap mmol/L BUN (7-17) mg/dL Creatinine (0.52-1.04) mg/dL Est GFR (CKD-EPI)AfAm (>60 ml/min/1.73 sqM) Est GFR (CKD-EPI)NonAf (>60 ml/min/1.73 sqM) Glucose (74-99) mg/dL Calcium (8.4-10.2) mg/dL Total Bilirubin (0.2-1.3) mg/dL AST (14-36) U/L ALT (4-34) U/L Alkaline Phosphatase (38-126) U/L Total Protein (6.3-8.2) g/dL Albumin (3.5-5.0) g/dL Amylase (30-110) U/L Lipase (23-300) U/L Urine Color Urine Appearance (Clear) Urine pH (5.0-8.0) Ur Specific [place] (1.001-1.035) Urine Protein (Negative) Urine Glucose (UA) (Negative) Urine Ketones (Negative) Urine Blood (Negative) Urine Nitrite (Negative) Urine Bilirubin (Negative) Urine Urobilinogen (<2.0) mg/dL Ur Leukocyte Esterase (Negative) Urine RBC (0-5) /hpf Urine WBC (0-5) /hpf Ur Squamous Epith Cells (0-4) /hpf Urine Mucus (None) /hpf Influenza Type A (PCR) Not Detected (Not Detectd) Influenza Type B (PCR) Not Detected (Not Detectd) RSV (PCR) Not Detected (Not Detectd) SARS-CoV-2 (PCR) Not Detected (Not Detectd) - Radiology Data Radiology results: report reviewed, image reviewed Disposition Clinical Impression: Nausea vomiting and diarrhea, Total bilirubin, elevated Disposition: HOME SELF-CARE Condition: Stable Instructions (If sedation given, give patient instructions): Acute Nausea and Vomiting (ED) Additional Instructions: Continue use of nausea medications previously prescribed for nausea as needed. Stay well hydrated avoiding caffeinated products. Please follow-up with your primary care provider and your contract serviceman specialist for further evaluation of your recurrent nausea and vomiting. Please return to the Emergency Department if symptoms worsen or any other concerns. Is patient prescribed a controlled substance at d/c from ED?: No Referrals: Barrie Jin DO [Primary Care Provider] - 1-2 days Time of Disposition: 01:09
[2022-06-19 21:16] LABS: Appearance,Urine Clear (Clear); Bilirubin,Urine 1+ (Negative); Blood,Urine Large (Negative); Color,Urine Yellow; Glucose,Urine (UA) Negative (Negative); Ketones,Urine 3+ (Negative); Leukocyte Esterase,Urine Negative (Negative); Mucus,Urine Many /hpf; Nitrite,Urine Negative (Negative); PH, Urine 6.5 (5.0-8.0); Protein,Urine 1+ (Negative); RBC,Urine >182 /hpf (0-5); Specific Gravity,Urine 1.028 (1.001-1.035); Squamous Epithelial Cell,Urine 1 /hpf (0-4); WBC,Urine 2 /hpf (0-5)
[2022-06-19 21:21] LABS: Basophils % (A) 0 %; Eosinophils # (A) 0.1 k/uL (0-0.7); Eosinophils % (A) 1 %; HCT 39.6 % (34.0-46.0); HGB 13.3 gm/dL (11.4-16.0); Lymphocytes # (A) 1.9 k/uL (1.0-4.8); Lymphocytes % (A) 21 %; MCH 25.7 pg (25.0-35.0); MCHC 33.6 g/dL (31.0-37.0); MCV 76.4 fL (80.0-100.0); Mean Platelet Volume 8.4; Microcytosis Slight; Monocytes # (A) 0.6 k/uL (0-1.0); Monocytes % (A) 7 %; Neutrophils % (A) 69 %; Platelet Count 380 k/uL (150-450); RBC 5.18 m/uL (3.80-5.40); RDW 14.8 % (11.5-15.5); WBC 8.8 k/uL (3.8-10.6)
[2022-06-19 21:28] LABS: ALT 191 U/L (4-34); AST 97 U/L (14-36); African American GFR (CKD) >90 (>60 ml/min/1.73 sqM); Albumin 4.5 g/dL (3.5-5.0); Alkaline Phosphatase 131 U/L (38-126); Amylase 62 U/L (30-110); Anion Gap 10 mmol/L; Blood Urea Nitrogen 9 mg/dL (7-17); Carbon Dioxide 26 mmol/L (22-30); Chloride 99 mmol/L (98-107); Glucose 103 mg/dL (74-99); Lipase 38 U/L (23-300); Non-African American GFR(CKD) >90 (>60 ml/min/1.73 sqM); Potassium 3.5 mmol/L (3.5-5.1); Sodium 135 mmol/L (137-145); Total Bilirubin 2.1 mg/dL (0.2-1.3); Total Protein 7.8 g/dL (6.3-8.2)
[2022-06-19 23:37] VITALS: BP 109/81; PULSE 60; RESP 17
--- NOTE | 2022-06-20 01:04 | US ---
EXAM: US Abdomen Complete CLINICAL HISTORY: ITS.REASON US Reason: nausea vomiting elevated biliruben TECHNIQUE: Real-time ultrasound of the abdomen with image documentation. COMPARISON: 08/28/2021 FINDINGS: Liver: Unremarkable. No mass. No intrahepatic bile duct dilation. Gallbladder: Postoperative changes of prior cholecystectomy. Common bile duct: Common bile duct measures 0.13 cm. No stones. No dilation. Pancreas: Visualized portion of the pancreas are within normal limits. Kidneys: Right kidney measures 9.7 cm. Left kidney measures 10.1 cm in length. No stones. No hydroureteronephrosis. Spleen: Unremarkable. No splenomegaly. Aorta: Unremarkable. No abdominal aortic aneurysm. Inferior vena cava: Unremarkable. IMPRESSION: No acute findings in the abdomen.
[2022-06-20 04:14] LABS: Hepatitis A Antibody IgM Nonreactive (Nonreactive); Hepatitis B Core IgM Nonreactive (Nonreactive); Hepatitis B Surface Antigen Nonreactive (Nonreactive); Hepatitis C IgG Antibody Nonreactive (Nonreactive)
== END 2022-06-20 01:16 | disposition home or self-care (01) ==
LOC: EC 19:15
DX: R11.2 Nausea with vomiting, unspecified (principal); R19.7 Diarrhea, unspecified; R17 Unspecified jaundice; J45.909 Unspecified asthma, uncomplicated; Z20.822 Contact with and (suspected) exposure to COVID-19; Z90.49 Acquired absence of other specified parts of digestive tract
CPT/HCPCS: 36415; 80053; 80074; 82150; 83690; 85025; 81001; 87636; 76700; 99285; 96374; 96361; J2405

== ENCOUNTER 2022-06-20 16:49 | Emergency (ER) | payer BC, OTHER ==
[2022-06-20 17:06] VITALS: TEMP 98.3
[2022-06-20] MEDS ORDERED: SODIUM CHLORIDE 0.9% 1,000 ML IV STA (18:29)
[2022-06-20 18:55] LABS: Basophils % (A) 0 %; Eosinophils % (A) 0 %; HGB 12.7 gm/dL (11.4-16.0); Lymphocytes # (A) 1.4 k/uL (1.0-4.8); Lymphocytes % (A) 20 %; MCH 26.7 pg (25.0-35.0); MCHC 34.4 g/dL (31.0-37.0); MCV 77.5 fL (80.0-100.0); Mean Platelet Volume 8.8; Monocytes # (A) 0.3 k/uL (0-1.0); Monocytes % (A) 5 %; Neutrophils # (A) 5.2 k/uL (1.3-7.7); Neutrophils % (A) 73 %; Platelet Count 337 k/uL (150-450); RBC 4.77 m/uL (3.80-5.40); RDW 14.8 % (11.5-15.5); WBC 7.1 k/uL (3.8-10.6)
[2022-06-20 19:19] LABS: ALT 206 U/L (4-34); AST 94 U/L (14-36); African American GFR (CKD) >90 (>60 ml/min/1.73 sqM); Alkaline Phosphatase 122 U/L (38-126); Anion Gap 12 mmol/L; Blood Urea Nitrogen 3 mg/dL (7-17); Calcium 8.7 mg/dL (8.4-10.2); Carbon Dioxide 25 mmol/L (22-30); Chloride 97 mmol/L (98-107); Glucose 83 mg/dL (74-99); Lipase 36 U/L (23-300); Magnesium 1.8 mg/dL (1.6-2.3); Non-African American GFR(CKD) >90 (>60 ml/min/1.73 sqM); Sodium 134 mmol/L (137-145); Total Bilirubin 1.9 mg/dL (0.2-1.3); Total Protein 7.4 g/dL (6.3-8.2)
--- NOTE | 2022-06-20 20:06 | ED ---
General Adult HPI - General Chief complaint: Syncope Stated complaint: Syncope Time Seen by Provider: 06/20/22 17:19 Source: EMS Mode of arrival: EMS Limitations: no limitations - History of Present Illness Initial comments: 22-year-old female with past medical history of chronic nausea and vomiting, iron deficiency who presents to the emergency department reporting nausea and vomiting. Was seen in the emergency room yesterday for similar complaints. States that she has Zofran and Compazine at home to take for her nausea. She has been attempting to eat and drink however this week has been typical for her as she has been in one of her exacerbations. She followed up with her primary care office today and ended up having a syncopal episode. States that she fell onto the bed. Denies hitting her head. Denies any injuries from the fall. They did call an ambulance to bring her to the hospital. She denies any chest pain or shortness of breath. No concern for . No abdominal pain. She has been seen and evaluated by cardiology for previous syncopal episodes. No other alleviating, buyer internship modifying factors - Related Data Home Medications Medication Instructions Recorded Confirmed Loratadine [Claritin] 10 mg PO HS 02/15/20 06/20/22 desog-e.estradioL/e.estradioL 1 tab PO HS 06/19/22 06/20/22 [Mircette 28 Day Tablet] Dicyclomine [Bentyl] 20 mg PO QID PRN 06/20/22 06/20/22 Allergies Allergy/AdvReac Type Severity Reaction Status Date / Time No Known Allergies Allergy Verified 06/20/22 17:54 Review of Systems ROS Statement: Those systems with pertinent positive or pertinent negative responses have been documented in the HPI. ROS Other: All systems not noted in ROS Statement are negative. Past Medical History Past Medical History: Asthma, Syncope Additional Past Medical History / Comment(s): Low BP. Hx fainting episodes occasionally since 2016, was told could be her low BP-not sure, last episode of syncope was about 2 weeks ago, IBS; elevated bile acids in this History of Any Multi-Drug Resistant Organisms: C-DIFF Date of last positivie culture/infection: 12/08/19 MDRO Source:: stool Past Surgical History: Cholecystectomy Additional Past Surgical History / Comment(s): EGD. 12/2019 - [facility] Past Anesthesia/Blood Transfusion Reactions: Postoperative Nausea & Vomiting (PONV) Additional Past Anesthesia/Blood Transfusion Reaction / Comment(s): scope 11/2019 Past Psychological History: Anxiety Smoking Status: Never smoker Past Alcohol Use History: None Reported Past Drug Use History: None Reported - Past Family History Mother Family Medical History: No Reported History Additional Family Medical History / Comment(s): clarence Father Family Medical History: No Reported History General Exam Limitations: no limitations General appearance: alert, in no apparent distress Head exam: Present: atraumatic, normocephalic, normal inspection Eye exam: Present: normal appearance, PERRL, EOMI. Absent: scleral icterus, conjunctival injection, periorbital swelling ENT exam: Present: normal exam, mucous membranes moist Neck exam: Present: normal inspection. Absent: tenderness, meningismus, lymphadenopathy Respiratory exam: Present: normal lung sounds bilaterally. Absent: respiratory distress, wheezes, rales, rhonchi, stridor Cardiovascular Exam: Present: regular rate, normal rhythm, normal heart sounds. Absent: systolic murmur, diastolic murmur, rubs, gallop, clicks GI/Abdominal exam: Present: soft, normal bowel sounds. Absent: distended, tenderness, guarding, rebound, rigid Extremities exam: Present: normal inspection, full ROM, normal capillary refill. Absent: tenderness, pedal edema, joint swelling, calf tenderness Back exam: Present: normal inspection Neurological exam: Present: alert, oriented X3, CN II-XII intact Psychiatric exam: Present: normal affect, normal mood Skin exam: Present: warm, dry, intact, normal color. Absent: rash Course Vital Signs 06/20/22 06/20/22 17:04 20:09 Temperature 98.3 F Pulse Rate 59 L Pulse Rate [ 80 Pulse Oximetery ] Respiratory 16 12 Rate Blood Pressure 124/80 Blood Pressure 118/84 [Right Arm Sitting] Blood Pressure 116/78 [Right Arm Standing] Blood Pressure 114/73 [Right Arm Supine] O2 Sat by Pulse 100 98 Oximetry EKG Findings - EKG Comments: EKG Findings:: EKG demonstrates sinus bradycardia with a rate of 49. TN interval 131. QRS 90. QTC of 414. No acute ST segment elevations or depressions Medical Decision Making - Medical Decision Making Was pt. sent in by a medical professional or institution (, PA, [facility], urgent care, hospital, or correction...) When possible be specific @ -No Did you speak to anyone other than the patient for history (EMS, parent, family, police, friend...)? What history was obtained from this source @ -No Did you review nursing and triage notes (agree or disagree)? Why? @ -I reviewed and agree with nursing and triage notes Were old charts reviewed (outside hosp., previous admission, EMS record, old EKG, old radiological studies, urgent care reports/EKG's, correction records)? Report findings @ -No old charts were reviewed Differential Diagnosis (chest pain, altered mental status, abdominal pain women, abdominal pain men, vaginal bleeding, weakness, fever, dyspnea, syncope, headache, dizziness, GI bleed, back pain, seizure, CVA, palpatations, mental health, musculoskeletal)? @ -nausea and vomiting, gastritis, influenza, syncope, seizure, dysrhythmia EKG interpreted by me (3pts min.). @ -yes X-rays interpreted by me (1pt min.). @ -Nno CT interpreted by me (1pt min.). @ -None done U/S interpreted by me (1pt. min.). @ -None done What testing was considered but not performed or refused? (CT, X-rays, U/S, labs)? Why? @ -None What meds were considered but not given or refused? Why? @ -None Did you discuss the management of the patient with other professionals (ayad blanchard i.e. , PA, [facility], lab, RT, psych nurse, social media coordinator, billet driller, teacher, nuclear officer, director of casework department)? Give summary @ -No Was smoking cessation discussed for >3mins.? @ -No Was critical care preformed (if so, how long)? @ -No Were there social determinants of health that impacted care today? How? (Homelessness, low income, unemployed, alcoholism, drug addiction, transportati on, low edu. Level, literacy, decrease access to med. care, assisted, rehab)? @ -No Was there de-escalation of care discussed even if they declined (Discuss DNR or withdrawal of care, Hospice)? DNR status @ -No What co-morbidities impacted this encounter? (DM, HTN, Smoking, COPD, CAD, Cancer, CVA, ARF, Chemo, Hep., AIDS, mental health diagnosis, sleep apnea, morbid obesity)? @ -chronic nausea/vomiting, multiple syncopal episodes Was patient admitted / discharged? Hospital course, mention meds given and route, prescriptions, significant lab abnormalities, going to OR and other pertinent info. @ -Upon arrival patient is placed into room 22. A thorough history and physical exam was performed. IV access established laboratory studies are conducted. She is given a liter bolus normal saline informal grams of Zofran. Laboratory studies are conducted and reviewed. Liver enzymes are elevated however these are improving from previous. She did have an ultrasound performed yesterday of her abdomen which was negative. Orthostatics are performed which are negative. Results are discussed with the patient. She'll be discharged home at this time and she is feeling improved. Instructed to follow up with cardiology for the syncopal episode. She does have a scheduled appointment with GI to have an EGD and colonoscopy. She is given further referrals of other GI doctors I can perform the study. Recommend that she call and see if she can get a sooner appointment. Return to the emergency room for any new or worsening symptoms. Patient was agreeable with plan she was discharged home in stable condition Undiagnosed new problem with uncertain prognosis? @ -No Drug Therapy requiring intensive monitoring for toxicity (Heparin, Nitro, Insulin, Cardizem)? @ -No Were any procedures done? @ -No Diagnosis/symptom? @ -acute syncope, acute episode of chronic nausea/vomiting Uncomplicated (without systemic symptoms) or Complicated (systemic symptoms)? @ -complicated Side effects of treatment? @ -No Exacerbation, Progression, or Severe Exacerbation? @ -yes Poses a threat to life or bodily function? How? (Chest pain, [place], [place], pneumonia, PE, COPD, DKA, ARF, appy, cholecystitis, CVA, Diverticulitis, Homicidal, Suicidal, threat to staff... and all critical care pts) @ -yes - Lab Data Result diagrams: 06/20/22 18:39 06/20/22 18:39 Lab Results 06/20/22 06/20/22 06/20/22 Range/Units 18:39 18:39 18:39 WBC 7.1 (3.8-10.6) k/uL RBC 4.77 (3.80-5.40) m/uL Hgb 12.7 (11.4-16.0) gm/dL Hct 37.0 (34.0-46.0) % MCV 77.5 L (80.0-100.0) fL MCH 26.7 (25.0-35.0) pg MCHC 34.4 (31.0-37.0) g/dL RDW 14.8 (11.5-15.5) % Plt Count 337 (150-450) k/uL MPV 8.8 Neutrophils % 73 % Lymphocytes % 20 % Monocytes % 5 % Eosinophils % 0 % Basophils % 0 % Neutrophils # 5.2 (1.3-7.7) k/uL Lymphocytes # 1.4 (1.0-4.8) k/uL Monocytes # 0.3 (0-1.0) k/uL Eosinophils # 0.0 (0-0.7) k/uL Basophils # 0.0 (0-0.2) k/uL Sodium 134 L (137-145) mmol/L Potassium 4.0 (3.5-5.1) mmol/L Chloride 97 L (98-107) mmol/L Carbon Dioxide 25 (22-30) mmol/L Anion Gap 12 mmol/L BUN 3 L (7-17) mg/dL Creatinine 0.63 (0.52-1.04) mg/dL Est GFR (CKD-EPI)AfAm >90 (>60 ml/min/1.73 sqM) Est GFR (CKD-EPI)NonAf >90 (>60 ml/min/1.73 sqM) Glucose 83 (74-99) mg/dL Calcium 8.7 (8.4-10.2) mg/dL Magnesium 1.8 (1.6-2.3) mg/dL Total Bilirubin 1.9 H (0.2-1.3) mg/dL AST 94 H (14-36) U/L ALT 206 H (4-34) U/L Alkaline Phosphatase 122 (38-126) U/L Troponin I <0.012 (0.000-0.034) ng/mL Total Protein 7.4 (6.3-8.2) g/dL Albumin 4.0 (3.5-5.0) g/dL Lipase 36 (23-300) U/L Urine Color Urine Appearance (Clear) Urine pH (5.0-8.0) Ur Specific [place] (1.001-1.035) Urine Protein (Negative) Urine Glucose (UA) (Negative) Urine Ketones (Negative) Urine Blood (Negative) Urine Nitrite (Negative) Urine Bilirubin (Negative) Urine Urobilinogen (<2.0) mg/dL Ur Leukocyte Esterase (Negative) Urine RBC (0-5) /hpf Urine WBC (0-5) /hpf Ur Squamous Epith Cells (0-4) /hpf Urine Mucus (None) /hpf Urine HCG, Qual (Not Detectd) 06/20/22 06/20/22 Range/Units 20:10 20:10 WBC (3.8-10.6) k/uL RBC (3.80-5.40) m/uL Hgb (11.4-16.0) gm/dL Hct (34.0-46.0) % MCV (80.0-100.0) fL MCH (25.0-35.0) pg MCHC (31.0-37.0) g/dL RDW (11.5-15.5) % Plt Count (150-450) k/uL MPV Neutrophils % % Lymphocytes % % Monocytes % % Eosinophils % % Basophils % % Neutrophils # (1.3-7.7) k/uL Lymphocytes # (1.0-4.8) k/uL Monocytes # (0-1.0) k/uL Eosinophils # (0-0.7) k/uL Basophils # (0-0.2) k/uL Sodium (137-145) mmol/L Potassium (3.5-5.1) mmol/L Chloride (98-107) mmol/L Carbon Dioxide (22-30) mmol/L Anion Gap mmol/L BUN (7-17) mg/dL Creatinine (0.52-1.04) mg/dL Est GFR (CKD-EPI)AfAm (>60 ml/min/1.73 sqM) Est GFR (CKD-EPI)NonAf (>60 ml/min/1.73 sqM) Glucose (74-99) mg/dL Calcium (8.4-10.2) mg/dL Magnesium (1.6-2.3) mg/dL Total Bilirubin (0.2-1.3) mg/dL AST (14-36) U/L ALT (4-34) U/L Alkaline Phosphatase (38-126) U/L Troponin I (0.000-0.034) ng/mL Total Protein (6.3-8.2) g/dL Albumin (3.5-5.0) g/dL Lipase (23-300) U/L Urine Color Yellow Urine Appearance Clear (Clear) Urine pH 6.5 (5.0-8.0) Ur Specific [place] 1.010 (1.001-1.035) Urine Protein Trace H (Negative) Urine Glucose (UA) Negative (Negative) Urine Ketones 4+ H (Negative) Urine Blood Large H (Negative) Urine Nitrite Negative (Negative) Urine Bilirubin Negative (Negative) Urine Urobilinogen 3.0 (<2.0) mg/dL Ur Leukocyte Esterase Negative (Negative) Urine RBC 100 H (0-5) /hpf Urine WBC 3 (0-5) /hpf Ur Squamous Epith Cells 2 (0-4) /hpf Urine Mucus Occasional H (None) /hpf Urine HCG, Qual Not Detected (Not Detectd) Disposition Clinical Impression: Nausea and vomiting, Ketonuria, Syncope Disposition: HOME SELF-CARE Condition: Stable Instructions (If sedation given, give patient instructions): Syncope (DC) Additional Instructions: Please take your antinausea medications as needed. Attempt to hydrate as much as you can. Follow up for the EGD and colonoscopy and return for any new or worsening symptoms Is patient prescribed a controlled substance at d/c from ED?: No Referrals: Barrie Jin DO [Primary Care Provider] - 1-2 days Don Mccabe DO [REFERRING] - 1-2 days Kylah Payne MD [STAFF PHYSICIAN] - 1-2 days Time of Disposition: 20:53
[2022-06-20 20:10] VITALS: BP 114/73; PULSE 80; RESP 12
[2022-06-20] MEDS ORDERED: ONDANSETRON 4 MG/2 ML VIAL IVP STA (20:18)
[2022-06-20 20:19] LABS: Appearance,Urine Clear (Clear); Bilirubin,Urine Negative (Negative); Blood,Urine Large (Negative); Color,Urine Yellow; Glucose,Urine (UA) Negative (Negative); Ketones,Urine 4+ (Negative); Leukocyte Esterase,Urine Negative (Negative); Mucus,Urine Occasional /hpf; Nitrite,Urine Negative (Negative); PH, Urine 6.5 (5.0-8.0); Protein,Urine Trace (Negative); RBC,Urine 100 /hpf (0-5); Squamous Epithelial Cell,Urine 2 /hpf (0-4); WBC,Urine 3 /hpf (0-5)
[2022-06-20] MEDS ORDERED: methylPREDNISolone SOD SUCCI 125 MG/2 ML VIAL IV STA (21:05)
== END 2022-06-20 21:16 | disposition home or self-care (01) ==
LOC: EC 16:49
DX: R11.2 Nausea with vomiting, unspecified (principal); R82.4 Acetonuria; R55 Syncope and collapse; J45.909 Unspecified asthma, uncomplicated; F41.9 Anxiety disorder, unspecified
CPT/HCPCS: 36415; 93005; 80053; 83690; 83735; 84484; 85025; 81001; 81025; 99284; 96374; 96361 ×3; J2930

== ENCOUNTER → 2022-07-09 | Outpatient (CLI) | payer BC, OTHER ==
[2022-07-09 15:47] LABS: % Iron Saturation 4.35 (12.00-45.00); ALT 28 U/L (8-44); AST 14 U/L (13-35); Albumin 4.3 g/dL (3.8-4.9); Albumin/Globulin Ratio 1.46 (1.60-3.17); Alkaline Phosphatase 129 U/L (41-126); Bilirubin, Conjugated <0.20 mg/dL (0.20-0.40); Ferritin 9.7 ng/mL (10.0-291.0); Iron 28 ug/dL (50-170); Total Iron Binding Capacity 633 ug/dL (228-460); Total Protein 7.3 g/dL (6.2-8.2)
[2022-07-09 15:55] LABS: Basophils # (A) 0.02 X 10*3/uL (0.00-0.10); Basophils % (A) 0.4 %; HGB 12.7 g/dL (12.0-15.0); Immature Grans, Automated 0.2 %; Lymphocytes % (A) 35.8 %; MCH 25.4 pg (27.0-32.0); Mean Platelet Volume 10.9 fL (9.5-12.2); Monocytes # (A) 0.37 X 10*3/uL (0.20-1.00); Monocytes % (A) 7.4 %; NRBC Per 100 WBC 0 /100 WBCS (0.0-0.0); Neutrophils # (A) 2.73 X 10*3/uL (1.80-7.70); Neutrophils % (A) 54.2 %; Platelet Count 336 X 10*3/uL (140-440); RDW 14.6 % (11.5-14.5); WBC 5.03 X 10*3/uL (4.50-10.00)
[2022-07-09 16:18] LABS: Ceruloplasmin 62.2 mg/dL (20.0-60.0)
[2022-07-09 16:19] LABS: Hepatitis A Antibody IgM Nonreactive (Nonreactive); Hepatitis B Surface Antigen Nonreactive (Nonreactive); Hepatitis C IgG Antibody Nonreactive (Nonreactive)
[2022-07-10 11:10] LABS: Anti-Endomysial IgA Antibody <1:10 Titer (<1:10)
[2022-07-10 11:14] LABS: Smooth Muscle Antibody 5 UNITS (<20)
== END | disposition home or self-care (01) ==
LOC: LABWHC1 10:47
PROVIDERS: ATTEND Student in an Organized Health Care Education/Training Program
DX: R10.13 Epigastric pain (principal); R19.7 Diarrhea, unspecified; R74.01 Elevation of levels of liver transaminase levels
CPT/HCPCS: 36415; 80076; 82103; 82390; 82656; 82728; 82784; 82787; 83516; 83540; 83550; 83993; 84443; 85025; 86038; 86255; 86704; 86709; 86803; 87045; 87046; 87340

== ENCOUNTER 2023-02-18 10:30 | Emergency (ER) | payer BC, OTHER ==
--- NOTE | 2023-02-18 10:52 | ED ---
General Adult HPI - General Chief complaint: Nausea/Vomiting/Diarrhea Stated complaint: light headed dizzy nausea Time Seen by Provider: 02/18/23 10:45 Source: patient, RN notes reviewed Mode of arrival: ambulatory Limitations: no limitations - History of Present Illness Initial comments: 23-year-old female presents emergency department for chief complaint of nausea and vomiting. She states that his symptoms have been going on since Thursday. She states that she has experienced symptoms like this in the past. She denies abdominal pain, fever, chills. She does state that she went to another emergency department on Thursday for the same symptoms. She states that she occasionally has these episodes where she vomits for multiple days and has lab work obtained at that time. She is otherwise found to have elevated liver enzymes when this happens. She follows with gastroenterology in [facility]. She reports a prior cholecystectomy. She denies any abdominal pain at this time. - Related Data Home Medications Medication Instructions Recorded Confirmed Loratadine [Claritin] 10 mg PO HS 02/15/20 06/20/22 desog-e.estradioL/e.estradioL 1 tab PO HS 06/19/22 06/20/22 [Mircette 28 Day Tablet] Dicyclomine [Bentyl] 20 mg PO QID PRN 06/20/22 06/20/22 Allergies Allergy/AdvReac Type Severity Reaction Status Date / Time No Known Allergies Allergy Verified 06/20/22 17:54 Review of Systems ROS Statement: Those systems with pertinent positive or pertinent negative responses have been documented in the HPI. ROS Other: All systems not noted in ROS Statement are negative. Past Medical History Past Medical History: Asthma, Syncope Additional Past Medical History / Comment(s): Low BP. Hx fainting episodes occasionally since 2015, was told could be her low BP-not sure, last episode of syncope was about 2 weeks ago, IBS; elevated bile acids in this History of Any Multi-Drug Resistant Organisms: C-DIFF Date of last positivie culture/infection: 12/08/19 MDRO Source:: stool Past Surgical History: Cholecystectomy Additional Past Surgical History / Comment(s): EGD. 12/2019 - [facility] Past Anesthesia/Blood Transfusion Reactions: Postoperative Nausea & Vomiting (P ONV) Additional Past Anesthesia/Blood Transfusion Reaction / Comment(s): scope 11/2019 Past Psychological History: Anxiety Smoking Status: Never smoker Past Alcohol Use History: None Reported Past Drug Use History: None Reported - Past Family History Mother Family Medical History: No Reported History Additional Family Medical History / Comment(s): clarence Father Family Medical History: No Reported History General Exam Limitations: no limitations General appearance: alert, in no apparent distress Head exam: Present: atraumatic, normocephalic, normal inspection Eye exam: Present: normal appearance, PERRL, EOMI. Absent: scleral icterus, conjunctival injection, periorbital swelling ENT exam: Present: mucous membranes dry Neck exam: Present: normal inspection. Absent: tenderness, meningismus, lymphadenopathy Respiratory exam: Present: normal lung sounds bilaterally. Absent: respiratory distress, wheezes, rales, rhonchi, stridor Cardiovascular Exam: Present: regular rate, normal rhythm, normal heart sounds. Absent: systolic murmur, diastolic murmur, rubs, gallop, clicks GI/Abdominal exam: Present: soft, normal bowel sounds. Absent: distended, tenderness, guarding, rebound, rigid Extremities exam: Present: normal inspection, full ROM, normal capillary refill. Absent: tenderness, pedal edema, joint swelling, calf tenderness Back exam: Present: normal inspection Neurological exam: Present: alert, oriented X3 Psychiatric exam: Present: normal affect, normal mood Skin exam: Present: warm, dry, intact, normal color. Absent: rash Course Vital Signs 02/18/23 02/18/23 02/18/23 10:33 12:30 17:11 Temperature 98.4 F 98.2 F 98.4 F Pulse Rate 74 98 76 Respiratory 18 18 16 Rate Blood Pressure 131/94 135/95 106/57 O2 Sat by Pulse 97 96 100 Oximetry 02/18/23 18:47 Temperature 98.2 F Pulse Rate 66 Respiratory 16 Rate Blood Pressure 128/90 O2 Sat by Pulse 100 Oximetry Medical Decision Making - Medical Decision Making Was pt. sent in by a medical professional or institution (, PA, HOTEL ENGINEER, urgent care, hospital, or fpc...) When possible be specific @ -No Did you speak to anyone other than the patient for history (EMS, parent, family, police, friend...)? What history was obtained from this source @ -No Did you review nursing and triage notes (agree or disagree)? Why? @ -I reviewed and agree with nursing and triage notes Were old charts reviewed (outside hosp., previous admission, EMS record, old EKG, old radiological studies, urgent care reports/EKG's, fpc records)? Report findings @ -No old charts were reviewed Differential Diagnosis (chest pain, altered mental status, abdominal pain women, abdominal pain men, vaginal bleeding, weakness, fever, dyspnea, syncope, headache, dizziness, GI bleed, back pain, seizure, CVA, palpatations, mental health, musculoskeletal)? @ -Differential Abdominal Pain Women: Appendicitis, Cholecystitis, diverticulosis, ischemic bowel, pancreatitis, hepatitis, UTI, gastroenteritis, AAA, incarcerated hernia, bowel obstruction, constipation, inflammatory bowel, hepatitis, peptic ulcer disease, splenic infarction, perforated viscus, vulvitis, ovarian torsion, PID, kidney stone, placenta abruption, this is not meant to be an all-inclusive list EKG interpreted by me (3pts min.). @ -EKG at 1042 shows sinus rhythm with sinus arrhythmia rate 93, PA 125, QRS 90, QTQTc 3 [id number] X-rays interpreted by me (1pt min.). @ -None done CT interpreted by me (1pt min.). @ -CT abdomen and pelvis shows nonspecific fluid filled small bowel loops U/S interpreted by me (1pt. min.). @ -Ultrasound right upper quadrant shows normal common bile duct What testing was considered but not performed or refused? (CT, X-rays, U/S, labs )? Why? @ -None What meds were considered but not given or refused? Why? @ -None Did you discuss the management of the patient with other professionals (professionals i.e. , PA, HOTEL ENGINEER, lab, RT, psych nurse, social work case manager, marketing information analyst, teacher, psychological operations officer, case resolution specialist)? Give summary @ -No Was smoking cessation discussed for >3mins.? @ -No Was critical care preformed (if so, how long)? @ -No Were there social determinants of health that impacted care today? How? (Homelessness, low income, unemployed, alcoholism, drug addiction, transportation, low edu. Level, literacy, decrease access to med. care, senior care, rehab)? @ -No Was there de-escalation of care discussed even if they declined (Discuss DNR or withdrawal of care, Hospice)? DNR status @ -No What co-morbidities impacted this encounter? (DM, HTN, Smoking, COPD, CAD, Cancer, CVA, ARF, Chemo, Hep., AIDS, mental health diagnosis, sleep apnea, morbid obesity)? @ -None Was patient admitted / discharged? Hospital course, mention meds given and route, prescriptions, significant lab abnormalities, going to OR and other pertinent info. @ -Discharged. Patient presented to the emergency department chief complaint of nausea and vomiting since Thursday. Denies any significant abdominal pain, fever, chills. Laboratory studies obtained. CBC shows that WBC 11.6, hemoglobin 17.5, hematocrit 49.4 likely due to dehydration.; CMP shows sodium 135, potassium 3.6; lactic acid 0.8, phosphorus 3.5, magnesium 1.8, ammonia 10. LFTs elevated which is normal for the patient during these episodes. She follows with gastroenterology for this. UA shows 2+ protein, 2+ ketones, CVA negative. Urine drug screen positive for methamphetamines, benzos, marijuana. Covid, influenza, RSV negative. Right upper quadrant ultrasound shows minimal free fluid within the abdomen, no acute abnormality. CT abdomen and pelvis shows fluid filled small bowel Patient given 2 L normal saline, Benadryl, Reglan. Patient is feeling much better after this regimen she has not had any episodes of vomiting. Patient is going to follow up with [facility]. Patient stable at time of discharge. Case discussed with Dr. Velarde Undiagnosed new problem with uncertain prognosis? @ -No Drug Therapy requiring intensive monitoring for toxicity (Heparin, Nitro, Insulin, Cardizem)? @ -No Were any procedures done? @ -No Diagnosis/symptom? @ -nausea and vomiting Acute, or Chronic, or Acute on Chronic? @ -acute Uncomplicated (without systemic symptoms) or Complicated (systemic symptoms)? @ -uncomplicated Side effects of treatment? @ -No Exacerbation, Progression, or Severe Exacerbation? @ -No Poses a threat to life or bodily function? How? (Chest pain, USA, NV, pneumonia, PE, COPD, DKA, ARF, appy, cholecystitis, CVA, Diverticulitis, Homicidal, Suicidal, threat to staff... and all critical care pts) @ -No - Lab Data Result diagrams: 02/18/23 11:36 02/18/23 11:36 Lab Results 02/18/23 02/18/23 02/18/23 Range/Units 10:40 11:36 11:36 WBC 11.6 H (3.8-10.6) k/uL RBC 5.64 H (3.80-5.40) m/uL Hgb 17.5 H (11.4-16.0) gm/dL Hct 49.4 H (34.0-46.0) % MCV 87.6 (80.0-100.0) fL MCH 31.1 (25.0-35.0) pg MCHC 35.5 (31.0-37.0) g/dL RDW 12.4 (11.5-15.5) % Plt Count 434 (150-450) k/uL MPV 8.1 Neutrophils % 83 % Lymphocytes % 11 % Monocytes % 3 % Eosinophils % 1 % Basophils % 0 % Neutrophils # 9.7 H (1.3-7.7) k/uL Lymphocytes # 1.3 (1.0-4.8) k/uL Monocytes # 0.4 (0-1.0) k/uL Eosinophils # 0.1 (0-0.7) k/uL Basophils # 0.0 (0-0.2) k/uL PT (10.0-12.5) sec INR (<1.2) APTT (22.0-30.0) sec Sodium 135 L (137-145) mmol/L Potassium 3.6 (3.5-5.1) mmol/L Chloride 95 L (98-107) mmol/L Carbon Dioxide 19 L (22-30) mmol/L Anion Gap 21 mmol/L BUN 17 (7-17) mg/dL Creatinine 0.70 (0.52-1.04) mg/dL Est GFR (CKD-EPI)AfAm >90 (>60 ml/min/1.73 sqM) Est GFR (CKD-EPI)NonAf >90 (>60 ml/min/1.73 sqM) Glucose 98 (74-99) mg/dL Plasma Lactic Acid Alek (0.7-2.0) mmol/L Calcium 10.2 (8.4-10.2) mg/dL Phosphorus (2.5-4.5) mg/dL Magnesium (1.6-2.3) mg/dL Total Bilirubin 4.4 H (0.2-1.3) mg/dL AST 88 H (14-36) U/L ALT 165 H (4-34) U/L Alkaline Phosphatase 178 H (38-126) U/L Ammonia (<30) umol/L Total Protein 8.8 H (6.3-8.2) g/dL Albumin 5.1 H (3.5-5.0) g/dL Lipase 33 (23-300) U/L Urine Color Urine Appearance (Clear) Urine pH (5.0-8.0) Ur Specific [place] (1.001-1.035) Urine Protein (Negative) Urine Glucose (UA) (Negative) Urine Ketones (Negative) Urine Blood (Negative) Urine Nitrite (Negative) Urine Bilirubin (Negative) Urine Urobilinogen (<2.0) mg/dL Ur Leukocyte Esterase (Negative) Urine RBC (0-5) /hpf Urine WBC (0-5) /hpf Ur Squamous Epith Cells (0-4) /hpf Urine Bacteria (None) /hpf Urine Mucus (None) /hpf Urine HCG, Qual (Not Detectd) Salicylates mg/dL Urine Opiates Screen (NotDetected) Ur Oxycodone Screen (NotDetected) Urine Methadone Screen (NotDetected) Ur Propoxyphene Screen (NotDetected) Acetaminophen ug/mL Ur Barbiturates Screen (NotDetected) U Tricyclic Antidepress (NotDetected) Ur Phencyclidine Scrn (NotDetected) Ur Amphetamines Screen (NotDetected) U Methamphetamines Scrn (NotDetected) U Benzodiazepines Scrn (NotDetected) Urine Cocaine Screen (NotDetected) U Marijuana (THC) Screen (NotDetected) Serum Alcohol mg/dL Influenza Type A (PCR) Not Detected (Not Detectd) Influenza Type B (PCR) Not Detected (Not Detectd) RSV (PCR) Not Detected (Not Detectd) SARS-CoV-2 (PCR) Not Detected (Not Detectd) 02/18/23 02/18/23 02/18/23 Range/Units 12:12 12:12 15:27 WBC (3.8-10.6) k/uL RBC (3.80-5.40) m/uL Hgb (11.4-16.0) gm/dL Hct (34.0-46.0) % MCV (80.0-100.0) fL MCH (25.0-35.0) pg MCHC (31.0-37.0) g/dL RDW (11.5-15.5) % Plt Count (150-450) k/uL MPV Neutrophils % % Lymphocytes % % Monocytes % % Eosinophils % % Basophils % % Neutrophils # (1.3-7.7) k/uL Lymphocytes # (1.0-4.8) k/uL Monocytes # (0-1.0) k/uL Eosinophils # (0-0.7) k/uL Basophils # (0-0.2) k/uL PT 11.0 (10.0-12.5) sec INR 1.0 (<1.2) APTT 26.9 (22.0-30.0) sec Sodium (137-145) mmol/L Potassium (3.5-5.1) mmol/L Chloride (98-107) mmol/L Carbon Dioxide (22-30) mmol/L Anion Gap mmol/L BUN (7-17) mg/dL Creatinine (0.52-1.04) mg/dL Est GFR (CKD-EPI)AfAm (>60 ml/min/1.73 sqM) Est GFR (CKD-EPI)NonAf (>60 ml/min/1.73 sqM) Glucose (74-99) mg/dL Plasma Lactic Acid Alek (0.7-2.0) mmol/L Calcium (8.4-10.2) mg/dL Phosphorus (2.5-4.5) mg/dL Magnesium (1.6-2.3) mg/dL Total Bilirubin (0.2-1.3) mg/dL AST (14-36) U/L ALT (4-34) U/L Alkaline Phosphatase (38-126) U/L Ammonia (<30) umol/L Total Protein (6.3-8.2) g/dL Albumin (3.5-5.0) g/dL Lipase (23-300) U/L Urine Color Light Brown Urine Appearance Slightly Cloudy H (Clear) Urine pH 6.0 (5.0-8.0) Ur Specific [place] 1.030 (1.001-1.035) Urine Protein 2+ H (Negative) Urine Glucose (UA) Negative (Negative) Urine Ketones 2+ (Negative) Urine Blood Negative (Negative) Urine Nitrite Negative (Negative) Urine Bilirubin 3+ H (Negative) Urine Urobilinogen 0.2 (<2.0) mg/dL Ur Leukocyte Esterase Negative (Negative) Urine RBC 2 (0-5) /hpf Urine WBC 4 (0-5) /hpf Ur Squamous Epith Cells 37 H (0-4) /hpf Urine Bacteria Rare H (None) /hpf Urine Mucus Many H (None) /hpf Urine HCG, Qual Not Detected (Not Detectd) Salicylates mg/dL Urine Opiates Screen Not Detected (NotDetected) Ur Oxycodone Screen Not Detected (NotDetected) Urine Methadone Screen Not Detected (NotDetected) Ur Propoxyphene Screen Not Detected (NotDetected) Acetaminophen ug/mL Ur Barbiturates Screen Not Detected (NotDetected) U Tricyclic Antidepress Not Detected (NotDetected) Ur Phencyclidine Scrn Not Detected (NotDetected) Ur Amphetamines Screen Not Detected (NotDetected) U Methamphetamines Scrn Detected H (NotDetected) U Benzodiazepines Scrn Detected H (NotDetected) Urine Cocaine Screen Not Detected (NotDetected) U Marijuana (THC) Screen Detected H (NotDetected) Serum Alcohol mg/dL Influenza Type A (PCR) (Not Detectd) Influenza Type B (PCR) (Not Detectd) RSV (PCR) (Not Detectd) SARS-CoV-2 (PCR) (Not Detectd) 02/18/23 02/18/23 Range/Units 15:27 15:27 WBC (3.8-10.6) k/uL RBC (3.80-5.40) m/uL Hgb (11.4-16.0) gm/dL Hct (34.0-46.0) % MCV (80.0-100.0) fL MCH (25.0-35.0) pg MCHC (31.0-37.0) g/dL RDW (11.5-15.5) % Plt Count (150-450) k/uL MPV Neutrophils % % Lymphocytes % % Monocytes % % Eosinophils % % Basophils % % Neutrophils # (1.3-7.7) k/uL Lymphocytes # (1.0-4.8) k/uL Monocytes # (0-1.0) k/uL Eosinophils # (0-0.7) k/uL Basophils # (0-0.2) k/uL PT (10.0-12.5) sec INR (<1.2) APTT (22.0-30.0) sec Sodium (137-145) mmol/L Potassium (3.5-5.1) mmol/L Chloride (98-107) mmol/L Carbon Dioxide (22-30) mmol/L Anion Gap mmol/L BUN (7-17) mg/dL Creatinine (0.52-1.04) mg/dL Est GFR (CKD-EPI)AfAm (>60 ml/min/1.73 sqM) Est GFR (CKD-EPI)NonAf (>60 ml/min/1.73 sqM) Glucose (74-99) mg/dL Plasma Lactic Acid Alek 0.8 (0.7-2.0) mmol/L Calcium (8.4-10.2) mg/dL Phosphorus 3.5 (2.5-4.5) mg/dL Magnesium 1.8 (1.6-2.3) mg/dL Total Bilirubin (0.2-1.3) mg/dL AST (14-36) U/L ALT (4-34) U/L Alkaline Phosphatase (38-126) U/L Ammonia 10 (<30) umol/L Total Protein (6.3-8.2) g/dL Albumin (3.5-5.0) g/dL Lipase (23-300) U/L Urine Color Urine Appearance (Clear) Urine pH (5.0-8.0) Ur Specific [place] (1.001-1.035) Urine Protein (Negative) Urine Glucose (UA) (Negative) Urine Ketones (Negative) Urine Blood (Negative) Urine Nitrite (Negative) Urine Bilirubin (Negative) Urine Urobilinogen (<2.0) mg/dL Ur Leukocyte Esterase (Negative) Urine RBC (0-5) /hpf Urine WBC (0-5) /hpf Ur Squamous Epith Cells (0-4) /hpf Urine Bacteria (None) /hpf Urine Mucus (None) /hpf Urine HCG, Qual (Not Detectd) Salicylates <1.0 mg/dL Urine Opiates Screen (NotDetected) Ur Oxycodone Screen (NotDetected) Urine Methadone Screen (NotDetected) Ur Propoxyphene Screen (NotDetected) Acetaminophen <10.0 ug/mL Ur Barbiturates Screen (NotDetected) U Tricyclic Antidepress (NotDetected) Ur Phencyclidine Scrn (NotDetected) Ur Amphetamines Screen (NotDetected) U Methamphetamines Scrn (NotDetected) U Benzodiazepines Scrn (NotDetected) Urine Cocaine Screen (NotDetected) U Marijuana (THC) Screen (NotDetected) Serum Alcohol <10 mg/dL Influenza Type A (PCR) (Not Detectd) Influenza Type B (PCR) (Not Detectd) RSV (PCR) (Not Detectd) SARS-CoV-2 (PCR) (Not Detectd) Disposition Clinical Impression: Nausea & vomiting Disposition: HOME SELF-CARE Condition: Stable Instructions (If sedation given, give patient instructions): Acute Nausea and Vomiting (ED) Additional Instructions: Please follow up with Dr. Martines. Return to the emergency department for new or worsening symptoms. Is patient prescribed a controlled substance at d/c from ED?: No Referrals: Barrie Jin DO [Primary Care Provider] - 1-2 days
[2023-02-18] MEDS ORDERED: METOCLOPRAMIDE 5 MG/ML 2 ML VIAL IVP STA (11:08)
[2023-02-18] MEDS ORDERED: SODIUM CHLORIDE 0.9% 2,000 ML IV STA (11:08)
[2023-02-18] MEDS ORDERED: diphenhydrAMINE 50 MG/ML 1 ML VIAL IVP STA (11:08)
[2023-02-18 11:49] LABS: Basophils % (A) 0 %; Eosinophils # (A) 0.1 k/uL (0-0.7); Eosinophils % (A) 1 %; HCT 49.4 % (34.0-46.0); HGB 17.5 gm/dL (11.4-16.0); Lymphocytes # (A) 1.3 k/uL (1.0-4.8); Lymphocytes % (A) 11 %; MCH 31.1 pg (25.0-35.0); MCHC 35.5 g/dL (31.0-37.0); MCV 87.6 fL (80.0-100.0); Mean Platelet Volume 8.1; Monocytes # (A) 0.4 k/uL (0-1.0); Monocytes % (A) 3 %; Neutrophils # (A) 9.7 k/uL (1.3-7.7); Neutrophils % (A) 83 %; Platelet Count 434 k/uL (150-450); RBC 5.64 m/uL (3.80-5.40); RDW 12.4 % (11.5-15.5); WBC 11.6 k/uL (3.8-10.6)
[2023-02-18 12:03] LABS: ALT 165 U/L (4-34); AST 88 U/L (14-36); African American GFR (CKD) >90 (>60 ml/min/1.73 sqM); Albumin 5.1 g/dL (3.5-5.0); Alkaline Phosphatase 178 U/L (38-126); Anion Gap 21 mmol/L; Blood Urea Nitrogen 17 mg/dL (7-17); Calcium 10.2 mg/dL (8.4-10.2); Carbon Dioxide 19 mmol/L (22-30); Chloride 95 mmol/L (98-107); Glucose 98 mg/dL (74-99); Lipase 33 U/L (23-300); Non-African American GFR(CKD) >90 (>60 ml/min/1.73 sqM); Potassium 3.6 mmol/L (3.5-5.1); Sodium 135 mmol/L (137-145); Total Bilirubin 4.4 mg/dL (0.2-1.3); Total Protein 8.8 g/dL (6.3-8.2)
[2023-02-18 12:48] LABS: Appearance,Urine Slightly Cloudy (Clear); Bilirubin,Urine 3+ (Negative); Blood,Urine Negative (Negative); Color,Urine Light Brown; Glucose,Urine (UA) Negative (Negative); Ketones,Urine 2+ (Negative); Leukocyte Esterase,Urine Negative (Negative); Nitrite,Urine Negative (Negative); Protein,Urine 2+ (Negative); Urobilinogen,Urine 0.2 mg/dL (<2.0)
[2023-02-18 12:50] LABS: Bacteria,Urine Rare /hpf; Mucus,Urine Many /hpf; RBC,Urine 2 /hpf (0-5); Squamous Epithelial Cell,Urine 37 /hpf (0-4); WBC,Urine 4 /hpf (0-5)
[2023-02-18 12:51] LABS: Amphetamine Screen,Urine Not Detected (NotDetected); Benzodiazepines Screen,Urine Detected (NotDetected); Cocaine Screen,Urine Not Detected (NotDetected); Methadone Screen, Urine Not Detected (NotDetected); Opiate Screen,Urine Not Detected (NotDetected); Phencyclidine Screen,Urine Not Detected (NotDetected); Tricyclic Antidepressant,Urine Not Detected (NotDetected); Urn Cannabinoid Scrn Detected (NotDetected)
[2023-02-18 12:52] LABS: Barbiturate Screen,Urine Not Detected (NotDetected); Oxycodone Screen, Urine Not Detected (NotDetected)
--- NOTE | 2023-02-18 14:47 | US ---
EXAMINATION TYPE: US gallbladder DATE OF EXAM: 02/18/2023 COMPARISON: NONE CLINICAL INDICATION: Female, 23 years old with history of hx cholecystectomy, elevated bili vomiting; Cholecystectomy, abdominal pain, nausea/vomiting, elevated bilirubin TECHNIQUE: Multiple sonographic images of the right upper quadrant are obtained. FINDINGS: EXAM MEASUREMENTS: Liver Length: 15.6 cm Gallbladder Wall: Surgically absent CBD: 0.4 cm Right Kidney: 8.8 x 3.4 x 4.4 cm Pancreas: Tail obscured by overlying bowel gas Liver: wnl Gallbladder: Surgically absent Evidence for sonographic Brewer's sign: no CBD: wnl Right Kidney: no evidence of hydronephrosis Small amount of free fluid adjacent to liver and right kidney IMPRESSION: 1. Minimal free fluid within the abdomen. 2. No additional acute abdomen ultrasound abnormality
[2023-02-18 17:29] VITALS: RESP 16
[2023-02-18 17:40] LABS: Partial Thromboplastin Time 26.9 sec (22.0-30.0)
--- NOTE | 2023-02-18 17:52 | CT ---
EXAMINATION TYPE: CT abdomen pelvis w con DATE OF EXAM: 02/18/2023 COMPARISON: 02/15/2020 INDICATION: Epigastric pain, N/V. DLP: 436.6 mGycm, Automated exposure control for dose reduction was used. CONTRAST: 100 ml mL of Isovue 300. Study performed without Oral Contrast TECHNIQUE: Axial images were obtained from above the diaphragm to the pubic rami in the axial plane a t 5 mm thick sections. Reconstructed images are reviewed on the computer in the coronal plane. FINDINGS: Limited CT sections are obtained the lung bases. The lung bases are clear. CT ABDOMEN: Liver: Normal Spleen: Normal Pancreas: Normal Adrenal glands: The adrenal glands are normal. Gallbladder: Not identified. Correlate with surgical history. Kidneys: No masses are evident. No hydronephrosis is present. No cysts are present. Delayed images were obtained through the kidneys, which remain unremarkable. Aorta: Normal Inferior vena cava: Normal. CT PELVIS: There are some fluid-filled small bowel loops which are nonspecific. Consider mild ileus. No obstruct ion is evident. Appendix: Not identified. No dilated tubular structure or inflammatory changes evident. Urinary bladder: Normal. Genitourinary structures: Osseous structures: No suspicious lytic or sclerotic lesions. IMPRESSION: 1. Nonspecific fluid-filled small bowel loops. Correlate for ileus or gastroenteritis.
[2023-02-18 17:58] LABS: Lactic Acid, Venous 0.8 mmol/L (0.7-2.0)
[2023-02-18 18:01] LABS: Acetaminophen <10.0 ug/mL; Alcohol <10 mg/dL; Magnesium 1.8 mg/dL (1.6-2.3); Phosphorus 3.5 mg/dL (2.5-4.5); Salicylate <1.0 mg/dL
[2023-02-18 18:59] VITALS: BP 128/90; PULSE 66; TEMP 98.2
[2023-02-19 03:21] LABS: Hepatitis A Antibody IgM Nonreactive; Hepatitis B Core IgM Nonreactive; Hepatitis B Surface Antigen Nonreactive; Hepatitis C IgG Antibody Nonreactive
== END 2023-02-18 18:55 | disposition home or self-care (01) ==
LOC: EC 10:30
DX: R11.2 Nausea with vomiting, unspecified (principal); R94.5 Abnormal results of liver function studies; J45.909 Unspecified asthma, uncomplicated; Z20.822 Contact with and (suspected) exposure to COVID-19; Z90.49 Acquired absence of other specified parts of digestive tract
CPT/HCPCS: 36415; 80053; 80074; 82140; 83605; 83690; 83735; 84100; 85025; 85610; 85730; 81001; 81025; 80306; 80143; 80320; 87636; 80179; 76705; 74177; 99285; 96374; 96375; 96361 ×2; J1200; J2765; Q9967; 93005

== ENCOUNTER 2023-02-20 09:51 | Emergency (ER) | payer BC, OTHER ==
[2023-02-20 10:09] VITALS: RESP 18
[2023-02-20] MEDS ORDERED: SODIUM CHLORIDE 0.9% 1,000 ML IV STA (10:13)
--- NOTE | 2023-02-20 10:13 | ED ---
Nausea/Vomiting/Diarrhea HPI - General Chief complaint: Nausea/Vomiting/Diarrhea Stated complaint: Nausea, Vomiting Time Seen by Provider: 02/20/23 10:05 Source: patient, RN notes reviewed Mode of arrival: ambulatory Limitations: no limitations - History of Present Illness Initial comments: Patient is a 23-year-old female presented ER chief complaint of nausea. Patient was seen here on 02/18/23 for similar complaint. Patient reports she has been nauseous since 2 AM. Her last episode of vomiting was 2 AM. Patient denies any fevers, chills, night sweats. Patient does follow up with GI but has not followed up since her last ER visit. Patient states she has not been able to keep anything down for about a week. She endorses epigastric pain. Patient states she has been having normal bowel movements. - Related Data Home Medications Medication Instructions Recorded Confirmed Loratadine [Claritin] 10 mg PO HS 02/15/20 06/20/22 desog-e.estradioL/e.estradioL 1 tab PO HS 06/19/22 06/20/22 [Mircette 28 Day Tablet] Dicyclomine [Bentyl] 20 mg PO QID PRN 06/20/22 06/20/22 Previous Rx's Medication Instructions Recorded Ondansetron Odt [Zofran Odt] 4 mg PO Q8HR PRN #10 tab 02/20/23 Allergies Allergy/AdvReac Type Severity Reaction Status Date / Time No Known Allergies Allergy Verified 02/20/23 10:02 Review of Systems ROS Statement: Those systems with pertinent positive or pertinent negative responses have been documented in the HPI. ROS Other: All systems not noted in ROS Statement are negative. Past Medical History Past Medical History: Asthma, Syncope Additional Past Medical History / Comment(s): Low BP. Hx fainting episodes occasionally since 2016, was told could be her low BP-not sure, last episode of syncope was about 2 weeks ago, IBS; elevated bile acids in this History of Any Multi-Drug Resistant Organisms: C-DIFF Date of last positivie culture/infection: 12/08/19 MDRO Source:: stool Past Surgical History: Cholecystectomy Additional Past Surgical History / Comment(s): EGD. 12/2019 - [facility] Past Anesthesia/Blood Transfusion Reactions: Postoperative Nausea & Vomiting (PONV) Additional Past Anesthesia/Blood Transfusion Reaction / Comment(s): scope 11/2019 Past Psychological History: Anxiety Smoking Status: Never smoker Past Alcohol Use History: None Reported Past Drug Use History: None Reported - Past Family History Mother Family Medical History: No Reported History Additional Family Medical History / Comment(s): clarence Father Family Medical History: No Reported History General Exam Limitations: no limitations General appearance: alert, in no apparent distress Respiratory exam: Present: normal lung sounds bilaterally. Absent: respiratory distress, wheezes, rales, rhonchi, stridor Cardiovascular Exam: Present: regular rate, normal rhythm, normal heart sounds. Absent: systolic murmur, diastolic murmur, rubs, gallop, clicks GI/Abdominal exam: Present: soft, normal bowel sounds. Absent: distended, tenderness, guarding, rebound, rigid By manual exam: Present: adnexal tenderness Neurological exam: Present: alert, oriented X3, CN II-XII intact Psychiatric exam: Present: normal affect, normal mood Skin exam: Present: warm, dry, intact, normal color. Absent: rash Course Vital Signs 02/20/23 02/20/23 10:01 11:18 Temperature 98.4 F Pulse Rate 84 94 Respiratory 18 18 Rate Blood Pressure 116/74 101/74 O2 Sat by Pulse 100 98 Oximetry Medical Decision Making - Medical Decision Making Was pt. sent in by a medical professional or institution (COURTNEY Sanchez, PROTECTIVE SIGNAL REPAIRER HELPER, urgent care, hospital, or prison...) When possible be specific @ -No Did you speak to anyone other than the patient for history (EMS, parent, family, police, friend...)? What history was obtained from this source @ -Family Did you review nursing and triage notes (agree or disagree)? Why? @ -I reviewed and agree with nursing and triage notes Were old charts reviewed (outside hosp., previous admission, EMS record, old EKG, old radiological studies, urgent care reports/EKG's, prison records)? Report findings @ -Yes, I reviewed old charts and labs from ER visit on 02/18/23. CT abdomen and pelvis obtained showed possible ileus or gastroenteritis. Gallbladder ultrasound showed minimal free fluid within the abdomen no other acute findings. Differential Diagnosis (chest pain, altered mental status, abdominal pain women, abdominal pain men, vaginal bleeding, weakness, fever, dyspnea, syncope, headache, dizziness, GI bleed, back pain, seizure, CVA, palpatations, mental health, musculoskeletal)? @ -Differential Abdominal Pain Women:Appendicitis, Cholecystitis, diverticulosis, ischemic bowel, pancreatitis, hepatitis, UTI, gastroenteritis, AAA, incarcerated hernia, bowel obstruction, constipation, inflammatory bowel, hepatitis, peptic ulcer disease, splenic infarction, perforated viscus, vulvitis, ovarian torsion, PID, kidney stone, placenta abruption, this is not meant to be an all-inclusive list EKG interpreted by me (3pts min.). @ -None X-rays interpreted by me (1pt min.). @ -None done CT interpreted by me (1pt min.). @ -None done U/S interpreted by me (1pt. min.). @ -None done What testing was considered but not performed or refused? (CT, X-rays, U/S, labs)? Why? @ -None What meds were considered but not given or refused? Why? @ -None Did you discuss the management of the patient with other professionals (professionals i.e. , PA, PROTECTIVE SIGNAL REPAIRER HELPER, lab, RT, psych nurse, social scientist, tile conduit layer, teacher, chief credit officer, case making machine operator)? Give summary @ -No Was smoking cessation discussed for >3mins.? @ -No Was critical care preformed (if so, how long)? @ -No Were there social determinants of health that impacted care today? How? (Homelessness, low income, unemployed, alcoholism, drug addiction, transportation, low edu. Level, literacy, decrease access to med. care, nursing home, rehab)? @ -No Was there de-escalation of care discussed even if they declined (Discuss DNR or withdrawal of care, Hospice)? DNR status @ -No What co-morbidities impacted this encounter? (DM, HTN, Smoking, COPD, CAD, Cancer, CVA, ARF, Chemo, Hep., AIDS, mental health diagnosis, sleep apnea, morbid obesity)? @ -None Was patient admitted / discharged? Hospital course, mention meds given and route, prescriptions, significant lab abnormalities, going to OR and other pertinent info. @ -Discharge. Patient is a 23-year-old female presented ER chief complaint of nausea. Upon examination, patient's vitals are stable. Physical exam was significant for mild epigastric tenderness. Normal bowel sounds. Labs were obtained and were significant for transaminitis (ALT 333, AST 134, Alk phos. 154, bilirubin 2.1). Patient received IV droperidol and 1L IV fluids with improvement of symptoms. I reviewed labs and old charts from her visit to the ER on 02/18/23. Imaging was performed at that visit. CT showed nonspecific fluid-filled small bowel loops. Possible ileus or gastroenteritis. Gallbladder ultrasound was unimpressive. I discussed with patient to follow-up with her GI doctor. Patient will be prescribed zofran at discharge for nausea. Return parameters were discussed. Patient will be discharged in stable condition with follow-up to PCP and GI. Patient expressed understanding and agreement with care plan. Undiagnosed new problem with uncertain prognosis? @ -No Drug Therapy requiring intensive monitoring for toxicity (Heparin, Nitro, Insulin, Cardizem)? @ -No Were any procedures done? @ -No Diagnosis/symptom? @ -Nausea Acute, or Chronic, or Acute on Chronic? @ -Acute Uncomplicated (without systemic symptoms) or Complicated (systemic symptoms)? @ -Uncomplicated Side effects of treatment? @ -No Exacerbation, Progression, or Severe Exacerbation? @ -No Poses a threat to life or bodily function? How? (Chest pain, USA, LA, pneumonia, PE, COPD, DKA, ARF, appy, cholecystitis, CVA, Diverticulitis, Homicidal, Suicidal, threat to staff... and all critical care pts) @ -No - Lab Data Result diagrams: 02/20/23 10:46 02/20/23 10:46 Lab Results 02/20/23 02/20/23 Range/Units 10:46 10:46 WBC 8.6 (3.8-10.6) k/uL RBC 5.16 (3.80-5.40) m/uL Hgb 16.0 (11.4-16.0) gm/dL Hct 45.9 (34.0-46.0) % MCV 88.9 (80.0-100.0) fL MCH 31.1 (25.0-35.0) pg MCHC 35.0 (31.0-37.0) g/dL RDW 12.4 (11.5-15.5) % Plt Count 391 (150-450) k/uL MPV 8.2 Sodium 134 L (137-145) mmol/L Potassium 4.2 (3.5-5.1) mmol/L Chloride 97 L (98-107) mmol/L Carbon Dioxide 15 L (22-30) mmol/L Anion Gap 22 mmol/L BUN 8 (7-17) mg/dL Creatinine 0.59 (0.52-1.04) mg/dL Est GFR (CKD-EPI)AfAm >90 (>60 ml/min/1.73 sqM) Est GFR (CKD-EPI)NonAf >90 (>60 ml/min/1.73 sqM) Glucose 63 L (74-99) mg/dL Calcium 9.6 (8.4-10.2) mg/dL Total Bilirubin 2.1 H (0.2-1.3) mg/dL AST 134 H (14-36) U/L ALT 333 H (4-34) U/L Alkaline Phosphatase 154 H (38-126) U/L Total Protein 8.1 (6.3-8.2) g/dL Albumin 4.7 (3.5-5.0) g/dL Disposition Clinical Impression: Nausea & vomiting Disposition: HOME SELF-CARE Condition: Stable Instructions (If sedation given, give patient instructions): Acute Nausea and Vomiting (ED) Additional Instructions: Please return to the Emergency Department if symptoms worsen or any other concerns. Please follow-up with your GI specialist as soon as possible. Prescriptions: Ondansetron Odt [Zofran Odt] 4 mg PO Q8HR PRN #10 tab PRN Reason: Nausea Is patient prescribed a controlled substance at d/c from ED?: No Referrals: Barrie Jin DO [Primary Care Provider] - 1-2 days Time of Disposition: 13:09
[2023-02-20] MEDS ORDERED: droPERidol 5 MG/2 ML VIAL IVP ONE (10:18)
[2023-02-20 11:43] LABS: HCT 45.9 % (34.0-46.0); MCH 31.1 pg (25.0-35.0); MCV 88.9 fL (80.0-100.0); Mean Platelet Volume 8.2; Platelet Count 391 k/uL (150-450); RBC 5.16 m/uL (3.80-5.40); RDW 12.4 % (11.5-15.5); WBC 8.6 k/uL (3.8-10.6)
[2023-02-20 11:49] LABS: ALT 333 U/L (4-34); AST 134 U/L (14-36); African American GFR (CKD) >90 (>60 ml/min/1.73 sqM); Albumin 4.7 g/dL (3.5-5.0); Alkaline Phosphatase 154 U/L (38-126); Anion Gap 22 mmol/L; Blood Urea Nitrogen 8 mg/dL (7-17); Calcium 9.6 mg/dL (8.4-10.2); Carbon Dioxide 15 mmol/L (22-30); Chloride 97 mmol/L (98-107); Glucose 63 mg/dL (74-99); Non-African American GFR(CKD) >90 (>60 ml/min/1.73 sqM); Potassium 4.2 mmol/L (3.5-5.1); Sodium 134 mmol/L (137-145); Total Bilirubin 2.1 mg/dL (0.2-1.3); Total Protein 8.1 g/dL (6.3-8.2)
[2023-02-20 13:34] VITALS: BP 110/66; PULSE 78; TEMP 98.3
== END 2023-02-20 13:31 | disposition home or self-care (01) ==
LOC: EC 09:51
DX: R11.2 Nausea with vomiting, unspecified (principal); J45.909 Unspecified asthma, uncomplicated; K58.9 Irritable bowel syndrome, unspecified; Z79.899 Other long term (current) drug therapy; Z90.49 Acquired absence of other specified parts of digestive tract
CPT/HCPCS: 99284; 96374; 96361 ×2; 36415; 80053; 83605; 85027; J1790